=== PATIENT | female | born 1935 | race Caucasian/White ===

== ENCOUNTER 2016-10-30 12:01 | Emergency (ER) | payer OTHER ==
[~2016-10-30] VITALS: Ht 162.6 cm; Wt 50.2 kg
[~2016-10-30 12:01] MED LIST: ASPEC325 PO; CALC-20 PEG; CLC100X PO; INSDGI SC; LEVO75TA5 PO; MULT-506 PO; NRT/25 PO; PLV75 PO; POLY335019 PO
[2016-10-30 12:06] VITALS: TEMP 36.4; Ht 162.6 cm; Wt 50.2 kg
[2016-10-30] MEDS ORDERED: INSDGIPEN SC (12:17)
[2016-10-30] MEDS ORDERED: DOCU-94 PO (12:17)
[2016-10-30] MEDS ORDERED: CLOP1TAB5 PO (12:17)
[2016-10-30] MEDS ORDERED: ASPI325T45 PO (12:17)
--- NOTE | 2016-10-30 12:58 | EMERGENCY ROOM VISIT NOTE ---
History First contact with patient: 12:20 Chief Complaint: EYE PAIN Stated Complaint: EYE PAIN History of Present Illness The patient is a 81 year old female who presents to the Emergency Room with complaints of swelling and infection around the left eye. The patient states that she noticed an area of swelling to the left medial canthus. She saw her developer evangelist and was started on oral Zithromax. She states that she saw her family doctor today who referred her to the emergency department as the cyst is getting much larger. The patient states she has seen in the past. She rates her pain a 10/10. She has some decreased vision secondary to the amount of swelling. She denies any earache, sore throat, cough or fever. Review of Systems A 10 system review of systems was completed with positives and pertinent negatives listed in the HPI. Past Medical/Surgical History Medical Problems: (1) Eye problem (2) Hypertension Nos (3) Hypothyroidism (4) Neuropathy (5) Stroke (6) Type 2 diabetes mellitus Family History Cancer Diabetes mellitus Social History Smoking Status: Never Smoker Marital Status: Housing Status: lives with significant other Occupation Status: retired Current/Historical Medications Scheduled Amoxicillin & Pot Clavulanate (Augmentin 875-125 mg), 1 TAB PO BID Aspirin (Aspirin), 1 TAB PO DAILY Calcium Carbonate-Vitamin D (Calcium 600 + D), 1 TABLET PEG BID Ciprofloxacin Hcl (Ophth) (Ciloxan Oph), 2 DROP OP QID Clopidogrel Bisulfate (Plavix), 75 MG PO DAILY Docusate Sodium (Colace), 1 CAP PO BID Insulin Glargine (Lantus Solostar), 18 UNITS SC QAM Levothyroxine Sodium (Levothyroxine Sodium), 75 MCG PO DAILY Multivitamin (Multivitamin), 1 TABLET PO DAILY Nortriptyline Hcl (Pamelor), 25 MG PO HS Polyethylene Glycol 3350 (Miralax), 1 DOSE PO DAILY Physical Exam Vital Signs Date Time Temp Pulse Resp B/P (MAP) Pulse Ox O2 Delivery O2 Flow Rate FiO2 10/30/16 13:46 79 20 133/74 99 10/30/16 12:06 36.4 94 20 138/70 100 Room Air Right Eye Acuity: Patient unable to complete test due to not having her glasses Physical Exam VITALS: Vitals are noted on the nurse's note and reviewed by myself. Vital signs stable. GENERAL: This is a 81-year-old female, in no acute distress, nondiaphoretic, well-developed well-nourished. SKIN: There is no tenting of the skin. Capillary reflex less than 2 seconds. HEAD: Normocephalic atraumatic. EARS: External auditory canals clear, tympanic membranes pearly alfaro without erythema or effusion bilaterally. EYES: Pupils equal round and reactive to light and accommodation. Conjunctivae without injection, sclerae without icterus. Extraocular movements intact. There is a large fluctuant cyst to the left medial canthus that measures approximately 2 cm in diameter. There is some mild erythema that extends in the left periorbital area. There is no pain with extraocular eye movements. NOSE: Patent, turbinates without inflammation or discharge. No sinus tenderness. MOUTH: Mucous membranes moist. Tonsils are not enlarged. Pharynx without erythema or exudate. Uvula midline. Airway patent. Tongue does not deviate. NECK: Supple without nuchal rigidity. No lymphadenopathy. No thyromegaly. Cervical spine is nontender. No JVD. HEART: Regular rate and rhythm without murmurs gallops or rubs. LUNGS: Clear to auscultation bilaterally without wheezes, rales or rhonchi. MUSCULOSKELETAL: No muscle atrophy, erythema, or edema noted. Full range of motion in all extremities. No tenderness to palpation. Normal gait. Strength 5/5 throughout. NEURO: Patient was alert and oriented to person place and time. No focal neurological deficits. Medical Decision & Procedures Medications Administered Medications (Trade) Dose Ordered Sig/Rica Route Start Time Stop Time Status Last Admin Dose Admin Diphtheria/ Pertussis/Tetanus Vacc (Adacel Inj) 0.5 ml ONCE ONCE IM. 10/30/16 13:30 10/30/16 13:31 DC 10/30/16 13:40 0.5 ML Procedure Incision and drainage of infected cyst The area was cleaned with saline. I palpated to find the area of most fluctuance to perform the incision and drainage; however, with the pressure of the cyst spontaneously ruptured and began to drain a moderate amount of pus. A culture was obtained. The area was numbed with a very minimal amount of lidocaine, less than 0.5 mL. A large amount of purulent debris was expressed with pressure. The patient tolerated the procedure very well. She felt much better after the drainage. ED Course The patient was seen and examined. Previous visits were reviewed. The patient does not have a fever. She does not have any pain with extraocular eye movement. She appears to have an infected cyst to the medial canthus of the left eye. I discussed the case with Dr. Arenas who suggests draining the area, antibiotic eyedrops and oral antibiotic and follow-up in the office. The area was drained as above. The patient was given prescriptions for Ciloxan eyedrops to be used 4 times a day and Augmentin. She should contact ophthalmology tomorrow morning to schedule a follow-up appointment for further evaluation and management. She should return with any worsening symptoms. The patient was also seen and examined by who agrees with the assessment and treatment plan. Medical Decision The differential diagnosis includes cellulitis, preseptal cellulitis, abscess, cyst, hordeolum, chalazion, abscess, among others Medication Reconcilliation Current Medication List: was personally reviewed by me Blood Pressure Screening Patient's blood pressure: Elevated blood pressure Blood pressure disposition: Elevated BP felt to be situational Impression Primary Impression: Infected cyst of skin Departure Information Dispostion Home / Self-Care Condition GOOD Prescriptions Amoxicillin & Pot Clavulanate (Augmentin 875-125 mg) 1 Tab Tab 1 TAB PO BID for 7 Days, #14 TAB Prov: Carlotta Last PA-C 10/30/16 Ciprofloxacin Hcl (Ophth) (CILOXAN OPH) 0.3 % Chasidy 2 DROP OP QID for 5 Days, #1 BTL Prov: Carlotta Last PA-C 10/30/16 Referrals Sierra Richardson D.O. (PCP) Chirag Arenas M.D. Patient Instructions Drainage Abscess, My [facility] Additional Instructions Augmentin every 12 hours for 7 days Use the eyedrops every 6 hours for 5 days Contact ophthalmology first thing in the morning to schedule a follow-up appointment Return with any worsening symptoms
[2016-10-30] MEDS ORDERED: XYLOCAINE 1%/SOD BICARB 20 ML VIAL INFIL ONE (13:00)
[2016-10-30] MEDS ORDERED: CIPR0.3S OP (13:27)
[2016-10-30] MEDS ORDERED: AMOX875T PO (13:27)
[2016-10-30] MEDS ORDERED: DIPHTHERIA/TETANUS/PERTUSSIS 0.5 ML SYR/VIAL IM. ONE (13:30)
[2016-10-30 13:46] VITALS: BP 133/74; PULSE 79; O2SAT 99
--- NOTE | 2016-11-07 12:39 | Pharmacy Progress Note ---
ED Pharmacist Culture FollowUp Date of Service: Nov 07, 2016. Patient was sent home with a prescription for Augmentin, which should cover the Staph aureus (MSSA) growing from the patient's eye/abscess culture.
== END 2016-10-30 13:48 | disposition home or self-care (01) ==
LOC: C.EDB 12:03 → C.EDD 13:48
DX: L08.89 Other specified local infections of the skin and subcutaneous tissue (principal); I10 Essential (primary) hypertension; E03.9 Hypothyroidism, unspecified; E11.40 Type 2 diabetes mellitus with diabetic neuropathy, unspecified; Z86.73 Personal history of transient ischemic attack (TIA), and cerebral infarction without residual deficits; Z79.82 Long term (current) use of aspirin; Z79.4 Long term (current) use of insulin; Z83.3 Family history of diabetes mellitus; Z23 Encounter for immunization

== ENCOUNTER 2017-03-04 09:06 | Emergency (ER) | payer OTHER ==
[~2017-03-04] VITALS: Ht 162.6 cm; Wt 52.1 kg
[~2017-03-04 09:06] MED LIST changes: -ASPEC325 PO; +ASPI325T45 PO; -CLC100X PO; +CLOP1TAB5 PO; +DOCU-94 PO; -INSDGI SC; +INSDGIPEN SC; -PLV75 PO
[2017-03-04 09:08] VITALS: TEMP 36.6; Ht 162.6 cm; Wt 52.1 kg
[2017-03-04] MEDS ORDERED: ASPI81TA28 PO (09:25)
--- NOTE | 2017-03-04 09:46 | EMERGENCY ROOM VISIT NOTE ---
History Report prepared by Opal: Carlotta Mancia Under the Supervision of: Dr. Lester Mujica M.D. First contact with patient: 09:32 Chief Complaint: EYE ASSESSMENT Stated Complaint: SWOLLEN EYE History of Present Illness cPositive right eye blurry vision, right eye pain. She currently rates her discomfort as a 6/10 in severity. The patient states that this has happened in the past. Source of History: patient Onset: couple days ago Position: eye (left) Symptom Intensity: 6/10 Quality: other (swelling) Timing: other (persistent) Note: Associated symptoms: left eye blurred vision Review of Systems See HPI for pertinent positives and negatives. A total of ten systems were reviewed and were otherwise negative. Past Medical & Surgical Medical Problems: (1) Eye problem (2) Hypertension Nos (3) Hypothyroidism (4) Neuropathy (5) Stroke (6) Type 2 diabetes mellitus Family History Cancer Diabetes mellitus Social History Smoking Status: Never Smoker Smokeless Tobacco Use: No Alcohol Use: none Marital Status: Housing Status: lives with significant other Occupation Status: retired Current/Historical Medications Scheduled Aspirin (Aspirin Ec), 81 MG PO DAILY Calcium Carbonate-Vitamin D (Calcium 600 + D), 1 TABLET PEG BID Clindamycin Hcl (Cleocin), 450 MG PO TID Clopidogrel Bisulfate (Plavix), 75 MG PO DAILY Docusate Sodium (Colace), 1 CAP PO BID Insulin Glargine (Lantus Solostar), 4 UNITS SC QAM Levothyroxine Sodium (Levothyroxine Sodium), 75 MCG PO DAILY Multivitamin (Multivitamin), 1 TABLET PO DAILY Nortriptyline Hcl (Pamelor), 25 MG PO HS Polyethylene Glycol 3350 (Miralax), 1 DOSE PO DAILY Allergies Coded Allergies: Doxycycline (Verified Allergy, Severe, AIRWAY EDEMA, 03/04/17) Lisinopril (Unverified Allergy, Severe, ANGIOEDEMA, 03/04/17) Sertraline (Verified Allergy, Severe, THROAT SWELLING, 03/04/17) Prednisolone (Verified Allergy, Intermediate, BURNED EYES, 03/04/17) Atenolol (Unverified Adverse Reaction, Intermediate, SWELLING, 03/04/17) Codeine (Unverified Adverse Reaction, Intermediate, GI UPSET, 03/04/17) Ezetimibe (Unverified Adverse Reaction, Intermediate, SINUS PROBLEMS, ) Gemfibrozil (Unverified Adverse Reaction, Intermediate, MUSCLE ACHES, ) Glipizide (Verified Adverse Reaction, Intermediate, GI UPSET, 03/04/17) Oxycodone (Verified Adverse Reaction, Intermediate, VOMITING, 03/04/17) Pioglitazone (Unverified Adverse Reaction, Intermediate, SWELLING, ) Repaglinide (Unverified Adverse Reaction, Intermediate, NAUSEA, 03/04/17) Aminoglycosides (Unverified Adverse Reaction, Mild, UNKNOWN, 03/04/17) Bacitracin (Unverified Adverse Reaction, Mild, UNKNOWN, 03/04/17) Metformin (Unverified Adverse Reaction, Mild, UNKNOWN, 03/04/17) Neomycin (Unverified Adverse Reaction, Mild, UNKNOWN, 03/04/17) Polymyxin B (Unverified Adverse Reaction, Mild, UNKNOWN, 03/04/17) Simvastatin (Unverified Adverse Reaction, Mild, UNKNOWN, 03/04/17) Tetracycline (Unverified Adverse Reaction, Mild, UNKNOWN, 03/04/17) Physical Exam Vital Signs Date Time Temp Pulse Resp B/P (MAP) Pulse Ox O2 Delivery O2 Flow Rate FiO2 03/04/17 12:37 87 18 130/55 96 Room Air 03/04/17 11:10 94 18 119/63 96 Room Air 03/04/17 09:08 36.6 84 18 119/63 100 Room Air Right Eye Acuity: 20/70 Left Eye Acuity: 20/50 Physical Exam GENERAL: Awake, alert, well-appearing, NAD, patient appears stated age. HENT: Normocephalic, atraumatic. EYES: Eyes only: some preseptal swelling medial to the canthus and inferior to the eye. EOMI without pain, no proptosis, visual acuity intact, no visual field deficits, no APD NECK: Supple. No nuchal rigidity. FROM. RESPIRATORY: CTAB, no rhonchi, wheezing, crackles CARDIAC: RRR, no MRG ABDOMEN: Soft, NTND, BS+ MSK: No chest wall TTP, no LE edema NEURO: GCS 15, CN 2-12 intact, moves all 4s on command SKIN: No rash or jaundice noted. Medical Decision & Procedures Laboratory Results 03/04/17 11:00 Red Blood Count 4.34, Mean Corpuscular Volume 94.9, Mean Corpuscular Hemoglobin 31.3, Mean Corpuscular Hemoglobin Concent 33.0, Mean Platelet Volume 9.4, Neutrophils (%) (Auto) 81.5, Lymphocytes (%) (Auto) 9.3, Monocytes (%) (Auto) 8.2, Eosinophils (%) (Auto) 0.3, Basophils (%) (Auto) 0.4, Neutrophils # (Auto) 7.71, Lymphocytes # (Auto) 0.88, Monocytes # (Auto) 0.78, Eosinophils # (Auto) 0.03, Basophils # (Auto) 0.04 03/04/17 11:00 Test 03/04/17 11:00 White Blood Count 9.47 K/uL (4.8-10.8) Red Blood Count 4.34 M/uL (4.2-5.4) Hemoglobin 13.6 g/dL (12.0-16.0) Hematocrit 41.2 % (37-47) Mean Corpuscular Volume 94.9 fL (80-100) Mean Corpuscular Hemoglobin 31.3 pg (25-34) Mean Corpuscular Hemoglobin Concent 33.0 g/dl (32-36) Platelet Count 307 K/uL (130-400) Mean Platelet Volume 9.4 fL (7.4-10.4) Neutrophils (%) (Auto) 81.5 % Lymphocytes (%) (Auto) 9.3 % Monocytes (%) (Auto) 8.2 % Eosinophils (%) (Auto) 0.3 % Basophils (%) (Auto) 0.4 % Neutrophils # (Auto) 7.71 K/uL (1.4-6.5) Lymphocytes # (Auto) 0.88 K/uL (1.2-3.4) Monocytes # (Auto) 0.78 K/uL (0.11-0.59) Eosinophils # (Auto) 0.03 K/uL (0-0.5) Basophils # (Auto) 0.04 K/uL (0-0.2) RDW Standard Deviation 46.3 fL (36.4-46.3) RDW Coefficient of Variation 13.3 % (11.5-14.5) Immature Granulocyte % (Auto) 0.3 % Immature Granulocyte # (Auto) 0.03 K/uL (0.00-0.02) Anion Gap 5.0 mmol/L (3-11) Est Creatinine Clear Calc Drug Dose 51.3 ml/min Estimated GFR () 91.7 Estimated GFR (Non- 79.1 BUN/Creatinine Ratio 25.9 (10-20) Calcium Level 9.5 mg/dl (8.5-10.1) Medications Administered Medications (Trade) Dose Ordered Sig/Rica Route Start Time Stop Time Status Last Admin Dose Admin Clindamycin Phosphate 900 mg/ Dextrose 106 ml @ 100 mls/hr ONE ONCE IV 03/04/17 10:15 03/04/17 11:18 DC 03/04/17 10:57 100 MLS/HR ED Course 0937: The patient was evaluated in room A4B. A complete history and physical exam was performed. 1129: I reevaluated the patient and she is resting comfortably. I discussed the exam findings with her at this time. Ophthalmology is going to be consulted. 1210: I discussed the patients case with Dr. Hester, Ophthalmology. He agrees with the treatment plan. 1215: I updated the patient at this time and she is in agreement with the treatment plan. She is ready to go home. Medical Decision The patient is an 82 year old white female with a past medical history of diabetes who presents to the ED with a cc of persistent left eye swelling beginning a couple days ago. Triage Nursing notes reviewed. The patient's presentation and history were concerning for preseptal cellulitis , orbital cellulitis, dacryocystitis. Patient was seen and evaluated the bedside. Patient is a history of diabetes and states that she's had some worsening left eye swelling beginning a couple of days prior. Patient states her blood sugars morning 130s. Patient has complaints mild blurry vision but no deficits. Patient exam has no APD, no visual field deficits, EOM intact without pain. Patient does have some mild swelling the medial aspect of the left eye as well as preseptal. Patient did have a blood work that was completed and was given IV clindamycin. I did speak with the speed belt sander tender. Patient's white blood cell count was normal. I did discuss the case with food on-call speed belt sander tender who agreed with the current plan of care which was antibiotics in addition to warm compresses. The patient was told that if she had worsening swelling, purulent drainage, pain with extraocular movements she should return for further evaluation. Patient was amenable to the plan of care. Patient was deemed suitable for outpatient follow-up and treatment. Patient does have a outpatient appointment next Monday and was told she can present here sooner if she has more concerning symptoms. All questions were answered. Patient was given strict follow-up, discharge, and return precautions. All questions were answered. Patient was deemed suitable for outpatient follow-up at this time. Patient agreed with the plan of care and was safely discharged home. Medication Reconcilliation Current Medication List: was personally reviewed by me Blood Pressure Screening Patient's blood pressure: Normal blood pressure Blood pressure disposition: Did not require urgent referral Consults Time Called: 1135 Consulting Physician: Dr. Hester, Ophthalmology Returned Call: 1210 discussed the patients case with Dr. Hester, Ophthalmology. He agrees with the treatment plan. Impression Primary Impression: Dacrocystitis Scribe Attestation The scribe's documentation has been prepared under my direction and personally reviewed by me in its entirety. I confirm that the note above accurately reflects all work, treatment, procedures, and medical decision making performed by me. Departure Information Dispostion Home / Self-Care Prescriptions Clindamycin Hcl (CLEOCIN) 150 Mg Cap 450 MG PO TID for 7 Days, #63 CAP Prov: Lester Mujica M.D. 03/04/17 Referrals No Doctor, Assigned (PCP) Forms HOME CARE DOCUMENTATION FORM, IMPORTANT VISIT INFORMATION, WORK / SCHOOL INSTRUCTIONS Patient Instructions Cellulitis Dc, My [facility] Additional Instructions Please return to the emergency department if you have worsening or recurrent symptoms not amenable to at-home treatment. Please call for a follow-up appointment with her primary care physician. Please take your medications as prescribed. If you have other concerns and/or complaints please feel free to also call your primary care physician's office or return the ED for further evaluation, management, and treatment. You may take 200 mg Ibuprofen every 6 hours as needed for pain with food for no more than 2 consecutive days. You may take tylenol 650 mg every 6 hours as needed for pain. You may take motrin and tylenol separately or at the same time. Take your medications as prescribed. He may apply warm compresses to the area. Do not squeeze the area. If you have painful movements of the eye or are unable to move the eye please return to the emergency department for further evaluation. Please keep her follow-up appointment with the eye doctor this Monday. You have been examined and treated today on an emergency basis only. This is not a substitute for, or an effort to provide, complete comprehensive medical care. It is impossible to recognize and treat all injuries or illnesses in a single emergency department visit. It is therefore important that you follow up closely with [facility], your PCP, and/or your specialist(s). Call as soon as possible for an appointment. Thank you for your time and consideration. I look forward to speaking with you again soon. Please don't hesitate to call us if you have any questions. Problem Qualifiers Primary Impression: Dacrocystitis Laterality: left Qualified Codes: H04.302 - Unspecified dacryocystitis of left lacrimal passage
[2017-03-04] MEDS ORDERED: CLINDAMYCIN IV 900 MG in DEXTROSE 5% 100ML 100 ML IV ONE (10:15)
[2017-03-04 11:14] LABS: BASO % 0.4 %; BASO ABS # 0.04 K/uL (0-0.2); COMPLETE YES; EOS % 0.3 %; HEMATOCRIT 41.2 % (37-47); IG% 0.3 %; LYMPH % 9.3 %; LYMPH ABS # 0.88 K/uL (1.2-3.4); MEAN CELL VOLUME 94.9 fL (80-100); MEAN CORPUSCULAR HEMOGLOBIN 31.3 pg (25-34); MEAN PLATELET VOLUME 9.4 fL (7.4-10.4); MONO % 8.2 %; NEUT % 81.5 %; PLATELET COUNT 307 K/uL (130-400); RED BLOOD COUNT 4.34 M/uL (4.2-5.4); WHITE BLOOD COUNT 9.47 K/uL (4.8-10.8)
[2017-03-04 11:31] LABS: BUN/CREATININE RATIO 25.9 (10-20); CALCIUM 9.5 mg/dl (8.5-10.1); CREATININE 0.72 mg/dl (0.60-1.20); POTASSIUM 3.9 mmol/L (3.5-5.1)
[2017-03-04] MEDS ORDERED: CLIN150C PO (12:19)
[2017-03-04 12:37] VITALS: BP 130/55; PULSE 87; O2SAT 96
== END 2017-03-04 12:39 | disposition home or self-care (01) ==
LOC: C.EDB 09:08 → C.EDA 12:39
DX: H04.302 Unspecified dacryocystitis of left lacrimal passage (principal); I10 Essential (primary) hypertension; E03.9 Hypothyroidism, unspecified; E11.40 Type 2 diabetes mellitus with diabetic neuropathy, unspecified; Z86.73 Personal history of transient ischemic attack (TIA), and cerebral infarction without residual deficits; Z83.3 Family history of diabetes mellitus; Z79.82 Long term (current) use of aspirin; Z79.4 Long term (current) use of insulin

== ENCOUNTER 2017-06-25 19:47 | Inpatient (IN) | payer OTHER ==
[~2017-06-25] VITALS: Ht 162.6 cm; Wt 54.1 kg
[~2017-06-25 19:47] MED LIST changes: -ASPI325T45 PO; +ASPI81TA28 PO
[2017-06-25] MEDS ORDERED: LACTATED RINGER'S 1000ML 1,000 ML IV SCH (20:05)
[2017-06-25] MEDS ORDERED: ACETAMINOPHEN 500 MG TAB PO PRN (20:15)
[2017-06-25] MEDS ORDERED: HYDROmorphone INJ 0.5 MG/0.5 ML SYR IV PRN ×2 (20:15)
[2017-06-25 20:26] LABS: BASO % 0.3 %; BASO ABS # 0.03 K/uL (0-0.2); EOS % 0.1 %; EOS ABS # 0.01 K/uL (0-0.5); HEMATOCRIT 35.2 % (37-47); HEMOGLOBIN 11.6 g/dL (12.0-16.0); IG# 0.02 K/uL (0.00-0.02); LYMPH % 11.2 %; LYMPH ABS # 1.05 K/uL (1.2-3.4); MEAN CELL VOLUME 93.1 fL (80-100); MEAN CORPUSCULAR HEMOGLOBIN 30.7 pg (25-34); MONO % 6.5 %; MONO ABS # 0.61 K/uL (0.11-0.59); NEUT % 81.7 %; NEUT ABS # 7.64 K/uL (1.4-6.5); PLATELET COUNT 288 K/uL (130-400); RED CELL DISTRIBUTION WIDTH CV 14.1 % (11.5-14.5); RED CELL DISTRIBUTION WIDTH SD 47.9 fL (36.4-46.3); WHITE BLOOD COUNT 9.36 K/uL (4.8-10.8)
[2017-06-25 20:52] LABS: BLOOD UREA NITROGEN 38 mg/dl (7-18); CALCIUM 8.6 mg/dl (8.5-10.1); CARBON DIOXIDE 30 mmol/L (21-32); CREATININE 0.98 mg/dl (0.60-1.20); GLUCOSE 207 mg/dl (70-99); POTASSIUM 4.1 mmol/L (3.5-5.1); SODIUM 137 mmol/L (136-145)
[2017-06-25] MEDS ORDERED: OFLO0.3S OPL (21:13)
--- NOTE | 2017-06-25 21:16 | DIAGNOSTIC IMAGING REPORT ---
R FEMUR 2 VIEWS ROUTINE HISTORY: 82 years-old Female fall, deformity acute right hip pain status post fall COMPARISON: None available TECHNIQUE: 2 views of the right femur FINDINGS: Bones appear mildly demineralized which limits evaluation for acute nondisplaced fracture. Moderate degenerative changes of the femoral acetabular joint without acute fracture or dislocation identified. Degenerative changes are noted about the right knee. No large knee joint effusion identified. Peripheral vascular disease. IMPRESSION: 1. Osteopenia limits evaluation for acute nondisplaced fracture. No acute fracture or dislocation is identified. If of further clinical concern for possible hip fracture, dedicated right hip radiographs should be considered. 2. Moderate degenerative changes of the right hip. 3. Peripheral vascular disease. The above report was generated using voice recognition software. It may contain grammatical, syntax or spelling errors. Electronically signed by: Zay Ragland M.D. 06/25/2017 9:14 PM Dictated Date/Time: 06/25/2017 9:10 PM
--- NOTE | 2017-06-25 21:19 | DIAGNOSTIC IMAGING REPORT ---
CHEST ONE VIEW PORTABLE HISTORY: 82 years-old Female fall, hip fx acute chest trauma status post fall COMPARISON: None available TECHNIQUE: Portable AP view of the chest FINDINGS: Cardiac silhouette is mildly enlarged. Dense calcifications of the mitral annulus are noted in addition to atherosclerotic disease of the aorta. There is no pneumothorax, pleural effusion, focal airspace consolidation or overt pulmonary edema. The bones of the chest appear grossly intact and are demineralized. Degenerative changes are seen within the spine and shoulders. IMPRESSION: Mild cardiomegaly without acute process. The above report was generated using voice recognition software. It may contain grammatical, syntax or spelling errors. Electronically signed by: Zay Ragland M.D. 06/25/2017 9:17 PM Dictated Date/Time: 06/25/2017 9:13 PM
[2017-06-25] MEDS ORDERED: ONDANSETRON INJ 2 MG/ML 2 ML VIAL ONE (22:00)
--- NOTE | 2017-06-25 22:11 | DIAGNOSTIC IMAGING REPORT ---
R HIP-LOWER EXTREMITY WITHOUT HISTORY: 82 years-old Female fall, right sided injury, go lower on femur to area of bruising acute right leg pain and swelling status post fall COMPARISON: Right femur radiographs of same day TECHNIQUE: Multiple axial CT images of the right femur were obtained without IV contrast. Coronal and sagittal reformatted images were obtained from the axial data set and were submitted for review. A dose lowering technique was used consistent with the principals of ALARA. FINDINGS: The bones appear osteopenic. Sclerotic millimeter focus involving the medullary cavity of the proximal femoral diaphysis is noted suggesting benign etiology. Moderate joint space narrowing of the right femoral acetabular joint. Imaged right hemipelvis appears intact. The acetabulum and imaged right femur are also intact without acute fracture or dislocation. Mild marginal spurring about the greater trochanter. There is moderate volume of formed colonic stool within the imaged pelvis suggesting constipation. Acevedo catheter is noted within a partially collapsed urinary bladder lumen. Arcuate calcifications are seen surrounding the uterus. There is a large intramuscular hematoma involving the proximal and mid right thigh anteriorly centered within the distribution of the vastus intermedius and to a lesser extent within the vastus lateralis measuring approximately 5.4 x 7.7 x 20.0 cm in AP, transverse and craniocaudal dimensions. Mild associated subcutaneous edema is noted laterally. Calcifications are noted within the superficial femoral artery. IMPRESSION: 1. Osteopenic appearance of the bones without acute fracture or dislocation. 2. Large intramuscular hematoma of the anterior proximal and mid thigh is centered within the vastus intermedius measuring approximately 5.4 x 7.7 x 20.0 cm. 3. Moderate constipation. The above report was generated using voice recognition software. It may contain grammatical, syntax or spelling errors. Electronically signed by: Zay Ragland M.D. 06/25/2017 10:10 PM Dictated Date/Time: 06/25/2017 10:00 PM
[2017-06-25] MEDS ORDERED: METOCLOPRAMIDE HCL INJ 5 MG/ML 2 ML VIAL IV STA ×2 (22:22→22:55)
[2017-06-25] MEDS ORDERED: DiphenhydrAMINE HCL 50 MG/ML VIAL IV STA (22:55)
[2017-06-25] MEDS ORDERED: SODIUM CHLORIDE 0.9% 500ML 500 ML IV STA (22:55)
[2017-06-25 23:16] LABS: ALBUMIN 3.6 gm/dl (3.4-5.0); ALKALINE PHOSPHATASE 90 U/L (45-117); ALT/SGPT 28 U/L (12-78); AST/SGOT 22 U/L (15-37); TOTAL PROTEIN 6.9 gm/dl (6.4-8.2)
[2017-06-25] MEDS ORDERED: GLUCOSE 40% GEL 15 GM TUBE PO PRN (23:30)
[2017-06-25] MEDS ORDERED: GLUCAGON FOR INJ 1 MG VIAL SQ PRN (23:30)
[2017-06-25] MEDS ORDERED: TRAMADOL HCL 50 MG TAB PO PRN (23:30)
[2017-06-25] MEDS ORDERED: PROCHLORPERAZINE INJ 5 MG in SYRINGE 4 ML IV PRN (23:30)
[2017-06-25] MEDS ORDERED: MoRPHine SULFATE 2 MG/ML CARP IV PRN (23:30)
[2017-06-25] MEDS ORDERED: GLUCOSE 10 TABS/TUBE PO PRN (23:30)
[2017-06-25] MEDS ORDERED: SODIUM CHLORIDE 0.9% 1000ML 1,000 ML IV ONE (23:30)
[2017-06-25] MEDS ORDERED: ACETAMINOPHEN 325 MG TAB PO PRN (23:30)
[2017-06-25] MEDS ORDERED: DEXTROSE 50% 50 ML SYR IV PRN (23:30)
[2017-06-26] MEDS ORDERED: INSULIN ASPART 100 UNITS/ML 3 ML PEN SC ONE
[2017-06-26] MEDS ORDERED: NORTRIPTYLINE HCL 25 MG CAP PO ONE
--- NOTE | 2017-06-26 00:12 | EMERGENCY ROOM VISIT NOTE ---
History Report prepared by Opal: Deyvi Mcdonald Under the Supervision of: Dr. Mike Fisher M.D. First contact with patient: 19:56 Stated Complaint: FALL/ R FEMUR, DEFORMED History of Present Illness The patient is an 82 year old female who presents to the Emergency Room with complaints of constant right, upper leg pain beginning prior to arrival. The patient states she was outside walking with her son. She reports she was walking across the path to enter her house and she fell. The patient notes she fell on to her right leg. She was given 2 morphine and 4 Zofran by EMS in route. The patient states her pain is currently a 0/10, but movement increases her pain to a 10/10. She reports she has not been evaluated by an orthopedic before, she has not had any joints replaced, and she has not broken a bone. Pt denies hitting her head, LOC, headache, visual changes, neck pain, chest pain, breathing difficulties, nausea, vomiting, abdominal pain, back pain, numbness, weakness, open wounds, active bleeding, or other complaints. Source of History: patient Onset: prior to arrival Position: leg (right, upper) Symptom Intensity: 0/10 currently Timing: constant Modifying Factors (Worsening): movement (raises pain to a 10/10) Modifying Factors (Relieving): other (Zofran and Morphine) Review of Systems See HPI for pertinent positives and negatives. A total of ten systems were reviewed and were otherwise negative. Past Medical & Surgical Medical Problems: (1) Eye problem (2) Hematoma (3) Hypertension Nos (4) Hypothyroidism (5) Neuropathy (6) Stroke (7) Type 2 diabetes mellitus Family History Cancer Diabetes mellitus Social History Smoking Status: Never Smoker Alcohol Use: none Marital Status: Housing Status: lives with significant other Occupation Status: retired Current/Historical Medications Scheduled Aspirin (Aspirin Ec), 81 MG PO DAILY Calcium Carbonate-Vitamin D (Calcium 600 + D), 1 TABLET PEG BID Clopidogrel Bisulfate (Plavix), 75 MG PO DAILY Docusate Sodium (Colace), 1 CAP PO BID Insulin Glargine (Lantus Solostar), 4 UNITS SC QAM Levothyroxine Sodium (Levothyroxine Sodium), 75 MCG PO DAILY Multivitamin (Multivitamin), 1 TABLET PO DAILY Nortriptyline Hcl (Pamelor), 25 MG PO HS Ofloxacin (Oph) (Ocuflox Oph Soln), 1 DROPS OPL BID Polyethylene Glycol 3350 (Miralax), 1 DOSE PO DAILY Allergies Coded Allergies: Doxycycline (Verified Allergy, Severe, AIRWAY EDEMA, 06/25/17) Lisinopril (Verified Allergy, Severe, ANGIOEDEMA, 06/25/17) Sertraline (Verified Allergy, Severe, THROAT SWELLING, 06/25/17) Hydromorphone (Verified Allergy, Intermediate, Dizzy, diaphoretic, nausea , vomiting, 06/25/17) Prednisolone (Verified Allergy, Intermediate, BURNED EYES, 06/25/17) Simvastatin (Verified Adverse Reaction, Severe, MUSCLE ACHES, FATIGUE, ) Atenolol (Verified Adverse Reaction, Intermediate, SWELLING, 06/25/17) Codeine (Verified Adverse Reaction, Intermediate, GI UPSET, 06/25/17) Ezetimibe (Verified Adverse Reaction, Intermediate, SINUS PROBLEMS, ) Gemfibrozil (Verified Adverse Reaction, Intermediate, MUSCLE ACHES, ) Glipizide (Verified Adverse Reaction, Intermediate, GI UPSET, 06/25/17) Morphine and Related (Verified Adverse Reaction, Intermediate, GI SYMPTOMS , 06/25/17) Oxycodone (Verified Adverse Reaction, Intermediate, VOMITING, 06/25/17) Pioglitazone (Verified Adverse Reaction, Intermediate, SWELLING, 06/25/17) Repaglinide (Verified Adverse Reaction, Intermediate, NAUSEA, 06/25/17) Aminoglycosides (Verified Adverse Reaction, Mild, UNKNOWN, 06/25/17) Bacitracin (Verified Adverse Reaction, Mild, CONTACT DERMATITIS, 06/25/17) Metformin (Verified Adverse Reaction, Mild, UNKNOWN, 06/25/17) Neomycin (Verified Adverse Reaction, Mild, CONTACT DERMATITIS, 06/25/17) Polymyxin B (Verified Adverse Reaction, Mild, CONTACT DERMATITIS, 06/25/17) Tetracycline (Verified Adverse Reaction, Mild, UNKNOWN, 06/25/17) Physical Exam Vital Signs Date Time Temp Pulse Resp B/P (MAP) Pulse Ox O2 Delivery O2 Flow Rate FiO2 06/25/17 22:05 109 18 111/63 97 Room Air 06/25/17 21:02 108 17 136/105 98 Room Air 06/25/17 20:06 116 06/25/17 19:50 36.8 110 18 149/75 95 Room Air Physical Exam GENERAL: Awake, alert, uncomfortable appearing, no distress HEAD: Normocephalic, atraumatic. No meadows sign. No raccoon eyes. EYES: Normal conjunctiva. PERRL. EARS: External ears normal. Right TM normal. Left TM normal. NOSE: Atraumatic OROPHARYNX: Lips, tongue, and mucosa unremarkable. No erythema or exudate. NECK: No tracheal deviation or JVD. No posterior midline tenderness. No step offs noted. RESPIRATORY: CTA bilaterally. Breath sounds equal. No wheezes. No rhonchi. Normal respiratory effort. CARDIAC: Borderline tachycardic, but regular rate, normal rhythm. No murmurs. No rubs. ABDOMEN: Inspection reveals no abnormalities. Soft, non distended. No tenderness to palpation. No hernias. PELVIS: Stable to rock. SKIN: Normal. LYMPH: No adenopathy. MUSCULOSKELETAL: Ecchymosis and swelling to the upper lateral thigh with associated tenderness upon palpation. Otherwise normal. NEURO: GCS 15. Normal sensorium. No sensory or motor deficits noted. Medical Decision & Procedures ER Provider Diagnostic Interpretation: Radiology results as stated below per my review and radiologist interpretation: CHEST ONE VIEW PORTABLE HISTORY: 82 years-old Female fall, hip fx acute chest trauma status post fall COMPARISON: None available TECHNIQUE: Portable AP view of the chest FINDINGS: Cardiac silhouette is mildly enlarged. Dense calcifications of the mitral annulus are noted in addition to atherosclerotic disease of the aorta. There is no pneumothorax, pleural effusion, focal airspace consolidation or overt pulmonary edema. The bones of the chest appear grossly intact and are demineralized. Degenerative changes are seen within the spine and shoulders. IMPRESSION: Mild cardiomegaly without acute process. The above report was generated using voice recognition software. It may contain grammatical, syntax or spelling errors. Electronically signed by: Zay Ragland M.D. 06/25/2017 9:17 PM Dictated Date/Time: 06/25/2017 9:13 PM R FEMUR 2 VIEWS ROUTINE HISTORY: 82 years-old Female fall, deformity acute right hip pain status post fall COMPARISON: None available TECHNIQUE: 2 views of the right femur FINDINGS: Bones appear mildly demineralized which limits evaluation for acute nondisplaced fracture. Moderate degenerative changes of the femoral acetabular joint without acute fracture or dislocation identified. Degenerative changes are noted about the right knee. No large knee joint effusion identified. Peripheral vascular disease. IMPRESSION: 1. Osteopenia limits evaluation for acute nondisplaced fracture. No acute fracture or dislocation is identified. If of further clinical concern for possible hip fracture, dedicated right hip radiographs should be considered. 2. Moderate degenerative changes of the right hip. 3. Peripheral vascular disease. The above report was generated using voice recognition software. It may contain grammatical, syntax or spelling errors. Electronically signed by: Zay Ragland M.D. 06/25/2017 9:14 PM Dictated Date/Time: 06/25/2017 9:10 PM R HIP-LOWER EXTREMITY WITHOUT HISTORY: 82 years-old Female fall, right sided injury, go lower on femur to area of bruising acute right leg pain and swelling status post fall COMPARISON: Right femur radiographs of same day TECHNIQUE: Multiple axial CT images of the right femur were obtained without IV contrast. Coronal and sagittal reformatted images were obtained from the axial data set and were submitted for review. A dose lowering technique was used consistent with the principals of ANDRÉS. FINDINGS: The bones appear osteopenic. Sclerotic millimeter focus involving the medullary cavity of the proximal femoral diaphysis is noted suggesting benign etiology. Moderate joint space narrowing of the right femoral acetabular joint. Imaged right hemipelvis appears intact. The acetabulum and imaged right femur are also intact without acute fracture or dislocation. Mild marginal spurring about the greater trochanter. There is moderate volume of formed colonic stool within the imaged pelvis suggesting constipation. Acevedo catheter is noted within a partially collapsed urinary bladder lumen. Arcuate calcifications are seen surrounding the uterus. There is a large intramuscular hematoma involving the proximal and mid right thigh anteriorly centered within the distribution of the vastus intermedius and to a lesser extent within the vastus lateralis measuring approximately 5.4 x 7.7 x 20.0 cm in AP, transverse and craniocaudal dimensions. Mild associated subcutaneous edema is noted laterally. Calcifications are noted within the superficial femoral artery. IMPRESSION: 1. Osteopenic appearance of the bones without acute fracture or dislocation. 2. Large intramuscular hematoma of the anterior proximal and mid thigh is centered within the vastus intermedius measuring approximately 5.4 x 7.7 x 20.0 cm. 3. Moderate constipation. The above report was generated using voice recognition software. It may contain grammatical, syntax or spelling errors. Electronically signed by: Zay Ragland M.D. 06/25/2017 10:10 PM Dictated Date/Time: 06/25/2017 10:00 PM Laboratory Results 06/25/17 20:17 Red Blood Count 3.78, Mean Corpuscular Volume 93.1, Mean Corpuscular Hemoglobin 30.7, Mean Corpuscular Hemoglobin Concent 33.0, Mean Platelet Volume 9.0, Neutrophils (%) (Auto) 81.7, Lymphocytes (%) (Auto) 11.2, Monocytes (%) (Auto) 6.5, Eosinophils (%) (Auto) 0.1, Basophils (%) (Auto) 0.3, Neutrophils # (Auto) 7.64, Lymphocytes # (Auto) 1.05, Monocytes # (Auto) 0.61, Eosinophils # (Auto) 0.01, Basophils # (Auto) 0.03 06/25/17 20:17 Test 06/25/17 20:17 06/25/17 20:51 White Blood Count 9.36 K/uL (4.8-10.8) Red Blood Count 3.78 M/uL (4.2-5.4) Hemoglobin 11.6 g/dL (12.0-16.0) Hematocrit 35.2 % (37-47) Mean Corpuscular Volume 93.1 fL (80-100) Mean Corpuscular Hemoglobin 30.7 pg (25-34) Mean Corpuscular Hemoglobin Concent 33.0 g/dl (32-36) Platelet Count 288 K/uL (130-400) Mean Platelet Volume 9.0 fL (7.4-10.4) Neutrophils (%) (Auto) 81.7 % Lymphocytes (%) (Auto) 11.2 % Monocytes (%) (Auto) 6.5 % Eosinophils (%) (Auto) 0.1 % Basophils (%) (Auto) 0.3 % Neutrophils # (Auto) 7.64 K/uL (1.4-6.5) Lymphocytes # (Auto) 1.05 K/uL (1.2-3.4) Monocytes # (Auto) 0.61 K/uL (0.11-0.59) Eosinophils # (Auto) 0.01 K/uL (0-0.5) Basophils # (Auto) 0.03 K/uL (0-0.2) RDW Standard Deviation 47.9 fL (36.4-46.3) RDW Coefficient of Variation 14.1 % (11.5-14.5) Immature Granulocyte % (Auto) 0.2 % Immature Granulocyte # (Auto) 0.02 K/uL (0.00-0.02) Prothrombin Time 10.6 SECONDS (9.0-12.0) Prothromb Time International Ratio 1.0 (0.9-1.1) Activated Partial Thromboplast Time 22.0 SECONDS (21.0-31.0) Partial Thromboplastin Ratio 0.8 Anion Gap 5.0 mmol/L (3-11) Est Creatinine Clear Calc Drug Dose 39.6 ml/min Estimated GFR () 63.1 Estimated GFR (Non- 54.5 BUN/Creatinine Ratio 38.8 (10-20) Calcium Level 8.6 mg/dl (8.5-10.1) Total Bilirubin 0.2 mg/dl (0.2-1) Direct Bilirubin < 0.1 mg/dl (0-0.2) Aspartate Amino Transf (AST/SGOT) 22 U/L (15-37) Alanine Aminotransferase (ALT/SGPT) 28 U/L (12-78) Alkaline Phosphatase 90 U/L (45-117) Total Protein 6.9 gm/dl (6.4-8.2) Albumin 3.6 gm/dl (3.4-5.0) Urine Color YELLOW Urine Appearance CLEAR (CLEAR) Urine pH 6.5 (4.5-7.5) Urine Specific [place] 1.022 (1.000-1.030) Urine Protein NEG (NEG) Urine Glucose (UA) NEG (NEG) Urine Ketones TRACE (NEG) Urine Occult Blood NEG (NEG) Urine Nitrite NEG (NEG) Urine Bilirubin NEG (NEG) Urine Urobilinogen NEG (NEG) Urine Leukocyte Esterase NEG (NEG) Laboratory results reviewed by me Medications Administered Medications (Trade) Dose Ordered Sig/Rica Route Start Time Stop Time Status Last Admin Dose Admin Lactated Ringer's 1,000 ml @ 75 mls/hr [id number] IV 06/25/17 20:05 06/25/17 23:37 DC 06/25/17 21:01 75 MLS/HR Hydromorphone HCl (Dilaudid Inj) 0.5 mg Q20M PRN IV 06/25/17 20:15 06/25/17 23:37 DC 06/25/17 22:08 0.5 MG Ondansetron HCl (Zofran Inj) 4 mg STK-MED ONCE .ROUTE 06/25/17 22:00 06/25/17 22:01 DC 06/25/17 22:03 4 MG Metoclopramide HCl (Reglan Inj) 5 mg NOW STAT IV 06/25/17 22:22 06/25/17 22:23 DC 06/25/17 22:33 5 MG ED Course 2001: The patient was evaluated in room B09. A complete history and physical exam was performed. 2005: Ordered Lactated Ringer's 1000ml @ 75mls/hr IV 2015: Ordered Hydromorphone HCl 0.5mg IV, Acetaminophen 1000mg PO 2137: I reevaluated the patient. I informed her that all of her test results are back and a CT is needed. 2151: The patient has started vomiting. 0: Ordered Ondansetron HCl 4mg .ROUTE 2222: Ordered Metoclopramide HCl 5mg 2231: Upon reexamination, the patient was resting comfortably. I discussed the test results and treatment plan with her. The patient will be evaluated for further management. 2237: I discussed the patient's case with Dr. Snyder, [facility]. The patient will be evaluated for further management and care. 2340: Patient was reassessed. She is feeling better. Her nausea is now under control. Her heart rate is borderline elevated. No hypotension. Pain is under control at the moment. Medical Decision Prior records reviewed and summarized above. Triage Nursing notes reviewed and agree them. The patient's history was concerning for traumatic injury. Differential diagnosis: Etiologies such as fracture, dislocation, neurovascular compromise, compartment syndrome, soft tissue injury, as well as others were entertained. Physical examination: Consistent with an isolated leg injury. ER treatment provided: IV lock Zofran 4mg IV Acevedo catheter IV Dilaudid NPO Bedrest On reassessment the patient was nauseated. She was given additional Zofran. She was still nauseated and vomited. The patient was given 2 doses of IV Reglan and a small dose of IV Benadryl. IV normal saline 500 mL bolus On reassessment she was doing much better. Diagnostics interpreted by me: The labs revealed an unremarkable wBC, coags, and chemistry panel. The patient' s hemoglobin was slightly diminished from prior. This recent from last year was in the 13s, she is now down into the mid 11 range. Imaging studies: Xray and CT scan as above. The patient does not appear to be suffering from a fracture or dislocation. She has a large thigh hematoma. She is not on anticoagulation. She has severe pain with movement of the leg. Unfortunately Dilaudid did make her very nauseated. Further management in the hospital and monitoring of her H&H will be necessary. Consultation: A consultation was placed with internal medicine. The case was discussed and diagnostics were reviewed. The patient was evaluated in the ER for further treatment. The chart was completed utilizing [employer] voice recognition software. Grammatical errors, random word insertions, pronoun errors, and incomplete sentences are an occasional consequence of this system due to software limitations, ambient noise, and hardware issues. Any formal questions or concerns about the content, text, or information contained within the body of this dictation should be directly addressed to the physician for clarification. Medication Reconcilliation Current Medication List: was personally reviewed by me Blood Pressure Screening Patient's blood pressure: Normal blood pressure Blood pressure disposition: Did not require urgent referral Consults Time Called: 2235 [facility] Phys[facility] Returned Call: 2236 I discussed the patient's case with Sara Kendrick [facility]. The patient will be evaluated for further management and care. Impression Primary Impression: Hematoma of right thigh Additional Impressions: Fall Nausea & vomiting Scribe Attestation The scribe's documentation has been prepared under my direction and personally reviewed by me in its entirety. I confirm that the note above accurately reflects all work, treatment, procedures, and medical decision making performed by me. Departure Information Dispostion Being Evaluated By Hospitalist Referrals Sierra Richardson D.O. (PCP) Problem Qualifiers
[2017-06-26 00:25] LABS: HEMATOCRIT 32.8 % (37-47); HEMOGLOBIN 10.7 g/dL (12.0-16.0)
[2017-06-26 00:30] VITALS: BP 149/78; PULSE 108; TEMP 36.4; O2SAT 100; Ht 162.6 cm; Wt 54.1 kg
[2017-06-26] MEDS ORDERED: INSULIN GLARGINE SOLOSTAR 100 UNITS/ML 3 ML PEN SC ONE (02:15)
[2017-06-26] MEDS: LEVOTHYROXINE 75 MCG TAB PO SCH (05:57)
[2017-06-26 06:12] LABS: BASO % 0.2 %; BASO ABS # 0.02 K/uL (0-0.2); HEMOGLOBIN 10.4 g/dL (12.0-16.0); IG# 0.01 K/uL (0.00-0.02); LYMPH % 5.7 %; LYMPH ABS # 0.51 K/uL (1.2-3.4); MEAN CELL VOLUME 94.6 fL (80-100); MEAN CORPUSCULAR HEMOGLOBIN 29.8 pg (25-34); MEAN CORPUSCULAR HGB CONC 31.5 g/dl (32-36); MEAN PLATELET VOLUME 9.1 fL (7.4-10.4); MONO % 6.9 %; MONO ABS # 0.61 K/uL (0.11-0.59); NEUT % 87.1 %; NEUT ABS # 7.73 K/uL (1.4-6.5); PLATELET COUNT 273 K/uL (130-400); RED CELL DISTRIBUTION WIDTH CV 14.1 % (11.5-14.5); RED CELL DISTRIBUTION WIDTH SD 48.4 fL (36.4-46.3); WHITE BLOOD COUNT 8.88 K/uL (4.8-10.8)
[2017-06-26 06:30] LABS: CALCIUM 8.1 mg/dl (8.5-10.1); CREATININE 0.75 mg/dl (0.60-1.20); POTASSIUM 4.5 mmol/L (3.5-5.1)
[2017-06-26] MEDS: INSULIN ASPART 100 UNITS/ML 3 ML PEN SC SCH ×4 (06:30→20:56)
[2017-06-26 06:52] VITALS: BP 111/62; PULSE 100; TEMP 36.3; O2SAT 100
[2017-06-26 07:06] LABS: HEMOGLOBIN A1C 6.2 % (4.5-5.6)
--- NOTE | 2017-06-26 07:07 | HISTORY & PHYSICAL EXAMINATION ---
DATE OF ADMISSION: 06/25/2017 PRIMARY CARE PHYSICIAN: Dr. Richardson. CHIEF COMPLAINT: Fall. HISTORY OF PRESENT ILLNESS: Medical history significant for hypertension, hyperlipidemia, DM2 insulin requiring, history of CVA, skin cancer as per records. Recent confinement in June 2013 for CVA. Patient was walking with her son this afternoon when she slipped and fell, landed on the right hip. Excruciating pain on the right upper thigh, unable to walk, increased swelling noted. Patient brought to Emergency Room. No chest pain, no shortness of breath, no head trauma, no syncope. MEDICAL HISTORY: As above. SURGERIES: She has had cataract surgery. HOME MEDICATIONS: Include levothyroxine, multivitamins, Pamelor, Ocuflox, MiraLax, aspirin, calcium, Plavix, Colace, and Lantus. ALLERGIES: ALLERGIC TO BACITRACIN, CODEINE, DOXYCYCLINE, HYDROMORPHONE, NEOMYCIN, OXYCODONE, POLYMYXIN, POLYMYXIN, PREDNISOLONE, TETRACYCLINE, ATENOLOL, GEMFIBROZIL, GLIPIZIDE, LISINOPRIL, METFORMIN, SIMVASTATIN, SERTRALINE, REPAGLINIDE, PIOGLITAZONE, ACETAMIDE, AMINOGLYCOSIDES, MORPHINE. FAMILY HISTORY: Breast cancer and prostate cancer. PERSONAL AND SOCIAL HISTORY: Nonsmoker. No chronic intake of alcoholic beverages. REVIEW OF SYSTEMS: As per HPI, all 10 systems reviewed, all other ROS negative. PHYSICAL EXAMINATION: VITAL SIGNS: Blood pressure was noted to be 130/77, pulse rate 113, RR 24, sats 97 on room air. GENERAL: Noted to be slightly uncomfortable, no respiratory distress. SKIN: Pallor, warm. HEENT: Pale palpebral conjunctivae. No ptosis. Dry mucosa. NECK: Supple, nontender. CHEST: Decreased effort. No tenderness. HEART: Tachycardic. No murmur. ABDOMEN: Soft, nontender. EXTREMITIES: Tender swelling in the right thigh, no other gross deformities NEUROLOGIC: Coherent. No gross focality. Mild hearing impairment. LABORATORY STUDIES: Hemoglobin was noted to be 11.6, white blood cell count 9, platelets noted to be 288. Sodium noted to be 137, potassium 4.5, chloride 101, CO2 30, creatinine 0.98. Glucose was noted to be 207. Hemoglobin A1c in February [address] hip showed large intramuscular hematoma, anterior proximal mid thigh measuring 5.4 x7.7 x 20 cm. ASSESSMENT: 1. Traumatic hematoma, RLE possible hemodynamic instability with tachycardia and hemoglobin drop from baseline. 2. History of cerebrovascular accident as per records. 3. Diabetes type 2, insulin requiring, well controlled as of recent HgA1c. 4. Hypothyroidism, euthyroid as of today's TSH PLAN: GMF trend H&H, transfuse if hemoglobin less than 8. (hx CVA) appropriate to hold home Aspirin and Plavix for now until hemoglobin stable Orthopedics consult RE right thigh hematoma. Basal insulin, ISS BG goal 140-180. Patient due for hemoglobin A1c recheck. DVT prophylaxis, SCDs. Full code. MTDD
[2017-06-26] MEDS: DOCUSATE SODIUM 100 MG CAP PO SCH ×2 (09:00→19:25)
[2017-06-26] MEDS ORDERED: POLYETHYLENE (MIRALAX) 17 GM PACK PO SCH (09:00)
[2017-06-26] MEDS ORDERED: INSULIN GLARGINE SOLOSTAR 100 UNITS/ML 3 ML PEN SC SCH (09:00)
[2017-06-26] MEDS: MULTIVITAMIN TAB PO SCH (09:01)
[2017-06-26] MEDS ORDERED: NURSING VERBAL MED ORDER ONE (09:15)
[2017-06-26 12:25] LABS: HEMATOCRIT 29.7 % (37-47); HEMOGLOBIN 9.5 g/dL (12.0-16.0)
[2017-06-26 14:40] VITALS: BP 102/62; PULSE 95; TEMP 36.3; O2SAT 96
--- NOTE | 2017-06-26 16:19 | ORTHOPEDIC CONSULTATION REPORT ---
DATE OF CONSULTATION: 06/26/2017 REASON FOR CONSULTATION: Right thigh hematoma. HISTORY OF PRESENT ILLNESS: The patient is an 82-year-old white female who was admitted last night by medicine service after the patient had fallen. She states that she was walking back across the street to her home when she feels that she had either caught her toe or tripped on something and fell to the ground. She was able to get to her home and on to the sofa, but shortly thereafter, she began having moderate pain in the right thigh. She noticed it was swollen and she was having difficulty ambulating and the pain was pretty severe and she was brought to the Emergency Room. She was seen by the staff, x-rays were taken and it was found that she did not have any noted fractures, but on CT scan did note a hematoma in the right thigh that measured 5.4 x 7.7 x 20 cm in AP, transverse and craniocaudal dimensions. We have now been asked to see her for this hematoma. PAST MEDICAL HISTORY: Hypertension, hyperlipidemia; diabetes mellitus type 2, insulin requiring; history of CVA and history of skin carcinoma in the past. PAST SURGICAL HISTORY: Cataract surgery. FAMILY HISTORY: Noncontributory. SOCIAL HISTORY: The patient is nonsmoker who does not drink alcohol. MEDICATIONS: Aspirin 81 mg p.o. daily, calcium 600 plus D 1 tablet p.o. b.i.d., Plavix 75 mg p.o. b.i.d., Colace 1 cap p.o. b.i.d., Lantus insulin 40 units subQ q.a.m., levothyroxine 75 mcg p.o. daily, multivitamin 1 tab p.o. daily, Pamelor 25 mg p.o. at bedtime, Ocuflox ophthalmic solution 1 drop OPL b.i.d. as directed, and MiraLax 17 grams p.o. daily. ALLERGIES: DOXYCYCLINE, LISINOPRIL, SERTRALINE, HYDROMORPHONE, PREDNISOLONE, SIMVASTATIN, ATENOLOL, CODEINE, EZETIMIBE, GEMFIBROZIL, GLIPIZIDE, MORPHINE AND RELATED DUE TO GI SYMPTOMS, OXYCODONE, PIOGLITAZONE, AMINOGLYCOSIDES, BACITRACIN, METFORMIN, NEOMYCIN, POLYMYXIN B, TETRACYCLINE AND REPAGLINIDE. REVIEW OF SYSTEMS: As per admitting history and physical. PHYSICAL EXAMINATION: GENERAL: The patient is a well-developed, well-nourished white female who is alert and oriented x3 and is pleasant and cooperative. She appears to be in no acute distress. She is lying in bed and states that she has been feeling much better today. MUSCULOSKELETAL: She states that she ambulated down the hallway with PT and her pain is much less today, in the right lower extremity. On focusing on the right lower extremity, she has a moderate size hematoma that is mildly tense over the right lateral and anterior aspect of the thigh. It is mildly tender on palpation, but again she states that is feeling much better today. Internal and external rotation of the hip does not cause her any discomfort. She can actively flex the hip to approximately 85 degrees before she stops and says that this is where it begins to pull and feel tight. She has full extension of her hip at this time and she is bending the knee to approximately 95 degrees at this time as well. She has good range of motion of her right ankle and has good sensation and motor function of her toes. She denies any pain anywhere else in the upper extremities and the left lower extremity, after the fall. Range of motion of the upper extremities is within normal limits as is the left lower extremity. She has no gross motor or sensory loss seen at this time. ASSESSMENT: A 20 x 5 x 7 hematoma in the right thigh, noted on CT scan. PLAN: At this point in time, we will continue to hold the Plavix and begin increasing her activity tomorrow with ambulation. As long as she continues to feel better and the hematoma is not getting larger or worsening, we will plan for nonoperative treatment. At this time, she can try warm compresses to the thigh to help with discomfort. She can also continue the tramadol and Tylenol for pain control. She can follow up in the office, Dr. Molina as needed. Thank you for this consultation.
--- NOTE | 2017-06-26 17:29 | Progress Note ---
Medicine Progress Note Date & Time of Visit: Jun 26, 2017 at 10:04. Subjective Pt was seen and examined Sitting in chair with no distress with son present Pt said that she feels better She said that the right hip pain improves significantly Pt said that the bruises improves she said that she is moving the right LE with no discomfort Denies any chest pain, palpitation, dizziness and SOB Objective Last 8 Hrs Date Time Temp Pulse Resp B/P (MAP) Pulse Ox O2 Delivery O2 Flow Rate FiO2 06/26/17 14:40 36.3 95 18 102/62 (75) 96 Physical Exam: General- No acute distress Head- atraumatic Eyes- PERRL, EOMI ENT- oropharynx clear Neck- supple, no JVD Lungs- clear to auscultation Heart- +murmur, Regular Abdomen- normal bowel sounds, soft Extremities- no calf tenderness, bruises around right hip Neuro- alert, oriented, PERRL, EOMI Skin- warm & dry Laboratory Results: Last 24 Hours Test 06/25/17 20:17 06/25/17 20:51 06/26/17 00:08 06/26/17 00:10 White Blood Count 9.36 K/uL Red Blood Count 3.78 M/uL Hemoglobin 11.6 g/dL 10.7 g/dL Hematocrit 35.2 % 32.8 % Mean Corpuscular Volume 93.1 fL Mean Corpuscular Hemoglobin 30.7 pg Mean Corpuscular Hemoglobin Concent 33.0 g/dl Platelet Count 288 K/uL Mean Platelet Volume 9.0 fL Neutrophils (%) (Auto) 81.7 % Lymphocytes (%) (Auto) 11.2 % Monocytes (%) (Auto) 6.5 % Eosinophils (%) (Auto) 0.1 % Basophils (%) (Auto) 0.3 % Neutrophils # (Auto) 7.64 K/uL Lymphocytes # (Auto) 1.05 K/uL Monocytes # (Auto) 0.61 K/uL Eosinophils # (Auto) 0.01 K/uL Basophils # (Auto) 0.03 K/uL RDW Standard Deviation 47.9 fL RDW Coefficient of Variation 14.1 % Immature Granulocyte % (Auto) 0.2 % Immature Granulocyte # (Auto) 0.02 K/uL Prothrombin Time 10.6 SECONDS Prothromb Time International Ratio 1.0 Activated Partial Thromboplast Time 22.0 SECONDS Partial Thromboplastin Ratio 0.8 Sodium Level 137 mmol/L Potassium Level 4.1 mmol/L Chloride Level 102 mmol/L Carbon Dioxide Level 30 mmol/L Anion Gap 5.0 mmol/L Blood Urea Nitrogen 38 mg/dl Creatinine 0.98 mg/dl Est Creatinine Clear Calc Drug Dose 39.6 ml/min Estimated GFR () 63.1 Estimated GFR (Non- 54.5 BUN/Creatinine Ratio 38.8 Random Glucose 207 mg/dl Estimated Average Glucose 131 mg/dl Hemoglobin A1c 6.2 % Calcium Level 8.6 mg/dl Total Bilirubin 0.2 mg/dl Direct Bilirubin < 0.1 mg/dl Aspartate Amino Transf (AST/SGOT) 22 U/L Alanine Aminotransferase (ALT/SGPT) 28 U/L Alkaline Phosphatase 90 U/L Total Protein 6.9 gm/dl Albumin 3.6 gm/dl Urine Color YELLOW Urine Appearance CLEAR Urine pH 6.5 Urine Specific [place] 1.022 Urine Protein NEG Urine Glucose (UA) NEG Urine Ketones TRACE Urine Occult Blood NEG Urine Nitrite NEG Urine Bilirubin NEG Urine Urobilinogen NEG Urine Leukocyte Esterase NEG Bedside Glucose 226 mg/dl Test 06/26/17 05:47 06/26/17 07:38 06/26/17 11:34 06/26/17 11:50 White Blood Count 8.88 K/uL Red Blood Count 3.49 M/uL Hemoglobin 10.4 g/dL 9.5 g/dL Hematocrit 33.0 % 29.7 % Mean Corpuscular Volume 94.6 fL Mean Corpuscular Hemoglobin 29.8 pg Mean Corpuscular Hemoglobin Concent 31.5 g/dl Platelet Count 273 K/uL Mean Platelet Volume 9.1 fL Neutrophils (%) (Auto) 87.1 % Lymphocytes (%) (Auto) 5.7 % Monocytes (%) (Auto) 6.9 % Eosinophils (%) (Auto) 0.0 % Basophils (%) (Auto) 0.2 % Neutrophils # (Auto) 7.73 K/uL Lymphocytes # (Auto) 0.51 K/uL Monocytes # (Auto) 0.61 K/uL Eosinophils # (Auto) 0.00 K/uL Basophils # (Auto) 0.02 K/uL RDW Standard Deviation 48.4 fL RDW Coefficient of Variation 14.1 % Immature Granulocyte % (Auto) 0.1 % Immature Granulocyte # (Auto) 0.01 K/uL Sodium Level 139 mmol/L Potassium Level 4.5 mmol/L Chloride Level 104 mmol/L Carbon Dioxide Level 29 mmol/L Anion Gap 5.0 mmol/L Blood Urea Nitrogen 35 mg/dl Creatinine 0.75 mg/dl Est Creatinine Clear Calc Drug Dose 51.1 ml/min Estimated GFR () 87.3 Estimated GFR (Non- 75.3 BUN/Creatinine Ratio 47.3 Random Glucose 206 mg/dl Calcium Level 8.1 mg/dl Thyroid Stimulating Hormone (TSH) 2.090 uIu/ml Bedside Glucose 160 mg/dl 207 mg/dl Test 06/26/17 16:23 Bedside Glucose 150 mg/dl Assessment & Plan S/P Fall CT hip showed no acute fracture or dislocation. Large intramuscular hematoma of the anterior proximal and mid thigh Hgb on admission 11.6 Hgb today 9.5 Ortho on board and recommended conservative management since pt complaints of no pain Continue to hold plavix and aspirin due to hematoma She had therapy today and did good with PT Pain improves significantly Continue monitor h/h Hx CVA Aspirin and Plavix on hold Diabetes type 2 BS stable Hypothyroidism Continue Levothyroxine stable DVT px ON SCDs due to large hematoma CODE STATUS FULL CODE Consultants: Ortho Current Inpatient Medications: Current Inpatient Medications Medications (Trade) Dose Ordered Sig/Rica Route Start Time Stop Time Status Last Admin Dose Admin Acetaminophen (Tylenol Tab) 650 mg Q4H PRN PO 06/25/17 23:30 07/25/17 23:29 Insulin Aspart (novoLOG ASPART) SLIDING SCALE If C... ACHS SC 06/26/17 06:30 07/26/17 06:59 06/26/17 12:16 2 UNITS Glucose (Glucose 40% Gel) 15-30 GRAMS 15 GRAMS... UD PRN PO 06/25/17 23:30 07/25/17 23:29 Glucose (Glucose Chew Tab) 4-8 Tablets 4 Tabl... UD PRN PO 06/25/17 23:30 07/25/17 23:29 Dextrose (Dextrose 50% 50ML Syringe) 25-50ML OF 50% DW IV FOR... UD PRN IV 06/25/17 23:30 07/25/17 23:29 Glucagon (Glucagon Inj) 1 mg UD PRN SQ 06/25/17 23:30 07/25/17 23:29 Docusate Sodium (coLACE CAP) 100 mg BID PO 06/26/17 09:00 07/26/17 08:59 06/26/17 09:00 100 MG Levothyroxine Sodium (Synthroid Tab) 75 mcg DAILYBB PO 06/26/17 06:30 07/26/17 06:59 06/26/17 05:57 75 MCG Multivitamins (Multivitamin Tab) 1 tab DAILY PO 06/26/17 09:00 07/26/17 08:59 06/26/17 09:01 1 TAB Nortriptyline HCl (Pamelor Cap) 25 mg HS PO 06/26/17 21:00 07/26/17 20:59 Tramadol HCl (Ultram Tab) not relieved by tylenol @ Q6H PRN PO 06/25/17 23:30 07/25/17 23:29 Prochlorperazine Edisylate 5 mg/ Syringe 5 ml @ 5 mls/min Q6H PRN IV 06/25/17 23:30 07/25/17 23:29 Insulin Glargine (Lantus Solostar Pen) 5 units QAM SC 06/27/17 09:00 07/26/17 08:59 Polyethylene (Miralax Powder Packet) 17 gm DAILY PO 06/27/17 09:00 07/27/17 08:59
--- NOTE | 2017-06-26 18:03 | ORTHOPEDIC CONSULTATION ---
DATE OF CONSULTATION: 06/26/2017 HISTORY OF PRESENT ILLNESS: This is an 82-year-old female seen at the request of Dr. Uriel Allan and Dr. Sierra Richardson. The patient sustained a fall on to her right hip on 06/25/2017 while at home. She was walking back across the street when she feels that she tripped somehow and fell on to the ground. She was able to get up and get home to her house on to the sofa, however, noted to have moderate worsening pain in the right thigh. She does have swelling and difficulty ambulating then she was then transferred to the Emergency Department. She was seen and evaluated by the Emergency Department physician and then had further imaging including radiographs and CT scan which noted a large hematoma on the right proximal thigh measuring 7.7 x 5.4 x 20 cm. She was then admitted to the hospital with the medicine service due to severe ambulatory dysfunction and hematoma and orthopedic consultation was made at that time. PAST MEDICAL HISTORY: Hyperlipidemia, diabetes mellitus type 2, hypertension, history of stroke, and history of skin carcinoma. PAST SURGICAL HISTORY: Cataracts. ALLERGIES: LISINOPRIL, DOXYCYCLINE, SERTRALINE, HYDROMORPHONE, PREDNISOLONE, SIMVASTATIN, ATENOLOL, CODEINE, GEMFIBROZIL, EZETIMIBE, GLIPIZIDE, MORPHINE AND OTHER OPIOIDS WITH GI SYMPTOMS, no anaphylaxis; OXYCODONE, PIOGLITAZONE, AMINOGLYCOSIDES, BACITRACIN, METFORMIN, NEOMYCIN, POLYMYXIN B. TETRACYCLINE AND REPAGLINIDE. SOCIAL HISTORY: She is a nonsmoker, denies alcohol. Denies drug use. She lives at home. She is retired. MEDICATIONS: Aspirin 81 mg daily, calcium 600 b.i.d., Plavix 75 mg b.i.d., Colace one capsule b.i.d., Lantus insulin 40 units subQ q.a.m., levothyroxine 75 mcg p.o. daily, multivitamin 1 daily, Pamelor 25 mg at bedtime, Ocuflox ophthalmic 1 drop OPL b.i.d. and MiraLax 17 grams p.o. daily. PHYSICAL EXAMINATION: GENERAL: This is an 82-year-old female who is alert and oriented x3. Speech clear and fluent. Affect is appropriate. She is sitting supine in her hospital room bed and a bedside chair. EXTREMITIES: Examination of the right lower extremity demonstrates skin warm, dry and intact. Cap refill less than 2 seconds. Dorsalis pedis and posterior pulses are 2/4, bilateral lower extremities. She has obvious bruising around the right lateral hip beginning at the level of the greater trochanter extending distally. There is some hemosiderin staining and tenderness to palpation. She has tenderness at the greater trochanter extending distally over the iliotibial band. She has a well circumscribed hematoma of the right proximal lateral thigh, tender to palpation. She has active motion from approximately negative 5 degrees of extension, 85-90 degrees of flexion, 30 degrees of abduction and 10 degrees of adduction. External rotation to 30 degrees, internal rotation to 10 degrees with some discomfort on the terminal edges of motion. Sensation is intact, bilateral lower extremities. No complaints of pain in bilateral upper extremities. No discomfort at the left lower extremity. No focal or lateralizing neurologic symptoms. IMAGING DATA: Radiographs and CT scan reviewed, demonstrate no obvious fracture of the right femur or hip. A 5.4 cm x 7.7 cm x 20 cm hematoma, right proximal thigh. IMPRESSION: 1. Right lateral thigh hematoma. 2. Iliotibial band syndrome, traumatic. 3. Contusion, right lateral hip. 4. Ambulatory dysfunction secondary to above. RECOMMENDATIONS: Continue supportive care including ice to the affected site, use of a walker, use of an assist x1 and continued nonoperative management with observation. The patient should follow up in my clinic within the next 2 weeks for reassessment and monitoring with repeat hip radiographs of the right hip. Recommend home health nursing referral upon plans for discharge, according to the Department of Medicine. Pain medication as deemed necessary per the medical staff. Thank you for the opportunity to consult in care of this patient. CRISTINA
[2017-06-26 18:26] LABS: HEMATOCRIT 27.2 % (37-47); HEMOGLOBIN 8.7 g/dL (12.0-16.0)
[2017-06-26] MEDS ORDERED: NORTRIPTYLINE HCL 25 MG CAP PO SCH (21:00)
[2017-06-26 23:01] VITALS: BP 115/51; PULSE 98; TEMP 36.8; O2SAT 98
[2017-06-27] MEDS: LEVOTHYROXINE 75 MCG TAB PO SCH (06:04)
[2017-06-27] MEDS: INSULIN ASPART 100 UNITS/ML 3 ML PEN SC SCH ×2 (06:30→11:00)
[2017-06-27 07:23] VITALS: BP 123/70; PULSE 80; TEMP 36.7; O2SAT 97
[2017-06-27] MEDS: MULTIVITAMIN TAB PO SCH (07:53)
[2017-06-27] MEDS: DOCUSATE SODIUM 100 MG CAP PO SCH (07:53)
[2017-06-27 07:57] LABS: BASO ABS # 0.04 K/uL (0-0.2); EOS % 2.2 %; EOS ABS # 0.09 K/uL (0-0.5); HEMATOCRIT 26.5 % (37-47); HEMOGLOBIN 8.4 g/dL (12.0-16.0); IG# 0.01 K/uL (0.00-0.02); LYMPH % 29.5 %; LYMPH ABS # 1.23 K/uL (1.2-3.4); MEAN CELL VOLUME 94.3 fL (80-100); MEAN CORPUSCULAR HEMOGLOBIN 29.9 pg (25-34); MEAN CORPUSCULAR HGB CONC 31.7 g/dl (32-36); MEAN PLATELET VOLUME 9.1 fL (7.4-10.4); MONO % 11.8 %; MONO ABS # 0.49 K/uL (0.11-0.59); NEUT % 55.3 %; NEUT ABS # 2.31 K/uL (1.4-6.5); PLATELET COUNT 241 K/uL (130-400); RED CELL DISTRIBUTION WIDTH CV 14.3 % (11.5-14.5); RED CELL DISTRIBUTION WIDTH SD 49.1 fL (36.4-46.3); WHITE BLOOD COUNT 4.17 K/uL (4.8-10.8)
--- NOTE | 2017-06-27 08:26 | Progress Note ---
Medicine Progress Note Date & Time of Visit: Jun 27, 2017 at 08:21. Subjective Pt was seen and examined Sitting in bed with no distress Pt said that she does have some pain in her right thigh area Denies any chest pain, palpitation, dizziness and SOB Objective Last 8 Hrs Date Time Temp Pulse Resp B/P (MAP) Pulse Ox O2 Delivery O2 Flow Rate FiO2 06/27/17 07:23 36.7 80 20 123/70 (87) 97 Room Air Physical Exam: General- No acute distress Head- atraumatic Eyes- PERRL, EOMI ENT- oropharynx clear Neck- supple, no JVD Lungs- clear to auscultation Heart- +murmur, Regular Abdomen- normal bowel sounds, soft Extremities- no calf tenderness, bruises around right thigh area Neuro- alert, oriented, PERRL, EOMI Skin- warm & dry Laboratory Results: Last 24 Hours Test 06/26/17 11:34 06/26/17 11:50 06/26/17 16:23 06/26/17 18:07 Bedside Glucose 207 mg/dl 150 mg/dl Hemoglobin 9.5 g/dL 8.7 g/dL Hematocrit 29.7 % 27.2 % Test 06/26/17 20:02 06/27/17 07:18 06/27/17 07:24 Bedside Glucose 151 mg/dl 103 mg/dl White Blood Count 4.17 K/uL Red Blood Count 2.81 M/uL Hemoglobin 8.4 g/dL Hematocrit 26.5 % Mean Corpuscular Volume 94.3 fL Mean Corpuscular Hemoglobin 29.9 pg Mean Corpuscular Hemoglobin Concent 31.7 g/dl Platelet Count 241 K/uL Mean Platelet Volume 9.1 fL Neutrophils (%) (Auto) 55.3 % Lymphocytes (%) (Auto) 29.5 % Monocytes (%) (Auto) 11.8 % Eosinophils (%) (Auto) 2.2 % Basophils (%) (Auto) 1.0 % Neutrophils # (Auto) 2.31 K/uL Lymphocytes # (Auto) 1.23 K/uL Monocytes # (Auto) 0.49 K/uL Eosinophils # (Auto) 0.09 K/uL Basophils # (Auto) 0.04 K/uL RDW Standard Deviation 49.1 fL RDW Coefficient of Variation 14.3 % Immature Granulocyte % (Auto) 0.2 % Immature Granulocyte # (Auto) 0.01 K/uL Assessment & Plan S/P Fall Right lateral thigh hematoma. CT hip showed no acute fracture or dislocation. Large intramuscular hematoma of the anterior proximal and mid thigh Hgb on admission 11.6 Hgb today drop to 8.4 Ortho on board and recommended conservative management since pt complaints of no pain Continue to hold plavix and aspirin due to hematoma She had therapy today and did good with PT Pain improves significantly Check H/H at 2pm and if stable, can discharge today Follow up with ortho in 2 weeks for reassessment and monitoring with repeat hip radiographs of the right hip Hx CVA Continue holding Aspirin and Plavix Diabetes type 2 BS stable Hypothyroidism Continue Levothyroxine stable DVT px ON SCDs due to large hematoma CODE STATUS FULL CODE Disposition Will discharge home today if h/h at 2pm stable Consultants: Ortho Current Inpatient Medications: Current Inpatient Medications Medications (Trade) Dose Ordered Sig/Rica Route Start Time Stop Time Status Last Admin Dose Admin Acetaminophen (Tylenol Tab) 650 mg Q4H PRN PO 06/25/17 23:30 07/25/17 23:29 Insulin Aspart (novoLOG ASPART) SLIDING SCALE If C... ACHS SC 06/26/17 06:30 07/26/17 06:59 06/26/17 12:16 2 UNITS Glucose (Glucose 40% Gel) 15-30 GRAMS 15 GRAMS... UD PRN PO 06/25/17 23:30 07/25/17 23:29 Glucose (Glucose Chew Tab) 4-8 Tablets 4 Tabl... UD PRN PO 06/25/17 23:30 07/25/17 23:29 Dextrose (Dextrose 50% 50ML Syringe) 25-50ML OF 50% DW IV FOR... UD PRN IV 06/25/17 23:30 07/25/17 23:29 Glucagon (Glucagon Inj) 1 mg UD PRN SQ 06/25/17 23:30 07/25/17 23:29 Docusate Sodium (coLACE CAP) 100 mg BID PO 06/26/17 09:00 07/26/17 08:59 06/27/17 07:53 100 MG Levothyroxine Sodium (Synthroid Tab) 75 mcg DAILYBB PO 06/26/17 06:30 07/26/17 06:59 06/27/17 06:04 75 MCG Multivitamins (Multivitamin Tab) 1 tab DAILY PO 06/26/17 09:00 07/26/17 08:59 06/27/17 07:53 1 TAB Nortriptyline HCl (Pamelor Cap) 25 mg HS PO 06/26/17 21:00 07/26/17 20:59 06/26/17 19:26 25 MG Tramadol HCl (Ultram Tab) not relieved by tylenol @ Q6H PRN PO 06/25/17 23:30 07/25/17 23:29 Prochlorperazine Edisylate 5 mg/ Syringe 5 ml @ 5 mls/min Q6H PRN IV 06/25/17 23:30 07/25/17 23:29 Insulin Glargine (Lantus Solostar Pen) 5 units QAM SC 06/27/17 09:00 07/26/17 08:59 06/27/17 07:57 5 UNITS Polyethylene (Miralax Powder Packet) 17 gm DAILY PO 06/27/17 09:00 07/27/17 08:59 06/27/17 07:53 17 GM
--- NOTE | 2017-06-27 08:37 | Discharge Instructions ---
Discharge Instructions Date of Service Jun 27, 2017. Admission Reason for Admission: Hematoma Discharge Discharge Diagnosis / Problem: Right lateral thigh hematoma, S/P Fall Discharge Goals Goal(s): Decrease discomfort, Improve function, Improve disease control Activity Recommendations Activity Limitations: resume your previous activity (as tolerated) . Instructions / Follow-Up Instructions / Follow-Up Discharge home with home health services Follow up with your primary care provider Dr. Goldberg on 06/30 @ 11:15 AM Follow up with orthopedic Dr. Cox in 2 weeks (Please call to schedule for the appointment) Continue Physical therapy Fall precaution Use a walker to ambulate ( script given for rolling walker) Check CBC within 1 week Ok to use Tylenol for pain Please hold Aspirin and Plavix for now. Your physician will tell you when to restart Plavix and Aspirin. Current Hospital Diet Patient's current hospital diet: Diabetes Type 2 Diet, AHA Diet (Heart Healthy) Discharge Diet Recommended Diet: AHA Diet (Heart Healthy), Diabetes Type 2 Diet Pending Studies Studies pending at discharge: no Laboratory Results Hemoglobin A1c Test 06/25/17 20:17 Range/Units Estimated Average Glucose 131 mg/dl Hemoglobin A1c 6.2 H 4.5-5.6 % Medical Emergencies . Who to Call and When: Medical Emergencies: If at any time you feel your situation is an emergency, please call 911 immediately. . Non-Emergent Contact Non-Emergency issues call your: Primary Care Provider Call Non-Emergent contact if: your pain is worsening, you have any medication questions . . "Provider Documentation" section prepared by Uriel Allan. .
[2017-06-27] MEDS ORDERED: INSULIN GLARGINE SOLOSTAR 100 UNITS/ML 3 ML PEN SC SCH (09:00)
[2017-06-27] MEDS ORDERED: POLYETHYLENE (MIRALAX) 17 GM PACK PO SCH (09:00)
[2017-06-27 13:59] LABS: HEMOGLOBIN 8.7 g/dL (12.0-16.0)
[2017-06-27 15:22] VITALS: BP 118/65; PULSE 95; TEMP 36.7; O2SAT 99
[2017-06-27 16:16] VITALS: BP 118/65; PULSE 95; TEMP 36.7; O2SAT 99
--- NOTE | 2017-06-29 10:23 | Discharge Summary ---
Discharge Summary Date of Service Jun 29, 2017. Discharge Summary Admission Date: Jun 25, 2017 at 22:46 Discharge Date: Jun 27, 2017 Discharge Disposition: Home with services Principal Diagnosis: S/P Fall Right lateral thigh hematoma Secondary Diagnoses/Problems: Hypothyroidism DM type 2 Hx CVA Procedures: R HIP-LOWER EXTREMITY WITHOUT HISTORY: 82 years-old Female fall, right sided injury, go lower on femur to area of bruising acute right leg pain and swelling status post fall COMPARISON: Right femur radiographs of same day TECHNIQUE: Multiple axial CT images of the right femur were obtained without IV contrast. Coronal and sagittal reformatted images were obtained from the axial data set and were submitted for review. A dose lowering technique was used consistent with the principals of ANDRÉS. FINDINGS: The bones appear osteopenic. Sclerotic millimeter focus involving the medullary cavity of the proximal femoral diaphysis is noted suggesting benign etiology. Moderate joint space narrowing of the right femoral acetabular joint. Imaged right hemipelvis appears intact. The acetabulum and imaged right femur are also intact without acute fracture or dislocation. Mild marginal spurring about the greater trochanter. There is moderate volume of formed colonic stool within the imaged pelvis suggesting constipation. Acevedo catheter is noted within a partially collapsed urinary bladder lumen. Arcuate calcifications are seen surrounding the uterus. There is a large intramuscular hematoma involving the proximal and mid right thigh anteriorly centered within the distribution of the vastus intermedius and to a lesser extent within the vastus lateralis measuring approximately 5.4 x 7.7 x 20.0 cm in AP, transverse and craniocaudal dimensions. Mild associated subcutaneous edema is noted laterally. Calcifications are noted within the superficial femoral artery. IMPRESSION: 1. Osteopenic appearance of the bones without acute fracture or dislocation. 2. Large intramuscular hematoma of the anterior proximal and mid thigh is centered within the vastus intermedius measuring approximately 5.4 x 7.7 x 20.0 cm. 3. Moderate constipation. The above report was generated using voice recognition software. It may contain grammatical, syntax or spelling errors. Electronically signed by: Zay Ragland M.D. 06/25/2017 10:10 PM Dictated Date/Time: 06/25/2017 10:00 PM CHEST ONE VIEW PORTABLE HISTORY: 82 years-old Female fall, hip fx acute chest trauma status post fall COMPARISON: None available TECHNIQUE: Portable AP view of the chest FINDINGS: Cardiac silhouette is mildly enlarged. Dense calcifications of the mitral annulus are noted in addition to atherosclerotic disease of the aorta. There is no pneumothorax, pleural effusion, focal airspace consolidation or overt pulmonary edema. The bones of the chest appear grossly intact and are demineralized. Degenerative changes are seen within the spine and shoulders. IMPRESSION: Mild cardiomegaly without acute process. The above report was generated using voice recognition software. It may contain grammatical, syntax or spelling errors. Electronically signed by: Zay Ragland M.D. 06/25/2017 9:17 PM Dictated Date/Time: 06/25/2017 9:13 PM R FEMUR 2 VIEWS ROUTINE HISTORY: 82 years-old Female fall, deformity acute right hip pain status post fall COMPARISON: None available TECHNIQUE: 2 views of the right femur FINDINGS: Bones appear mildly demineralized which limits evaluation for acute nondisplaced fracture. Moderate degenerative changes of the femoral acetabular joint without acute fracture or dislocation identified. Degenerative changes are noted about the right knee. No large knee joint effusion identified. Peripheral vascular disease. IMPRESSION: 1. Osteopenia limits evaluation for acute nondisplaced fracture. No acute fracture or dislocation is identified. If of further clinical concern for possible hip fracture, dedicated right hip radiographs should be considered. 2. Moderate degenerative changes of the right hip. 3. Peripheral vascular disease. The above report was generated using voice recognition software. It may contain grammatical, syntax or spelling errors. Electronically signed by: Zay Ragland M.D. 06/25/2017 9:14 PM Dictated Date/Time: 06/25/2017 9:10 PM Consultations: Ortho Medication Reconciliation Continued Medications: Calcium Carbonate-Vitamin D (Calcium 600 + D) 1 Tab Tab 1 TABLET PEG BID Docusate Sodium (Colace) 100 Mg Cap 1 CAP PO BID, CAP Insulin Glargine (Lantus Solostar) 100 Unit/Ml Inj 4 UNITS SC QAM, PEN Levothyroxine Sodium (Levothyroxine Sodium) 75 Mcg Tab 75 MCG PO DAILY Multivitamin (Multivitamin) Tab 1 TABLET PO DAILY Nortriptyline Hcl (Pamelor) 25 Mg Cap 25 MG PO HS, CAP Ofloxacin (Oph) (Ocuflox Oph Soln) 0.3 % Christiano 1 DROPS OPL BID for 7 Days, #5 ML Polyethylene Glycol 3350 (Miralax) 1 Pow Pow 17 GM PO DAILY Discontinued Medications: Aspirin (Aspirin Ec) 81 Mg Tab 81 MG PO DAILY Clopidogrel Bisulfate (Plavix) 75 Mg Tab 75 MG PO DAILY, TAB Admission Information HPI (per Admitting provider): CHIEF COMPLAINT: Fall. HISTORY OF PRESENT ILLNESS: Medical history significant for hypertension, hyperlipidemia, DM2 insulin requiring, history of CVA, skin cancer as per records. Recent confinement in June 2013 for CVA. Patient was walking with her son this afternoon when she slipped and fell, landed on the right hip. Excruciating pain on the right upper thigh, unable to walk, increased swelling noted. Patient brought to Emergency Room. No chest pain, no shortness of breath, no head trauma, no syncope. Physical Exam (per Admitting): PHYSICAL EXAMINATION: VITAL SIGNS: Blood pressure was noted to be 130/77, pulse rate 113, RR 24, sats 97 on room air. GENERAL: Noted to be slightly uncomfortable, no respiratory distress. SKIN: Pallor, warm. HEENT: Pale palpebral conjunctivae. No ptosis. Dry mucosa. NECK: Supple, nontender. CHEST: Decreased effort. No tenderness. HEART: Tachycardic. No murmur. ABDOMEN: Soft, nontender. EXTREMITIES: Tender swelling in the right thigh, no other gross deformities NEUROLOGIC: Coherent. No gross focality. Mild hearing impairment. Hospital Course S/P Fall Right lateral thigh hematoma. CT hip showed no acute fracture or dislocation. Large intramuscular hematoma of the anterior proximal and mid thigh Hgb on admission 11.6 Hgb today drop to 8.4 Ortho on board and recommended conservative management since pt complaints of no pain Continue to hold plavix and aspirin due to hematoma She had therapy today and did good with PT Pain improves significantly Check H/H at 2pm and if stable, can discharge today Follow up with ortho in 2 weeks for reassessment and monitoring with repeat hip radiographs of the right hip Hx CVA Continue holding Aspirin and Plavix Diabetes type 2 BS stable Hypothyroidism Continue Levothyroxine stable DVT px ON SCDs due to large hematoma CODE STATUS FULL CODE Disposition Will discharge home today if h/h at 2pm stable Total time spent on discharge = 35 minutes This includes examination of the patient, discharge planning, medication reconciliation, and communication with other providers. Discharge Instructions Discharge Instructions Date of Service Jun 27, 2017. Admission Reason for Admission: Hematoma Discharge Discharge Diagnosis / Problem: Right lateral thigh hematoma, S/P Fall Discharge Goals Goal(s): Decrease discomfort, Improve function, Improve disease control Activity Recommendations Activity Limitations: resume your previous activity (as tolerated) . Instructions / Follow-Up Instructions / Follow-Up Discharge home with home health services Follow up with your primary care provider Dr. Goldberg on 06/30 @ 11:15 AM Follow up with orthopedic Dr. Cox in 2 weeks (Please call to schedule for the appointment) Continue Physical therapy Fall precaution Use a walker to ambulate ( script given for rolling walker) Check CBC within 1 week Ok to use Tylenol for pain Please hold Aspirin and Plavix for now. Your physician will tell you when to restart Plavix and Aspirin. Current Hospital Diet Patient's current hospital diet: Diabetes Type 2 Diet, AHA Diet (Heart Healthy) Discharge Diet Recommended Diet: AHA Diet (Heart Healthy), Diabetes Type 2 Diet Pending Studies Studies pending at discharge: no Laboratory Results Hemoglobin A1c Test 06/25/17 20:17 Range/Units Estimated Average Glucose 131 mg/dl Hemoglobin A1c 6.2 H 4.5-5.6 % Medical Emergencies . Who to Call and When: Medical Emergencies: If at any time you feel your situation is an emergency, please call 911 immediately. . Non-Emergent Contact Non-Emergency issues call your: Primary Care Provider Call Non-Emergent contact if: your pain is worsening, you have any medication questions . . "Provider Documentation" section prepared by Uriel Allan. . Additional Copies To Sierra Richardson D.O.
== END 2017-06-27 16:45 | disposition home or self-care (01) | DRG 605 ==
LOC: EDBD 19:47 → C.EDB 19:48 → C.MS2W 22:46 → ENRESERV 22:54
PROVIDERS: ADMIT Internal Medicine; ATTEND Internal Medicine
DX: S70.11XA Contusion of right thigh, initial encounter (principal); W01.0XXA Fall on same level from slipping, tripping and stumbling without subsequent striking against object, initial encounter; Y92.096 Garden or yard of other non-institutional residence as the place of occurrence of the external cause; M76.31 Iliotibial band syndrome, right leg; R00.0 Tachycardia, unspecified; R11.2 Nausea with vomiting, unspecified; T40.2X5A Adverse effect of other opioids, initial encounter; I10 Essential (primary) hypertension; E11.9 Type 2 diabetes mellitus without complications; E03.9 Hypothyroidism, unspecified; Z86.73 Personal history of transient ischemic attack (TIA), and cerebral infarction without residual deficits; Z79.02 Long term (current) use of antithrombotics/antiplatelets; Z79.4 Long term (current) use of insulin; Z79.82 Long term (current) use of aspirin; Z79.899 Other long term (current) drug therapy; Z88.1 Allergy status to other antibiotic agents; Z88.5 Allergy status to narcotic agent; Z88.8 Allergy status to other drugs, medicaments and biological substances

== ENCOUNTER 2022-06-02 19:13 | Inpatient (IN) ==
--- NOTE | 2022-06-02 20:18 | Emergency Department Note ---
Impression & Plan Acute UTI, Altered mental status, Ambulatory dysfunction ED Provider Note CHIEF COMPLAINT: Altered mental status/UTI HISTORY OF PRESENT ILLNESS: This 87-year-old female patient with history of UTI, diabetes, stroke, fall with head injury presents to the emergency department with complaints per son of increased confusion. The patient was evaluated here earlier today and diagnosed with UTI. She was placed on Keflex and urine cultures are pending. Patient's son states that she was unable to walk with her walker today and became confused. She lost control of her urine trying to get onto the toilet. He is frustrated that she did not stay in the hospital earlier. Patient is answering all questions appropriately at this time. She has no complaints and states the reason she is in the hospital today is because of her son. REVIEW OF SYSTEMS: A review of systems was performed with positives and pertinent negatives listed in the history of present illness. 10 systems were reviewed and are otherwise negative. ALLERGIES: see below MEDICATIONS: see below PMH: see below SOCIAL HISTORY: see below DDx: Infection, dehydration, metabolic abnormality, hypo/hyperglycemia, vinh ctrolyte disturbance, anemia, hypoxia, cardiac sources, intracerebral event, toxicologic, neurologic, as well as other pathologies. PHYSICAL EXAM: Vital signs reviewed. General: Elderly but generally well-appearing 87 yo female, in no significant distress. HEENT: No scleral icterus, PERRLA, neck supple. Atraumatic. MMM Cardiovascular: Irregular but rate controlled, no extra sounds. Pulmonary: Clear to auscultation bilaterally, normal work of breathing. Abdomen: Soft, nontender, nondistended, positive bowel sounds. Musculoskeletal: Atraumatic, no peripheral edema. Neurologic: Patient awake alert and oriented x 3, speech is clear. Equal strength in all 4 extremities. Skin: Warm, dry, no rash EMERGENCY DEPARTMENT COURSE/MDM: This pt was evaluated and appeared to be in no distress. IV access was obtained and lab work was drawn. External medical records were reviewed. Pt was placed on youth nutritional monitor and noted to be in a sinus rhythm with sinus arrhythmia. IV fluids were initiated. Chest x-ray was performed and reveals no evidence of focal lung consolidation or failure. Pat ient was medicated with IV ceftriaxone for UTI diagnosed earlier in the day. Patient's son did not feel that she was safe for discharge and she would require hospitalization. Laboratory work is fairly reassuring, COVID is negative. Patient's case was discussed with the hospitalist service to evaluate the patient for admission and further management. MONITORING: An order for cardiac monitoring was placed and the patient is noted to be in a sinus rhythm with sinus arrhythmia at 83 beats per minute. RADIOLOGY: Chest x-ray was performed and to my interpretation reveals no evidence of focal lung consolidation or failure. EKG: To my interpretation reveals a sinus rhythm at with premature sup raventricular complexes and PVCs at 87 bpm. Incomplete right bundle branch block. QTc is 423. 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 Beliefs That Will Affect Care: None marital status: / Current Living Situation: Family Current Living Situation Comment: lives with son Other Information That Helps Us Care for You: No Feels Safe at Home: Yes Safety Concerns: Feels Safe At This Time Assistive Devices: None Allergies Allergies Allergy/AdvReac Type Severity Reaction Status Date / Time doxycycline Allergy Severe AIRWAY Verified 06/02/22 14:27 EDEMA lisinopril Allergy Severe ANGIOEDEMA Verified 06/02/22 14:27 sertraline Allergy Severe THROAT Verified 06/02/22 14:27 SWELLING hydromorphone Allergy Intermediate Dizzy, Verified 06/02/22 14:27 diaphoretic, nausea, vomiting prednisolone Allergy Intermediate BURNED EYES Verified 06/02/22 14:27 simvastatin AdvReac Severe MUSCLE Verified 06/02/22 14:27 ACHES, FATIGUE atenolol AdvReac Intermediate SWELLING Verified 06/02/22 14:27 codeine AdvReac Intermediate GI UPSET Verified 06/02/22 14:27 ezetimibe AdvReac Intermediate SINUS Verified 06/02/22 14:27 PROBLEMS gemfibrozil AdvReac Intermediate MUSCLE Verified 06/02/22 14:27 ACHES glipizide AdvReac Intermediate GI UPSET Verified 06/02/22 14:27 morphine AdvReac Intermediate GI SYMPTOMS Verified 06/02/22 14:27 oxycodone AdvReac Intermediate VOMITING Verified 06/02/22 14:27 pioglitazone AdvReac Intermediate SWELLING Verified 06/02/22 14:27 repaglinide AdvReac Intermediate NAUSEA Verified 06/02/22 14:27 Aminoglycosides AdvReac Mild UNKNOWN Verified 06/02/22 14:27 bacitracin AdvReac Mild CONTACT Verified 06/02/22 14:27 DERMATITIS metformin AdvReac Mild UNKNOWN Verified 06/02/22 14:27 neomycin AdvReac Mild CONTACT Verified 06/02/22 14:27 DERMATITIS polymyxin B AdvReac Mild CONTACT Verified 06/02/22 14:27 DERMATITIS tetracycline AdvReac Mild UNKNOWN Verified 06/02/22 14:27 Home Meds Home Medications Medication Instructions Recorded Confirmed clopidogrel 75 mg tablet 75 mg PO DAILY 02/28/18 06/02/22 levothyroxine 75 mcg tablet 75 mcg PO DAILY 02/28/18 06/02/22 alendronate 70 mg tablet 70 mg PO WK 02/03/22 06/02/22 insulin glargine 100 unit/mL (3 4 unit subcut DAILY 06/02/22 06/02/22 mL) subcutaneous pen (Lantus Solostar U-100 Insulin) metformin 500 mg tablet,extended 1,000 mg PO QAM 06/02/22 06/02/22 release 24 hr Results & Data (ED) Vital Signs Vital Signs - 24 hr 06/02/22 19:25 06/02/22 22:28 Temperature 36.7 C Temperature Source Oral Pulse Rate 86 Pulse Rate [Right] 70 Respiratory Rate 16 16 Respiratory Effort / Characteristics Non-Labored Respiratory Depth Normal Normal Blood Pressure 156/75 H Blood Pressure [Right Arm] 133/70 Blood Pressure Mean 102 Blood Pressure Mean [Right Arm] 91 Pulse Oximetry 100 99 Oxygen Delivery Method Room Air Room Air Sepsis Recent Fever Within 48 Hours No Sepsis New/Unexplained Change in Mental Status No Sepsis Action Taken by Nursing No Action Required Home Medications Current Medication List: was personally reviewed by me Laboratory Data Attestation: I reviewed the patient's lab results. 06/02/22 21:09 06/02/22 21:09 Lab Results 06/02/22 06/02/22 06/02/22 Range/Units 21:09 21:09 21:09 WBC 6.93 (4.8-10.8) K/ul RBC 4.27 (4.20-5.40) M/uL Hgb 13.1 (12.0-16.0) g/dl Hct 38.5 (37.0-47.0) % MCV 90.2 (80.0-100.0) fL MCH 30.7 (25.0-34.0) pg MCHC 34.0 (32.0-36.0) g/dL RDW Std Deviation 45.3 (36.4-46.3) fL RDW Coeff of Kisha 13.6 (11.5-14.5) % Plt Count 290 (130-400) K/uL MPV 9.2 L (9.4-12.4) fL Immature Gran % (Auto) 0.3 % Neut % (Auto) 83.0 % Lymph % (Auto) 8.5 % [place] % (Auto) 7.5 % Eos % (Auto) 0.0 % Baso % (Auto) 0.7 % Neut # (Auto) 5.75 (1.40-6.50) K/uL Lymph # (Auto) 0.59 L (1.2-3.4) K/uL [place] # (Auto) 0.52 (0.11-0.59) K/uL Eos # (Auto) 0.00 (0-0.50) K/uL Baso # (Auto) 0.05 (0-0.2) K/uL Immature Gran # (Auto) 0.02 (0.01-0.20) K/uL Sodium 135 L (136-145) mmol/L Potassium 3.9 (3.5-5.1) mmol/L Chloride 100 (98-107) mmol/L Carbon Dioxide 28 (21-32) mmol/L Anion Gap 7 (3-11) BUN 21 (6-23) mg/dl Creatinine 0.62 (0.6-1.2) mg/dl Est Cr Clr Drug Dosing 50.4 ml/min Est GFR ( Amer) 95.3 ml/min Est GFR (Non-Af Amer) 82.2 ml/min BUN/Creatinine Ratio 33.9 H (10-20) Glucose 117 H (70-99(Fasting)) mg/dl Calcium 8.9 (8.5-10.1) mg/dl Magnesium 1.9 (1.7-2.4) mg/dl Total Bilirubin 0.5 (0.2-1.0) mg/dl AST 26 (13-39) U/L ALT 27 (7-52) U/L Alkaline Phosphatase 58 (34-104) U/L Troponin I High Sens 9.1 D (0-14) pg/ml Total Protein 6.6 (6.0-8.3) gm/dl Albumin 4.0 (3.4-5.0) gm/dl Globulin 2.6 (2.5-4.0) gm/dl Albumin/Globulin Ratio 1.5 (0.9-2) TSH 0.436 (0.300-4.500) uIu/ml Lyme Disease IgG Ab (Negative) Lyme Disease IgM Ab (Negative) SARS-CoV-2, RNA, NAAT (NEGATIVE) 06/02/22 06/02/22 Range/Units 21:09 21:17 WBC (4.8-10.8) K/ul RBC (4.20-5.40) M/uL Hgb (12.0-16.0) g/dl Hct (37.0-47.0) % MCV (80.0-100.0) fL MCH (25.0-34.0) pg MCHC (32.0-36.0) g/dL RDW Std Deviation (36.4-46.3) fL RDW Coeff of Kisha (11.5-14.5) % Plt Count (130-400) K/uL MPV (9.4-12.4) fL Immature Gran % (Auto) % Neut % (Auto) % Lymph % (Auto) % [place] % (Auto) % Eos % (Auto) % Baso % (Auto) % Neut # (Auto) (1.40-6.50) K/uL Lymph # (Auto) (1.2-3.4) K/uL [place] # (Auto) (0.11-0.59) K/uL Eos # (Auto) (0-0.50) K/uL Baso # (Auto) (0-0.2) K/uL Immature Gran # (Auto) (0.01-0.20) K/uL Sodium (136-145) mmol/L Potassium (3.5-5.1) mmol/L Chloride (98-107) mmol/L Carbon Dioxide (21-32) mmol/L Anion Gap (3-11) BUN (6-23) mg/dl Creatinine (0.6-1.2) mg/dl Est Cr Clr Drug Dosing ml/min Est GFR ( Amer) ml/min Est GFR (Non-Af Amer) ml/min BUN/Creatinine Ratio (10-20) Glucose (70-99(Fasting)) mg/dl Calcium (8.5-10.1) mg/dl Magnesium (1.7-2.4) mg/dl Total Bilirubin (0.2-1.0) mg/dl AST (13-39) U/L ALT (7-52) U/L Alkaline Phosphatase (34-104) U/L Troponin I High Sens (0-14) pg/ml Total Protein (6.0-8.3) gm/dl Albumin (3.4-5.0) gm/dl Globulin (2.5-4.0) gm/dl Albumin/Globulin Ratio (0.9-2) TSH (0.300-4.500) uIu/ml Lyme Disease IgG Ab Negative (Negative) Lyme Disease IgM Ab Negative (Negative) SARS-CoV-2, RNA, NAAT NEGATIVE (NEGATIVE) Administered Medications Discontinued Medications Clopidogrel Bisulfate (Clopidogrel Bisulfate 75 Mg Tab) 75 mg PO DAILY [facility] Stop: 07/03/22 08:59 Last Admin: 06/04/22 08:37 Dose: 75 mg Documented By: Admin: 06/03/22 08:17 Dose: 75 mg Documented By: OCTAVIO Heparin Sodium (Porcine) (Heparin Sod 5,000 Unit/0.5 Ml Vial) 5,000 units SQ Q8 NOLAN Stop: 07/03/22 05:59 Last Admin: 06/04/22 05:45 Dose: Not Given Documented By: Admin: 06/03/22 21:05 Dose: Not Given Documented By: Admin: 06/03/22 14:27 Dose: 5,000 units Documented By: Admin: 06/03/22 06:08 Dose: 5,000 units Documented By: ZEENAT Sodium Chloride (Nss 1000ml) 1,000 mls @ 100 mls/hr IV .Q10H NOLAN Stop: 06/03/22 06:29 Last Infusion: 06/03/22 06:12 Dose: 0 mls/hr Documented By: Admin: 06/02/22 21:37 Dose: 100 mls/hr Documented By: REGAN Ceftriaxone Sodium 1,000 mg/ (Dextrose) 50 mls @ 100 mls/hr IV NOW STA Stop: 06/02/22 22:18 Last Admin: 06/02/22 22:15 Dose: Not Given Documented By: REGAN Cefepime HCl (Maxipime) 2,000 mg in 20 mls @ 5 mls/min IV NOW STA; Protocol Stop: 06/02/22 22:13 Last Admin: 06/02/22 22:20 Dose: 5 mls/min Documented By: REGAN Sodium Chloride (Nss 1000ml) 1,000 mls @ 100 mls/hr IV .Q10H ONE Stop: 06/03/22 08:21 Last Infusion: 06/03/22 16:31 Dose: 0 mls/hr Documented By: Admin: 06/03/22 06:11 Dose: 100 mls/hr Documented By: ZEENAT Cefepime HCl 1,000 mg/ Syringe 10 mls @ 5 mls/min IV Q12H NOLAN; Protocol Stop: 06/13/22 09:59 Last Admin: 06/04/22 09:48 Dose: 5 mls/min Documented By: Admin: 06/03/22 21:05 Dose: 5 mls/min Documented By: Admin: 06/03/22 10:04 Dose: 5 mls/min Documented By: OCTAVIO Insulin Aspart (Insulin Aspart Per Unit) 0 units SC ACHS NOLAN Stop: 07/02/22 23:58 Last Admin: 06/04/22 13:18 Dose: 5 units Documented By: OCTAVIO Co-signed By: TAMRA Admin: 06/04/22 08:53 Dose: 2 units Documented By: OCTAVIO Co-signed By: TAMRA Admin: 06/03/22 21:05 Dose: Not Given Documented By: Admin: 06/03/22 17:35 Dose: 3 units Documented By: OCTAVIO Co-signed By: LITTLE Admin: 06/03/22 12:47 Dose: 5 units Documented By: OCTAVIO Co-signed By: JENN Admin: 06/03/22 09:06 Dose: 2 units Documented By: HIRAM Co-signed By: OCTAVIO Admin: 06/03/22 00:37 Dose: 3 units Documented By: ZEENAT Co-signed By: ESG Insulin Glargine (Lantus Per Unit Charge) 4 units SQ DAILY [facility] Stop: 07/03/22 08:59 Last Admin: 06/04/22 08:53 Dose: 4 units Documented By: OCTAVIO Co-signed By: TAMRA Admin: 06/03/22 09:19 Dose: 4 units Documented By: HIRAM Co-signed By: OCTAVIO Levothyroxine Sodium (Levothyroxine Sodium 75 Mcg Tablet) 75 mcg PO DAILYBB [facility] Stop: 07/03/22 06:29 Last Admin: 06/04/22 05:45 Dose: 75 mcg Documented By: Admin: 06/03/22 06:06 Dose: 75 mcg Documented By: ZEENAT Multivitamins/Minerals (Cerovite Adv Formula Tab) 1 tab PO QAM [facility] Stop: 07/04/22 08:59 Last Admin: 06/04/22 08:37 Dose: 1 tab Documented By: OCTAVIO Pneumococcal Polyvalent Vaccine (Pneumococcal Polysaccharide Vaccine 25mcg/0.5ml Vial/Syr) 25 mcg IM .ONCE ONE Stop: 06/03/22 01:16 Last Admin: 06/03/22 14:27 Dose: Not Given Documented By: OCTAVIO Imaging Data Radiologist's Impression: Chest X-Ray 06/02/22 20:20 XR chest 1V portable CLINICAL HISTORY: weakness COMPARISON STUDY: Chest radiograph June 02, 2022 at 12:22 PM. Chest radiograph 06/24/2020. FINDINGS: Lung volumes are normal. Lungs are clear. There is no pneumothorax or pleural effusion. Cardiac size is normal. Extensive mitral annular calcification is incidentally noted. Mediastinal contours are normal. There is no evidence for pulmonary edema. Nipple shadows project over the lower chest. IMPRESSION: No acute cardiopulmonary findings. ACT 112: Negative or not required by law. Electronically signed by: Sammy Florez M.D. 06/02/2022 8:55 PM Discharge Plan Visit Data Chief Complaint: Headache Stated Complaint: HEADACHE/WEAK ED Provider: oJssie Perez Discharge Problem: Acute UTI, Altered mental status, Ambulatory dysfunction Patient Disposition: Admitted As Inpatient Discharge Instructions Interventions: ED Discharge Assessment Last Done: 06/02/22 23:35
[2022-06-02] MEDS ORDERED: SODIUM CHLORIDE 0.9% 1000ML 1,000 ML IV SCH (20:30)
--- NOTE | 2022-06-02 20:56 | XRay Report ---
XR chest 1V portable CLINICAL HISTORY: weakness COMPARISON STUDY: Chest radiograph June 02, 2022 at 12:22 PM. Chest radiograph 06/24/2020. FINDINGS: Lung volumes are normal. Lungs are clear. There is no pneumothorax or pleural effusion. Car diac size is normal. Extensive mitral annular calcification is incidentally noted. Mediastinal contou rs are normal. There is no evidence for pulmonary edema. Nipple shadows project over the lower chest. IMPRESSION: No acute cardiopulmonary findings. ACT 112: Negative or not required by law. Electronically signed by: Sammy Florez M.D. 06/02/2022 8:55 PM
[2022-06-02 21:43] LABS: Albumin Globulin Ratio 1.5 (0.9-2); BUN Creatinine Ratio 33.9 (10-20); Bilirubin,Total 0.5 mg/dl (0.2-1.0); Calcium 8.9 mg/dl (8.5-10.1); Creatinine Clr Calc Pharmacy 50.4 ml/min; Est GFR (African American) 95.3 ml/min; Est GFR (Non-African American) 82.2 ml/min; Globulin 2.6 gm/dl (2.5-4.0); Potassium 3.9 mmol/L (3.5-5.1); Total Protein 6.6 gm/dl (6.0-8.3)
[2022-06-02 21:45] LABS: Basophils # (auto) 0.05 K/uL (0-0.2); Basophils % (auto) 0.7 %; Hematocrit (blood only) 38.5 % (37.0-47.0); Hemoglobin 13.1 g/dl (12.0-16.0); Immature Granulocytes # (auto) 0.02 K/uL (0.01-0.20); Immature Granulocytes % (auto) 0.3 %; Lymphocytes # (auto) 0.59 K/uL (1.2-3.4); Lymphocytes % (auto) 8.5 %; Mean Corpuscular Hemoglobin 30.7 pg (25.0-34.0); Mean Corpuscular Volume 90.2 fL (80.0-100.0); Mean Platelet Volume 9.2 fL (9.4-12.4); Monocytes # (auto) 0.52 K/uL (0.11-0.59); Monocytes % (auto) 7.5 %; Neutrophils # (auto) 5.75 K/uL (1.40-6.50); Platelet Count 290 K/uL (130-400); RDW Coefficient of Variation 13.6 % (11.5-14.5); RDW Standard Deviation 45.3 fL (36.4-46.3); Red Blood Count 4.27 M/uL (4.20-5.40); White Blood Count 6.93 K/ul (4.8-10.8)
[2022-06-02] MEDS ORDERED: cefTRIAXone SODIUM 1,000 MG in DEXTROSE 5% AD-VAN 50 ML IV STA (21:49)
[2022-06-02 22:00] LABS: Troponin I High Sensitivity 9.1 pg/ml (0-14)
--- NOTE | 2022-06-02 22:05 | History & Physical Report ---
Date of Service June 02, 2022 Assessment & Plan (1) Complicated UTI (urinary tract infection): Plan: No sepsis for now hx CVA hypertension, stable hyperlipidemia/statin intolerance DM2 insulin requiring, well-controlled as of outpatient hemoglobin A1c of 6.4 last month hypothyroidism, euthyroid as of today's' TSH Ambulatory dysfunction chronic cognitive impairment/possible beginning dementia GMF Urine CS, Cefepime Basal bolus insulin ISS BG goal 1 10-1 40, carb count coverage PT OT eval DVT prophylaxis. Heparin subcu DNR as per patient's prior wishes as per family. Patient son requesting updates providers. Mr. Portillo Elliott, contact #[phone]. Text document was generated using [employer] voice recognition software. It may contain grammatical or spelling errors. Kindly contact undersigned for clarification of any documentation item in question. History of Present Illness Chief Complaint: Weakness, balance issues as per son I cannot remember as per patient Primary Care Provider: Mike Goff MD History obtained from patient, family, and records. Patient is a fair historian. Medical history significant for CVA, hypertension, hyperlipidemia/statin intolerance, DM2 insulin requiring, hypothyroidism, skin cancer as per records. Last confinement January 2022 for complicated UTI. Patient noted to be more forgetful the last 6 months. 6 months of unused medications found in mom's closet. Patient forgetting to eat causing patient to lose significant weight. Normal MMSE at PCPs office 2 weeks ago. Neuropsych referral contemplated if with recurrence as per outpatient note. Last week, patient had a low impact fall while walking with son in the neighborhood. No syncope, no chest pain, no SOB. Patient a little more confused than usual. Patient's son worried about patient's balance. Transient headache symptoms today. No abdominal pain/flank pain/dysuria symptoms. Patient brought to ER for evaluation this morning. CT imaging of the head did not show acute intracranial process. Patient discharged home with Keflex prescription for UTI despite patient's son hesitation about patient going home. EMS called to patient's home today because of son concerns regarding patient balance/weakness. MEDICAL HISTORY: As above. SURGERIES: She has had cataract surgeries, DCR, Mohs surgery of the nose FAMILY HISTORY: Breast cancer and prostate cancer. PERSONAL AND SOCIAL HISTORY: Nonsmoker. No chronic intake of alcoholic beverages, lives with son Allergies Allergy/AdvReac Type Severity Reaction Status Date / Time doxycycline Allergy Severe AIRWAY Verified 06/02/22 14:27 EDEMA lisinopril Allergy Severe ANGIOEDEMA Verified 06/02/22 14:27 sertraline Allergy Severe THROAT Verified 06/02/22 14:27 SWELLING hydromorphone Allergy Intermediate Dizzy, Verified 06/02/22 14:27 diaphoretic, nausea, vomiting prednisolone Allergy Intermediate BURNED EYES Verified 06/02/22 14:27 simvastatin AdvReac Severe MUSCLE Verified 06/02/22 14:27 ACHES, FATIGUE atenolol AdvReac Intermediate SWELLING Verified 06/02/22 14:27 codeine AdvReac Intermediate GI UPSET Verified 06/02/22 14:27 ezetimibe AdvReac Intermediate SINUS Verified 06/02/22 14:27 PROBLEMS gemfibrozil AdvReac Intermediate MUSCLE Verified 06/02/22 14:27 ACHES glipizide AdvReac Intermediate GI UPSET Verified 06/02/22 14:27 morphine AdvReac Intermediate GI SYMPTOMS Verified 06/02/22 14:27 oxycodone AdvReac Intermediate VOMITING Verified 06/02/22 14:27 pioglitazone AdvReac Intermediate SWELLING Verified 06/02/22 14:27 repaglinide AdvReac Intermediate NAUSEA Verified 06/02/22 14:27 Aminoglycosides AdvReac Mild UNKNOWN Verified 06/02/22 14:27 bacitracin AdvReac Mild CONTACT Verified 06/02/22 14:27 DERMATITIS metformin AdvReac Mild UNKNOWN Verified 06/02/22 14:27 neomycin AdvReac Mild CONTACT Verified 06/02/22 14:27 DERMATITIS polymyxin B AdvReac Mild CONTACT Verified 06/02/22 14:27 DERMATITIS tetracycline AdvReac Mild UNKNOWN Verified 06/02/22 14:27 Home Medications Medication Instructions Recorded Confirmed Type clopidogrel 75 mg tablet 75 mg PO DAILY 02/28/18 06/02/22 History levothyroxine 75 mcg tablet 75 mcg PO DAILY 02/28/18 06/02/22 History alendronate 70 mg tablet 70 mg PO WK 02/03/22 06/02/22 History cephalexin 500 mg capsule 500 mg PO BID #10 caps 06/02/22 06/02/22 Rx insulin glargine 100 unit/mL (3 4 unit subcut DAILY 06/02/22 06/02/22 History mL) subcutaneous pen (Lantus Solostar U-100 Insulin) metformin 500 mg tablet,extended 1,000 mg PO QAM 06/02/22 06/02/22 History release 24 hr nortriptyline 25 mg capsule 25 mg PO UD 06/02/22 06/02/22 History Past Med/Surg History Medical History Hypothyroidism Neuropathy Type 2 diabetes mellitus Surgical History History of cataract surgery Family History Other Cancer Diabetes Social History Smoking Status: Never smoker Hx Alcohol Use: No Hx Substance Use: No Preferred Language: Khmer Communication Ability: Effective Meal Cooker Required: No Beliefs That Will Affect Care: None marital status: / Current Living Situation: Family Current Living Situation Comment: lives with son Feels Safe at Home: Yes Assistive Devices: None Review of Systems Review of Systems: As per HPI, all other systems reviewed and negative Physical Exam Physical Exam: GENERAL: Comfortable, oriented to month and year, no respiratory distress SKIN: Normal color, warm HEENT: [place] palpebral conjunctivae, no ptosis, dry buccal mucosa NECK : Supple, no tenderness CHEST : CTA, no tenderness HEART : RRR, no obvious murmurs ABDOMEN: Some distention, nontender EXTREMITIES : No LE swelling/tenderness, no other conspicuous deformities noted NEUROLOGIC : Coherent, oriented to month and year, no facial asymmetry, slightly hard of hearing, gait and stance not assessed Results & Data Results & Data ([facility]) Vital Signs (Past 12 Hours) Vital Signs Temp Pulse Resp BP Pulse Ox O2 Del Method 06/02/22 19:25 36.7 C 86 16 156/75 H 100 Room Air Laboratory Results Laboratory Results WBC 6.93 K/ul (4.8-10.8) 06/02/22 21:09 RBC 4.27 M/uL (4.20-5.40) 06/02/22 21:09 Hgb 13.1 g/dl (12.0-16.0) 06/02/22 21:09 Hct 38.5 % (37.0-47.0) 06/02/22 21: MCV 90.2 fL (80.0-100.0) 06/02/22 21: MCH 30.7 pg (25.0-34.0) 06/02/22 21: MCHC 34.0 g/dL (32.0-36.0) 06/02/22 21: RDW Std Deviation 45.3 fL (36.4-46.3) 06/02/22: RDW Coeff of Kisha 13.6 % (11.5-14.5) 06/02/22 21: Plt Count 290 K/uL (130-400) 06/02/22 21: MPV 9.2 fL (9.4-12.4) L 06/02/22: Immature Gran % (Auto) 0.3 % 06/02/22: Neut % (Auto) 83.0 % 06/02/22: Lymph % (Auto) 8.5 % 06/02/22: [place] % (Auto) 7.5 % 06/02/22 21: Eos % (Auto) 0.0 % 06/02/22 21: Baso % (Auto) 0.7 % 06/02/22: Neut # (Auto) 5.75 K/uL (1.40-6.50) 06/02/22 21: Lymph # (Auto) 0.59 K/uL (1.2-3.4) L 06/02/22: [place] # (Auto) 0.52 K/uL (0.11-0.59) 06/02/22 21: Eos # (Auto) 0.00 K/uL (0-0.50) 06/02/22 21: Baso # (Auto) 0.05 K/uL (0-0.2) 06/02/22: Immature Gran # (Auto) 0.02 K/uL (0.01-0.20) 06/02/22 21: Sodium 135 mmol/L (136-145) L 06/02/22 21: Potassium 3.9 mmol/L (3.5-5.1) 06/02/22: Chloride 100 mmol/L (98-107) 06/02/22 21:09 Carbon Dioxide 28 mmol/L (21-32) 06/02/22 21:09 Anion Gap 7 (3-11) 06/02/22 21:09 BUN 21 mg/dl (6-23) 06/02/22 21:09 Creatinine 0.62 mg/dl (0.6-1.2) 06/02/22 21:09 Est Cr Clr Drug Dosing 50.4 ml/min 06/02/22 21:09 Est GFR ( Amer) 95.3 ml/min 06/02/22 21:09 Est GFR (Non-Af Amer) 82.2 ml/min 06/02/22 21:09 BUN/Creatinine Ratio 33.9 (10-20) H 06/02/22 21:09 Glucose 117 mg/dl (70-99(Fasting)) H 06/02/22 21:09 Calcium 8.9 mg/dl (8.5-10.1) 06/02/22 21:09 Total Bilirubin 0.5 mg/dl (0.2-1.0) 06/02/22 21:09 AST 26 U/L (13-39) 06/02/22 21:09 ALT 27 U/L (7-52) 06/02/22 21:09 Alkaline Phosphatase 58 U/L (34-104) 06/02/22 21:09 Troponin I High Sens 9.1 pg/ml (0-14) D 06/02/22 21:09 Total Protein 6.6 gm/dl (6.0-8.3) 06/02/22 21:09 Albumin 4.0 gm/dl (3.4-5.0) 06/02/22 21:09 Globulin 2.6 gm/dl (2.5-4.0) 06/02/22 21:09 Albumin/Globulin Ratio 1.5 (0.9-2) 06/02/22 21:09 TSH 0.436 uIu/ml (0.300-4.500) 06/02/22 21:09 SARS-CoV-2, RNA, NAAT NEGATIVE (NEGATIVE) 06/02/22 21:17 Impressions Chest X-Ray 06/02/22 20:20 XR chest 1V portable CLINICAL HISTORY: weakness COMPARISON STUDY: Chest radiograph June 02, 2022 at 12:22 PM. Chest radiograph 06/24/2020. FINDINGS: Lung volumes are normal. Lungs are clear. There is no pneumothorax or pleural effusion. Cardiac size is normal. Extensive mitral annular calcification is incidentally noted. Mediastinal contours are normal. There is no evidence for pulmonary edema. Nipple shadows project over the lower chest. IMPRESSION: No acute cardiopulmonary findings. ACT 112: Negative or not required by law. Electronically signed by: Sammy Florez M.D. 06/02/2022 8:55 PM Diagnostic Findings EKG as per my interpretation : Rate 85, NSR, RAD, LPFB, incomplete RBBB, no ischemia
[2022-06-02] MEDS ORDERED: CEFEPIME 2,000 MG/20 ML VIAL IV STA (22:10)
[2022-06-02] MEDS ORDERED: SODIUM CHLORIDE 0.9% 1000ML 1,000 ML IV ONE (22:22)
[2022-06-02 22:29] LABS: Magnesium 1.9 mg/dl (1.7-2.4)
[2022-06-02] MEDS ORDERED: GLUCOSE 40% GEL 15 GM TUBE PO PRN (23:59)
[2022-06-02] MEDS ORDERED: NORTRIPTYLINE HCL 25 MG CAP PO SCH (23:59)
[2022-06-02] MEDS ORDERED: ACETAMINOPHEN 325 MG TAB PO PRN (23:59)
[2022-06-02] MEDS ORDERED: GLUCAGON FOR INJ 1 MG VIAL SQ PRN (23:59)
[2022-06-02] MEDS ORDERED: GLUCOSE 10 TAB/TUBE PO PRN (23:59)
[2022-06-02] MEDS ORDERED: DEXTROSE 50% 50 ML SYRINGE IV PRN (23:59)
[2022-06-02] MEDS ORDERED: CARBOHYDRATES FOR HYPOGLYCEMIA PO PRN (23:59)
[2022-06-03] LABS: Lyme Ab IgG w/WB Rflx Negative (Negative); Lyme Ab IgM w/WB Rflx Negative (Negative)
[2022-06-03] MEDS: INSULIN ASPART PER UNIT SC SCH ×5 (00:37→21:05)
[2022-06-03] MEDS ORDERED: PNEUMOCOCCAL Polysaccharide Vaccine 25mcg/0.5mL vial/Syr IM ONE (01:15)
[2022-06-03] MEDS: LEVOTHYROXINE SODIUM 75 MCG TABLET PO SCH (06:06)
[2022-06-03] MEDS: HEPARIN SOD 5,000 UNIT/0.5 ML VIAL SQ SCH ×3 (06:08→21:05)
[2022-06-03] MEDS ORDERED: CEFEPIME 2,000 MG in SYRINGE 0 ML IV SCH (08:00)
[2022-06-03] MEDS: CLOPIDOGREL BISULFATE 75 MG TAB PO SCH (08:17)
[2022-06-03] MEDS: LANTUS PER UNIT CHARGE SQ SCH (09:19)
[2022-06-03] MEDS: CEFEPIME 1,000 MG in SYRINGE 0 ML IV SCH ×2 (10:04→21:05)
--- NOTE | 2022-06-03 11:33 | Electrocardiogram Report ---
Test Reason : Blood Pressure : / mmHG Vent. Rate : 087 BPM Atrial Rate : 087 BPM P-R Int : 116 ms QRS Dur : 110 ms QT Int : 352 ms P-R-T Axes : 013 082 047 degrees QTc Int : 423 ms Poor data quality, interpretation may be adversely affected Sinus rhythm with Premature supraventricular complexes and with occasional Premature ventricular comp lexes Incomplete right bundle branch block Borderline ECG When compared with ECG of 02-JUN-2022 12:02, Premature ventricular complexes are now Present Premature supraventricular complexes are now Present Confirmed by Son Braga ([id number]) on 06/03/2022 11:32:46 AM Referred By: REFERRED SELF Confirmed By:Kelton Braga
--- NOTE | 2022-06-03 14:51 | Hospitalist Progress Note ---
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 H/O CVA Continue Plavix Not on statin due to intolerance Hypertension stable Monitor DM II Last HbA1C 6.4 No Tight glycemic control needed given advanced age Monitor blood glucose levels Continue insulin while in hospital Hypothyroidism Normal TSH Continue levothyroxine Abnormal EKG PACs,PVCs on EKG Asymptomatic Monitor Ambulatory dysfunction Fall precautions PT OT eval Chronic cognitive impairment Possible beginning dementia Oriented currently Will obtain B12 levels DVT Px: Heparin SQ Code Status DNR/DNI Disposition PT/OT prior to discharge Admission and Anticipated Discharge Date Admission Date: June 02, 2022 Subjective Patient is seen and examined at bedside States feeling well today Offers no complaints Oriented during my encounter Denies any chest pain, shortness of breath, dizziness, nausea, abdominal pain, dysuria, hematuria No other complaints Eager to get discharged Review of Systems Review of Systems: All systems reviewed & are unremarkable except as noted in Subjective Physical Exam Physical Exam: Physical Exam: Vitals signs as noted above General Appearance: Thin, frail, elderly, no apparent distress Head: normocephalic, Atraumatic Eyes: normal inspection, EOMI Neck: supple, Trachea midline Respiratory/Chest: Normal breath sounds, CTA, No accessory muscle use Cardiovascular: S1, S2, No murmur Abdomen/GI:Soft, Non tender, Bowel sounds present Extremities/Musculoskeletal:normal inspection, no edema Neurologic/Psych:AAOX3, grossly no focal neurological deficits Skin: normal color, warm Results & Data Results & Data ([facility]) Vital Signs (Past 12 Hours) Vital Signs Temp Pulse Resp BP Pulse Ox O2 Del Method 06/03/22 07:20 36.5 C 81 16 130/72 96 Room Air Laboratory Results Short CBC 06/02/22 Range/Units 21:09 WBC 6.93 (4.8-10.8) K/ul Hgb 13.1 (12.0-16.0) g/dl Hct 38.5 (37.0-47.0) % Plt Count 290 (130-400) K/uL BMP 06/02/22 21:09 Sodium 135 L Potassium 3.9 Chloride 100 Carbon Dioxide 28 BUN 21 Creatinine 0.62 Glucose 117 H Calcium 8.9 Liver Function 06/02/22 Range/Units 21:09 Total Bilirubin 0.5 (0.2-1.0) mg/dl AST 26 (13-39) U/L ALT 27 (7-52) U/L Alkaline Phosphatase 58 (34-104) U/L Albumin 4.0 (3.4-5.0) gm/dl
[2022-06-04] MEDS: HEPARIN SOD 5,000 UNIT/0.5 ML VIAL SQ SCH (05:45)
[2022-06-04] MEDS: LEVOTHYROXINE SODIUM 75 MCG TABLET PO SCH (05:45)
[2022-06-04 07:21] LABS: Base Excess VBG 5.1 mEq/L; HCO3 VBG 31 mmol/L; Oxygen Saturation VBG 66.7 %; PCO2 VBG 47 mmHg (38-50); PO2 VBG 40 mmHg; pH VBG 7.42 (7.36-7.41)
[2022-06-04 07:31] LABS: Hematocrit (blood only) 38.4 % (37.0-47.0); Hemoglobin 12.6 g/dl (12.0-16.0); Mean Corpuscular Hemoglobin 30.4 pg (25.0-34.0); Mean Corpuscular Hgb Conc 32.8 g/dL (32.0-36.0); Mean Corpuscular Volume 92.8 fL (80.0-100.0); Mean Platelet Volume 9.3 fL (9.4-12.4); Platelet Count 270 K/uL (130-400); RDW Coefficient of Variation 13.7 % (11.5-14.5); RDW Standard Deviation 46.4 fL (36.4-46.3); Red Blood Count 4.14 M/uL (4.20-5.40); White Blood Count 3.53 K/ul (4.8-10.8)
[2022-06-04 07:42] LABS: BUN Creatinine Ratio 28.8 (10-20); Calcium 8.7 mg/dl (8.5-10.1); Creatinine Clr Calc Pharmacy 45.7 ml/min; Est GFR (African American) 93.4 ml/min; Est GFR (Non-African American) 80.6 ml/min; Phosphorus 2.7 mg/dl (2.5-4.9); Potassium 3.7 mmol/L (3.5-5.1)
[2022-06-04] MEDS: CLOPIDOGREL BISULFATE 75 MG TAB PO SCH (08:37)
[2022-06-04] MEDS: LANTUS PER UNIT CHARGE SQ SCH (08:53)
[2022-06-04] MEDS: INSULIN ASPART PER UNIT SC SCH ×2 (08:53→13:18)
[2022-06-04] MEDS ORDERED: CEROVITE ADV FORMULA TAB PO SCH (09:00)
[2022-06-04] MEDS: CEFEPIME 1,000 MG in SYRINGE 0 ML IV SCH (09:48)
--- NOTE | 2022-06-04 12:57 | Hospitalist Progress Note ---
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 H/O CVA Continue Plavix Not on statin due to intolerance Hypertension stable Monitor DM II Last HbA1C 6.4 No Tight glycemic control needed given advanced age Monitor blood glucose levels Continue insulin while in hospital Hypothyroidism Normal TSH Continue levothyroxine Abnormal EKG PACs,PVCs on EKG Asymptomatic Monitor Advised to follow-up with cardiology as outpatient Ambulatory dysfunction Fall precautions PT OT eval: Return Home Chronic cognitive impairment Possible beginning dementia Oriented currently Will obtain B12 levels DVT Px: Heparin SQ Code Status DNR/DNI Disposition Home Admission and Anticipated Discharge Date Admission Date: June 02, 2022 Subjective Patient is seen and examined at bedside No new complaints Eager to get discharged Discussed with patient's son at bedside Denies any chest pain, shortness of breath, dizziness, nausea, abdominal pain, dysuria, hematuria Plan to discharge home today Review of Systems Review of Systems: All systems reviewed & are unremarkable except as noted in Subjective Physical Exam Physical Exam: Physical Exam: Vitals signs as noted above General Appearance: Thin, frail, elderly, no apparent distress Head: normocephalic, Atraumatic Eyes: normal inspection, EOMI Neck: supple, Trachea midline Respiratory/Chest: Normal breath sounds, CTA, No accessory muscle use Cardiovascular: S1, S2, No murmur Abdomen/GI:Soft, Non tender, Bowel sounds present Extremities/Musculoskeletal:normal inspection, no edema Neurologic/Psych:AAOX3, grossly no focal neurological deficits Skin: normal color, warm Results & Data Results & Data ([facility]) Vital Signs (Past 12 Hours) Vital Signs Temp Pulse Resp BP Pulse Ox O2 Del Method 06/04/22 07:30 36.3 C L 73 16 148/76 H 97 Room Air Laboratory Results Short CBC 06/04/22 Range/Units 06:59 WBC 3.53 L (4.8-10.8) K/ul Hgb 12.6 (12.0-16.0) g/dl Hct 38.4 (37.0-47.0) % Plt Count 270 (130-400) K/uL BMP 06/04/22 06:59 Sodium 139 Potassium 3.7 Chloride 104 Carbon Dioxide 30 BUN 19 Creatinine 0.66 Glucose 134 H Calcium 8.7
--- NOTE | 2022-06-04 13:05 | Discharge Summary ---
Date of Service June 04, 2022 Admission HPI Per Admitting Provider History obtained from patient, family, and records. Patient is a fair historian. Medical history significant for CVA, hypertension, hyperlipidemia/statin intolerance, DM2 insulin requiring, hypothyroidism, skin cancer as per records. Last confinement January 2022 for complicated UTI. Patient noted to be more forgetful the last 6 months. 6 months of unused medications found in mom's closet. Patient forgetting to eat causing patient to lose significant weight. Normal MMSE at PCPs office 2 weeks ago. Neuropsych referral contemplated if with recurrence as per outpatient note. Last week, patient had a low impact fall while walking with son in the neighborhood. No syncope, no chest pain, no SOB. Patient a little more confused than usual. Patient's son worried about patient's balance. Transient headache symptoms today. No abdominal pain/flank pain/dysuria symptoms. Patient brought to ER for evaluation this morning. CT imaging of the head did not show acute intracranial process. Patient discharged home with Keflex prescription for UTI despite patient's son hesitation about patient going home. EMS called to patient's home today because of son concerns regarding patient balance/weakness. MEDICAL HISTORY: As above. SURGERIES: She has had cataract surgeries, DCR, Mohs surgery of the nose FAMILY HISTORY: Breast cancer and prostate cancer. PERSONAL AND SOCIAL HISTORY: Nonsmoker. No chronic intake of alcoholic beverages, lives with son Admission Exam Per Admitting Provider Physical Exam Physical Exam: GENERAL: Comfortable, oriented to month and year, no respiratory distress SKIN: Normal color, warm HEENT: [place] palpebral conjunctivae, no ptosis, dry buccal mucosa NECK : Supple, no tenderness CHEST : CTA, no tenderness HEART : RRR, no obvious murmurs ABDOMEN: Some distention, nontender EXTREMITIES : No LE swelling/tenderness, no other conspicuous deformities noted NEUROLOGIC : Coherent, oriented to month and year, no facial asymmetry, slightly hard of hearing, gait and stance not assessed Principal Diagnosis Severe protein calorie malnutrition Abnormal EKG Mild cognitive impairment Discharge Data Allergies Allergy/AdvReac Type Severity Reaction Status Date / Time doxycycline Allergy Severe AIRWAY Verified 06/02/22 14:27 EDEMA lisinopril Allergy Severe ANGIOEDEMA Verified 06/02/22 14:27 sertraline Allergy Severe THROAT Verified 06/02/22 14:27 SWELLING hydromorphone Allergy Intermediate Dizzy, Verified 06/02/22 14:27 diaphoretic, nausea, vomiting prednisolone Allergy Intermediate BURNED EYES Verified 06/02/22 14:27 simvastatin AdvReac Severe MUSCLE Verified 06/02/22 14:27 ACHES, FATIGUE atenolol AdvReac Intermediate SWELLING Verified 06/02/22 14:27 codeine AdvReac Intermediate GI UPSET Verified 06/02/22 14:27 ezetimibe AdvReac Intermediate SINUS Verified 06/02/22 14:27 PROBLEMS gemfibrozil AdvReac Intermediate MUSCLE Verified 06/02/22 14:27 ACHES glipizide AdvReac Intermediate GI UPSET Verified 06/02/22 14:27 morphine AdvReac Intermediate GI SYMPTOMS Verified 06/02/22 14:27 oxycodone AdvReac Intermediate VOMITING Verified 06/02/22 14:27 pioglitazone AdvReac Intermediate SWELLING Verified 06/02/22 14:27 repaglinide AdvReac Intermediate NAUSEA Verified 06/02/22 14:27 Aminoglycosides AdvReac Mild UNKNOWN Verified 06/02/22 14:27 bacitracin AdvReac Mild CONTACT Verified 06/02/22 14:27 DERMATITIS metformin AdvReac Mild UNKNOWN Verified 06/02/22 14:27 neomycin AdvReac Mild CONTACT Verified 06/02/22 14:27 DERMATITIS polymyxin B AdvReac Mild CONTACT Verified 06/02/22 14:27 DERMATITIS tetracycline AdvReac Mild UNKNOWN Verified 06/02/22 14:27 Hospital Course (1) Complicated UTI (urinary tract infection): Suspected UTI--Ruled out Urine culture growing: Gamma strep not Enterococcus Denies any urinary symptoms Discontinue cefepime--received 3 doses Monitor Severe protein calorie malnutrition BMI 17 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 H/O CVA Continue Plavix Not on statin due to intolerance Hypertension stable Monitor DM II Last HbA1C 6.4 No Tight glycemic control needed given advanced age Monitor blood glucose levels Continue insulin while in hospital Hypothyroidism Normal TSH Continue levothyroxine Abnormal EKG PACs,PVCs on EKG Asymptomatic Monitor Advised to follow-up with cardiology as outpatient Ambulatory dysfunction Fall precautions PT OT eval: Return Home Chronic cognitive impairment Possible beginning dementia Oriented currently B12 levels, TSH normal DVT Px: Heparin SQ Code Status DNR/DNI Disposition Home Total Time Total Time Spent Total Time Spent (In Minutes): 56 minutes Discharge Plan Discharge Items Patient Disposition: Home - Self-Care Reason For Visit: COMP UTI Discharge Diagnosis: Severe protein calorie malnutrition Abnormal EKG Mild cognitive impairment Activity: Per Instructions section Exercise/Sports: Gradually increase as tolerated Non-emergency contact: Primary Care Provider and Family Preservation Officer Call non-emergency contact if: you have any medication questions, your symptoms worsen and your pain is concerning for you Follow-up/Referrals: Mike Goff MD [Primary Care Provider] - Diet: Carb Consistent or DM2 Addtl Attending Provider Instructions: Follow-up with your primary care physician Dr. 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 Seek immediate medical attention if your symptoms reoccur or worsen Please take all medications as instructed on discharge list below. Please call if you have any questions or problems. You can reach a [facility] hospitalist on duty at [facility] 24 hours a day by calling [phone] Pending Studies at Discharge: No Stand-Alone Forms: My [facility] Sensorist, Smoking Cessation Medications and DC Order Prescriptions: Continued clopidogrel 75 mg tablet 75 mg PO DAILY levothyroxine 75 mcg tablet 75 mcg PO DAILY alendronate 70 mg tablet 70 mg PO WK insulin glargine [Lantus Solostar U-100 Insulin] 100 unit/mL (3 mL) insulin pen 4 unit SUBCUT DAILY metformin 500 mg tablet extended release 24 hr 1,000 mg PO QAM Discontinued cephalexin 500 mg capsule 500 mg PO BID Qty: 10 0RF Discharge Orders: Discharge Order (Routine); Ordered 06/04/22 Ordered By: Bowen Minaya Admission Data Admit Date/Time: 06/02/22 22:58 Attending Provider: Bowen Minaya Admit Provider: Jason Snyder Primary Care Provider: Mike Goff
== END 2022-06-04 14:01 | disposition home or self-care (01) | DRG 641 ==
LOC: ED 19:13 → 3W 22:58

== ENCOUNTER 2022-10-23 09:02 | Inpatient (IN) ==
--- NOTE | 2022-10-23 09:38 | Emergency Department Note ---
History of Present Illness General Chief complaint: Altered Mental Status Stated complaint: ALTERED MENTAL STATUS "DOESN'T FEEL RIGHT" Time Seen by Provider: 10/23/22 09:15 Source: patient and family History of Present Illness Provider complaint: Altered mental status 87-year-old female presents emergency department stating "my mind is not right". She is here with her son. Son reports that she has been increasingly confused. He states is gone for some time. Son reports that he would like the patient checked for UTI and have her vitals checked. No chest pain difficulty breathing headache nausea vomiting diarrhea fever falls dysuria or hematuria. No suicidal or homicidal ideation. No feelings of depression or anxiety. Home Medications Medication Instructions Recorded Confirmed Type clopidogrel 75 mg tablet 75 mg PO DAILY 02/28/18 10/23/22 History levothyroxine 75 mcg tablet 75 mcg PO DAILY 02/28/18 10/23/22 History alendronate 70 mg tablet 70 mg PO WK 02/03/22 10/23/22 History insulin glargine 100 unit/mL (3 4 unit subcut DAILY 06/02/22 10/23/22 History mL) subcutaneous pen (Lantus Solostar U-100 Insulin) Allergies Allergy/AdvReac Type Severity Reaction Status Date / Time doxycycline Allergy Severe AIRWAY Verified 06/02/22 14:27 EDEMA lisinopril Allergy Severe ANGIOEDEMA Verified 06/02/22 14:27 sertraline Allergy Severe THROAT Verified 06/02/22 14:27 SWELLING hydromorphone Allergy Intermediate Dizzy, Verified 06/02/22 14:27 diaphoretic, nausea, vomiting prednisolone Allergy Intermediate BURNED EYES Verified 06/02/22 14:27 simvastatin AdvReac Severe MUSCLE Verified 06/02/22 14:27 ACHES, FATIGUE atenolol AdvReac Intermediate SWELLING Verified 06/02/22 14:27 codeine AdvReac Intermediate GI UPSET Verified 06/02/22 14:27 ezetimibe AdvReac Intermediate SINUS Verified 06/02/22 14:27 PROBLEMS gemfibrozil AdvReac Intermediate MUSCLE Verified 06/02/22 14:27 ACHES glipizide AdvReac Intermediate GI UPSET Verified 06/02/22 14:27 morphine AdvReac Intermediate GI SYMPTOMS Verified 06/02/22 14:27 oxycodone AdvReac Intermediate VOMITING Verified 06/02/22 14:27 pioglitazone AdvReac Intermediate SWELLING Verified 06/02/22 14:27 repaglinide AdvReac Intermediate NAUSEA Verified 06/02/22 14:27 Aminoglycosides AdvReac Mild UNKNOWN Verified 06/02/22 14:27 bacitracin AdvReac Mild CONTACT Verified 06/02/22 14:27 DERMATITIS metformin AdvReac Mild UNKNOWN Verified 06/02/22 14:27 neomycin AdvReac Mild CONTACT Verified 06/02/22 14:27 DERMATITIS polymyxin B AdvReac Mild CONTACT Verified 06/02/22 14:27 DERMATITIS tetracycline AdvReac Mild UNKNOWN Verified 06/02/22 14:27 Past Med/Surg History Medical History Hypothyroidism Memory loss Neuropathy Osteoporosis Type 2 diabetes mellitus Surgical History History of cataract surgery Family History Other Cancer Diabetes Social History Smoking Status: Never smoker Hx Alcohol Use: No Hx Substance Use: No Preferred Language: [place] Communication Ability: Effective Promotional Advertising Assistant Required: No Beliefs That Will Affect Care: None marital status: / Current Living Situation: Other Current Living Situation Comment: lives with adult son Portillo Other Information That Helps Us Care for You: No Feels Safe at Home: Yes Safety Concerns: Feels Safe At This Time Assistive Devices: Cane, Glasses and Walker Assistive Devices Comment: the devices are their if they need them Physical Exam Vital Signs Vital Signs - 24 hr 10/23/22 09:05 10/23/22 09:57 10/23/22 09:57 Temperature 36.2 C L Temperature Source Temporal Artery Scan Pulse Rate 84 Pulse Rate from SpO2 Sensor Respiratory Rate 20 Respiratory Effort / Characteristics Non-Labored Spontaneous Respiratory Depth Normal Blood Pressure 156/75 H Blood Pressure Mean 102 Pulse Oximetry 95 96 Oxygen Delivery Method Room Air Room Air Sepsis Recent Fever Within 48 Hours No Sepsis New/Unexplained Change in Mental Status N/A Sepsis Action Taken by Nursing No Action Required 10/23/22 10:08 10/23/22 09:41 10/23/22 09:41 Temperature Temperature Source Pulse Rate 72 82 Pulse Rate from SpO2 Sensor Respiratory Rate 15 Respiratory Effort / Characteristics Respiratory Depth Blood Pressure 164/70 H Blood Pressure Mean 101 Pulse Oximetry Oxygen Delivery Method Sepsis Recent Fever Within 48 Hours Sepsis New/Unexplained Change in Mental Status Sepsis Action Taken by Nursing 10/23/22 09:50 10/23/22 10:05 10/23/22 10:10 Temperature Temperature Source Pulse Rate 73 71 88 Pulse Rate from SpO2 Sensor 73 Respiratory Rate 24 22 16 Respiratory Effort / Characteristics Respiratory Depth Blood Pressure Blood Pressure Mean Pulse Oximetry 98 Oxygen Delivery Method Sepsis Recent Fever Within 48 Hours Sepsis New/Unexplained Change in Mental Status Sepsis Action Taken by Nursing 10/23/22 10:20 10/23/22 10:30 10/23/22 10:40 Temperature Temperature Source Pulse Rate 72 72 68 Pulse Rate from SpO2 Sensor Respiratory Rate 23 22 23 Respiratory Effort / Characteristics Respiratory Depth Blood Pressure Blood Pressure Mean Pulse Oximetry Oxygen Delivery Method Sepsis Recent Fever Within 48 Hours Sepsis New/Unexplained Change in Mental Status Sepsis Action Taken by Nursing 10/23/22 10:48 10/23/22 10:48 10/23/22 10:50 Temperature Temperature Source Pulse Rate 74 71 Pulse Rate from SpO2 Sensor 74 71 Respiratory Rate 15 14 Respiratory Effort / Characteristics Respiratory Depth Blood Pressure 149/123 H Blood Pressure Mean 131 Pulse Oximetry 96 96 Oxygen Delivery Method Sepsis Recent Fever Within 48 Hours Sepsis New/Unexplained Change in Mental Status Sepsis Action Taken by Nursing 10/23/22 11:00 10/23/22 11:01 10/23/22 11:01 Temperature Temperature Source Pulse Rate 72 72 Pulse Rate from SpO2 Sensor 73 75 Respiratory Rate 17 24 Respiratory Effort / Characteristics Respiratory Depth Blood Pressure 144/74 H Blood Pressure Mean 97 Pulse Oximetry 96 96 Oxygen Delivery Method Sepsis Recent Fever Within 48 Hours Sepsis New/Unexplained Change in Mental Status Sepsis Action Taken by Nursing 10/23/22 11:10 10/23/22 11:20 Temperature Temperature Source Pulse Rate 73 71 Pulse Rate from SpO2 Sensor 74 72 Respiratory Rate 24 23 Respiratory Effort / Characteristics Respiratory Depth Blood Pressure Blood Pressure Mean Pulse Oximetry 95 96 Oxygen Delivery Method Sepsis Recent Fever Within 48 Hours Sepsis New/Unexplained Change in Mental Status Sepsis Action Taken by Nursing Physical Exam GENERAL: She is oriented to person, place, and time. She appears well-developed and well-nourished. She does not appear distressed. HENT: Exam performed. -Head: Normocephalic and atraumatic. -Right Ear: External ear normal. No mastoid erythema -Left Ear: External ear normal. No mastoid erythema -Mouth/Throat: The oropharynx is clear and moist. No trismus in the jaw. No dental abscesses or uvula swelling. No oropharyngeal exudate or tonsillar abscesses. EYES: Conjunctivae and EOM are normal. Pupils are equal, round, and reactive to light. Right eye exhibits no discharge. Left eye exhibits no discharge. No scleral icterus. NECK: Normal range of motion. Neck supple. No JVD present. No tracheal deviation and normal range of motion present. CV: Normal rate, regular rhythm, normal heart sounds and intact distal pulses. There is no peripheral edema. Palpable radial pulses bue. PULM/CHEST: Effort normal and breath sounds normal. No respiratory distress. No stridor. She has no wheezes. She has no rales. ABD: The abdomen is soft. She has no distension. No mass is present. There is no tenderness. There is no rebound, no guarding, no Brannon's sign and no tenderness at McBurney's point. Rovsig negative MUSC/SKEL: Normal range of motion. There is no peripheral edema, tenderness or deformity. NEURO: She is alert and oriented to person, place, and time. She has normal strength. No cranial nerve deficit or sensory deficit. Coordination and gait normal. GCS eye subscore is 4. GCS verbal subscore is 5. GCS motor subscore is 6. Cerebellar tests wnl. SKIN: Skin is warm and dry. She is not diaphoretic. PSYCH: She has a normal mood and affect. Behavior is normal. Judgment and thought content normal. Course Course 914: The patient was evaluated in room A4. A complete history and physical exam was performed Administered Medications Sodium Chloride (Nss 1000ml) 1,000 mls @ 125 mls/hr IV .Q8H NOLAN Stop: 11/22/22 10:44 Last Admin: 10/23/22 14:24 Dose: 125 mls/hr Documented By: Infusion: 10/23/22 14:24 Dose: 125 mls/hr Documented By: Admin: 10/23/22 10:47 Dose: 125 mls/hr Documented By: ALEJANDRO Insulin Aspart (Insulin Aspart Per Unit Charge) 0 units SC ACHS NOLAN Stop: 11/22/22 13:19 Last Admin: 10/23/22 14:07 Dose: 5 units Documented By: TAMICA Co-signed By: PUMA Medical Decision Making Laboratory Data Attestation: I reviewed the patient's lab results. 10/23/22 09:41 10/23/22 09:41 Lab Results 10/23/22 10/23/22 10/23/22 Range/Units 09:39 09:40 09:41 WBC 4.93 (4.8-10.8) K/ul RBC 4.41 (4.20-5.40) M/uL Hgb 14.2 (12.0-16.0) g/dl Hct 41.7 (37.0-47.0) % MCV 94.6 (80.0-100.0) fL MCH 32.2 (25.0-34.0) pg MCHC 34.1 (32.0-36.0) g/dL RDW Std Deviation 44.4 (36.4-46.3) fL RDW Coeff of Kisha 12.7 (11.5-14.5) % Plt Count 308 (130-400) K/uL MPV 8.8 L (9.4-12.4) fL Immature Gran % (Auto) 0.2 % Neut % (Auto) 79.4 % Lymph % (Auto) 9.5 % Bond % (Auto) 9.1 % Eos % (Auto) 0.8 % Baso % (Auto) 1.0 % Neut # (Auto) 3.91 (1.40-6.50) K/uL Lymph # (Auto) 0.47 L (1.2-3.4) K/uL Bond # (Auto) 0.45 (0.11-0.59) K/uL Eos # (Auto) 0.04 (0-0.50) K/uL Baso # (Auto) 0.05 (0-0.2) K/uL Immature Gran # (Auto) 0.01 (0.01-0.20) K/uL PT (9.0-12.0) Seconds INR (0.9-1.1) APTT (21.0-31.0) Seconds PTT Ratio VBG pH (7.36-7.41) VBG pCO2 (38-50) mmHg VBG pO2 mmHg VBG HCO3 mmol/L VBG O2 Saturation % VBG Base Excess mEq/L Sodium (136-145) mmol/L Potassium (3.5-5.1) mmol/L Chloride (98-107) mmol/L Carbon Dioxide (21-32) mmol/L Anion Gap (3-11) BUN (6-23) mg/dl Creatinine (0.6-1.2) mg/dl Est Cr Clr Drug Dosing ml/min Est GFR ( Amer) ml/min Est GFR (Non-Af Amer) ml/min BUN/Creatinine Ratio (10-20) Glucose (70-99(Fasting)) mg/dl POC Glucose 264 H (70-99) mg/dl Calcium (8.6-10.3) mg/dl Total Bilirubin (0.2-1.0) mg/dl Direct Bilirubin (0-0.2) mg/dl AST (13-39) U/L ALT (7-52) U/L Alkaline Phosphatase (34-104) U/L Ammonia (18-72) umol/L Total Protein (6.0-8.3) gm/dl Albumin (3.4-5.0) gm/dl Lipase (11-82) U/L Salicylates (3.0-30) mg/dl Acetaminophen (10-30) ug/ml SARS-CoV-2, RNA, NAAT NEGATIVE (NEGATIVE) 10/23/22 10/23/22 10/23/22 Range/Units 09:41 09:41 09:41 WBC (4.8-10.8) K/ul RBC (4.20-5.40) M/uL Hgb (12.0-16.0) g/dl Hct (37.0-47.0) % MCV (80.0-100.0) fL MCH (25.0-34.0) pg MCHC (32.0-36.0) g/dL RDW Std Deviation (36.4-46.3) fL RDW Coeff of Kisha (11.5-14.5) % Plt Count (130-400) K/uL MPV (9.4-12.4) fL Immature Gran % (Auto) % Neut % (Auto) % Lymph % (Auto) % Bond % (Auto) % Eos % (Auto) % Baso % (Auto) % Neut # (Auto) (1.40-6.50) K/uL Lymph # (Auto) (1.2-3.4) K/uL Bond # (Auto) (0.11-0.59) K/uL Eos # (Auto) (0-0.50) K/uL Baso # (Auto) (0-0.2) K/uL Immature Gran # (Auto) (0.01-0.20) K/uL PT (9.0-12.0) Seconds INR (0.9-1.1) APTT (21.0-31.0) Seconds PTT Ratio VBG pH (7.36-7.41) VBG pCO2 (38-50) mmHg VBG pO2 mmHg VBG HCO3 mmol/L VBG O2 Saturation % VBG Base Excess mEq/L Sodium 128 L (136-145) mmol/L Potassium 4.4 (3.5-5.1) mmol/L Chloride 93 L (98-107) mmol/L Carbon Dioxide 28 (21-32) mmol/L Anion Gap 7 (3-11) BUN 20 (6-23) mg/dl Creatinine 0.64 (0.6-1.2) mg/dl Est Cr Clr Drug Dosing 52.1 ml/min Est GFR ( Amer) 94.3 ml/min Est GFR (Non-Af Amer) 81.4 ml/min BUN/Creatinine Ratio 31.3 H (10-20) Glucose 254 H (70-99(Fasting)) mg/dl POC Glucose (70-99) mg/dl Calcium 9.2 (8.6-10.3) mg/dl Total Bilirubin 0.5 (0.2-1.0) mg/dl Direct Bilirubin 0.1 (0-0.2) mg/dl AST 23 (13-39) U/L ALT 16 (7-52) U/L Alkaline Phosphatase 60 (34-104) U/L Ammonia 28.0 (18-72) umol/L Total Protein 7.5 (6.0-8.3) gm/dl Albumin 4.5 (3.4-5.0) gm/dl Lipase 27 (11-82) U/L Salicylates < 3.0 L (3.0-30) mg/dl Acetaminophen < 3 L (10-30) ug/ml SARS-CoV-2, RNA, NAAT (NEGATIVE) 10/23/22 10/23/22 Range/Units 09:41 09:41 WBC (4.8-10.8) K/ul RBC (4.20-5.40) M/uL Hgb (12.0-16.0) g/dl Hct (37.0-47.0) % MCV (80.0-100.0) fL MCH (25.0-34.0) pg MCHC (32.0-36.0) g/dL RDW Std Deviation (36.4-46.3) fL RDW Coeff of Kisha (11.5-14.5) % Plt Count (130-400) K/uL MPV (9.4-12.4) fL Immature Gran % (Auto) % Neut % (Auto) % Lymph % (Auto) % Bond % (Auto) % Eos % (Auto) % Baso % (Auto) % Neut # (Auto) (1.40-6.50) K/uL Lymph # (Auto) (1.2-3.4) K/uL Bond # (Auto) (0.11-0.59) K/uL Eos # (Auto) (0-0.50) K/uL Baso # (Auto) (0-0.2) K/uL Immature Gran # (Auto) (0.01-0.20) K/uL PT 10.6 (9.0-12.0) Seconds INR 1.0 (0.9-1.1) APTT 25.0 (21.0-31.0) Seconds PTT Ratio 0.9 VBG pH 7.38 (7.36-7.41) VBG pCO2 49 (38-50) mmHg VBG pO2 39 mmHg VBG HCO3 29 mmol/L VBG O2 Saturation 69.2 % VBG Base Excess 2.9 mEq/L Sodium (136-145) mmol/L Potassium (3.5-5.1) mmol/L Chloride (98-107) mmol/L Carbon Dioxide (21-32) mmol/L Anion Gap (3-11) BUN (6-23) mg/dl Creatinine (0.6-1.2) mg/dl Est Cr Clr Drug Dosing ml/min Est GFR ( Amer) ml/min Est GFR (Non-Af Amer) ml/min BUN/Creatinine Ratio (10-20) Glucose (70-99(Fasting)) mg/dl POC Glucose (70-99) mg/dl Calcium (8.6-10.3) mg/dl Total Bilirubin (0.2-1.0) mg/dl Direct Bilirubin (0-0.2) mg/dl AST (13-39) U/L ALT (7-52) U/L Alkaline Phosphatase (34-104) U/L Ammonia (18-72) umol/L Total Protein (6.0-8.3) gm/dl Albumin (3.4-5.0) gm/dl Lipase (11-82) U/L Salicylates (3.0-30) mg/dl Acetaminophen (10-30) ug/ml SARS-CoV-2, RNA, NAAT (NEGATIVE) Imaging Data Attestation: I personally reviewed and interpreted this imaging study as follows: My Impression: Chest x-ray negative. Airway clear. No pneumothorax. No consolidation. No cardiomegaly or cephalization.. No free air under the diaphragm. No fractures of the skeletal structures. Radiologist's Impression: Chest X-Ray 10/23/22 09:23 XR chest 1V portable CLINICAL HISTORY: ams TECHNIQUE: Single frontal radiograph of the chest was obtained. Comparison: Comparison is made to chest radiograph 06/02/2022 FINDINGS: No lines and tubes are seen. The cardiomediastinal silhouette is normal. The lungs are clear. No evidence of pleural effusion or pneumothorax. IMPRESSION: No acute chest disease. ACT 112: Negative or not required by law. Electronically signed by: Roddy Mercado M.D. 10/23/2022 10:[address] 10/23/22 09:23 CT head/brain wo con CLINICAL HISTORY: ams Technique: Contiguous axial CT images of the head were acquired from the base of the skull to the vertex without intravenous contrast administration. Images were viewed in brain, subdural and bone windows. Automated dose lowering techniques and/or adjustment according to patient size were utilized for this exam. Comparison: Comparison is made to CT head 06/02/2022 Findings: Areas of decreased attenuation are present in the periventricular and subcortical white matter bilaterally consistent with small vessel ischemic disease. Generalized cerebral atrophy with commensurate enlargement of the ventricles, sulci, and cisterns is also present. There is no acute intracranial hemorrhage or evidence of acute territorial infarction. No shift of the midline structures, mass effect, or extra-axial abnormalities are shown. Atherosclerotic calcifications are present in the intracranial segments of the internal carotid arteries. Imaged portions of the paranasal sinuses and mastoid air cells are clear. The orbits appear normal. There are no acute fractures of the calvaria or scalp swelling. Impression: No acute intracranial hemorrhage, no evidence of acute territorial infarction or other acute intracranial disease process. ACT 112: Negative or not required by law. Electronically signed by: Roddy Mercado M.D. 10/23/2022 10:06 AM ECG Data Attestation: I personally reviewed and interpreted this ECG as follows: Rate (beats per minute): 79 Rhythm: + normal sinus ECG Intervals/blocks: + Right Bundle branch block, + Normal QRS, + Normal DC and + Normal QT-c ECG ST segments: + Normal ST segments MDM Narrative Cardiac monitoring: An order was placed for continuous cardiac monitoring. The monitor shows a rate of 80 with sinus rhythm interpreted by me Vital signs stable. Labs within normal limits with exception of mild hyponatremia. No seizures. [facility] on IV [facility] & Plan Hyponatremia Discharge Plan Visit Data Chief Complaint: Altered Mental Status Stated Complaint: ALTERED MENTAL STATUS "DOESN'T FEEL RIGHT" ED Provider: Mateo Rees Discharge Problem: Hyponatremia Patient Disposition: Admitted As Inpatient Discharge Instructions Interventions: ED Discharge Assessment Last Done: 10/23/22 13:25
[2022-10-23 10:02] LABS: Base Excess VBG 2.9 mEq/L; HCO3 VBG 29 mmol/L; Oxygen Saturation VBG 69.2 %; PCO2 VBG 49 mmHg (38-50); PO2 VBG 39 mmHg; pH VBG 7.38 (7.36-7.41)
--- NOTE | 2022-10-23 10:03 | XRay Report ---
XR chest 1V portable CLINICAL HISTORY: ams TECHNIQUE: Single frontal radiograph of the chest was obtained. Comparison: Comparison is made to chest radiograph 06/02/2022 FINDINGS: No lines and tubes are seen. The cardiomediastinal silhouette is normal. The lungs are clear. No evid ence of pleural effusion or pneumothorax. IMPRESSION: No acute chest disease. ACT 112: Negative or not required by law. Electronically signed by: Roddy Mercado M.D. 10/23/2022 10:01 AM
[2022-10-23 10:06] LABS: Basophils # (auto) 0.05 K/uL (0-0.2); Eosinophils # (auto) 0.04 K/uL (0-0.50); Eosinophils % (auto) 0.8 %; Hematocrit (blood only) 41.7 % (37.0-47.0); Hemoglobin 14.2 g/dl (12.0-16.0); Immature Granulocytes # (auto) 0.01 K/uL (0.01-0.20); Immature Granulocytes % (auto) 0.2 %; Lymphocytes # (auto) 0.47 K/uL (1.2-3.4); Lymphocytes % (auto) 9.5 %; Mean Corpuscular Hemoglobin 32.2 pg (25.0-34.0); Mean Corpuscular Hgb Conc 34.1 g/dL (32.0-36.0); Mean Corpuscular Volume 94.6 fL (80.0-100.0); Mean Platelet Volume 8.8 fL (9.4-12.4); Monocytes # (auto) 0.45 K/uL (0.11-0.59); Monocytes % (auto) 9.1 %; Neutrophils # (auto) 3.91 K/uL (1.40-6.50); Neutrophils % (auto) 79.4 %; Platelet Count 308 K/uL (130-400); RDW Coefficient of Variation 12.7 % (11.5-14.5); RDW Standard Deviation 44.4 fL (36.4-46.3); Red Blood Count 4.41 M/uL (4.20-5.40); White Blood Count 4.93 K/ul (4.8-10.8)
--- NOTE | 2022-10-23 10:08 | CT Scan Report ---
CT head/brain wo con CLINICAL HISTORY: ams Technique: Contiguous axial CT images of the head were acquired from the base of the skull to the jonny frank without intravenous contrast administration. Images were viewed in brain, subdural and bone [facility]. Automated dose lowering techniques and/or adjustment according to patient size were utilized for this exam. Comparison: Comparison is made to CT head 06/02/2022 Findings: Areas of decreased attenuation are present in the periventricular and subcortical white matter bilate rally consistent with small vessel ischemic disease. Generalized cerebral atrophy with commensurate e nlargement of the ventricles, sulci, and cisterns is also present. There is no acute intracranial hem orrhage or evidence of acute territorial infarction. No shift of the midline structures, mass effect, or extra-axial abnormalities are shown. Atherosclerotic calcifications are present in the intracran ial segments of the internal carotid arteries. Imaged portions of the paranasal sinuses and mastoid air cells are clear. The orbits appear normal. There are no acute fractures of the calvaria or scalp swelling. Impression: No acute intracranial hemorrhage, no evidence of acute territorial infarction or other acute intracra nial disease process. ACT 112: Negative or not required by law. Electronically signed by: Roddy Mercado M.D. 10/23/2022 10:06 AM
[2022-10-23 10:21] LABS: Acetaminophen < 3 ug/ml (10-30); Salicylate < 3.0 mg/dl (3.0-30)
[2022-10-23 10:22] LABS: Albumin Level 4.5 gm/dl (3.4-5.0); BUN Creatinine Ratio 31.3 (10-20); Bilirubin Direct 0.1 mg/dl (0-0.2); Bilirubin,Total 0.5 mg/dl (0.2-1.0); Calcium 9.2 mg/dl (8.6-10.3); Creatinine Clr Calc Pharmacy 52.1 ml/min; Est GFR (African American) 94.3 ml/min; Est GFR (Non-African American) 81.4 ml/min; Potassium 4.4 mmol/L (3.5-5.1); Total Protein 7.5 gm/dl (6.0-8.3)
[2022-10-23 10:35] LABS: Partial Thromboplastin Ratio 0.9; Prothrombin Time 10.6 Seconds (9.0-12.0)
[2022-10-23] MEDS: SODIUM CHLORIDE 0.9% 1000ML 1,000 ML IV SCH ×3 (10:47→21:08)
--- NOTE | 2022-10-23 11:17 | History & Physical Report ---
Date of Service October 23, 2022 Assessment & Plan (1) Progressive dementia with uncertain etiology: Plan: Progressive issues with memory loss reported by patient and son at home. She has recently seen PCP last week and multiple possible reversible causes were excluded. Her son reports she is exhibiting paranoia and severe anxiety. SHe is accusing him of stealing from her. No combative behaviors noted. Appears consistent with progressed dementia and both patient and family are looking for increased support options. Favoring additional help in the home, however, also open to more [place] placement. Will obtain PT and OT evaluations and appreciate case management's assistance with options for additional help with external support resources. (2) Hypertension: Plan: chronic, stable. Cont home medications. (3) Osteoporosis: Plan: chronic, stable. On Fosamax, hold for now. (4) Type 2 diabetes mellitus: Plan: There has been a decline in A1C on outpatient record review. She has hyperglycemia today, also. Hold outpatient metformin for now and continue with basal/bolus insulin while she is in the hospital. (5) Hypothyroidism: Plan: Chronic, stable per recent outpatient TSH. Cont Synthroid per home regimen. DVT proph: heparin DNR as discused with her son by phone. Dispo- to floor and pending case management evaluation for options and family discussion. I spent a total of75 minutes coordinating, documenting, and providing care for this patient excluding time spent in the performance of separately billed services including speaking with her son by phone and reviewing outpatient records. Morenita Roca DO [facility]ist History of Present Illness Primary Care Provider: Mike Goff MD 87 yo F presents with anxiety from losing her memory. She is not confused and is clearly oriented. She has been able to accomplish her ADLs at home and has been taking her own medications up until this point. She lives with her son who I spoke with by phone. He is overwhelmed by the rapid increase in level of need over the past couple of weeks and is looking for some help. He states that aside from the memory loss, there has been confusion and paranoia present and severe anxiety which causes him concern. He reports she recently acucsed him of stealing money form her despite him showing her the check book proving that didn't happen. The patient is expressing anxious concern today that she can't remember more short term things. meterman memory appears intact. She is a poor historian. No combative behavior has been seen at home. Son is open to placement but feels her being at home is reasonable with some additional help. He has another brother who is local and a sister in [place]. Outpatient record review reveals that she just saw her PCP who checked A1C 7.7, up from 6.4 6 months ago. UA with no evidence of infection, normal B12, no evidence of proteinuria, ESR of 8 and TSH of 0.38 on Synthroid. He ordered an MRI and Neurology consult which have been scheduled. There do not appear to be any reversible causes of this memory loss, however, defer to neurology for more comprehensive assessment. Medications were confirmed using the outpatient chart as patient and son were not able to confirm. I did speak with son about the anxiety being a normal reaction to losing control and independence as well as a manifestation of fear. He appears overwhelmed but supportive. Allergies Allergy/AdvReac Type Severity Reaction Status Date / Time doxycycline Allergy Severe AIRWAY Verified 06/02/22 14:27 EDEMA lisinopril Allergy Severe ANGIOEDEMA Verified 06/02/22 14:27 sertraline Allergy Severe THROAT Verified 06/02/22 14:27 SWELLING hydromorphone Allergy Intermediate Dizzy, Verified 06/02/22 14:27 diaphoretic, nausea, vomiting prednisolone Allergy Intermediate BURNED EYES Verified 06/02/22 14:27 simvastatin AdvReac Severe MUSCLE Verified 06/02/22 14:27 ACHES, FATIGUE atenolol AdvReac Intermediate SWELLING Verified 06/02/22 14:27 codeine AdvReac Intermediate GI UPSET Verified 06/02/22 14:27 ezetimibe AdvReac Intermediate SINUS Verified 06/02/22 14:27 PROBLEMS gemfibrozil AdvReac Intermediate MUSCLE Verified 06/02/22 14:27 ACHES glipizide AdvReac Intermediate GI UPSET Verified 06/02/22 14:27 morphine AdvReac Intermediate GI SYMPTOMS Verified 06/02/22 14:27 oxycodone AdvReac Intermediate VOMITING Verified 06/02/22 14:27 pioglitazone AdvReac Intermediate SWELLING Verified 06/02/22 14:27 repaglinide AdvReac Intermediate NAUSEA Verified 06/02/22 14:27 Aminoglycosides AdvReac Mild UNKNOWN Verified 06/02/22 14:27 bacitracin AdvReac Mild CONTACT Verified 06/02/22 14:27 DERMATITIS metformin AdvReac Mild UNKNOWN Verified 06/02/22 14:27 neomycin AdvReac Mild CONTACT Verified 06/02/22 14:27 DERMATITIS polymyxin B AdvReac Mild CONTACT Verified 06/02/22 14:27 DERMATITIS tetracycline AdvReac Mild UNKNOWN Verified 06/02/22 14:27 Home Medications Medication Instructions Recorded Confirmed Type clopidogrel 75 mg tablet 75 mg PO DAILY 02/28/18 06/02/22 History levothyroxine 75 mcg tablet 75 mcg PO DAILY 02/28/18 06/02/22 History alendronate 70 mg tablet 70 mg PO WK 02/03/22 06/02/22 History insulin glargine 100 unit/mL (3 4 unit subcut DAILY 06/02/22 06/02/22 History mL) subcutaneous pen (Lantus Solostar U-100 Insulin) metformin 500 mg tablet,extended 1,000 mg PO QAM 06/02/22 06/02/22 History release 24 hr Past Med/Surg History Medical History Hypothyroidism Memory loss Neuropathy Osteoporosis Type 2 diabetes mellitus Surgical History History of cataract surgery Family History Other Cancer Diabetes Social History Smoking Status: Never smoker Hx Alcohol Use: No Hx Substance Use: No Preferred Language: Maltese Communication Ability: Effective Yard Manager Required: No Beliefs That Will Affect Care: None marital status: / Current Living Situation: Family Current Living Situation Comment: lives with son Feels Safe at Home: Yes Assistive Devices: None Physical Exam Physical Exam: CONSTITUTIONAL: Wthin, elderly, vitals as above, generally well-appearing, NAD EYES: normal conjunctivae, no scleral icterus ENT: external ear and nose normal, MMM NECK: trachea midline RESPIRATORY: clear to auscultation bilaterally, no crackles, rales or wheezes, normal respiratory effort CARDIOVASCULAR: regular rate and rhythm, S1 and 2 heard without murmurs, gallops or rubs, no JVD, no peripheral edema CHEST: inspection of chest was normal GASTROINTESTINAL: soft, nontender, ND, no guarding MUSCULOSKELETAL: strength 5/5 throughout, head is normocephalic and atraumatic SKIN: warm and dry NEUROLOGIC: CN 2-12 grossly intact, no sensory deficit, normal cognition, normal speech, no tremor PSYCHIATRIC: alert cooperative and oriented to person, place and time. Euthymic mood, makes good eye contact, language grossly intact, ,decline in recent memory, remote memory grossly intact. Results & Data Results & Data Vital Signs (Past 12 Hours) Vital Signs Temp Pulse Resp BP Pulse Ox O2 Del Method 10/23/22 10:08 72 10/23/22 09:57 96 10/23/22 09:57 Room Air 10/23/22 09:05 36.2 C L 84 20 156/75 H 95 Room Air Laboratory Results Short CBC 10/23/22 Range/Units 09:41 WBC 4.93 (4.8-10.8) K/ul Hgb 14.2 (12.0-16.0) g/dl Hct 41.7 (37.0-47.0) % Plt Count 308 (130-400) K/uL BMP 10/23/22 09:41 Sodium 128 L Potassium 4.4 Chloride 93 L Carbon Dioxide 28 BUN 20 Creatinine 0.64 Glucose 254 H Calcium 9.2 Liver Function 10/23/22 Range/Units 09:41 Total Bilirubin 0.5 (0.2-1.0) mg/dl Direct Bilirubin 0.1 (0-0.2) mg/dl AST 23 (13-39) U/L ALT 16 (7-52) U/L Alkaline Phosphatase 60 (34-104) U/L Albumin 4.5 (3.4-5.0) gm/dl Diagnostic Findings Chest X-Ray 10/23/22 09:23 XR chest 1V portable CLINICAL HISTORY: ams TECHNIQUE: Single frontal radiograph of the chest was obtained. Comparison: Comparison is made to chest radiograph 06/02/2022 FINDINGS: No lines and tubes are seen. The cardiomediastinal silhouette is normal. The lungs are clear. No evidence of pleural effusion or pneumothorax. IMPRESSION: No acute chest disease. ACT 112: Negative or not required by law. Electronically signed by: Roddy Mercado M.D. 10/23/2022 10:[address] 10/23/22 09:23 CT head/brain wo con CLINICAL HISTORY: ams Technique: Contiguous axial CT images of the head were acquired from the base of the skull to the vertex without intravenous contrast administration. Images were viewed in brain, subdural and bone windows. Automated dose lowering techniques and/or adjustment according to patient size were utilized for this exam. Comparison: Comparison is made to CT head 06/02/2022 Findings: Areas of decreased attenuation are present in the periventricular and subcortical white matter bilaterally consistent with small vessel ischemic disease. Generalized cerebral atrophy with commensurate enlargement of the ventricles, sulci, and cisterns is also present. There is no acute intracranial hemorrhage or evidence of acute territorial infarction. No shift of the midline structures, mass effect, or extra-axial abnormalities are shown. Atherosclerotic calcifications are present in the intracranial segments of the internal carotid arteries. Imaged portions of the paranasal sinuses and mastoid air cells are clear. The orbits appear normal. There are no acute fractures of the calvaria or scalp swelling. Impression: No acute intracranial hemorrhage, no evidence of acute territorial infarction or other acute intracranial disease process. ACT 112: Negative or not required by law. Electronically signed by: Roddy Mercado M.D. 10/23/2022 10:06 AM
--- NOTE | 2022-10-23 12:43 | Electrocardiogram Report ---
Test Reason : Blood Pressure : / mmHG Vent. Rate : 079 BPM Atrial Rate : 079 BPM P-R Int : 114 ms QRS Dur : 114 ms QT Int : 384 ms P-R-T Axes : 013 080 052 degrees QTc Int : 440 ms Normal sinus rhythm Incomplete right bundle branch block Borderline ECG When compared with ECG of 02-JUN-2022 19:19, Premature ventricular complexes are no longer Present Premature supraventricular complexes are no longer Present Confirmed by Chirag Shrestha ([id number]) on 10/23/2022 12:42:59 PM Referred By: Confirmed By:Chirag Shrestha
[2022-10-23] MEDS ORDERED: GLUCOSE 40% GEL 15 GM TUBE PO PRN (13:20)
[2022-10-23] MEDS ORDERED: GLUCOSE 10 TAB/TUBE PO PRN (13:20)
[2022-10-23] MEDS ORDERED: GLUCAGON FOR INJ 1 MG VIAL SQ PRN (13:20)
[2022-10-23] MEDS ORDERED: POLYETHYLENE (MIRALAX) 17 GM PACK PO PRN (13:20)
[2022-10-23] MEDS ORDERED: CARBOHYDRATES FOR HYPOGLYCEMIA PO PRN (13:20)
[2022-10-23] MEDS ORDERED: DEXTROSE 50% 50 ML SYRINGE IV PRN (13:20)
[2022-10-23] MEDS ORDERED: ACETAMINOPHEN 325 MG TAB PO PRN (13:20)
[2022-10-23] MEDS: INSULIN ASPART PER UNIT CHARGE SC SCH ×3 (14:07→21:02)
[2022-10-23 17:57] LABS: Appearance Urine Clear (Clear); Bilirubin Urine Negative (Negative); Blood Urine Negative (Negative); Color Urine Yellow; Glucose Urine UA Negative (Negative); Ketones Urine Negative (Negative); Leukocyte Esterase Urine Negative (Negative); Nitrite Urine Negative (Negative); Protein Urine Negative (Negative); Specific Gravity Urine 1.005 (1.000-1.030); Urobilinogen Urine Negative (Negative); pH Urine 7.5 (4.5-7.5)
[2022-10-23] MEDS: HEPARIN SOD 5,000 UNIT/0.5 ML VIAL SQ SCH (20:02)
[2022-10-23] MEDS: LANTUS PER UNIT CHARGE SQ SCH (21:02)
[2022-10-24] MEDS ORDERED: LEVOTHYROXINE SODIUM 75 MCG TABLET PO SCH (06:30)
[2022-10-24 06:54] LABS: Hematocrit (blood only) 40.6 % (37.0-47.0); Hemoglobin 13.7 g/dl (12.0-16.0); Mean Corpuscular Hemoglobin 31.6 pg (25.0-34.0); Mean Corpuscular Hgb Conc 33.7 g/dL (32.0-36.0); Mean Corpuscular Volume 93.8 fL (80.0-100.0); Mean Platelet Volume 8.7 fL (9.4-12.4); Platelet Count 294 K/uL (130-400); RDW Coefficient of Variation 12.8 % (11.5-14.5); RDW Standard Deviation 44.4 fL (36.4-46.3); Red Blood Count 4.33 M/uL (4.20-5.40); White Blood Count 3.42 K/ul (4.8-10.8)
[2022-10-24 07:13] LABS: BUN Creatinine Ratio 30.5 (10-20); Calcium 8.6 mg/dl (8.6-10.3); Creatinine Clr Calc Pharmacy 54.9 ml/min; Est GFR (African American) 96.9 ml/min; Est GFR (Non-African American) 83.6 ml/min; Phosphorus 2.6 mg/dl (2.5-4.9); Potassium 3.9 mmol/L (3.5-5.1)
[2022-10-24 08:22] LABS: Estimated Average Glucose 169 mg/dl; Hemoglobin A1C 7.5 % (4.5-5.6)
[2022-10-24] MEDS: HEPARIN SOD 5,000 UNIT/0.5 ML VIAL SQ SCH (08:31)
[2022-10-24] MEDS: INSULIN ASPART PER UNIT CHARGE SC SCH ×2 (08:35→13:23)
[2022-10-24] MEDS: LANTUS PER UNIT CHARGE SQ SCH (08:37)
[2022-10-24] MEDS ORDERED: CLOPIDOGREL BISULFATE 75 MG TAB PO SCH (09:00)
--- NOTE | 2022-10-24 12:56 | Hospitalist Progress Note ---
Date of Service October 24, 2022 Assessment & Plan (1) Progressive dementia with uncertain etiology: Plan: Progressive issues with memory loss reported by patient and son at home. She has recently seen PCP last week and multiple possible reversible causes were excluded. Her son reports she is exhibiting paranoia and severe anxiety. SHe is accusing him of stealing from her. No combative behaviors noted. Appears consistent with progressed dementia and both patient and family are looking for increased support options. Favoring additional help in the home, however, also open to more shelter placement. Will obtain PT and OT evaluations and appreciate case management's assistance with options for additional help with external support resources. (2) Hypertension: Plan: chronic, stable. Cont home medications. (3) Osteoporosis: Plan: chronic, stable. On Fosamax, hold for now. (4) Type 2 diabetes mellitus: Plan: There has been a decline in A1C on outpatient record review. She has hyperglycemia today, also. Hold outpatient metformin for now and continue with basal/bolus insulin while she is in the hospital. (5) Hypothyroidism: Plan: Chronic, stable per recent outpatient TSH. Cont Synthroid per home regimen. DVT proph: heparin DNR as discused with her son by phone. Dispo- to floor and pending case management evaluation for options and family discussion. I spent a total of75 minutes coordinating, documenting, and providing care for this patient excluding time spent in the performance of separately billed services including speaking with her son by phone and reviewing outpatient records. Morenita Roca DO [facility] Hospitalist Admission and Anticipated Discharge Date Admission Date: October 23, 2022 Physical Exam Physical Exam: CONSTITUTIONAL: Wthin, elderly, vitals as above, generally well-appearing, NAD EYES: normal conjunctivae, no scleral icterus ENT: external ear and nose normal, MMM NECK: trachea midline RESPIRATORY: clear to auscultation bilaterally, no crackles, rales or wheezes, normal respiratory effort CARDIOVASCULAR: regular rate and rhythm, S1 and 2 heard without murmurs, gallops or rubs, no JVD, no peripheral edema CHEST: inspection of chest was normal GASTROINTESTINAL: soft, nontender, ND, no guarding MUSCULOSKELETAL: strength 5/5 throughout, head is normocephalic and atraumatic SKIN: warm and dry NEUROLOGIC: CN 2-12 grossly intact, no sensory deficit, normal cognition, normal speech, no tremor PSYCHIATRIC: alert cooperative and oriented to person, place and time. Euthymic mood, makes good eye contact, language grossly intact, ,decline in re cent memory, remote memory grossly intact. Results & Data Results & Data Vital Signs (Past 12 Hours) Vital Signs Temp Pulse Resp BP Pulse Ox O2 Del Method 10/24/22 07:36 36.4 C L 71 16 137/73 97 Room Air Laboratory Results Short CBC 10/24/22 Range/Units 06:40 WBC 3.42 L (4.8-10.8) K/ul Hgb 13.7 (12.0-16.0) g/dl Hct 40.6 (37.0-47.0) % Plt Count 294 (130-400) K/uL BMP 10/24/22 06:40 Sodium 136 Potassium 3.9 Chloride 103 Carbon Dioxide 28 BUN 18 Creatinine 0.59 L Glucose 96 Calcium 8.6 Urine 10/23/22 Range/Units 16:00 Urine Color Yellow Urine Appearance Clear (Clear) Urine pH 7.5 (4.5-7.5) Ur Specific [place] 1.005 (1.000-1.030) Urine Protein Negative (Negative) Urine Glucose (UA) Negative (Negative) Medications Administered Current Inpatient Medications Acetaminophen (Acetaminophen 325 Mg Tab) 650 mg PO Q4H PRN PRN Reason: Pain or Fever Stop: 11/22/22 13:19 Clopidogrel Bisulfate (Clopidogrel Bisulfate 75 Mg Tab) 75 mg PO DAILY NOLAN Stop: 11/23/22 08:59 Last Admin: 10/24/22 08:30 Dose: 75 mg Dextrose (Dextrose 50% 50 Ml Syringe) 25 - 50 ml IV UD PRN; Protocol PRN Reason: Hypoglycemia Protocol Stop: 11/22/22 13:19 Glucagon (Glucagon For Inj 1 Mg Vial) 1 mg SQ UD PRN; Protocol PRN Reason: Hypoglycemia Protocol Stop: 11/22/22 13:19 Glucose (Glucose 10 Tab/Tube) 4 - 8 tab PO UD PRN; Protocol PRN Reason: Hypoglycemia Treatment Stop: 11/22/22 13:19 Glucose (Glucose 40% Gel 15 Gm Tube) 15 - 30 gm PO UD PRN; Protocol PRN Reason: Hypoglycemia Protocol Stop: 11/22/22 13:19 Heparin Sodium (Porcine) (Heparin Sod 5,000 Unit/0.5 Ml Vial) 5,000 units SQ Q12 NOLAN Stop: 11/22/22 20:59 Last Admin: 10/24/22 08:31 Dose: 5,000 units Insulin Aspart (Insulin Aspart Per Unit Charge) 0 units SC ACHS [facility] Stop: 11/22/22 13:19 Last Admin: 10/24/22 08:35 Dose: Not Given Insulin Glargine (Lantus Per Unit Charge) 10 units SQ BID [facility] Stop: 11/22/22 20:59 Last Admin: 10/24/22 08:37 Dose: 10 units Levothyroxine Sodium (Levothyroxine Sodium 75 Mcg Tablet) 75 mcg PO DAILYBB [facility] Stop: 11/23/22 06:29 Last Admin: 10/24/22 05:34 Dose: 75 mcg Miscellaneous (Carbohydrates For Hypoglycemia ) 15 - 30 gm PO UD PRN PRN Reason: Hypoglycemia Protocol Stop: 11/22/22 13:19 Polyethylene Glycol (Polyethylene (Miralax) 17 Gm Pack) 17 gm PO DAILY PRN PRN Reason: Constipation Stop: 11/22/22 13:19
--- NOTE | 2022-10-24 13:37 | Discharge Summary ---
Discharge Summary Date of Service October 24, 2022 Admission HPI Per Admitting Provider 87 yo F presents with anxiety from losing her memory. She is not confused and is clearly oriented. She has been able to accomplish her ADLs at home and has been taking her own medications up until this point. She lives with her son who I spoke with by phone. He is overwhelmed by the rapid increase in level of need over the past couple of weeks and is looking for some help. He states that aside from the memory loss, there has been confusion and paranoia present and severe anxiety which causes him concern. He reports she recently acucsed him of stealing money form her despite him showing her the check book proving that didn't happen. The patient is expressing anxious concern today that she can't remember more short term things. [facility]FP memory appears intact. She is a poor historian. No combative behavior has been seen at home. Son is open to placement but feels her being at home is reasonable with some additional help. He has another brother who is local and a sister in [place]. Outpatient record review reveals that she just saw her PCP who checked A1C 7.7, up from 6.4 6 months ago. UA with no evidence of infection, normal B12, no evidence of proteinuria, ESR of 8 and TSH of 0.38 on Synthroid. He ordered an MRI and Neurology consult which have been scheduled. There do not appear to be any reversible causes of this memory loss, however, defer to neurology for more comprehensive assessment. Medications were confirmed using the outpatient chart as patient and son were not able to confirm. I did speak with son about the anxiety being a normal reaction to losing control and independence as well as a manifestation of fear. He appears overwhelmed but supportive. Principal Dx & Hospital Course #1 = Principal Diagnosis (1) Progressive dementia with uncertain etiology: (2) Hypertension: (3) Osteoporosis: (4) Type 2 diabetes mellitus: (5) Hypothyroidism: Updated Medication List Medication Instructions Recorded Confirmed Type clopidogrel 75 mg tablet 75 mg PO DAILY 02/28/18 10/23/22 History levothyroxine 75 mcg tablet 75 mcg PO DAILY 02/28/18 10/23/22 History alendronate 70 mg tablet 70 mg PO WK 02/03/22 10/23/22 History insulin glargine 100 unit/mL (3 4 unit subcut DAILY 06/02/22 10/23/22 History mL) subcutaneous pen (Lantus Solostar U-100 Insulin) Hospital Stay Data Consultations 10/23/22 10:43 ED Decision to Admit Stat Diagnostic Imagining Performed 10/23/22 09:23 CT head/brain wo con Stat Pending Results Patient Have Any Pending Studies at Discharge: No Discharge Instructions Given to Patient (Per Discharging Provider) Please take all medications as instructed on discharge list below. Please continue the outpatient workup with Dr. Goff for your memory issues. For family, please consider driving restriction and 24hr supervision as a strong recommendation given ongoing memory issues. It was a pleasure taking care of you! Please call if you have any questions or problems. You can reach a [facility] hospitalist on duty at [facility] 24 hours a day by calling [phone]. Take care of yourself. Morenita Roca, [facility]ist
== END 2022-10-24 16:00 | disposition home or self-care (01) | DRG 884 ==
LOC: ED 09:02 → EDINP 11:22 → 3W 13:40

== ENCOUNTER 2023-03-07 11:10 | Inpatient (IN) ==
[2023-03-07] MEDS ORDERED: SODIUM CHLORIDE 0.9% 1,000 ML IV ONE (11:24)
--- NOTE | 2023-03-07 11:28 | Emergency Department Note ---
Impression & Plan Weakness, Hyperglycemia, Dementia ED Provider Note NAME: LULA BARRY AGE: 88 SEX: F : 1935 ARRIVES VIA: Ambulance INFORMANT: Patient ED PROVIDER(S): Oniel Parra DO CHIEF COMPLAINT: abdominal pain HPI: Patient is an 88-year-old female with a past medical history of diabetes, hypertension and dementia who presents to the ER dry heaving and loose stools. Loose stools have been present for over a year. She is fixated that her son is doing this to her. Patient denies any headache or change in vision. No chest pain or shortness of breath. No Nausea, vomiting, or diarrhea but she is actively intermittently dry heaving. Additional history was obtained by son who notes that he has spoken with his sister and they are trying to place her in [facility]. They are having difficulty managing her at home with he progressive dementia. He notes that nothing new/acutely has occurred other than she stated that she was not feeling well in her stomach. ADDITIONAL HISTORY OBTAINED: Per HPI Chronic Medical/Social Conditions Affecting Care: Per HPI PAST MEDICAL HISTORY:See Below PAST SURGICAL HISTORY:See Below FAMILY HISTORY:See Below SOCIAL HISTORY:See Below HOME MEDICATIONS:See Below ALLERGIES:See Below VITALS:See Below PHYSICAL EXAMINATION: GENERAL: Sitting up in bed, alert, chronically ill-appearing, dry heaving, EYE EXAM: normal conjunctiva. PERRL and EOM's grossly intact. OROPHARYNX: no exudate, no erythema, lips, buccal mucosa, and tongue normal and mucous membranes are moist NECK: supple, no nuchal rigidity, no adenopathy, non-tender LUNGS: Clear to auscultation. Normal chest wall mechanics HEART: no murmurs, S1 normal and S2 normal ABDOMEN: abdomen soft, non-tender, normo-active bowel sounds, no masses, no rebound or guarding. BACK: Back is symmetrical on inspection and there is no deformity, no midline tenderness, no CVA tenderness. SKIN: no rashes and no bruising UPPER EXTREMITIES: upper extremities are grossly normal. LOWER EXTREMITIES: No pitting edema. NEURO EXAM: Oriented to person, year and place, cranial nerves II-XII intact, normal speech, no weakness of arms, no weakness of legs. No drift. Finger to nose intact. Gross sensation intact. MEDICAL DECISION MAKING: Patient is an 88-year-old female who presents ER for the above-stated complaint. IV was established blood work is obtained. Labs show no significant leukocytosis or anemia. BMP with LFTs bilirubin and lipase was unremarkable. UA was clean. CTA of the head and abdomen pelvis showed no acute pathology. Discussed with the son who notes that he is having trouble taking care of her at home and they are trying to get her placed in [facility]/center care. Discussed with IR care managers as well as the hospitalist from [facility] for further evaluation management treatment. External Records Reviewed: Last admission in the summer to Dr. Shelby for change in mental status Consults/Care Managements Discussions: Per [facility] Triage Nursing notes reviewed. Limited review of prior medical records performed Vital Signs: reviewed and remarkable for no significant abnormalities Differential diagnosis: Infection, dehydration, metabolic abnormality, hypo/hyperglycemia, electrolyte disturbance, anemia, hypoxia, cardiac sources, intracerebral event, toxicologic, neurologic, as well as other pathologies. ER treatment provided: See below Diagnostics interpreted by me include EKG and cardiac monitoring as listed below: -Cardiac Monitoring: An order was placed for continuous cardiac monitoring. The monitor shows a rate of 80 with sinus rhythm. -ECG: none -Laboratory studies:Interpreted by me as stated above in MDM and shown below. Imaging studies: Xrays: As interpreted by me:none CTs show: CT of the head per my preliminary interpretation showed no obvious large bleed CT of the head and abdomen pelvis showed no acute pathology Procedures:none Critical Care: None Past Med/Surg History Medical History History of CVA (cerebrovascular accident) Unspecified dementia, moderate, without behavioral disturbance, psychotic disturbance, mood disturbance, and anxiety Hyponatremia Osteoporosis Neuropathy Hypothyroidism Type 2 diabetes mellitus Surgical History History of cataract surgery Family History Other Cancer Diabetes Social History Smoking Status: Never smoker Hx Alcohol Use: No Hx Substance Use: No Preferred Language: Montserratian Communication Ability: Effective Owner Operator Required: No Beliefs That Will Affect Care: None marital status: / Current Living Situation: Other Current Living Situation Comment: lives with adult son Portillo Feels Safe at Home: Yes Assistive Devices: None Allergies Allergies Allergy/AdvReac Type Severity Reaction Status Date / Time doxycycline Allergy Severe AIRWAY Verified 03/07/23 12:41 EDEMA lisinopril Allergy Severe ANGIOEDEMA Verified 03/07/23 12:41 sertraline Allergy Severe THROAT Verified 03/07/23 12:41 SWELLING hydromorphone Allergy Intermediate Dizzy, Verified 03/07/23 12:41 diaphoretic, nausea, vomiting prednisolone Allergy Intermediate BURNED EYES Verified 03/07/23 12:41 risedronate sodium Allergy Eyes red & Verified 03/07/23 12:43 [From Actonel] painful simvastatin AdvReac Severe MUSCLE Verified 03/07/23 12:41 ACHES, FATIGUE atenolol AdvReac Intermediate SWELLING Verified 03/07/23 12:41 codeine AdvReac Intermediate GI UPSET Verified 03/07/23 12:41 ezetimibe AdvReac Intermediate SINUS Verified 03/07/23 12:41 PROBLEMS gemfibrozil AdvReac Intermediate MUSCLE Verified 03/07/23 12:41 ACHES glipizide AdvReac Intermediate GI UPSET Verified 03/07/23 12:41 morphine AdvReac Intermediate GI SYMPTOMS Verified 03/07/23 12:41 oxycodone AdvReac Intermediate VOMITING Verified 03/07/23 12:41 pioglitazone AdvReac Intermediate SWELLING Verified 03/07/23 12:41 repaglinide AdvReac Intermediate NAUSEA Verified 03/07/23 12:41 Aminoglycosides AdvReac Mild UNKNOWN Verified 03/07/23 12:41 bacitracin AdvReac Mild CONTACT Verified 03/07/23 12:41 DERMATITIS metformin AdvReac Mild UNKNOWN Verified 03/07/23 12:41 neomycin AdvReac Mild CONTACT Verified 03/07/23 12:41 DERMATITIS polymyxin B AdvReac Mild CONTACT Verified 03/07/23 12:41 DERMATITIS tetracycline AdvReac Mild UNKNOWN Verified 03/07/23 12:41 Home Meds Home Medications Medication Instructions Recorded Confirmed clopidogrel 75 mg tablet 75 mg PO DAILY 02/28/18 03/07/23 levothyroxine 75 mcg tablet 75 mcg PO DAILY 02/28/18 03/07/23 alendronate 70 mg tablet 70 mg PO WK 02/03/22 03/07/23 insulin glargine 100 unit/mL (3 4 unit subcut DAILY 06/02/22 03/07/23 mL) subcutaneous pen (Lantus Solostar U-100 Insulin) buspirone 5 mg tablet 5 mg PO AMHS 03/07/23 03/07/23 calcium carbonate 600 mg-vitamin 1 cap PO BID 03/07/23 03/07/23 D3 5 mcg (200 unit) capsule (Calcium 600 + D(3)) ferrous gluconate 240 mg (27 mg 240 mg PO DAILY 03/07/23 03/07/23 iron) tablet magnesium oxide 500 mg tablet 500 mg PO DAILY 03/07/23 03/07/23 multivitamin 1 tab PO QAM 03/07/23 03/07/23 Results & Data (ED) Vital Signs Vital Signs - 24 hr 03/07/23 11:13 03/07/23 11:25 03/07/23 11:27 Temperature 36.6 C Temperature Source Oral Pulse Rate 79 84 Pulse Rate from SpO2 Sensor Respiratory Rate 24 Respiratory Effort / Characteristics Non-Labored Spontaneous Respiratory Depth Normal Respiratory Pattern Regular Blood Pressure 174/84 H Blood Pressure Mean 114 Pulse Oximetry 98 Oxygen Delivery Method Room Air Room Air Sepsis Recent Fever Within 48 Hours No Sepsis New/Unexplained Change in Mental Status No Sepsis Action Taken by Nursing No Action Required 03/07/23 12:00 03/07/23 12:30 03/07/23 12:30 Temperature Temperature Source Pulse Rate 74 82 Pulse Rate from SpO2 Sensor 75 84 Respiratory Rate 17 21 Respiratory Effort / Characteristics Respiratory Depth Respiratory Pattern Blood Pressure 151/68 H 154/83 H Blood Pressure Mean 109 110 Pulse Oximetry 95 98 Oxygen Delivery Method Room Air Sepsis Recent Fever Within 48 Hours Sepsis New/Unexplained Change in Mental Status Sepsis Action Taken by Nursing 03/07/23 13:00 03/07/23 13:00 03/07/23 13:30 Temperature Temperature Source Pulse Rate 82 82 Pulse Rate from SpO2 Sensor 82 81 Respiratory Rate 16 18 Respiratory Effort / Characteristics Respiratory Depth Respiratory Pattern Blood Pressure 154/79 H 155/73 H Blood Pressure Mean 96 100 Pulse Oximetry 97 95 Oxygen Delivery Method Room Air Sepsis Recent Fever Within 48 Hours Sepsis New/Unexplained Change in Mental Status Sepsis Action Taken by Nursing Laboratory Data 03/07/23 11:30 03/07/23 11:30 Lab Results 03/07/23 03/07/23 Range/Units 11:30 12:35 WBC 6.66 (4.8-10.8) K/ul RBC 4.56 (4.20-5.40) M/uL Hgb 14.3 (12.0-16.0) g/dl Hct 42.2 (37.0-47.0) % MCV 92.5 (80.0-100.0) fL MCH 31.4 (25.0-34.0) pg MCHC 33.9 (32.0-36.0) g/dL RDW Std Deviation 43.3 (36.4-46.3) fL RDW Coeff of Kisha 12.7 (11.5-14.5) % Plt Count 319 (130-400) K/uL MPV 8.9 L (9.4-12.4) fL Immature Gran % (Auto) 1.4 % Neut % (Auto) 71.9 % Lymph % (Auto) 16.4 % [place] % (Auto) 8.9 % Eos % (Auto) 0.3 % Baso % (Auto) 1.1 % Neut # (Auto) 4.80 (1.40-6.50) K/uL Lymph # (Auto) 1.09 L (1.20-3.40) K/uL [place] # (Auto) 0.59 (0.11-0.59) K/uL Eos # (Auto) 0.02 (0.00-0.50) K/uL Baso # (Auto) 0.07 (0.00-0.20) K/uL Immature Gran # (Auto) 0.09 (0.01-0.20) K/uL Sodium 135 L (136-145) mmol/L Potassium 3.7 (3.5-5.1) mmol/L Chloride 99 (98-107) mmol/L Carbon Dioxide 27 (21-32) mmol/L Anion Gap 9 (3-11) BUN 15 (6-23) mg/dl Creatinine 0.64 (0.6-1.2) mg/dl Est Cr Clr Drug Dosing 54.5 ml/min Est GFR ( Amer) 93.6 ml/min Est GFR (Non-Af Amer) 80.8 ml/min BUN/Creatinine Ratio 23.4 H (10-20) Glucose 197 H (70-99(Fasting)) mg/dl Calcium 9.6 (8.6-10.3) mg/dl Total Bilirubin 0.5 (0.2-1.0) mg/dl AST 21 (13-39) U/L ALT 13 (7-52) U/L Alkaline Phosphatase 59 (34-104) U/L Total Protein 7.4 (6.0-8.3) gm/dl Albumin 4.5 (3.4-5.0) gm/dl Globulin 2.9 (2.5-4.0) gm/dl Albumin/Globulin Ratio 1.6 (0.9-2) Lipase 19 (11-82) U/L Urine Color Yellow Urine Appearance Clear (Clear) Urine pH 7.0 (4.5-7.5) Ur Specific [place] 1.013 (1.000-1.030) Urine Protein Negative (Negative) Urine Glucose (UA) Negative (Negative) Urine Ketones Negative (Negative) Urine Blood Negative (Negative) Urine Nitrite Negative (Negative) Urine Bilirubin Negative (Negative) Urine Urobilinogen Negative (Negative) Ur Leukocyte Esterase Negative (Negative) Administered Medications Discontinued Medications Sodium Chloride (Nss) 1,000 mls @ 999 mls/hr IV .Q1H1M ONE Stop: 03/07/23 12:24 Last Infusion: 03/07/23 12:35 Dose: Infused Documented By: Admin: 03/07/23 11:34 Dose: 999 mls/hr Documented By: MIGDALIA Ioversol (Optiray 320 500ml) 90 ml IV ONCE ONE Stop: 03/07/23 12:48 Last Admin: 03/07/23 12:47 Dose: 90 ml Documented By: SCARLETT Ondansetron HCl (Ondansetron Inj 2 Mg/Ml 2 Ml Vial) 4 mg IV NOW STA Stop: 03/07/23 11:30 Last Admin: 03/07/23 11:34 Dose: 4 mg Documented By: MIGDALIA Imaging Data Radiologist's Impression: Abdomen/Pelvis CT 03/07/23 11:24 CT SCAN OF THE ABDOMEN AND PELVIS WITH IV CONTRAST CLINICAL HISTORY: Generalized abdominal pain. COMPARISON STUDY: Abdominal CT dated 02/12/2022. TECHNIQUE: Following the IV administration of 90 cc of Optiray 320, CT scan of the abdomen and pelvis is performed from the lung bases to the proximal femora. Images are reviewed in the axial, sagittal, and coronal planes. IV contrast was administered without complication. A dose lowering technique was utilized adhering to the principles of ALARA. CT DOSE: 1076.04 mGy.cm FINDINGS: Lung bases: The heart is top normal in size noting trace pericardial effusion. The coronary arteries and mitral annulus are densely calcified. The lung bases are clear noting bibasilar scarring/atelectasis. A fat-containing Bochdalek hernia is seen on the right. Liver: The contrast-enhanced liver is normal in size, contour, and attenuation. There is no intrahepatic biliary ductal dilatation. The hepatic veins and portal veins are patent. Gallbladder: Unremarkable. Spleen: Normal in size and attenuation. Pancreas: Unremarkable. Adrenal glands: Unremarkable. Kidneys: The contrast enhanced kidneys are normal in size and without hydronephrosis. The kidneys enhance symmetrically. Scattered subcentimeter cortical hypodensities likely represent cysts but are too small for definitive characterization. Abdominal vasculature: The abdominal aorta is normal in course and caliber noting moderate atherosclerotic calcification. Bowel: There is moderate colonic fecal retention. No bowel obstruction is seen. The appendix is not visualized. Peritoneum: There is no intraperitoneal free air or abdominal ascites. Lymphadenopathy: None. Pelvic viscera: The bladder is mildly distended but otherwise normal in appearance. The uterus is enlarged and heterogeneous, and is infiltrated by calcified fibroids. No adnexal lesion is seen. Skeletal structures: The skeletal structures are osteopenic. There are bilateral pars defects at L5 with grade 1 anterolisthesis L5-S1. Moderate to advanced lumbosacral spondylosis is observed. No lytic or blastic lesions are seen. There is a subacute/healing sacral fracture seen on axial image #241. There is a subacute appearing right lateral 10th rib fracture seen on image #124. IMPRESSION: 1. No acute infectious or inflammatory findings are identified in the abdomen or pelvis. 2. Moderate constipation. 3. There are subacute appearing fractures of the sacrum and the right 10th rib. Correlate clinically. 4. Fibroid uterus. 5. Additional findings as above. ACT 112: Negative or not required by law. Electronically signed by: Yfn Prescott M.D. 03/07/2023 1:[address] 03/07/23 11:24 CT OF THE HEAD WITHOUT CONTRAST CLINICAL HISTORY: Confusion. COMPARISON STUDY: MRI of the brain June 13, 2013. Head CT October 23, 2021. TECHNIQUE: Helical axial images of the head were obtained without IV contrast. Automated exposure control was utilized for the study. A dose lowering technique was utilized adhering to the principles of ALARA. FINDINGS: No acute intracranial hemorrhage, midline shift or mass effect is present. The ventricular system is stable. White matter hypodensities are unchanged and favor small vessel disease. The basal cisterns are patent. No extra-axial collections are present. There are no findings to suggest acute dural sinus thrombosis or acute territorial infarct. No significant calvarial abnormalities are present. Visualized portions of the sinuses and mastoid air cells are clear. IMPRESSION: No acute intracranial findings. No change in appearance of the brain. ACT 112: Negative or not required by law. Electronically signed by: Sammy Florez M.D. 03/07/2023 1:15 PM Discharge Plan Visit Data Chief Complaint: GI Assessment ED Provider: Oniel Parra Discharge Problem: Weakness, Hyperglycemia, Dementia Patient Disposition: Admitted As Inpatient Discharge Instructions Interventions: ED Discharge Assessment Last Done: 03/07/23 15:52 Discharge Problem: Dementia Qualifiers: Dementia type: unspecified type Dementia severity: unspecified severity D ementia behavioral or psychological symptom: unspecified whether behavioral, psychotic, or mood disturbance or anxiety Qualified Code(s): F03.90 - Unspecified dementia, unspecified severity, without behavioral disturbance, psychotic disturbance, mood disturbance, and anxiety
[2023-03-07] MEDS ORDERED: ONDANSETRON INJ 2 MG/ML 2 ML VIAL IV STA (11:29)
[2023-03-07 12:13] LABS: Basophils # (auto) 0.07 K/uL (0.00-0.20); Basophils % (auto) 1.1 %; Eosinophils # (auto) 0.02 K/uL (0.00-0.50); Eosinophils % (auto) 0.3 %; Hematocrit (blood only) 42.2 % (37.0-47.0); Hemoglobin 14.3 g/dl (12.0-16.0); Immature Granulocytes # (auto) 0.09 K/uL (0.01-0.20); Immature Granulocytes % (auto) 1.4 %; Lymphocytes # (auto) 1.09 K/uL (1.20-3.40); Lymphocytes % (auto) 16.4 %; Mean Corpuscular Hemoglobin 31.4 pg (25.0-34.0); Mean Corpuscular Hgb Conc 33.9 g/dL (32.0-36.0); Mean Corpuscular Volume 92.5 fL (80.0-100.0); Mean Platelet Volume 8.9 fL (9.4-12.4); Monocytes # (auto) 0.59 K/uL (0.11-0.59); Monocytes % (auto) 8.9 %; Neutrophils % (auto) 71.9 %; Platelet Count 319 K/uL (130-400); RDW Coefficient of Variation 12.7 % (11.5-14.5); RDW Standard Deviation 43.3 fL (36.4-46.3); Red Blood Count 4.56 M/uL (4.20-5.40); White Blood Count 6.66 K/ul (4.8-10.8)
[2023-03-07 12:28] LABS: Albumin Globulin Ratio 1.6 (0.9-2); Albumin Level 4.5 gm/dl (3.4-5.0); BUN Creatinine Ratio 23.4 (10-20); Bilirubin,Total 0.5 mg/dl (0.2-1.0); Calcium 9.6 mg/dl (8.6-10.3); Creatinine Clr Calc Pharmacy 54.5 ml/min; Est GFR (African American) 93.6 ml/min; Est GFR (Non-African American) 80.8 ml/min; Globulin 2.9 gm/dl (2.5-4.0); Potassium 3.7 mmol/L (3.5-5.1); Total Protein 7.4 gm/dl (6.0-8.3)
[2023-03-07] MEDS ORDERED: OPTIRAY 320 500ml IV ONE (12:47)
--- NOTE | 2023-03-07 13:17 | CT Scan Report ---
CT OF THE HEAD WITHOUT CONTRAST CLINICAL HISTORY: Confusion. COMPARISON STUDY: MRI of the brain June 13, 2013. Head CT October 23, 2021. TECHNIQUE: Helical axial images of the head were obtained without IV contrast. Automated exposure con trol was utilized for the study. A dose lowering technique was utilized adhering to the principles o f ALARA. FINDINGS: No acute intracranial hemorrhage, midline shift or mass effect is present. The ventricular system is stable. White matter hypodensities are unchanged and favor small vessel disease. The basal cisterns are patent. No extra-axial collections are present. There are no findings to suggest acute d ural sinus thrombosis or acute territorial infarct. No significant calvarial abnormalities are presen t. Visualized portions of the sinuses and mastoid air cells are clear. IMPRESSION: No acute intracranial findings. No change in appearance of the brain. ACT 112: Negative or not required by law. Electronically signed by: Sammy Florez M.D. 03/07/2023 1:15 PM
--- NOTE | 2023-03-07 13:23 | CT Scan Report ---
CT SCAN OF THE ABDOMEN AND PELVIS WITH IV CONTRAST CLINICAL HISTORY: Generalized abdominal pain. COMPARISON STUDY: Abdominal CT dated 02/12/2022. TECHNIQUE: Following the IV administration of 90 cc of Optiray 320, CT scan of the abdomen and pelvi s is performed from the lung bases to the proximal femora. Images are reviewed in the axial, sagittal , and coronal planes. IV contrast was administered without complication. A dose lowering technique wa s utilized adhering to the principles of ALARA. CT DOSE: 1076.04 mGy.cm FINDINGS: Lung bases: The heart is top normal in size noting trace pericardial effusion. The coronary arteries and mitral annulus are densely calcified. The lung bases are clear noting bibasilar scarring/atelecta sis. A fat-containing Bochdalek hernia is seen on the right. Liver: The contrast-enhanced liver is normal in size, contour, and attenuation. There is no intrahepa tic biliary ductal dilatation. The hepatic veins and portal veins are patent. Gallbladder: Unremarkable. Spleen: Normal in size and attenuation. Pancreas: Unremarkable. Adrenal glands: Unremarkable. Kidneys: The contrast enhanced kidneys are normal in size and without hydronephrosis. The kidneys enh ance symmetrically. Scattered subcentimeter cortical hypodensities likely represent cysts but are too small for definitive characterization. Abdominal vasculature: The abdominal aorta is normal in course and caliber noting moderate atheroscle rotic calcification. Bowel: There is moderate colonic fecal retention. No bowel obstruction is seen. The appendix is not visualized. Peritoneum: There is no intraperitoneal free air or abdominal ascites. Lymphadenopathy: None. Pelvic viscera: The bladder is mildly distended but otherwise normal in appearance. The uterus is enl arged and heterogeneous, and is infiltrated by calcified fibroids. No adnexal lesion is seen. Skeletal structures: The skeletal structures are osteopenic. There are bilateral pars defects at L5 w ith grade 1 anterolisthesis L5-S1. Moderate to advanced lumbosacral spondylosis is observed. No lytic or blastic lesions are seen. There is a subacute/healing sacral fracture seen on axial image #241. T here is a subacute appearing right lateral 10th rib fracture seen on image #124. IMPRESSION: 1. No acute infectious or inflammatory findings are identified in the abdomen or pelvis. 2. Moderate constipation. 3. There are subacute appearing fractures of the sacrum and the right 10th rib. Correlate clinically. 4. Fibroid uterus. 5. Additional findings as above. ACT 112: Negative or not required by law. Electronically signed by: Yfn Prescott M.D. 03/07/2023 1:20 PM
[2023-03-07 13:31] LABS: Appearance Urine Clear (Clear); Bilirubin Urine Negative (Negative); Blood Urine Negative (Negative); Color Urine Yellow; Glucose Urine UA Negative (Negative); Ketones Urine Negative (Negative); Leukocyte Esterase Urine Negative (Negative); Nitrite Urine Negative (Negative); Protein Urine Negative (Negative); Specific Gravity Urine 1.013 (1.000-1.030); Urobilinogen Urine Negative (Negative)
--- NOTE | 2023-03-07 14:11 | History & Physical Report ---
Date of Service March 07, 2023 Assessment & Plan (1) Nausea vomiting and diarrhea: Plan: This is an 88-year-old female with PMH of type 2 diabetes, acquired hypothyroidism, hypertension, unspecified dementia, history of CVA, statin intolerance and other medical problems listed below who was brought in by her son due to nausea/vomiting and need for placement. Patient alone at bedside, denies any current N/V although dry heaving on arrival to ED, no diarrhea since arrival CT abd/pelvis without acute infectious or inflammatory findings are identified in the abdomen or pelvis. Moderate constipation. There are subacute appearing fractures of the sacrum and the right 10th rib. Correlate clinically. C diff and stool cultures added Clear liquid diet, advance as patient tolerates Bowel regimen (2) Unspecified dementia, moderate, without behavioral disturbance, psychotic disturbance, mood disturbance, and anxiety: Plan: CT head with No acute intracranial findings. No change in appearance of the brain Patient A&Ox3 on admission, poor insight Continue buspirone Unable to reach son, Mike, for further information at this time (3) Type 2 diabetes mellitus: Plan: A1c 7.7 in October 2022 Hold home agents SSI while in-patient [facility] AC HS (4) Hypothyroidism: Plan: Chronic, stable. Continue levothyroxine (5) Hypertension: Plan: BP mildly elevated at 153/72. Not on any antihypertensives at this time. Multiple allergies listed. Continue to monitor (6) History of CVA (cerebrovascular accident): Plan: H/o ischemic VBA thalamic stroke in 2013 DVT Ppx: SQ heparin Q12 Code status: DNR/DNI PCP: [facility] Dispo: Admitted to med/surg, will need placement Patient seen in collaboration with Dr. Calderon. Please see addendum. Patient states she had a fight with son Portillo (listed as primary contact) and prefers that we contact her son, Mike. Home # [phone] (unable to reach, will try again). Does not know cell or work #. History of Present Illness Chief Complaint: Nausea, vomiting, diarrhea Primary Care Provider: Mike Goff MD This is an 88-year-old female with PMH of type 2 diabetes, acquired hypothyroidism, hypertension, unspecified dementia, history of CVA, statin intolerance and other medical problems listed below who was brought in by her son due to nausea/vomiting and need for placement. Patient states reason she is here is "my bowels are moving right". Per ED sign out, patient was actively dry heaving when she first presented here. Patient states her son wants her to be moved to a facility. Strong preference for us to only speak with her son Mike as she is having conflict with other son at the moment. Does not know Mike's cell phone or work phone and he is not present at bedside. States she ambulates i ndependently and is currently comfortable, without issue. Denies any fever, chills, lightheadedness, headache, chest pain, shortness of breath, dysuria or diarrhea. No nausea, vomiting or abdominal pain at this time. Unsure of her home medications and does not think she took them prior to arrival. Allergies Allergy/AdvReac Type Severity Reaction Status Date / Time doxycycline Allergy Severe AIRWAY Verified 03/07/23 12:41 EDEMA lisinopril Allergy Severe ANGIOEDEMA Verified 03/07/23 12:41 sertraline Allergy Severe THROAT Verified 03/07/23 12:41 SWELLING hydromorphone Allergy Intermediate Dizzy, Verified 03/07/23 12:41 diaphoretic, nausea, vomiting prednisolone Allergy Intermediate BURNED EYES Verified 03/07/23 12:41 risedronate sodium Allergy Eyes red & Verified 03/07/23 12:43 [From Actonel] painful simvastatin AdvReac Severe MUSCLE Verified 03/07/23 12:41 ACHES, FATIGUE atenolol AdvReac Intermediate SWELLING Verified 03/07/23 12:41 codeine AdvReac Intermediate GI UPSET Verified 03/07/23 12:41 ezetimibe AdvReac Intermediate SINUS Verified 03/07/23 12:41 PROBLEMS gemfibrozil AdvReac Intermediate MUSCLE Verified 03/07/23 12:41 ACHES glipizide AdvReac Intermediate GI UPSET Verified 03/07/23 12:41 morphine AdvReac Intermediate GI SYMPTOMS Verified 03/07/23 12:41 oxycodone AdvReac Intermediate VOMITING Verified 03/07/23 12:41 pioglitazone AdvReac Intermediate SWELLING Verified 03/07/23 12:41 repaglinide AdvReac Intermediate NAUSEA Verified 03/07/23 12:41 Aminoglycosides AdvReac Mild UNKNOWN Verified 03/07/23 12:41 bacitracin AdvReac Mild CONTACT Verified 03/07/23 12:41 DERMATITIS metformin AdvReac Mild UNKNOWN Verified 03/07/23 12:41 neomycin AdvReac Mild CONTACT Verified 03/07/23 12:41 DERMATITIS polymyxin B AdvReac Mild CONTACT Verified 03/07/23 12:41 DERMATITIS tetracycline AdvReac Mild UNKNOWN Verified 03/07/23 12:41 Home Medications Medication Instructions Recorded Confirmed Type clopidogrel 75 mg tablet 75 mg PO DAILY 02/28/18 03/07/23 History levothyroxine 75 mcg tablet 75 mcg PO DAILY 02/28/18 03/07/23 History alendronate 70 mg tablet 70 mg PO WK 02/03/22 03/07/23 History insulin glargine 100 unit/mL (3 4 unit subcut DAILY 06/02/22 03/07/23 History mL) subcutaneous pen (Lantus Solostar U-100 Insulin) buspirone 5 mg tablet 5 mg PO AMHS 03/07/23 03/07/23 History calcium carbonate 600 mg-vitamin 1 cap PO BID 03/07/23 03/07/23 History D3 5 mcg (200 unit) capsule (Calcium 600 + D(3)) ferrous gluconate 240 mg (27 mg 240 mg PO DAILY 03/07/23 03/07/23 History iron) tablet magnesium oxide 500 mg tablet 500 mg PO DAILY 03/07/23 03/07/23 History multivitamin 1 tab PO QAM 03/07/23 03/07/23 History Past Med/Surg History Medical History History of CVA (cerebrovascular accident) Unspecified dementia, moderate, without behavioral disturbance, psychotic disturbance, mood disturbance, and anxiety Hyponatremia Osteoporosis Neuropathy Hypothyroidism Type 2 diabetes mellitus Surgical History History of cataract surgery Family History Other Cancer Diabetes Social History Smoking Status: Never smoker Hx Alcohol Use: No Hx Substance Use: No Preferred Language: Mongolian Communication Ability: Effective Financial Operations Analyst Required: No Beliefs That Will Affect Care: None marital status: / Current Living Situation: Family Current Living Situation Comment: lives with some Portillo Other Information That Helps Us Care for You: No Feels Safe at Home: Hesitant to Answer Safety Concerns: Afraid for Self Assistive Devices: Glasses Review of Systems Review of Systems: At least ten systems reviewed and negative except as noted in the HPI. Physical Exam Physical Exam: General Appearance: WD/WN, vitals as above, NAD, sitting up in bed, conversing easily, poor insight Head: normocephalic, atraumatic Eyes: normal inspection, PERRL, conjunctivae normal, anicteric sclerae ENT: external ear and nose normal, oropharynx normal Neck: normal visual inspection, trachea midline, no thyromegaly Respiratory: normal respiratory effort, lungs clear to auscultation, no wheeze, rales, rhonchi. No accessory muscle use Cardiovascular: regular rate, rhythm, no murmur, normal peripheral pulses, no BLE edema. Vessels: no JVD Chest: normal inspection of chest Abdomen/GI: normal bowel sounds, soft, nontender, no hepatosplenomegaly Extremities/Musculoskeletal: no cyanosis or clubbing, extremities motor strength 5/5 Neurologic: PERRL, EOMI, accommodation nl, no face palsy, no dysarthria, CN's II-XI intact bilaterally and moves all extremities Psychiatric: A+Ox3, intermittent agitation Skin: no rashes, normal color, warm/dry Results & Data Results & Data Vital Signs (Past 12 Hours) Vital Signs Temp Pulse Resp BP Pulse Ox O2 Del Method 03/07/23 13:30 82 18 155/73 H 95 Room Air 03/07/23 13:00 154/79 H 03/07/23 13:00 82 16 97 03/07/23 12:30 82 21 98 03/07/23 12:30 154/83 H 03/07/23 12:00 74 17 151/68 H 95 Room Air 03/07/23 11:27 36.6 C 84 24 174/84 H 98 Room Air 03/07/23 11:25 79 03/07/23 11:13 Room Air Laboratory Results Short CBC 03/07/23 Range/Units 11:30 WBC 6.66 (4.8-10.8) K/ul Hgb 14.3 (12.0-16.0) g/dl Hct 42.2 (37.0-47.0) % Plt Count 319 (130-400) K/uL BMP 03/07/23 11:30 Sodium 135 L Potassium 3.7 Chloride 99 Carbon Dioxide 27 BUN 15 Creatinine 0.64 Glucose 197 H Calcium 9.6 Liver Function 03/07/23 Range/Units 11:30 Total Bilirubin 0.5 (0.2-1.0) mg/dl AST 21 (13-39) U/L ALT 13 (7-52) U/L Alkaline Phosphatase 59 (34-104) U/L Albumin 4.5 (3.4-5.0) gm/dl Urine 03/07/23 Range/Units 12:35 Urine Color Yellow Urine Appearance Clear (Clear) Urine pH 7.0 (4.5-7.5) Ur Specific [place] 1.013 (1.000-1.030) Urine Protein Negative (Negative) Urine Glucose (UA) Negative (Negative) Diagnostic Findings Abdomen/Pelvis CT 03/07/23 11:24 CT SCAN OF THE ABDOMEN AND PELVIS WITH IV CONTRAST CLINICAL HISTORY: Generalized abdominal pain. COMPARISON STUDY: Abdominal CT dated 02/12/2022. TECHNIQUE: Following the IV administration of 90 cc of Optiray 320, CT scan of the abdomen and pelvis is performed from the lung bases to the proximal femora. Images are reviewed in the axial, sagittal, and coronal planes. IV contrast was administered without complication. A dose lowering technique was utilized adhering to the principles of ALARA. CT DOSE: 1076.04 mGy.cm FINDINGS: Lung bases: The heart is top normal in size noting trace pericardial effusion. The coronary arteries and mitral annulus are densely calcified. The lung bases are clear noting bibasilar scarring/atelectasis. A fat-containing Bochdalek hernia is seen on the right. Liver: The contrast-enhanced liver is normal in size, contour, and attenuation. There is no intrahepatic biliary ductal dilatation. The hepatic veins and portal veins are patent. Gallbladder: Unremarkable. Spleen: Normal in size and attenuation. Pancreas: Unremarkable. Adrenal glands: Unremarkable. Kidneys: The contrast enhanced kidneys are normal in size and without hydronephrosis. The kidneys enhance symmetrically. Scattered subcentimeter cortical hypodensities likely represent cysts but are too small for definitive characterization. Abdominal vasculature: The abdominal aorta is normal in course and caliber noting moderate atherosclerotic calcification. Bowel: There is moderate colonic fecal retention. No bowel obstruction is seen. The appendix is not visualized. Peritoneum: There is no intraperitoneal free air or abdominal ascites. Lymphadenopathy: None. Pelvic viscera: The bladder is mildly distended but otherwise normal in appearance. The uterus is enlarged and heterogeneous, and is infiltrated by calcified fibroids. No adnexal lesion is seen. Skeletal structures: The skeletal structures are osteopenic. There are bilateral pars defects at L5 with grade 1 anterolisthesis L5-S1. Moderate to advanced lumbosacral spondylosis is observed. No lytic or blastic lesions are seen. There is a subacute/healing sacral fracture seen on axial image #241. There is a castano bacute appearing right lateral 10th rib fracture seen on image #124. IMPRESSION: 1. No acute infectious or inflammatory findings are identified in the abdomen or pelvis. 2. Moderate constipation. 3. There are subacute appearing fractures of the sacrum and the right 10th rib. Correlate clinically. 4. Fibroid uterus. 5. Additional findings as above. ACT 112: Negative or not required by law. Electronically signed by: Yfn Prescott M.D. 03/07/2023 1:[address] 03/07/23 11:24 CT OF THE HEAD WITHOUT CONTRAST CLINICAL HISTORY: Confusion. COMPARISON STUDY: MRI of the brain June 13, 2013. Head CT October 23, 2021. TECHNIQUE: Helical axial images of the head were obtained without IV contrast. Automated exposure control was utilized for the study. A dose lowering technique was utilized adhering to the principles of ALARA. FINDINGS: No acute intracranial hemorrhage, midline shift or mass effect is present. The ventricular system is stable. White matter hypodensities are unchanged and favor small vessel disease. The basal cisterns are patent. No extra-axial collections are present. There are no findings to suggest acute dural sinus thrombosis or acute territorial infarct. No significant calvarial abnormalities are present. Visualized portions of the sinuses and mastoid air cells are clear. IMPRESSION: No acute intracranial findings. No change in appearance of the brain. ACT 112: Negative or not required by law. Electronically signed by: Sammy Florez M.D. 03/07/2023 1:15 PM Supervising Physician Co-Signing Physician Notes Pt seen and examined by myself, Roxanne Calderon MD on the day of service. Care was coordinated with Holly Tineo PA-C. 88yoF admitted with concern for weakness. Noted healed/subacute rib and sacral fractures on imaging. However pt has been giving multiple reports of why she is being evaluated. pt stated to this provider that she did not know why she was here, however was AAOx3. Cognition intact. States that she is feeling great. However reportedly had voiced concerns to previous providers that she was concerned that her son had something to do with her symptoms. PT/OT for possible placement. Otherwise as above.
[2023-03-07] MEDS ORDERED: POLYETHYLENE (MIRALAX) 17 GM PACK PO PRN (15:52)
[2023-03-07] MEDS ORDERED: ONDANSETRON INJ 2 MG/ML 2 ML VIAL IV PRN (15:52)
[2023-03-07] MEDS ORDERED: ACETAMINOPHEN 325 MG TAB PO PRN (15:52)
[2023-03-07] MEDS ORDERED: CARBOHYDRATES FOR HYPOGLYCEMIA PO PRN (16:56)
[2023-03-07] MEDS ORDERED: GLUCOSE 10 TAB/TUBE PO PRN (16:56)
[2023-03-07] MEDS ORDERED: GLUCAGON FOR INJ 1 MG VIAL SQ PRN (16:56)
[2023-03-07] MEDS ORDERED: DEXTROSE 50% 50 ML SYRINGE IV PRN (16:56)
[2023-03-07] MEDS ORDERED: GLUCOSE 40% GEL 15 GM TUBE PO PRN (16:56)
--- OUTSIDE RECORDS SUMMARY | 2023-03-07 17:10 | External Medical Summary | Summary of Care ---
Author Name Unknown Organization [facility] Address [address] [place] [address] Phone [phone] Care Team Providers Care Vice President Of Product Marketing Name Role Phone Shell LESLIE MD, Mike Acosta Primary Care Provider [phone] Reason for Visit * Reason Onset Date Comments Advice 03/06/2023 Encounter Details Date Type Department Care Team (Late st Contact Info) Description 03/06/[address] [facility] [address] [place] [address] Mike Goff III, MD 200 [place] [address] Advice Allergies Active Allergy Reactions Criticality Noted Date Comments Actonel With Calcium Conjunctivitis Low 06/30/2010 Eyes become reddened and painful Pioglitazone Hydrochloride Unknown 02/04/2010 Atenolol 10/25/2006 swelling Doxycycline Hyclate Edema airway High 03/19/2008 Gemfibrozil 10/21/2004 muscle aches Glipizide High 03/17/2009 GI upset Lisinopril 07/03/2000 angioedema Morphine And Related 05/30/1999 GI UPSET Percocet 12/30/2003 vomiting Percodan 05/30/1999 GI UPSET Repaglinide 11/24/2006 Nausea Prednisolone Acetate 07/25/2011 Severely burned eyes per patient Sertraline High 09/11/2012 Throat swelled Simvastatin 06/20/2001 muscle aches, fatigue (Zocor) Neomycin-Bacitracin Zn-Polymyx Other (Please comment) 12/26/2006 Contact dermatitis Ezetimibe Unknown 02/04/2010 Sinus problems documented as of this encounter (statuses as of 03/06/2023) Medications Medication Sig Dispensed Refills Start Date End Date Status CALCIUM 600-200 MG-UNIT PO TABS 1 TABLET DAILY twice a day 30 Tab 0 09/26/2012 Active MIRALAX PO POWDIndications:Cons tipation Dissolve one heaping tablespoon in 8 ounces of water or juice - one dose per day as needed for severe constipation 1 Bottle 2 08/06/2013 Active Additional Information Patient not taking.Reported on 12/29/2022 Blood Glucose Monitoring Suppl ([employer] ULTRA MINI) w/Device KIT Use as directed to check blood sugar levels once daily; dx code: E11.9 1 Kit 0 08/10/2018 Active [facility] Iron 240 (27 Fe) MG Oral Tablet (Ferrous Gluconate)Indication s:Acute post-hemorrhagic anemia TAKE 1 TABLET BY MOUTH EVERY DAY 100 Tab 3 09/21/2020 Active Magnesium 500 MG Oral Tablet Take by mouth 1 Tablet in the morning. 90 Tablet 3 07/27/2021 Active Multi-Vitamin Oral Tablet Take 2 tablets by mouth every morning 90 Tablet 3 07/27/2021 Active UltiCare Mini Pen [place] 31G X 6 MM (Insulin Pen Needle)Indications:T ype 2 diabetes mellitus with hemoglobin A1c goal of 7.0%-8.0% (HCC) USE DIRECTED ONCE DAILY 100 Each 3 02/11/2022 Active TouchotelTouch UltraSoft LancetsIndications:T ype 2 diabetes mellitus with hemoglobin A1c goal of less than 7.0% (HCC) USE ONCE PER DAY DIRECTED 100 Each 4 02/11/2022 Active TouchotelTouch Ultra In Vitro Strip (Glucose Blood) TESTS 4 TIMES A DAY. E11.9 400 Strip 3 03/14/2022 Active Clopidogrel Bisulfate 75 MG Oral Tablet (pLAVix) TAKE ONE TABLET BY MOUTH EVERY DAY IN THE MORNING 90 Tablet 3 07/29/2022 4 Active Lantus SoloStar 100 UNIT/ML Subcutaneous Solution Pen-injectorIndicati ons:Type 2 diabetes mellitus with hemoglobin A1c goal of less than 8.0% (HCC) INJECT 4 UNITS UNDER THE SKIN ONCE DAILY 15 mL 1 10/18/2022 4 Active Levothyroxine Sodium 75 MCG Oral Tablet (Levoxyl)Indications :Acquired hypothyroidism TAKE 1 TABLET BY MOUTH DAILY AT LEAST 30 MINUTES PRIOR TO FIRST MEAL OF THE DAY OR OTHER MEDICATIONS 100 Tablet 3 11/03/2022 Active busPIRone HCl 5 MG Oral Tablet (Buspar) Take 1 Tablet by mouth in the morning and 1 Tablet before bedtime. 180 Tablet 3 12/14/2022 Active Alendronate Sodium 70 MG Oral Tablet (Fosamax) TAKE 1 TABLET BY MOUTH ONCE A WEEK WITH 8 OZ OF WATER BEFORE FIRST MEAL, REMAIN UPRIGHT FOR 30 MIN 12 Tablet 3 01/23/2023 Active documented as of this encounter (statuses as of 03/06/2023) Active Problems Problem Noted Date Diagnosed Date Unspecified dementia, unspec ified severity, without behavioral disturbance, psychotic disturbance, mood disturbance, and anxiety 11/24/2022 Type 2 diabetes mellitus wit h diabetic peripheral angiopathy without gangrene, with long-term current use of insulin 04/20/2022 Malnutrition 12/02/2021 correction (current) use of insulin 03/22/2018 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 03/22/2018 History of CVA (cerebrovascular accident) 2017 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 associated with type 2 diabetes mellitus 10/16/2017 History of nonmelanoma skin cancer 10/27/2016 Overview: BCC left lower eyelid 10/23 BCC right lower eyelid BCC left cheek BCC left nose Acquired hypothyroidism 12/17/2015 Essential hypertension with goal blood pressure less than 140/90 12/17/2015 Type 2 diabetes mellitus wit h hemoglobin A1c goal of less than 8.0% 12/27/2013 Overview: ICD-10 update of inactive term Statin intolerance 08/06/2013 CAMILLE inhibitor intolerance 08/06/2013 ADVANCE DIRECTIVE INFORMATION 09/28/2004 Overview: No, Advance Directive brochure offered , patient declined. Osteoporosis documented as of this encounter (statuses as of 03/06/2023) Resolved Problems Problem Noted Date Diagnosed Date Resolved Date Acute conjunctivitis of left eye 06/04/2019 06/04/2019 Type 2 diabetes mellitus wit h diabetic peripheral angiopathy without gangrene 03/22/2018 0 07/20/2022 Overview: Duplicate diagnosis on problem list Allergic rhinitis 02/01/2015 06/20/2018 Cerebral infarction 12/27/2013 02/14/20 17 Overview: ICD-10 update of inactive term HTN, goal below 140/90 08/06/201312/16 Acute ischemic VBA thalamic stroke 08/06/2013 02/13/2017 Acute arterial ischemic stro ke, vertebrobasilar, thalamic 07/03/2013 07/03/2013 HTN, goal below 140/80 11/28/201108/06 Overview: Per HTN Protocol #27. Follow-up examination, follo wing other surgery 02/15/2010 08/06/2013 Type 2 diabetes mellitus wit h hemoglobin A1c goal of 7.0%-8.0% 10/19/2009 12/27/2013 Overview: ICD-10 update of inactive term Dyslipidemia, goal LDL below 100 03/26/2009 10/16/2017 Overview: Per Lipid Taxonomy. HTN, GOAL BELOW 130/80 03/03/200911/30 Overview: Modified per HTN protocol #16. Type 2 diabetes mellitus wit h hemoglobin A1c goal of less than 7.0% 02/05/2009 10/19/2009 Overview: Per Diabetes Taxonomy. ICD-10 update of inactive term DM TYPE 2 CAUSING EYE DZ 02/05/200912/2017 Overview: Per Diabetes Taxonomy. Other disorders of conjunctiva(372.89) 06/27/2008 12/19/2017 Scarring of conjunctiva 11/24/200609/2016 Keratoconjunctivitis sicca, non-Sjogren's 10/16/2006 06/20/2018 Senile nuclear cataract 10/16/200607/10 HYPOTHYROIDISM NOS 10/25/2004 6 HX-SKIN MALIGNANCY NEC 09/12/200108/06 Encounter for long-term (cur rent) use of medications 08/31/2000 02/01/2015 Overview: ICD-10 update of inactive term Other allergic rhinitis 08/28/200001/09 Overview: ICD-10 update of inactive term Other seborrheic keratosis 08/08/2000 0 08/06/2013 Type 2 diabetes mellitus wit h hemoglobin A1c goal of less than 7.0% 02/05/2009 Overview: Per Diabetes Taxonomy. ICD-10 update of inactive term DIAB OPHTHAL MANIF ADULT Overview: Per Diabetes Taxonomy. HYPERLIPIDEMIA NEC-NOS 03/26 Overview: Per Lipid Taxonomy. HYPERTENSION NOS 03/03/2009 Overview: Modified per HTN protocol #16. Malignant neoplasm of skin 0 10/27/2016 Overview: ICD-10 update of inactive term Uterine leiomyoma 08/06/2013 documented as of this encounter (statuses as of 03/06/2023) Immunizations Name Administration Dates Next Due COVID-19 mRNA, LNP-s, No Pre serve, 2-Dose Series ([employer]) 03/29/2021,07/09/2020,06/18/2020 COVID-19, LNP-s, No Preserve , Júnior-sucrose, Ages 12+ (Pfizer) 09/28/2021 Pneumococcal Conjugate Vacc, 13 Valent (Prevnar) 06/20/2018 Pneumococcal Polysaccharide PPV23 (Pneumovax) 12/13/2005,12/14/1999 SEASONAL INFLUENZA, PF, 6 M & Above, IM , (FLULAVAL or FLUZONE) 01/09/2020,12/27/2018,03/22/2018 Seasonal Influenza, Quadriva lent Hd (Fluzone Hd) 02/11/2022 TD - Tetanus/Diptheria (ADULT) 09/26/1999 TDAP (age 10 and older)(Boostrix) 10/11/2018,,03/14/2014 documented as of this encounter Social History Tobacco Use Types Packs/Day Years Used Date Smoking Tobacco: Never Smokeless Tobacco: Never Alcohol Use Standard Drinks/Week Comments No 0 (1 standard drink = 0.6 oz pur e alcohol) PHQ-2 Answer Date Recorded PHQ Adult Total Score 3 11/24/2022 Sex and Gender Information Value Date Recorded Sex Assigned at Not on file Gender Identity Not on file Sexual Orientation Not on file Job Start Date Occupation Industry Not on file Not on file Not on file documented as of this encounter Miscellaneous Notes * Telephone Encounter - Yoana Burns, GARAGE HAND - 03/06/2023 12:47 PM EST Patients daughter Mary states that patient is not doing well Patient is canceling appts and not taking some of her meds She is having paranoia episodes, having anger She states that she needs help They are going to try to get her into a home She states that patient really needs to be seen She would like to have patient get something to calm her down, she worries about everything all thetime Patient calls the [employer] all the time to see how much money she has, blames her one son for taking money but they are taking care of her money for her and have shown her the bank statements but she will just repeat the same behavior the next day (Daughter states that they have POA over her finances and everything else) Patient has packed her bag and told them that she called a taxi to take her to a hotel but the taxinever came She states that her brother can't handle patient anymore and try to look for a home to get her intoin addition Scheduled patient tomorrow with Varghese Awan Daughter Mary is in [place] and she would like for Varghese Awan to call her prior to her appt if possible to go over what is happening @ [phone] Patients son will be bringing her to her appt, she would like for him to attend appt with pt as well because pt does not recall her appts afterwards She has 2 brothers She would like to talk to Auto Radio Mechanic, Iliana Sheridan not available today She would like for her to call her back to discuss any help that they can provide or any recommendations I offered that she could try to call the area [facility] to see how they could help and she was already planning to call them today * Telephone Encounter - Reji Diane OSA - 03/06/2023 12:41 PM EST Pt's daughter called to speak with nurse sent Pt to nurse line documented in this encounter Plan of Treatment Upcoming Encounters Date Type Department Care Team (Late st Contact Info) Description 03/07/2023 2:20 PM EST [facility] [place] [address] Leonarda Awan PA-C 200 [facility] [place] [address] 07/03/2023 9:00 AM EDT Office Visit Urology, [facility] [address] [place] [address] Josh Gonsales MD 27 [facility] [place] [address] 07/19/2023 5:00 PM EDT Office Visit [facility] [address] [place] [address] Mike Goff III, MD 200 [facility] [place] [address] 09/15/2023 10:00 AM EDT Office Visit Neu[facility] [address] [facility] [place] [address] Seng Camarillo, DO [address] [place] [address] Health Maintenance Due Date Last Done Comments Zoster Vaccines (1 of 2) 1987 Hepatitis B (1 of 3 - Risk 3-dose series) 1997 Diabetic Foot Exam 05/20/2021 05/20/2020, 0 09/21/2018, 12/19/2017, Additional history exists Diabetic Eye Exam 09/10/2022 09/10/2021, , 02/26/2018, Additional history exists COVID-19 Vaccine ( season) 2022 09/28/2021, 03/29/2021, 07/09/2020, Additional history exists Influenza Vaccine (FLU shot) (#1) 2022 02/11/2022, 01/09/2020, 12/27/2018, Additional history exists DXA Scan 02/09/2023 02/09/2022, 09/09, 01/03/2012, Additional history exists HbA1c 04/23/2023 10/21/2022, 04/0 09/2022, 04/20/2022, Additional history exists Albumin/Creatinine Ratio 10/22/2023 023, 03/09/2022, 03/02/2021, Additional history exists TSH 10/22/2023 10/21/2022, 04/10, 09/08/2021, Additional history exists Depression Screening 11/25/2023 11/24/2022 DTaP,Tdap,and Td Vaccines (4 - Td or Tdap) 10/11/2028 10/11/2018, 10/30/2016, 03/14/2014, Additional history exists Pneumococcal Vaccine: 65+ Years Completed 06/20/2018, 12/13/2005, 12/14/1999 VITAMIN D LEVEL ONCE IN A LIFETIME-USE SMARTSET# [id number] Completed 10/31/2018, 12/26/2013, 11/09/2010 GARDASIL-HPV IMMUNIZATION SERIES Aged Out No longer eligible based on patient's age to complete this topic MENINGOCOCCAL (MENACTRA/MENVEO) Aged Out No longer eligible based on patient's age to complete this topic documented as of this encounter Medical Devices Implanted Type Area Ceramic Worker Device Identifier Shelf Expiration Date Model / Serial / Lot Lens 22.0 Sn60wf - [id number] Implanted:Qty: 1 on 07/19/2011 at [facility] Left: Eye [employer] 01/08/2016 SN60WF.220 / [id number] / Lens 20.0 Sn60wf - [id number] Implanted:Qty: 1 on 10/18/2011 at [facility] Right: Eye [employer] 05/10/2016 SN60WF.200 / [id number] / documented as of this encounter Care Teams Vice President Of Product Marketing Relationship Specialty Start Date End Date Mike Goff III, MD [address] [facility] [place] [address] PCP - General Family Medicine 12/19/17 documented as of this encounter
--- OUTSIDE RECORDS SUMMARY | 2023-03-07 17:10 | External Medical Summary | Summary of Care ---
Author Name Unknown Organization [facility] Address [address] [place] [address] Phone [phone] Care Team Providers Care Wind Turbine Controls Engineer Name Role Phone Shell LESLIE MD, Mike Acosta Primary Care Provider [phone] Reason for Visit * Reason Onset Date Comments Advice 03/06/2023 Encounter Details Date Type Department Care Team (Late st Contact Info) Description 03/06/2023 Telephone Family Practice [facility] 200 [facility] [place] [address] Mike Goff III, MD 200 [place] [address] Advice Allergies Active Allergy Reactions Criticality Noted [...] taking.Reported on 12/29/2022 Blood Glucose Monitoring Suppl ([employer] ULTRA MINI) w/Device KIT Use as directed [...] Tablet 3 07/27/2021 Active UltiCare Mini Pen [place] 31G X 6 MM (Insulin Pen Needle)Indications:T ype 2 diabetes mellitus with hemoglobin A1c goal of 7.0%-8.0% (HCC) USE DIRECTED ONCE DAILY 100 Each 3 02/11/2022 Active Magma GlobalTouch UltraSoft LancetsIndications:T ype 2 diabetes mellitus with hemoglobin A1c goal of less than 7.0% (HCC) USE ONCE PER DAY DIRECTED 100 Each 4 02/11/2022 Active Magma GlobalTouch Ultra In Vitro Strip (Glucose Blood) TESTS [...] current use of insulin 04/20/2022 Malnutrition 12/02/2021 [facility] (current) use of insulin 03/22/2018 Type 2 [...] mRNA, LNP-s, No Pre serve, 2-Dose Series ([employer]) 03/29/2021,07/09/2020,06/18/2020 COVID-19, LNP-s, No Preserve , Júnior-sucrose, Ages 12+ (Pfizer) 09/28/2021 Pneumococcal Conjugate Vacc, 13 Valent (Prevnar) 06/20/2018 Pneumococcal Polysaccharide PPV23 (Pneumovax) 12/13/2005 SEASONAL INFLUENZA, PF, 6 M & Above, IM , (FLULAVAL or FLUZONE) 01/09/2020,12/27/2018,03/22/2018 Seasonal Influenza, Quadriva lent Hd (Fluzone Hd) 02/11/2022 TDAP (age 10 and older)(Boostrix) 10/11/2018,,03/14/2014 documented [...] encounter Miscellaneous Notes * Telephone Encounter - Reji Diane OSA - 03/06/2023 12:41 PM EST Pt's daughter called to speak with nurse sent Pt to nurse line documented in this encounter Plan of Treatment Upcoming Encounters Date Type Department Care Team (Late st Contact Info) Description 03/07/2023 2:20 PM EST Office Visit [facility] [address] [place] [address] Leonarda Awan PA-C [address] [place] [address] 07/03/2023 9:00 AM EDT Office Visit Urology, [facility] [address] [place] [address] Josh Gonsales MD [address] [address] 07/19/2023 5:00 PM EDT Office Visit [facility] [address] [place] [address] Mike Goff III, MD [address] [facility] [place] [address] 09/15/2023 10:00 AM EDT Office Visit [facility] [address] [place] [address] Seng Camarillo, DO [address] [place] [address] Health Maintenance Due Date Last Done Comments [...] D LEVEL ONCE IN A LIFETIME-USE SMARTSET# [id number] Completed 10/31/2018, 12/26/2013, 11/09/2010 GARDASIL-HPV IMMUNIZATION SERIES Aged Out No longer eligible based on patient's age to complete this topic MENINGOCOCCAL (MENACTRA/MENVEO) Aged Out No longer eligible based on patient's age to complete this topic documented as of this encounter Medical Devices Implanted Type Area Tamale Machine Feeder Device Identifier Shelf Expiration Date Model / Serial / Lot Lens 22.0 Sn60wf - [id number] Implanted:Qty: 1 on 07/19/2011 at [facility] Left: Eye [employer] 01/08/2016 SN60WF.220 / [id number] / Lens 20.0 Sn60wf - [id number] Implanted:Qty: 1 on 10/18/2011 at [facility] Right: Eye [employer] 05/10/2016 SN60WF.200 / [id number] / documented as of this encounter Care Teams Wind Turbine Controls Engineer Relationship Specialty Start Date End Date Mike Goff III, MD [address] [place] [address] PCP - General Family Medicine 12/19/17 documented as of this encounter
--- OUTSIDE RECORDS SUMMARY | 2023-03-07 17:10 | External Medical Summary | Summary of Care ---
Author Name Unknown Organization [facility] Address [address] [place] [address] Phone [phone] Care Team Providers Care Heavy Mobile Equipment Repairer Name Role Phone Shell LESLIE MD, Mike Acosta Primary Care Provider [phone] Reason for Visit * Reason Onset Date Comments Advice 03/06/2023 Encounter Details Date Type Department Care Team (Late st Contact Info) Description 03/06/[address] [facility] 200 [place] [address] Mike Goff III, MD 200 [place] [address] Advice Allergies Active Allergy Reactions Criticality Noted [...] taking.Reported on 12/29/2022 Blood Glucose Monitoring Suppl ([employer] ULTRA MINI) w/Device KIT Use as directed [...] Tablet 3 07/27/2021 Active UltiCare Mini Pen [place] 31G X 6 MM (Insulin Pen Needle)Indications:T ype 2 diabetes mellitus with hemoglobin A1c goal of 7.0%-8.0% (HCC) USE DIRECTED ONCE DAILY 100 Each 3 02/11/2022 Active UserMojoTouch UltraSoft LancetsIndications:T ype 2 diabetes mellitus with hemoglobin A1c goal of less than 7.0% (HCC) USE ONCE PER DAY DIRECTED 100 Each 4 02/11/2022 Active UserMojoTouch Ultra In Vitro Strip (Glucose Blood) TESTS [...] current use of insulin 04/20/2022 Malnutrition 12/02/2021 [facility] (current) use of insulin 03/22/2018 Type 2 [...] mRNA, LNP-s, No Pre serve, 2-Dose Series ([employer]) 03/29/2021,07/09/2020,06/18/2020 COVID-19, LNP-s, No Preserve , Júnior-sucrose, [...] Notes * Telephone Encounter - Yoana Burns, DRAFTING TEACHER - 03/06/2023 12:47 PM EST Patients daughter [...] about everything all thetime Patient calls the [facility] all the time to see how much [...] with Varghese Awan Daughter Mary is in [place] and she would like for Varghese Awan to call her prior to her appt if possible to go over what is happening @ [phone] Patients son will be bringing her to her appt, she would like for him to attend appt with pt as well because pt does not recall her appts afterwards She has 2 brothers She would like to talk to Raise Drill Operator, Iliana Sheridan not available today She would [...] Description 03/07/2023 2:20 PM EST Office Visit [facility] [place] [address] Leonarda Awan PA-C [address] [facility] [place] [address] 07/03/2023 9:00 AM EDT Office Visit Urology, [facility] [place] [address] Josh Gonsales MD 27 [facility] [place] [address] 07/19/2023 5:00 PM EDT Office Visit [facility] [address] [place] [address] Mike Goff III, MD [address] [facility] [place] [address] 09/15/2023 10:00 AM EDT Office Visit Neu[facility] [address] [facility] [place] [address] Seng Camarillo, DO [address] [place] [address] Health Maintenance Due Date Last Done Comments [...] D LEVEL ONCE IN A LIFETIME-USE SMARTSET# [id number] Completed 10/31/2018, 12/26/2013, 11/09/2010 GARDASIL-HPV IMMUNIZATION SERIES Aged Out No longer eligible based on patient's age to complete this topic MENINGOCOCCAL (MENACTRA/MENVEO) Aged Out No longer eligible based on patient's age to complete this topic documented as of this encounter Medical Devices Implanted Type Area Hvac Mechanic Device Identifier Shelf Expiration Date Model / Serial / Lot Lens 22.0 Sn60wf - [id number] Implanted:Qty: 1 on 07/19/2011 at [facility] Left: Eye [employer] 01/08/2016 SN60WF.220 / [id number] / Lens 20.0 Sn60wf - [id number] Implanted:Qty: 1 on 10/18/2011 at [facility] Right: Eye [employer] 05/10/2016 SN60WF.200 / [id number] / documented as of this encounter Care Teams Heavy Mobile Equipment Repairer Relationship Specialty Start Date End Date Mike Goff III, MD 200 [place] [address] PCP - General Family Medicine 12/19/17 documented as of this encounter
--- OUTSIDE RECORDS SUMMARY | 2023-03-07 17:11 | External Medical Summary | Summary of Care ---
Author Name Unknown Organization [facility] Address [address] [place] [address] Phone [phone] Care Team Providers Care Diesel Locomotive Firer/Fireman Name Role Phone Shell LESLIE MD, Sherrie Acosta Primary Care Provider [phone] Reason for Visit * Reason Comments eRx-Medication Refill Encounter Details Date Type Department Care Team Description 01/22/2023 Refill Family Practice [facility] [address] [place] [address] Sherrie Richmond III, MD [address] [place] [address] Allergies Active Allergy Reactions Severity Noted Date Comments Actonel With Calcium Conjunctivitis [...] as of this encounter (statuses as of 01/23/2023) Medications Medication Sig Dispensed Refills Start Date End Date Status CALCIUM 600-200 MG-UNIT PO TABS 1 TABLET DAILY twice a day 30 Tab 0 3 Active MIRALAX PO POWDIndications:Co nstipation Dissolve one heaping tablespoon in 8 ounces of water or juice - one dose per day as needed for severe constipation 1 Bottle 2 4 Active Additional Information Patient not taking.Reported on 12/29/2022 Blood Glucose Monitoring Suppl ([employer] ULTRA MINI) w/Device KIT Use as directed to check blood sugar levels once daily; dx code: E11.9 1 Kit 0 9 Active [facility] Iron 240 (27 Fe) MG Oral Tablet (Ferrous Gluconate)Indicati ons:Acute post-hemorrhagic anemia TAKE 1 TABLET BY MOUTH EVERY DAY 100 Tab 3 1 Active Magnesium 500 MG Oral Tablet Take by mouth 1 Tablet in the morning. 90 Tablet 3 2 Active Multi-Vitamin Oral Tablet Take 2 tablets by mouth every morning 90 Tablet 3 2 Active UltiCare Mini Pen Mathews 31G X 6 MM (Insulin Pen Needle)Indications :Type 2 diabetes mellitus with hemoglobin A1c goal of 7.0%-8.0% (HCC) USE DIRECTED ONCE DAILY 100 Each 3 2 Active Goodmail Systemsuch UltraSoft LancetsIndications :Type 2 diabetes mellitus with hemoglobin A1c goal of less than 7.0% (HCC) USE ONCE PER DAY DIRECTED 100 Each 4 2 Active TribeHR Ultra In Vitro Strip (Glucose Blood) TESTS 4 TIMES A DAY. E11.9 400 Strip 3 2 Active Clopidogrel Bisulfate 75 MG Oral Tablet (pLAVix) TAKE ONE TABLET BY MOUTH EVERY DAY IN THE MORNING 90 Tablet 3 3 07/29/19 24 Active Lantus SoloStar 100 UNIT/ML Subcutaneous Solution Pen-injectorIndica tions:Type 2 diabetes mellitus with hemoglobin A1c goal of less than 8.0% (HCC) INJECT 4 UNITS UNDER THE SKIN ONCE DAILY 15 mL 1 3 10/18/19 24 Active Levothyroxine Sodium 75 MCG Oral Tablet (Levoxyl)Indicatio ns:Acquired hypothyroidism TAKE 1 TABLET BY MOUTH DAILY AT LEAST 30 MINUTES PRIOR TO FIRST MEAL OF THE DAY OR OTHER MEDICATIONS 100 Tablet 3 3 Active busPIRone HCl 5 MG Oral Tablet (Buspar) Take 1 Tablet by mouth in the morning and 1 Tablet before bedtime. 180 Tablet 3 3 Active Alendronate Sodium 70 MG Oral Tablet (Fosamax) TAKE 1 TABLET BY MOUTH ONCE A WEEK WITH 8 OZ OF WATER BEFORE FIRST MEAL, REMAIN UPRIGHT FOR 30 MIN 12 Tablet 3 3 Active Alendronate Sodium 70 MG Oral Tablet (Fosamax) TAKE 1 TABLET BY MOUTH ONCE A WEEK WITH 8OZ OF WATER BEFORE 1ST MEAL, REMAIN UPRIGHT FOR 30 MINUTES 12 Tablet 3 2 01/24/20 23 Discontinued documented as of this encounter (statuses as of 01/23/2023) Active Problems Problem Noted Date Unspecified dementia, unspec ified severity, without behavioral disturbance, psychotic disturbance, mood disturbance, and anxiety 11/24/2022 Type 2 diabetes mellitus wit h diabetic peripheral angiopathy without gangrene, with long-term current use of insulin 04/20/2022 Malnutrition 12/02/2021 custodial (current) use of insulin 03/22 Type 2 diabetes mellitus with diabetic p olyneuropathy 03/22/2018 History of CVA (cerebrovascular accident ) 03/22/2018 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 Osteoporosis documented as of this encounter (statuses as of 01/23/2023) Resolved Problems Problem Noted Date Resolved Date Acute conjunctivitis of left eye 06/04/2019 06/04/2019 Type 2 diabetes mellitus wit h diabetic peripheral angiopathy without gangrene 03/22/2018 07/20/2022 Overview: Duplicate diagnosis on problem list Allergic rhinitis 02/01/2015 06/20/2018 Cerebral infarction 12/27/2013 02/13/2017 Overview: ICD-10 update of inactive term HTN, goal below 140/90 08/06/2013 6 Acute ischemic VBA thalamic stroke 08/06/2013 02/13/2017 Acute arterial ischemic stroke, vertebrobasilar, thalamic 07/03/2013 07/03/2013 HTN, goal below 140/80 11/28/2011 4 Overview: Per HTN Protocol #27. Follow-up examination, following other surgery 1 04/17/2009 08/06/2013 Type 2 diabetes mellitus wit h hemoglobin A1c goal of 7.0%-8.0% 10/19/2009 12/27/2013 Overview: ICD-10 update of inactive term Dyslipidemia, goal LDL below 100 03/26/2009 10/16/2017 Overview: Per Lipid Taxonomy. HTN, GOAL BELOW 130/80 03/03/2009 2 Overview: Modified per HTN protocol #16. Type 2 diabetes mellitus wit h hemoglobin A1c goal of less than 7.0% 02/05/2009 10/19/2009 Overview: Per Diabetes Taxonomy. ICD-10 update of inactive term DM TYPE 2 CAUSING EYE DZ 02/05/2009 018 Overview: Per Diabetes Taxonomy. Other disorders of conjunctiva(372.89) 9 12/19/2017 Scarring of conjunctiva 11/24/2006 02/14/20 17 Keratoconjunctivitis sicca, non-Sjogren's 200606/20/2018 Senile nuclear cataract 10/16/2006 08/07/19 14 HYPOTHYROIDISM NOS 10/25/2004 12/17/2015 HX-SKIN MALIGNANCY NEC 09/12/2001 4 Encounter for long-term (current) use of medicat ions 08/31/2000 02/01/2015 Overview: ICD-10 update of inactive term Other allergic rhinitis 08/28/2000 02/02/20 15 Overview: ICD-10 update of inactive term Other seborrheic keratosis 08/08/200008/06 Type 2 diabetes mellitus wit h hemoglobin A1c goal of less than 7.0% 02/05/2009 Overview: Per Diabetes Taxonomy. ICD-10 update of inactive term DIAB OPHTHAL MANIF ADULT 009 Overview: Per Diabetes Taxonomy. HYPERLIPIDEMIA NEC-NOS 03/26/ 9 Overview: Per Lipid Taxonomy. HYPERTENSION NOS 03/03/2009 Overview: Modified per HTN protocol #16. Malignant neoplasm of skin 10/27 Overview: ICD-10 update of inactive term Uterine leiomyoma 08/06/2013 documented as of this encounter (statuses as of 01/23/2023) Immunizations Name Administration Dates Next Due COVID-19 mRNA, LNP-s, No Pre serve, 2-Dose Series (Nandi [employer]) 03/29/2021,07/09/2020,06/18/2020 COVID-19, LNP-s, No Preserve , Júnior-sucrose, Ages 12+ (Nandi Proteins) 09/28/2021 Pneumococcal Conjugate Vacc, 13 Valent (Prevnar) [...] drink = 0.6 oz pur e alcohol) Sex Assigned at Date Recorded Not on file Job Start Date Occupation Industry Not on file Not on file Not on file documented as of this encounter Miscellaneous Notes * Telephone Encounter - Sherrie Richmond III, MD - 01/23/2023 1:22 PM EDTSigned Prescriptions: Disp Refills Alendronate Sodium 70 MG Oral Tablet (Fosa*12 Tab*3 Sig: TAKE 1 TABLET BY MOUTH ONCE A WEEK WITH 8 OZ OF WATER BEFORE FIRST MEAL, REMAIN UPRIGHT FOR 30 MINAuthorizing Provider: SHERRIE RICHMOND III * Telephone Encounter - Shai Armenta [facility] - 01/23/2023 11:27 AM EDTPending Prescriptions: Disp Refills Alendronate Sodium 70 MG Oral Tablet [Phar*12 Tab*3 Sig: TAKE 1 TABLET BY MOUTH ONCE A WEEK WITH 8 OZ OF WATER BEFORE FIRST MEAL, REMAIN UPRIGHT FOR 30 MIN * Telephone Encounter - Shai Armenta [facility] - 01/23/2023 11:24 AM EDT Unable to authorize medication refills for pended medication(s) at this time. Part of the protocol criteria used for refill authorization was not satisfied. Patient needs updated BMP per refill protocol. Please approve if appropriate. Thanks, Zay Armenta, PharmD Clinical Pharmacist [facility] ([facility]) (Formerly Telepharmacy) [phone] 01/23/2023 11:26 AM documented in this encounter Plan of Treatment Upcoming Encounters Date Type Specialty Care Team Description 02/14/2023 Office Visit Family Medicine Shell III, Sherrie Acosta MD [address] [place] [address] 07/04/2023 Office Visit Urology Josh Gonsales MD [address] [facility] [address] [place] [address] 09/15/2023 Office Visit Neurology Seng Camarillo, DO [address] [place] [address] Health Maintenance Due Date Last Done Comments Zoster Vaccines (1 of 2) 1987 Diabetic Foot Exam 05/20/2021 05/20/2020, 0 09/21/2018, 12/19/2017, Additional history exists DIABETES-EYE EXAM 09/10/2022 09/10/2021, , 02/26/2018, Additional history exists COVID-19 Vaccine (2022- season) 2022 09/28/2021, 03/29/2021, 07/09/2020, Additional history [...] D LEVEL ONCE IN A LIFETIME-USE SMARTSET# 84019 Completed 10/31/2018, 12/26/2013, 11/09/2010 GARDASIL-HPV IMMUNIZATION SERIES Aged Out No longer eligible based on patient's age to complete this topic Hepatitis B Aged Out No longer eligi ble based on patient's age to complete this topic MENINGOCOCCAL (MENACTRA/MENVEO) Aged Out No longer eligible based on patient's age to complete this topic documented as of this encounter Medical Devices Implanted Type Area Road Builder Device Identifier Shelf Expiration Date Model / Serial / Lot Lens 22.0 Sn60wf - [id number] Implanted:Qty: 1 on 07/19/2011 at OR [facility] Left: Eye [employer] 01/08/2016 SN60WF.220 / [id number] / Lens 20.0 Sn60wf - [id number] Implanted:Qty: 1 on 10/18/2011 at OR [facility] Right: Eye [employer] 05/10/2016 SN60WF.200 / [id number] / documented as of this encounter Care Teams Diesel Locomotive Firer/Fireman Relationship Specialty Start Date End Date Sherrie Richmond III, MD [address] [facility] [place] [address] PCP - General Family Medicine 12/19/17 documented as of this encounter
--- OUTSIDE RECORDS SUMMARY | 2023-03-07 17:11 | External Medical Summary | Summary of Care ---
Author Name Unknown Organization [facility] Address [address] [place] [address] Phone [phone] Care Team Providers Care Regional Sales Trainer Name Role Phone Shell LESLIE MD, Mike Acosta Primary Care Provider [phone] Encounter Details Date Type Department Care Team Description 12/30/2022 Automotive Refinisher Ancillary 1st Floor, [place] [place], [place] [id number] Iliana Sheridan LPN [address] [place] [address] Medical home patient encounter* Allergies Active Allergy Reactions Severity Noted Date [...] as of this encounter (statuses as of 12/30/2022) Medications Medication Sig Dispensed Refills Start Date [...] taking.Reported on 12/29/2022 Blood Glucose Monitoring Suppl (Valneva ULTRA MINI) w/Device KIT Use as directed [...] every morning 90 Tablet 3 07/27/2021 Active Alendronate Sodium 70 MG Oral Tablet (Fosamax) TAKE 1 TABLET BY MOUTH ONCE A WEEK WITH 8OZ OF WATER BEFORE 1ST MEAL, REMAIN UPRIGHT FOR 30 MINUTES 12 Tablet 3 01/27/2022 Active UltiCare Mini Pen [place] 31G X 6 MM (Insulin Pen Needle)Indications:T ype 2 diabetes mellitus with hemoglobin A1c goal of 7.0%-8.0% (HCC) USE DIRECTED ONCE DAILY 100 Each 3 02/11/2022 Active InfobionicsTouch UltraSoft LancetsIndications:T ype 2 diabetes mellitus with hemoglobin A1c goal of less than 7.0% (HCC) USE ONCE PER DAY DIRECTED 100 Each 4 02/11/2022 Active InfobionicsTouch Ultra In Vitro Strip (Glucose Blood) TESTS 4 TIMES A DAY. E11.9 400 Strip 3 03/14/2022 Active Clopidogrel Bisulfate 75 MG Oral Tablet (pLAVix) TAKE ONE TABLET BY MOUTH EVERY DAY IN THE MORNING 90 Tablet 3 07/29/2022 4 Active Lantus SoloStar 100 UNIT/ML Subcutaneous Solution Pen-injectorIndicati ons:Type 2 diabetes mellitus with hemoglobin A1c goal of less than 8.0% ([facility]) INJECT 4 UNITS UNDER THE SKIN ONCE [...] before bedtime. 180 Tablet 3 12/14/2022 Active documented as of this encounter (statuses as of 12/30/2022) Active Problems Problem Noted Date Unspecified dementia, unspec ified severity, without behavioral disturbance, psychotic disturbance, mood disturbance, and anxiety 11/24/2022 Type 2 diabetes mellitus wit h diabetic peripheral angiopathy without gangrene, with long-term current use of insulin 04/20/2022 Malnutrition 12/02/2021 intermediate accountant (current) use of insulin 03/22 Type 2 [...] as of this encounter (statuses as of 12/30/2022) Resolved Problems Problem Noted Date Resolved Date [...] 009 Overview: Per Diabetes Taxonomy. HYPERLIPIDEMIA NEC-NOS 9 Overview: Per Lipid Taxonomy. HYPERTENSION NOS 03/03/2009 Overview: Modified per HTN protocol #16. Malignant neoplasm of skin 10/27 Overview: ICD-10 update of inactive term Uterine leiomyoma 08/06/2013 documented as of this encounter (statuses as of 12/30/2022) Immunizations Name Administration Dates Next Due COVID-19 mRNA, LNP-s, No Pre serve, 2-Dose Series (Motility Count) 03/29/2021,07/09/2020,06/18/2020 COVID-19, LNP-s, No Preserve , Júnior-sucrose, Ages 12+ (Pfizer) 09/28/2021 Pneumococcal Conjugate Vacc, 13 Valent (Prevnar) 06/20/2018 Pneumococcal Polysaccharide PPV23 (Pneumovax) 12/13/2005 Seasonal Influenza, PF, 6 mo ns & Above, IM , (Flulaval) 01/09/2020,12/27/2018,03/22/2018 Seasonal Influenza, Quadriva lent Hd (Fluzone [...] on file documented as of this encounter Progress Notes * Iliana Sheridan LPN - 12/30/2022 12:06 PM EDT SITUATION: Tier 2 follow up for case management BACKGROUND: [facility] 10/23-10/24 - AMS [facility] ED 11/20 - back pain ASSESSMENT: Spoke to patient in follow up She is overall doing well Saw provider yesterday for visit to address her chronic back pain Was instructed to take Tylenol 500 mg BID. Pt states that this medication regimen is effective and her back feels good No falls noted. Does not require assistive devices Walking 1 mile per day outside on walking path Denies chest pain, dyspnea or TAN Denies lower leg edema or pain Appetite very good. No N/V Denies bowel concerns, no blood noted in stool Denies any urinary tract infection symptoms Afebrile Next PCP visit planned for 02/14/23 RECOMMENDATION: Update from patient Stable with no new concerns today She will continue Tylenol regimen for her back pain Discussed safety with walking outdoors. Keep f/u appt with PCP in approx 6 weeks. Iliana Sheridan LPN [address] [place] [address] documented in this encounter Plan of Treatment Upcoming Encounters Date Type Specialty Care Team Description 02/14/2023 Office Visit Family Medicine ShellMike lancaster III, MD [address] [facility] [place] [address] 07/04/2023 Office Visit Urology Josh Gonsales MD [address] [facility] [address] [place] [address] 09/15/2023 Office Visit Neurology Seng Camarillo, DO [address] [place] [address] Health Maintenance Due Date Last Done Comments Zoster Vaccines (1 of 2) 1987 Diabetic Foot Exam 05/20/2021 05/20/2020, 0 09/21/2018, 12/19/2017, Additional history exists COVID-19 Vaccine (5 - Pfizer series) 11/23/2021 09/28/2021, 03/29/2021, 07/09/2020, Additional history exists DIABETES-EYE EXAM 09/10/2022 09/10/2021, , 02/26/2018, Additional history exists Influenza Vaccine (FLU shot) [...] D LEVEL ONCE IN A LIFETIME-USE SMARTSET# 61013 Completed 10/31/2018, 12/26/2013, 11/09/2010 GARDASIL-HPV IMMUNIZATION SERIES Aged Out No longer eligible based on patient's age to complete this topic Hepatitis B Aged Out No longer eligi ble based on patient's age to complete this topic MENINGOCOCCAL (MENACTRA/MENVEO) Aged Out No longer eligible based on patient's age to complete this topic documented as of this encounter Medical Devices Implanted Type Area Business Quality Assurance Analyst Device Identifier Shelf Expiration Date Model / Serial / Lot Lens 22.0 Sn60wf - [id number] Implanted:Qty: 1 on 07/19/2011 at OR [facility] Left: Eye [employer] 01/08/2016 SN60WF.220 / [id number] / Lens 20.0 Sn60wf - [id number] Implanted:Qty: 1 on 10/18/2011 at OR [facility] Right: Eye [employer] 05/10/2016 SN60WF.200 / [id number] / documented as of this encounter Visit Diagnoses Diagnosis Medical home patient encounter- Primary Other specified examination documented in this encounter Care Teams Regional Sales Trainer Relationship Specialty Start Date End Date Mike Goff III, MD [address] [place] [address], [place] [address] PCP - General Family Medicine 12/19/17 documented as of this encounter
--- OUTSIDE RECORDS SUMMARY | 2023-03-07 17:11 | External Medical Summary | Summary of Care ---
Author Name Unknown Organization [facility] Address [address] [place] [address] Phone [phone] Care Team Providers Care Visualizer Name Role Phone Shell LESLIE MD, Mike Acosta Primary Care Provider [phone] Reason for Referral * Evaluate & Treat - Unlimited Visits (Within 30 days (routine)) - Authorized Specialty Diagnoses / Procedures Referred By Madyson preston Referred To Contact Neurology Diagnoses Unspecified dementia, unspecified severity, without behavioral disturbance, psychotic disturbance, mood disturbance, and anxiety (HCC) Mike Goff III, MD [address] [place] [address] Referral ID Status Reason Start Date Expiration Date Visits Requested Visits Authorized [id number] Authorized Specialty Services Required 11/28/2022 999 999 Question Answer Referral Priority Within 30 days (routine) CAD NEUROLOGY REFERRAL QUESTIONS Memory/Cognition Reason for Visit * Reason Onset Date Comments Advice 11/25/2022 Encounter Details Date Type Department Care Team Description 11/25/2022 Telephone Family Practice State Martha Lindsay [address] [place] [address] Mike Goff III, MD [address] [place] [address] Advice Allergies Active Allergy Reactions Severity Noted Date [...] as of this encounter (statuses as of 2023) Medications Medication Sig Dispensed Refills Start Date End Date Status CALCIUM 600-200 MG-UNIT PO TABS 1 TABLET DAILY twice a day 30 Tab 0 09/26/2012 Active MIRALAX PO POWDIndications:Con stipation Dissolve one heaping tablespoon in 8 ounces of water or juice - one dose per day as needed for severe constipation 1 Bottle 2 08/06/2013 Active Additional Information Patient not taking.Reported on 12/29/2022 Blood Glucose Monitoring Suppl (Mill33 ULTRA MINI) w/Device KIT Use as directed to check blood sugar levels once daily; dx code: E11.9 1 Kit 0 08/10/2018 Active [facility] Iron 240 (27 Fe) MG Oral Tablet (Ferrous Gluconate)Indicatio ns:Acute post-hemorrhagic anemia TAKE 1 TABLET BY MOUTH [...] Tablet 3 01/27/2022 Active UltiCare Mini Pen [place] 31G X 6 MM (Insulin Pen Needle)Indications: Type 2 diabetes mellitus with hemoglobin A1c goal of 7.0%-8.0% ([facility]) USE DIRECTED ONCE DAILY 100 Each 3 02/11/2022 Active OneTouch UltraSoft LancetsIndications: Type 2 diabetes mellitus with hemoglobin A1c goal of less than 7.0% ([facility]) USE ONCE PER DAY DIRECTED 100 Each 4 02/11/2022 Active OneTouch Ultra In Vitro Strip (Glucose Blood) TESTS 4 TIMES A DAY. E11.9 400 Strip 3 03/14/2022 Active Clopidogrel Bisulfate 75 MG Oral Tablet (pLAVix) TAKE ONE TABLET BY MOUTH EVERY DAY IN THE MORNING 90 Tablet 3 07/29/2022 07/29/19 24 Active Lantus SoloStar 100 UNIT/ML Subcutaneous Solution Pen-injectorIndicat ions:Type 2 diabetes mellitus with hemoglobin A1c goal of less than 8.0% ([facility]) INJECT 4 UNITS UNDER THE SKIN ONCE DAILY 15 mL 1 10/18/2022 10/18/19 24 Active Levothyroxine Sodium 75 MCG Oral Tablet (Levoxyl)Indication s:Acquired hypothyroidism TAKE 1 TABLET BY MOUTH DAILY AT LEAST 30 MINUTES PRIOR TO FIRST MEAL OF THE DAY OR OTHER MEDICATIONS 100 Tablet 3 11/03/2022 Active busPIRone HCl 5 MG Oral Tablet (Buspar) Take 1 Tablet by mouth in the morning and 1 Tablet before bedtime. 20 Tablet 0 10/28/2022 12/01/19 23 Discontinu ed(Medicat ion List Clean Up) busPIRone HCl 5 MG Oral Tablet (Buspar) Take 1 Tablet by mouth in the morning and 1 Tablet before bedtime. 60 Tablet 3 11/07/2022 12/15/19 23 Discontinu ed(Refill) Donepezil HCl 5 MG Oral Tablet (Aricept) Take 1 Tablet by mouth daily with breakfast for 28 days. 28 Tablet 0 11/21/2022 11/26/19 23 Discontinu ed(Patient preference /discontin uation) Donepezil HCl 10 MG Oral Tablet (Aricept) Take 1 Tablet by mouth daily with breakfast. Start this dose after finishing 5 mg tablets. 90 Tablet 3 11/21/2022 11/26/19 23 Discontinu ed(Patient preference /discontin uation) documented as of this encounter (statuses as of 2023) Active Problems Problem Noted Date Unspecified dementia, unspec ified severity, without behavioral disturbance, psychotic disturbance, mood disturbance, and anxiety 11/24/2022 Type 2 diabetes mellitus wit h diabetic peripheral angiopathy without gangrene, with long-term current use of insulin 04/20/2022 Malnutrition 12/02/2021 terminal carman (current) use of insulin 03/22 Type 2 [...] as of this encounter (statuses as of 2023) Resolved Problems Problem Noted Date Resolved Date [...] as of this encounter (statuses as of 2023) Immunizations Name Administration Dates Next Due COVID-19 mRNA, LNP-s, No Pre serve, 2-Dose Series (Iagnosis) 03/29/2021,07/09/2020,06/18/2020 COVID-19, LNP-s, No Preserve , Júnior-sucrose, [...] encounter Miscellaneous Notes * Telephone Encounter - Iliana Allison - 2023 10:33 AM EDT From November 2022 Portillo, pt son, stopped by to speak with Dr Goff or nurse. Portillo has concerns about Dementia regarding his mom and medication she is taking Please call Portillo at [phone] today or tomorrow to discuss and advise * Telephone Encounter - AHSAN Joe - 12/01/2022 9:19 AM EDT Pt is scheduled * Telephone Encounter - AHSAN Joe - 11/29/2022 10:01 AM EDT My g sent 11/29 * Telephone Encounter - Iliana Cruz LPN - 11/28/2022 6:03 PM EDT Provider to address: referral Reason for Call: Advice Contact: Telephone Call Contact Type: Referral(s) Placed Outcome: Called & spoke with patient. She is agreeable to being seen with Neurology. Referral placed. Please assist with scheduling office visit. Total Time including non face to face (minutes): 10 * Telephone Encounter - Shivani Hinojosa PA-C - 11/28/2022 2:21 PM EDT Due to all her sensitivities to medications she may be better suited to see Neurology about the next trial of medication. * Telephone Encounter - Blanca Germain, MED ASSIST - 11/25/2022 2:14 PM EDT Provider to address: Donepezil made her "deathly sick" Reason for Call: Advice Contact: Telephone Call Contact Type: Assessment Outcome: Called and spoke with Rachael. She states that she took her Donepezil 5mg this morning with breakfast and it made her sick for a good 4 or 5 hours. She experienced extreme nausea. So much sothat she "thought she was dying" and she'll "never take those pills again" She denies dizziness, throat swelling, shortness of breath, chest pain, blurred vision, fever or diarrhea. Please advise if there is something else she can take. Total Time including non face to face (minutes): 10 * Telephone Encounter - Carmina Stearns CMA - 11/25/2022 8:07 AM EDT Son is requesting call back to go over mothers medications, he believes new rx given is upsetting her stomach. Please call to help documented in this encounter Plan of Treatment Upcoming Encounters Date Type Specialty Care Team Description 02/14/2023 Office Visit Family Medicine ShellMike lancaster III, MD [address] [place] [address] 07/04/2023 Office Visit Urology Josh Gonsales MD [address] [id number] 09/15/2023 Office Visit Neurology Seng Camarillo, DO [address] [place] [address] Scheduled Referrals Name Type Priority Associated Diagnoses Orde r Schedule NEUROLOGY REFERRAL OP Referral Within 30 days (routine) Unspecified dementia, unspecified severity, without behavioral disturbance, psychotic disturbance, mood disturbance, and anxiety (HCC) Ordered: 11/28/2022 Health Maintenance Due Date Last Done Comments [...] D LEVEL ONCE IN A LIFETIME-USE SMARTSET# [id number] Completed 10/31/2018, 12/26/2013, 11/09/2010 GARDASIL-HPV IMMUNIZATION SERIES Aged Out No longer eligible based on patient's age to complete this topic Hepatitis B Aged Out No longer eligi ble based on patient's age to complete this topic MENINGOCOCCAL (MENACTRA/MENVEO) Aged Out No longer eligible based on patient's age to complete this topic documented as of this encounter Medical Devices Implanted Type Area Changeover Operator Device Identifier Shelf Expiration Date Model / Serial / Lot Lens 22.0 Sn60wf - [id number] Implanted:Qty: 1 on 07/19/2011 at [facility] Left: Eye [employer] 01/08/2016 SN60WF.220 / [id number] / Lens 20.0 Sn60wf - [id number] Implanted:Qty: 1 on 10/18/2011 at [facility] Right: Eye [employer] 05/10/2016 SN60WF.200 / [id number] / documented as of this encounter Visit Diagnoses Diagnosis Unspecified dementia, unspecified severity, without behavioral disturbance, psychotic disturbance, mood disturbance, and anxiety (HCC)- Primary documented in this encounter Care Teams Visualizer Relationship Specialty Start Date End Date Mike Goff III, MD [address] [place] [id number] PCP - General Family Medicine 12/19/17 documented as of this encounter
--- OUTSIDE RECORDS SUMMARY | 2023-03-07 17:11 | External Medical Summary | Summary of Care ---
Author Name Unknown Organization [facility] Address [address] [place] [address] Phone [phone] Care Team Providers Care Aluminum Pool Installer Name Role Phone Shell LESLIE MD, Mike Acosta Primary Care Provider [phone] Reason for Visit * Reason Onset Date Comments case management 12/15/2022 Encounter Details Date Type Department Care Team Description 12/15/2022 Track Layer Head Telephone General Internal Medicine [facility] [address] [place] [address] Gabriella Sanders, RN [address] [place] [address] case management Allergies Active Allergy Reactions Severity Noted Date [...] as of this encounter (statuses as of 12/15/2022) Medications Medication Sig Dispensed Refills Start Date End Date Status CALCIUM 600-200 MG-UNIT PO TABS 1 TABLET DAILY twice a day 30 Tab 0 09/26/2012 Active MIRALAX PO POWDIndications:Cons tipation Dissolve one heaping tablespoon in 8 ounces of water or juice - one dose per day as needed for severe constipation 1 Bottle 2 08/06/2013 Active Blood Glucose Monitoring Suppl ([employer] ULTRA MINI) w/Device KIT Use as directed [...] Tablet 3 01/27/2022 Active UltiCare Mini Pen [place] 31G X 6 MM (Insulin Pen Needle)Indications:T ype 2 diabetes mellitus with hemoglobin A1c goal of 7.0%-8.0% (HCC) USE DIRECTED ONCE DAILY 100 Each 3 02/11/2022 Active Manthan SystemsTouch UltraSoft LancetsIndications:T ype 2 diabetes mellitus with hemoglobin A1c goal of less than 7.0% (HCC) USE ONCE PER DAY DIRECTED 100 Each 4 02/11/2022 Active [employer]inator Technologiesuch Ultra In Vitro Strip (Glucose Blood) TESTS 4 TIMES A DAY. E11.9 400 Strip 3 03/14/2022 Active Clopidogrel Bisulfate 75 MG Oral Tablet (pLAVix) TAKE ONE TABLET BY MOUTH EVERY DAY IN THE MORNING 90 Tablet 3 07/29/2022 4 Active Lantus SoloStar 100 UNIT/ML Subcutaneous Solution Pen-injectorIndicati ons:Type 2 diabetes mellitus with hemoglobin A1c goal of less than 8.0% ([facility]) INJECT 4 UNITS UNDER THE SKIN ONCE [...] as of this encounter (statuses as of 12/15/2022) Active Problems Problem Noted Date Unspecified dementia, unspec ified severity, without behavioral disturbance, psychotic disturbance, mood disturbance, and anxiety 11/24/2022 Type 2 diabetes mellitus wit h diabetic peripheral angiopathy without gangrene, with long-term current use of insulin 04/20/2022 Malnutrition 12/02/2021 intermodal customer service (current) use of insulin 03/22 Type 2 [...] as of this encounter (statuses as of 12/15/2022) Resolved Problems Problem Noted Date Resolved Date [...] as of this encounter (statuses as of 12/15/2022) Immunizations Name Administration Dates Next Due COVID-19 mRNA, LNP-s, No Pre serve, 2-Dose Series ([employer]) 03/29/2021,07/09/2020,06/18/2020 COVID-19, LNP-s, No Preserve , Júnior-sucrose, [...] encounter Miscellaneous Notes * Telephone Encounter - Gabriella Sanders RN - 12/15/2022 10:47 AM EDT SITUATION: CCM Tier 2 f/u BACKGROUND: [facility] 10/23-10/24 - AMS [facility] ED 11/20 - back pain ASSESSMENT: Spoke with patient-seems more paranoid today-accusing son of "having things he shouldn't have". States that she just had an argument with him and he left. She states she has a safe and all of her things are missing and she is not sure where they went. She denies feeling unsafe in her home at this time. She denies any issues with back pain, urinary symptoms, chest pain, shortness of breath, headaches, n/v/d/c. Reports she is taking her medications as prescribed. Appetite is normal and no issues with sleep. RECOMMENDATION: Advised to notify her other children if she feels unsafe at any time. Advised to notify PCP of any change in medical symptoms. Will plan to follow up again within one week. Gabriella Sanders RN General Internal Medicine Malena Joy [address] [facility] [id number] documented in this encounter Plan of Treatment Upcoming Encounters Date Type Specialty Care Team Description 02/14/2023 Office Visit Family Medicine Mike Goff III, MD 200 [facility] [place] [id number] 07/04/2023 Office Visit Urology Josh Gonsales MD 27 [facility] [address] [address] 09/15/2023 Office Visit [facility] [address] Health Maintenance Due Date Last Done [...] 10/21/2022, 04/10, 09/08/2021, Additional history exists Depression Screening, Annual for Pts 12 and Over 11/25/2023 11/24/2022 DTaP,Tdap,and Td Vaccines (4 - Td or Tdap) 10/11/2028 10/11/2018, 10/30/2016, 03/14/2014, Additional history exists Pneumococcal Vaccine: 65+ Years Completed 06/20/2018, 12/13/2005, 12/14/1999 VITAMIN D LEVEL ONCE IN A LIFETIME-USE SMARTSET# [id number] Completed 10/31/2018, 12/26/2013, 11/09/2010 GARDASIL-HPV IMMUNIZATION SERIES Aged Out No longer eligible based on patient's age to complete this topic Hepatitis B Aged Out No longer eligi ble based on patient's age to complete this topic MENINGOCOCCAL (MENACTRA/MENVEO) Aged Out No longer eligible based on patient's age to complete this topic documented as of this encounter Medical Devices Implanted Type Area Mat Inspector Device Identifier Shelf Expiration Date Model / Serial / Lot Lens 22.0 Sn60w - [id number] Implanted:Qty: 1 on 07/19/2011 at [facility] Left: Eye [employer] 01/08/2016 SN60WF.220 / [id number] / Lens 20.0 Sn60wf - [id number] Implanted:Qty: 1 on 10/18/2011 at [facility] Right: Eye [employer] 05/10/2016 SN60WF.200 / [id number] / documented as of this encounter Visit Diagnoses Diagnosis Medical home patient encounter- Primary Other specified examination documented in this encounter Care Teams Aluminum Pool Installer Relationship Specialty Start Date End Date Mike Goff III, MD [address] [place] [address] PCP - General Family Medicine 12/19/17 documented as of this encounter
--- OUTSIDE RECORDS SUMMARY | 2023-03-07 17:11 | External Medical Summary | Summary of Care ---
Author Name Unknown Organization [facility] Address [address] [place] [address] Phone [phone] Care Team Providers Care Nursing Home Administrator Name Role Phone Shell LESLIE MD, Mike Acosta Primary Care Provider [phone] Reason for Visit * Reason Comments Back Pain Intermittent back pa in ongoing for years. Encounter Details Date Type Department Care Team Description 12/29/2022 Office Visit General Internal Medicine [facility] [address] [place] [address] Vidal Perkins PA-C [address] [place] [address] Chronic midline low back pain without sciatica*; Acquired hypothyroidism Allergies Active Allergy Reactions Severity Noted Date [...] as of this encounter (statuses as of 12/29/2022) Medications Medication Sig Dispensed Refills Start Date [...] taking.Reported on 12/29/2022 Blood Glucose Monitoring Suppl (TargetingMantra ULTRA MINI) w/Device KIT Use as directed [...] Tablet 3 01/27/2022 Active UltiCare Mini Pen Stephen 31G X 6 MM (Insulin Pen Needle)Indications:T ype 2 diabetes mellitus with hemoglobin A1c goal of 7.0%-8.0% (HCC) USE DIRECTED ONCE DAILY 100 Each 3 02/11/2022 Active Arbor PhotonicsTouch UltraSoft LancetsIndications:T ype 2 diabetes mellitus with hemoglobin A1c goal of less than 7.0% (HCC) USE ONCE PER DAY DIRECTED 100 Each 4 02/11/2022 Active Arbor PhotonicsTouch Ultra In Vitro Strip (Glucose Blood) TESTS [...] as of this encounter (statuses as of 12/29/2022) Active Problems Problem Noted Date Unspecified dementia, unspec ified severity, without behavioral disturbance, psychotic disturbance, mood disturbance, and anxiety 11/24/2022 Type 2 diabetes mellitus wit h diabetic peripheral angiopathy without gangrene, with long-term current use of insulin 04/20/2022 Malnutrition 12/02/2021 correction (current) use of insulin 03/22 Type 2 [...] as of this encounter (statuses as of 12/29/2022) Resolved Problems Problem Noted Date Resolved Date [...] as of this encounter (statuses as of 12/29/2022) Immunizations Name Administration Dates Next Due COVID-19 mRNA, LNP-s, No Pre serve, 2-Dose Series ([employer]) 03/29/2021,07/09/2020,06/18/2020 COVID-19, LNP-s, No Preserve , Júnior-sucrose, [...] Date Smoking Tobacco: Never Smokeless Tobacco: Never Tobacco Cessation:Counseling Given: Not Answered Alcohol Use Standard Drinks/Week Comments No 0 (1 standard drink = 0.6 oz pur e alcohol) Sex Assigned at Date Recorded Not on file Job Start Date Occupation Industry Not on file Not on file Not on file documented as of this encounter Last Filed Vital Signs Vital Sign Reading Time Taken Comments Blood Pressure 124/62 12/29/2022 10:31 AM EDT Pulse 59 12/29/2022 10:31 AM EDT Temperature 36.2 C (97.2 F) 12/29/2022 10:31 AM E DT Respiratory Rate - - Oxygen Saturation 98% 12/29/2022 10:31 AM EDT Inhaled Oxygen Concentration - - Weight 50 kg (110 lb 3.2 oz) 12/29/2022 10:31 AM EDT Height 161.8 cm (5' 3.7") 12/29/2022 10:31 AM ED T Body Mass Index 19.09 12/29/2022 10:31 AM EDT documented in this encounter Progress Notes * Vidal Perkins PA-C - 12/29/2022 10:30 AM EDT Subjective: Rachael Wallis is a 87 year old female. Chief Complaint Patient presents with Back Pain Intermittent back pain ongoing for years. HPI: 87 y/o female with osteoporosis, Dm II, hypothyroidism, dementia seen today to discuss chronicback pain that seems to be low to thoracic in nature almost on daily bases if she does too much. Noradiation down legs, bowel or bladder dysfunction, saddle anesthesia. Tylenol prn does help. Also concerns about taking Levothyroxine medication. 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 associated with type 2diabetes mellitus (HCC) E11.3292 correction (current) use of insulin ([facility]) Z79.4 Type 2 diabetes mellitus with diabetic polyneuropathy ([facility]) E11.42 History of CVA (cerebrovascular accident) Z86.73 Malnutrition ([facility]) E46 Type 2 diabetes mellitus with diabetic peripheral angiopathy without gangrene, with long-term current use of insulin ([facility]) E11.51, Z79.4 Unspecified dementia, unspecified severity, without behavioral disturbance, psychotic disturbance, mood disturbance, and anxiety ([facility]) F03.90 Current Outpatient Medications Medication Sig Dispense Refill CALCIUM 600-200 MG-UNIT PO TABS 1 TABLET DAILY twice a day 30 Tab 0 Blood Glucose Monitoring Suppl (TargetingMantra ULTRA MINI) w/Device KIT Use as directed to check blood sugar levels once daily; dx code: E11.9 1 Kit 0 [facility] Iron 240 (27 Fe) MG Oral Tablet (Ferrous Gluconate) TAKE 1 TABLET BY MOUTH EVERY DAY 100 Tab 3 Magnesium 500 MG Oral Tablet Take by mouth 1 Tablet in the morning. 90 Tablet 3 Multi-Vitamin Oral Tablet Take 2 tablets by mouth every morning 90 Tablet 3 Alendronate Sodium 70 MG Oral Tablet (Fosamax) TAKE 1 TABLET BY MOUTH ONCE A WEEK WITH 8OZ OF WATERBEFORE 1ST MEAL, REMAIN UPRIGHT FOR 30 MINUTES 12 Tablet 3 UltiCare Mini Pen Stephen 31G X 6 MM (Insulin Pen Needle) USE DIRECTED ONCE DAILY 100 Each 3 OneTouch UltraSoft Lancets USE ONCE PER DAY DIRECTED 100 Each 4 OneTouch Ultra In Vitro Strip (Glucose Blood) TESTS 4 TIMES A DAY. E11.9 400 Strip 3 Clopidogrel Bisulfate 75 MG Oral Tablet (pLAVix) TAKE ONE TABLET BY MOUTH EVERY DAY IN THE MORNING 90 Tablet 3 Lantus SoloStar 100 UNIT/ML Subcutaneous Solution Pen-injector INJECT 4 UNITS UNDER THE SKIN ONCE DAILY 15 mL 1 Levothyroxine Sodium 75 MCG Oral Tablet (Levoxyl) TAKE 1 TABLET BY MOUTH DAILY AT LEAST 30 MINUTES PRIOR TO FIRST MEAL OF THE DAY OR OTHER MEDICATIONS 100 Tablet 3 busPIRone HCl 5 MG Oral Tablet (Buspar) Take 1 Tablet by mouth in the morning and 1 Tablet before bedtime. 180 Tablet 3 MIRALAX PO POWD Dissolve one heaping tablespoon in 8 ounces of water or juice - one dose per day asneeded for severe constipation (Patient not taking: Reported on 12/29/2022) 1 Bottle 2 No current facility-administered medications for this visit. Review of patient's allergies indicates: Allergen Reactions Doxycycline Hyclate Edema airway Glipizide GI upset Sertraline Throat swelled Actos [Pioglitazone Hydrochloride] Unknown Atenolol swelling Gemfibrozil muscle aches Lisinopril angioedema Morphine And Related GI UPSET Percocet vomiting Percodan GI UPSET Prandin [Repaglinide] Nausea Pred Forte [Prednisolone Acetate] Severely burned eyes per patient Simvastatin muscle aches, fatigue (Zocor) Triple Antibiotic [Neomycin-Bacitracin Zn-Polymyx] Other (Please comment) Contact dermatitis Zetia [Ezetimibe] Unknown Sinus problems Actonel With Calcium [Actonel With Calcium] Conjunctivitis Eyes become reddened and painful No other ROS reviewed other than mentioned in HPI. Objective: BP 124/62 | Pulse 59 | Temp 36.2 C (97.2 F) | Ht 1.618 m (5' 3.7") | Wt 50 kg (110 lb 3.2 oz) |SpO2 98% | BMI 19.09 kg/m | BSA 1.5 m Results for orders placed or performed in visit on 10/21/22 ERYTHROCYTE SEDIMENTATION RATE (ESR) Result Value Ref Range ESR 8 <30 mm/hour TSH WITH FREE T4 IF INDICATED Result Value Ref Range TSH 0.38 0.27 - 4.20 uIU/mL VITAMIN B12 Result Value Ref Range Vitamin B12 1,394 (H) 232 - 1,245 pg/mL HEMOGLOBIN A1C Result Value Ref Range Hemoglobin A1C 7.7 (H) 4.0 - 5.6 % Estimated Average Glucose 174 (H) <126 mg/dL CBC Result Value Ref Range WBC 4.86 4.00 - 10.80 K/uL RBC 4.34 3.85 - 5.15 M/uL HGB 14.1 12.0 - 15.3 g/dL HCT 41.3 36.0 - 45.2 % MCV 95.2 81.5 - 97.5 fL MCH 32.5 27.0 - 34.0 pg MCHC 34.1 32.0 - 36.0 g/dL RDW 12.9 11.5 - 15.5 % PLT 305 140 - 400 K/uL MPV 8.7 6.6 - 11.1 fL DIFFERENTIAL, AUTOMATED Result Value Ref Range WBC 4.86 4.00 - 10.80 K/uL Neutrophils % 74.5 40.0 - 75.0 % Lymphocytes % 14.0 (L) 18.0 - 42.0 % Monocytes % 10.1 1.0 - 11.0 % Eosinophils % 0.8 0.0 - 6.0 % Basophils % 0.6 0.0 - 2.0 % Absolute Neutrophils 3.62 1.80 - 7.70 K/uL Absolute Lymphocytes 0.68 (L) 1.00 - 4.80 K/ul Absolute Monocytes 0.49 0.00 - 1.10 K/uL Absolute Eosinophils 0.04 0.00 - 0.70 K/uL Absolute Basophils 0.03 0.00 - 0.20 K/uL URINALYSIS WITH MICROSCOPIC EXAM Result Value Ref Range Color, Urine Yellow Colorless, Light Yellow, Yellow, Dark Yellow Clarity, Urine Cloudy (A) Clear Glucose, Urine Negative Negative mg/dL Bilirubin, Urine Negative Negative Ketone, Urine Negative Negative mg/dL Specific [place], Urine 1.015 1.003 - 1.030 Blood, Urine Negative Negative pH, Urine 8.0 (H) 5.0 - 7.5 Units Protein, Urine Negative Negative mg/dL Urobilinogen, Urine Normal Normal mg/dL Nitrite, Urine Negative Negative Esterase, Urine Negative Negative RBC, Urine 6-9 (A) 0 - 2 /HPF WBC, Urine 0-2 0 - 2 /HPF Bacteria, Urine 0-25 0 - 25 /HPF Amorphous Crystals, Urine Many (A) None /HPF Renal Epithelial Cells, Urine 1-4 (A) None /HPF ALBUMIN / CREATININE RATIO, URINE Result Value Ref Range Albumin, Random Urine <1.20 mg/dL Creatinine, Random Urine 54 mg/dL Albumin / Creatinine Ratio, Urine <22 <30 mg/g Creat *Note: Due to a large number of results and/or encounters for the requested time period, some results have not been displayed. A complete set of results can be found in Results Review. Physical Exam Constitutional: General: She is not in acute distress. Appearance: Normal appearance. She is normal weight. She is not ill-appearing or toxic-appearing. HENT: Head: Normocephalic and atraumatic. Eyes: Extraocular Movements: Extraocular movements intact. Conjunctiva/sclera: Conjunctivae normal. Pupils: Pupils are equal, round, and reactive to light. Cardiovascular: Rate and Rhythm: Normal rate and regular rhythm. Heart sounds: Normal heart sounds. No murmur heard. No friction rub. No gallop. Pulmonary: Effort: Pulmonary effort is normal. Breath sounds: Normal breath sounds. No wheezing, rhonchi or rales. Abdominal: General: Bowel sounds are normal. There is no distension. Palpations: Abdomen is soft. There is no mass. Tenderness: There is no abdominal tenderness. There is no guarding or rebound. Musculoskeletal: General: No tenderness. Normal range of motion. Comments: kyphotic posture Neurological: General: No focal deficit present. Mental Status: She is alert. Motor: No weakness. Gait: Gait normal. ASSESSMENT: Chronic midline low back pain without sciatica (Primary) - XR L SPINE AP AND LATERAL Probable DDD. Imaging ordered for baseline. Tylenol is beneficial. Recommend taking 500 mg BID and see if controls pain. Acquired hypothyroidism Recommend continuing levoxyl as looks to the on therapeutic dose based on last labs. Discussed possible complications of discontinuing. Follow Up: Return if symptoms worsen or fail to improve. Vidal Perkins PA-C documented in this encounter Nursing Notes * Juanita Hollingsworth LPN - 12/29/2022 10:31 AM EDT Chief Complaint Patient presents with Back Pain Intermittent back pain ongoing for years. documented in this encounter Plan of Treatment Upcoming Encounters Date Type Specialty Care Team Description 02/14/2023 Office Visit Family Medicine Shell IIIMike MD [address] [place] [address] 07/04/2023 Office Visit Urology Josh Gonsales MD [address] [place] [address] 09/15/2023 Office Visit Neurology Seng Camarillo, [address] [place] [address] [phone] (work) Scheduled Orders Name Type Priority Associated Diagnoses Orde r Schedule XR L SPINE AP AND LATERAL Medical Imaging Routine Chronic midline low back pain without sciatica Ordered: 12/29/2022 Health Maintenance Due Date Last Done Comments [...] D LEVEL ONCE IN A LIFETIME-USE SMARTSET# 18220 Completed 10/31/2018, 12/26/2013, 11/09/2010 GARDASIL-HPV IMMUNIZATION SERIES Aged Out No longer eligible based on patient's age to complete this topic Hepatitis B Aged Out No longer eligi ble based on patient's age to complete this topic MENINGOCOCCAL (MENACTRA/MENVEO) Aged Out No longer eligible based on patient's age to complete this topic documented as of this encounter Medical Devices Implanted Type Area Php Developer Device Identifier Shelf Expiration Date Model / Serial / Lot Lens 22.0 Sn60wf - [id number] Implanted:Qty: 1 on 07/19/2011 at [facility] Left: Eye [employer] 01/08/2016 SN60WF.220 / [id number] / Lens 20.0 Sn60wf - [id number] Implanted:Qty: 1 on 10/18/2011 at [facility] Right: Eye [employer] 05/10/2016 SN60WF.200 / [id number] / documented as of this encounter Visit Diagnoses Diagnosis Chronic midline low back pain without sciatica- Primary Acquired hypothyroidism Unspecified hypothyroidism documented in this encounter Care Teams Nursing Home Administrator Relationship Specialty Start Date End Date Mike Goff III, MD [address] [place] [address] PCP - General Family Medicine 12/19/17 documented as of this encounter
--- OUTSIDE RECORDS SUMMARY | 2023-03-07 17:11 | External Medical Summary | Summary of Care ---
Author Name Unknown Organization [facility] Address [address] [place] [address] Phone [phone] Care Team Providers Care Snow Removal Supervisor Name Role Phone Shell LESLIE MD, Mike Acosta Primary Care Provider [phone] Reason for Visit * Reason Onset Date Comments case management 12/27/2022 Follow Up 12/27/2022 Encounter Details Date Type Department Care Team Description 12/27/2022 Fiber Optic Assembler Telephone Ancillary 1st Floor, [place] [address] [facility] [place] [id number] Iliana Sheridan LPN [address] [facility] [place] [phone] case management; Follow Up Allergies Active Allergy Reactions Severity Noted Date [...] as of this encounter (statuses as of 12/27/2022) Medications Medication Sig Dispensed Refills Start Date End Date Status CALCIUM 600-200 MG-UNIT PO TABS 1 TABLET DAILY twice a day 30 Tab 0 09/26/2012 Active MIRALAX PO POWDIndications:Cons tipation Dissolve one heaping tablespoon in 8 ounces of water or juice - one dose per day as needed for severe constipation 1 Bottle 2 08/06/2013 Active Blood Glucose Monitoring Suppl ([employer] ULTRA MINI) w/Device KIT Use as directed [...] Tablet 3 01/27/2022 Active UltiCare Mini Pen [place] 31G X 6 MM (Insulin Pen Needle)Indications:T ype 2 diabetes mellitus with hemoglobin A1c goal of 7.0%-8.0% (HCC) USE DIRECTED ONCE DAILY 100 Each 3 02/11/2022 Active MultiZona.comTouch UltraSoft LancetsIndications:T ype 2 diabetes mellitus with hemoglobin A1c goal of less than 7.0% (HCC) USE ONCE PER DAY DIRECTED 100 Each 4 02/11/2022 Active MultiZona.comTouch Ultra In Vitro Strip (Glucose Blood) TESTS [...] as of this encounter (statuses as of 12/27/2022) Active Problems Problem Noted Date Unspecified dementia, [...] as of this encounter (statuses as of 12/27/2022) Resolved Problems Problem Noted Date Resolved Date [...] as of this encounter (statuses as of 12/27/2022) Immunizations Name Administration Dates Next Due COVID-19 mRNA, LNP-s, No Pre serve, 2-Dose Series ([employer]) 03/29/2021,07/09/2020,06/18/2020 COVID-19, LNP-s, No Preserve , Júnior-sucrose, [...] Miscellaneous Notes * Telephone Encounter - Iliana Sheridan LPN - 12/27/2022 10:37 AM EDT Follow-up Routine Attempted Phone Call First Attempt Call Outcome Left Voicemail/Message Plan To attempt another outreach documented in this encounter Plan of Treatment Upcoming Encounters Date Type Specialty Care Team Description 02/14/2023 Office Visit Family Medicine [place] III, MD [address] [place] [address] 07/04/2023 Office Visit Urology Josh Gonsales MD [address] [facility] [address] [place] [address] 09/15/2023 Office Visit Neurology Seng Camar[place], DO [address] [place] [address] Health Maintenance Due Date Last [...] D LEVEL ONCE IN A LIFETIME-USE SMARTSET# [id number] Completed 10/31/2018, 12/26/2013, 11/09/2010 GARDASIL-HPV IMMUNIZATION SERIES Aged Out No longer eligible based on patient's age to complete this topic Hepatitis B Aged Out No longer eligi ble based on patient's age to complete this topic MENINGOCOCCAL (MENACTRA/MENVEO) Aged Out No longer eligible based on patient's age to complete this topic documented as of this encounter Medical Devices Implanted Type Area Incising Machine Operator Device Identifier Shelf Expiration Date Model / Serial / Lot Lens 22.0 Sn60wf - [id number] Implanted:Qty: 1 on 07/19/2011 at [facility] Left: Eye [employer] 01/08/2016 SN60WF.220 / [id number] / Lens 20.0 Sn60wf - [id number] Implanted:Qty: 1 on 10/18/2011 at [facility] Right: Eye [employer] 05/10/2016 SN60WF.200 / [id number] / documented as of this encounter Care Teams Snow Removal Supervisor Relationship Specialty Start Date End Date Mike Goff III, MD [address] [place], [place] [address] PCP - General Family Medicine 12/19/17 documented as of this encounter
--- OUTSIDE RECORDS SUMMARY | 2023-03-07 17:12 | External Medical Summary | Summary of Care ---
Author Name Unknown Organization [facility] Address [address] [place] [address] Phone [phone] Care Team Providers Care Engineering Test Mechanic Name Role Phone Shell LESLIE MD, Mike Acosta Primary Care Provider [phone] Reason for Visit * Reason Comments case management Encounter Details Date Type Department Care Team Description 11/30/2022 Salesperson Terrazzo TilesFire Lieutenant Internal Medicine [facility] [address] [facility] [place] [address] Gabriella Sanders, RN [address] [place] [address] Medical home patient encounter* Allergies Active Allergy [...] as of this encounter (statuses as of 11/30/2022) Medications Medication Sig Dispensed Refills Start Date End Date Status CALCIUM 600-200 MG-UNIT PO TABS 1 TABLET DAILY twice a day 30 Tab 0 09/26/2012 Active MIRALAX PO POWDIndications:Con stipation Dissolve one heaping tablespoon in 8 ounces of water or juice - one dose per day as needed for severe constipation 1 Bottle 2 08/06/2013 Active Blood Glucose Monitoring Suppl (Abbey[employer] ULTRA MINI) w/Device KIT Use as directed [...] Tablet 3 01/27/2022 Active UltiCare Mini Pen [place] 31G X 6 MM (Insulin Pen Needle)Indications: Type 2 diabetes mellitus with hemoglobin A1c goal of 7.0%-8.0% (HCC) USE DIRECTED ONCE DAILY 100 Each 3 02/11/2022 Active [employer] UltraSoft LancetsIndications: Type 2 diabetes mellitus with hemoglobin A1c goal of less than 7.0% (HCC) USE ONCE PER DAY DIRECTED 100 Each 4 02/11/2022 Active [employer] Ultra In Vitro Strip (Glucose Blood) TESTS [...] Tablet before bedtime. 60 Tablet 3 11/07/2022 Active busPIRone HCl 5 MG Oral Tablet (Buspar) Take 1 Tablet by mouth in the morning and 1 Tablet before bedtime. 20 Tablet 0 10/28/2022 12/01/19 23 Discontinu ed(Medicat ion List Clean Up) documented as of this encounter (statuses as of 11/30/2022) Active Problems Problem Noted Date Unspecified dementia, unspec ified severity, without behavioral disturbance, psychotic disturbance, mood disturbance, and anxiety 11/24/2022 Type 2 diabetes mellitus wit h diabetic peripheral angiopathy without gangrene, with long-term current use of insulin 04/20/2022 Malnutrition 12/02/2021 penitentiary (current) use of insulin 03/22 Type 2 [...] as of this encounter (statuses as of 11/30/2022) Resolved Problems Problem Noted Date Resolved Date [...] as of this encounter (statuses as of 11/30/2022) Immunizations Name Administration Dates Next Due COVID-19 mRNA, LNP-s, No Pre serve, 2-Dose Series ([employer]) 03/29/2021,07/09/2020,06/18/2020 COVID-19, LNP-s, No Preserve , Júnior-sucrose, [...] as of this encounter Progress Notes * Gabriella Sanders RN - 11/30/2022 2:48 PM EDT Salesperson Terrazzo Tiles Progress Note: Date: 11/30/22 Assigned Patient Tier: 2 Connected with patient via telephone. Verified patient name/. Advised patient that call is beingrecorded for quality and training purposes. Assessment: Pt. noted the following: Spoke with patient's son/caregiver, Portillo in follow up. Reports that the patient is doing well today. Back pain has resolved and no recurring urinary symptoms reported. Patient stopped using Aricept due to causing stomach upset-symptoms have resolved. Has been taking the Buspar as directed and son has noted an improvement in anxiety and paranoia. Appetite is good. No sleep issues noted. No worsening confusion per son. Discussed medications and son reports no other changes since patient was seen on 11/24 by PCP. Son did have concerns regarding the number of times the patient was supposed to check her blood sugars and how many testing supplies she was using to do so-states that the patient is paying out of pocket for testing strips. CM contacted the pharmacy and they report that the patient currently is required to pay 107$ for rx due to either not meeting her copay yet or she is in the donut hole. Advised son of this as well. CM will sent message to PCP to discuss decreasing number of times patient is required to check her blood sugars daily. Reviewed red flags. Advised to notify PCP of any changes in condition. Will plan to follow up within one week. Did you receive an alert for an annual wellness visit? No Is this call for a hospital, mcfp or rehab facility discharge to home? No Medication Reconciliation: Medication Reconciliation completed: Son reports that she is taking her medications as prescribed and there are no changes since updated at the doctor's office on 11/24/22.. Review of Current goals: Discussed the following patient-centered CM goals with the patient during this discussion: -Cognitive Impairment: Achieve successful management of cognitive impairment -Status: On Track Taking Buspar without issues-son reports improvement with symptoms. Saw Neurologyon 11/21. -Diabetes: Patient will successfully manage their diabetes -Status: At Risk Recent issues with insulin use. Last HgA1C was increased. -Prevention: Prevent admission/readmission -Status: At Risk Recent issues with insulin use. Recent ED visit for back pain. Attending appointments as scheduled. COPD Patient: No CHF Patient: NO CM Plan: Reviewed 3 Red Flags with patient. Advised to call CM with any of the following: Red Flag 1: urinary symptoms, Red Flag 2: increased pain, or Red Flag 3: worsening confusion and Salesperson Terrazzo Tiles will follow-up with pharmacy regarding questions about diabetic supply coverage. Remote Patient Monitoring: At this time, RPM not offered/considered for patient due to N/A. Plan for Future Contacts: Plan to follow up within 1 week to check progress on the following goals/needs as above. Planned contacts from the following parties will occur this week: N/A as additional contacts per workflow. Advancement/Closure Plan: Keep patient at current Tier with reassessment per workflow. Patient provided CM contact information and encouraged to call with any changes in condition. SNP Member? No PCP Notified of enrollment in CM/HM program: Yes Is Provider in agreement with POC? Yes Gabriella Sanders RN Outpatient Case Management documented in this encounter Plan of Treatment Upcoming Encounters Date Type Specialty Care Team Description 02/14/2023 Office Visit Family Medicine Shell Mike LESLIE MD [address] [place] [address] 07/04/2023 Office Visit Urology Josh Gonsales MD [address] [place] [address] Health Maintenance Due Date Last Done Comments Zoster Vaccines (1 of 2) 1987 DIABETES-FOOT EXAM 05/20/2021 05/20/2020, 0 09/21/2018, 12/19/2017, Additional history [...] D LEVEL ONCE IN A LIFETIME-USE SMARTSET# 96380 Completed 10/31/2018, 12/26/2013, 11/09/2010 GARDASIL-HPV IMMUNIZATION SERIES Aged Out No longer eligible based on patient's age to complete this topic Hepatitis B Aged Out No longer eligi ble based on patient's age to complete this topic MENINGOCOCCAL (MENACTRA/MENVEO) Aged Out No longer eligible based on patient's age to complete this topic documented as of this encounter Medical Devices Implanted Type Area Executive Chairman Of The Board Device Identifier Shelf Expiration Date Model / Serial / Lot Lens 22.0 Sn60wf - [id number] Implanted:Qty: 1 on 07/19/2011 at [place] [facility] Left: Eye [employer] 01/08/2016 SN60WF.220 / [id number] / Lens 20.0 Sn60wf - [id number] Implanted:Qty: 1 on 10/18/2011 at [facility] Right: Eye [employer] 05/10/2016 SN60WF.200 / [id number] / documented as of this encounter Visit Diagnoses Diagnosis Medical home patient encounter- Primary Other specified examination documented in this encounter Care Teams Engineering Test Mechanic Relationship Specialty Start Date End Date Mike Goff III, MD [address] [place] [address] PCP - General Family Medicine 12/19/17 documented as of this encounter
--- OUTSIDE RECORDS SUMMARY | 2023-03-07 17:12 | External Medical Summary | Summary of Care ---
Author Name Unknown Organization [facility] Address [address] [place] [address] Phone [phone] Care Team Providers Care Buggy Man Name Role Phone Shell LESLIE MD, Mike Acosta Primary Care Provider [phone] Reason for Visit * Reason Onset Date Comments case management 11/30/2022 Encounter Details Date Type Department Care Team Description 11/30/2022 Cnc Programmer Telephone General Internal Medicine [facility] [address] [place] [address] Gabriella Sanders, RN [address] [place] [address] case management Allergies Active Allergy [...] as of this encounter (statuses as of 12/01/2022) Medications Medication Sig Dispensed Refills Start Date End Date Status CALCIUM 600-200 MG-UNIT PO TABS 1 TABLET DAILY twice a day 30 Tab 0 09/26/2012 Active MIRALAX PO POWDIndications:Cons tipation Dissolve one heaping tablespoon in 8 ounces of water or juice - one dose per day as needed for severe constipation 1 Bottle 2 08/06/2013 Active Blood Glucose Monitoring Suppl ([employer] ULTRA MINI) w/Device KIT Use as directed [...] Tablet 3 01/27/2022 Active UltiCare Mini Pen [place] 31G X 6 MM (Insulin Pen Needle)Indications:T ype 2 diabetes mellitus with hemoglobin A1c goal of 7.0%-8.0% (HCC) USE DIRECTED ONCE DAILY 100 Each 3 02/11/2022 Active Petra SystemsTouch UltraSoft LancetsIndications:T ype 2 diabetes mellitus with hemoglobin A1c goal of less than 7.0% (HCC) USE ONCE PER DAY DIRECTED 100 Each 4 02/11/2022 Active [employer] Ultra In Vitro Strip (Glucose Blood) TESTS 4 TIMES A DAY. E11.9 400 Strip 3 03/14/2022 Active Clopidogrel Bisulfate 75 MG Oral Tablet (pLAVix) TAKE ONE TABLET BY MOUTH EVERY DAY IN THE MORNING 90 Tablet 3 07/29/2022 4 Active Lantus SoloStar 100 UNIT/ML Subcutaneous Solution Pen-injectorIndicati ons:Type 2 diabetes mellitus with hemoglobin A1c goal of less than 8.0% ([facility]) INJECT 4 UNITS UNDER THE SKIN ONCE [...] before bedtime. 60 Tablet 3 11/07/2022 Active documented as of this encounter (statuses as of 12/01/2022) Active Problems Problem Noted Date Unspecified dementia, unspec ified severity, without behavioral disturbance, psychotic disturbance, mood disturbance, and anxiety 11/24/2022 Type 2 diabetes mellitus wit h diabetic peripheral angiopathy without gangrene, with long-term current use of insulin 04/20/2022 Malnutrition 12/02/2021 residential (current) use of insulin 03/22 Type 2 [...] as of this encounter (statuses as of 12/01/2022) Resolved Problems Problem Noted Date Resolved Date [...] as of this encounter (statuses as of 12/01/2022) Immunizations Name Administration Dates Next Due COVID-19 mRNA, LNP-s, No Pre serve, 2-Dose Series ([employer]) 03/29/2021,07/09/2020,06/18/2020 COVID-19, LNP-s, No Preserve , Júnior-sucrose, [...] Telephone Encounter - Gabriella Sanders RN - 12/01/2022 9:51 AM EDT Spoke with patient's son, Portillo and advised of below. Will call with any further questions/concerns. * Telephone Encounter - Daniel Cisse DO - 11/30/2022 4:48 PM EDT Please have her cut back to twice daily - before breakfast and before bed. Can check just PRN otherwise if feeling poor * Telephone Encounter - Gabriella Sanders RN - 11/30/2022 4:14 PM EDT SITUATION: Blood sugar testing strips BACKGROUND: Type 2 DM-last HgA1C increased to 7.7 ASSESSMENT: Son Portillo asking how many times a day patient is required to test blood sugars. States that the patient is paying out of pocket for supplies and is testing four times a day currently per rx on testingstrips. CM contacted the pharmacy to see why insurance is not covering and they report that the patients copay is $107.00 due to either not meeting her deductible or she is in the donut hole. Did advise son of this as well. RECOMMENDATION: Advised CM will discuss with PCP and notify of recommendations. Dr. Goff - Please confirm number of times per day patient should be testing. Thank you! Gabriella Sanders RN General Internal Medicine Angely Hamilton [address] [facility] [address] documented in this encounter Plan of Treatment Upcoming Encounters Date Type Specialty Care Team Description 02/14/2023 Office Visit Family Medicine Shell IIIMike MD [address] [place] [address] 07/04/2023 Office Visit Urology Josh Gonsales MD [address] [place] [address] [facility] [place] [address] 09/15/2023 Office Visit Neurology Seng Camarillo, DO [address] [place] [address] Health Maintenance Due Date Last [...] D LEVEL ONCE IN A LIFETIME-USE SMARTSET# [id number] Completed 10/31/2018, 12/26/2013, 11/09/2010 GARDASIL-HPV IMMUNIZATION SERIES Aged Out No longer eligible based on patient's age to complete this topic Hepatitis B Aged Out No longer eligi ble based on patient's age to complete this topic MENINGOCOCCAL (MENACTRA/MENVEO) Aged Out No longer eligible based on patient's age to complete this topic documented as of this encounter Medical Devices Implanted Type Area Safety Deposit Supervisor Device Identifier Shelf Expiration Date Model / Serial / Lot Lens 22.0 Sn60wf - [id number] Implanted:Qty: 1 on 07/19/2011 at [facility] Left: Eye [employer] 01/08/2016 SN60WF.220 / [id number] / Lens 20.0 Sn60wf - [id number] Implanted:Qty: 1 on 10/18/2011 at [facility] Right: Eye [employer] 05/10/2016 SN60WF.200 / [id number] / documented as of this encounter Care Teams Buggy Man Relationship Specialty Start Date End Date Mike Goff III, MD [address] [place] [address] PCP - General Family Medicine 12/19/17 documented as of this encounter
--- OUTSIDE RECORDS SUMMARY | 2023-03-07 17:12 | External Medical Summary | Summary of Care ---
Author Name Unknown Organization [facility] Address [address] [place] [address] Phone [phone] Care Team Providers Care Access Representative Name Role Phone Shell LESLIE MD, Sherrie Acosta Primary Care Provider [phone] Reason for Visit * Reason Onset Date Comments Medication Refill 12/14/2022 Encounter Details Date Type Department Care Team Description 12/14/2022 Refill Family Practice [facility] [address] [facility] [place] [address] Sherrie Richmond III, MD [address] [place] [address] Allergies Active Allergy Reactions Severity Noted Date [...] as of this encounter (statuses as of 12/14/2022) Medications Medication Sig Dispensed Refills Start Date End Date Status CALCIUM 600-200 MG-UNIT PO TABS 1 TABLET DAILY twice a day 30 Tab 0 09/26/2012 Active MIRALAX PO POWDIndications:Con stipation Dissolve one heaping tablespoon in 8 ounces of water or juice - one dose per day as needed for severe constipation 1 Bottle 2 08/06/2013 Active Blood Glucose Monitoring Suppl (TapMyBack ULTRA MINI) w/Device KIT Use as directed [...] Tablet 3 01/27/2022 Active UltiCare Mini Pen [place] 31G X 6 MM (Insulin Pen Needle)Indications: Type 2 diabetes mellitus with hemoglobin A1c goal of 7.0%-8.0% (HCC) USE DIRECTED ONCE DAILY 100 Each 3 02/11/2022 Active [employer] UltraSoft LancetsIndications: Type 2 diabetes mellitus with hemoglobin A1c goal of less than 7.0% (HCC) USE ONCE PER DAY DIRECTED 100 Each 4 02/11/2022 Active Cryptopayuch Ultra In Vitro Strip (Glucose Blood) TESTS [...] before bedtime. 180 Tablet 3 12/14/2022 Active busPIRone HCl 5 MG Oral Tablet (Buspar) Take 1 Tablet by mouth in the morning and 1 Tablet before bedtime. 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 03/22 Type 2 [...] as of this encounter (statuses as of 12/14/2022) Resolved Problems Problem Noted Date Resolved Date [...] as of this encounter (statuses as of 12/14/2022) Immunizations Name Administration Dates Next Due COVID-19 mRNA, LNP-s, No Pre serve, 2-Dose Series ([employer]) 03/29/2021,07/09/2020,06/18/2020 COVID-19, LNP-s, No Preserve , Júnior-sucrose, [...] Encounter - Sherrie Richmond III, MD - 12/14/2022 4:57 PM EDTSigned Prescriptions: Disp Refills busPIRone HCl 5 MG Oral Tablet (Buspar) 180 Ta*3 Sig: Take 1 Tablet by mouth in the morning and 1 Tablet before bedtime.Authorizing Provider: SHERRIE RICHMOND III----- * Telephone Encounter - DICKSON Khan - 12/14/2022 2:53 PM EDTPending Prescriptions: Disp Refills busPIRone HCl 5 MG Oral Tablet (Buspar) 180 Ta*3 Sig: Take 1 Tablet by mouth in the morning and 1 Tablet before bedtime. * Telephone Encounter - DICKSON Khan - 12/14/2022 2:53 PM EDT 90 day supply Did you pend patient's preferred pharmacy and medication before forwarding?yes Pharmacy: [id number] Pending Prescriptions: Disp Refills busPIRone HCl 5 MG Oral Tablet (Buspar) 180 Ta*3 Sig: Take 1 Tablet by mouth in the morning and 1 Tablet before bedtime. Last Visit: 11/24/2022 (in office), Visit date not found (telemedicine) Next Visit: 02/14/2023 If no future appointments scheduled, and last appointment is greater than a year ago, please schedule patient for a follow-up appointment Last date the medication was ordered: 11/07/2022 Urine Drug Screen:No results found. However, due to the size of the patient record, not all encounters were searched. Please check Results Review for a complete set of results. Patient Phone Numbers Labs: Lab Results Component Value Date/Time CREAT 0.6 12/03/2021 12:03 PM CREAT 0.7 06/04/2019 12:18 PM POTASSIUM 4.6 12/03/2021 12:03 PM POTASSIUM 4.8 06/04/2019 12:18 PM TSH 0.38 10/21/2022 01:19 PM TSH 3.20 06/04/2019 12:18 PM LDLCALC 152 (H) 02/18/2020 09:26 AM LDLCALC 194. (HH) 03/06/1996 09:45 AM LDLDIRECT NOT APPLICABLE 02/18/2020 09:26 AM LDLDIRECT 145 (H) 10/31/2018 04:12 PM ALT 9 (L) 12/03/2021 12:03 PM ALT 22 02/16/2017 12:08 PM HGBA1C 7.7 (H) 10/21/2022 01:19 PM HGBA1C 6.6 (H) 02/18/2020 09:26 AM HGBA1C 7.0 (H) 06/06/1996 10:26 AM * Telephone Encounter - AHSAN Bhatia - 12/14/2022 11:50 AM EDT Did you pend patient's preferred pharmacy and medication before forwarding?yes Pharmacy: [id number] [facility] 90 day request Pending Prescriptions: Disp Refills busPIRone HCl 5 MG Oral Tablet (Buspar) 60 Tab*3 Sig: Take 1 Tablet by mouth in the morning and 1 Tablet before bedtime. Last Visit: 11/24/2022 (in office), Visit date not found (telemedicine) Next Visit: 02/14/2023 If no future appointments scheduled, and last appointment is greater than a year ago, please schedule patient for a follow-up appointment Last date the medication was ordered: 11.07.22 . Is this request for a controlled substance?No Urine Drug Screen:No results found. However, due to the size of the patient record, not all encounters were searched. Please check Results Review for a complete set of results. Patient Phone Numbers Labs: Lab Results Component Value Date/Time CREAT 0.6 12/03/2021 12:03 PM CREAT 0.7 06/04/2019 12:18 PM POTASSIUM 4.6 12/03/2021 12:03 PM POTASSIUM 4.8 06/04/2019 12:18 PM TSH 0.38 10/21/2022 01:19 PM TSH 3.20 06/04/2019 12:18 PM LDLCALC 152 (H) 02/18/2020 09:26 AM LDLCALC 194. (HH) 03/06/1996 09:45 AM LDLDIRECT NOT APPLICABLE 02/18/2020 09:26 AM LDLDIRECT 145 (H) 10/31/2018 04:12 PM ALT 9 (L) 12/03/2021 12:03 PM ALT 22 02/16/2017 12:08 PM HGBA1C 7.7 (H) 10/21/2022 01:19 PM HGBA1C 6.6 (H) 02/18/2020 09:26 AM HGBA1C 7.0 (H) 06/06/1996 10:26 AM documented in this encounter Plan of Treatment Upcoming Encounters Date Type Specialty Care Team Description 02/14/2023 Office Visit Family Medicine Sherrie Richmond III, MD [address] [place] [address] 07/04/2023 Office Visit Urology Josh Gonsales MD [address] [place] [address] [place] [address] 09/15/2023 Office Visit Neurology Seng Camarillo, DO [address] [facility] [place] [address] Health Maintenance Due Date Last Done [...] 01/03/2012, Additional history exists HbA1c 04/23/2023 10/21/2022, 04/09/2022, 04/20/2022, Additional history exists Albumin/Creatinine Ratio 10/22/2023 023, 03/09/2022, 03/02/2021, Additional history exists TSH 10/22/2023 10/21/2022, 04/10, 09/08/2021, Additional history exists Depression Screening, Annual for Pts 12 and Over 11/25/2023 11/24/2022 DTaP,Tdap,and Td Vaccines (4 - Td or Tdap) 10/11/2028 10/11/2018, 10/30/2016, 03/14/2014, Additional history exists Pneumococcal Vaccine: 65+ Years Completed 06/20/2018, 12/13/2005, 12/14/1999 VITAMIN D LEVEL ONCE IN A LIFETIME-USE SMARTSET# [id number] Completed 10/31/2018, 12/26/2013, 11/09/2010 GARDASIL-HPV IMMUNIZATION SERIES Aged Out No longer eligible based on patient's age to complete this topic Hepatitis B Aged Out No longer eligi ble based on patient's age to complete this topic MENINGOCOCCAL (MENACTRA/MENVEO) Aged Out No longer eligible based on patient's age to complete this topic documented as of this encounter Medical Devices Implanted Type Area Forensic Toxicologist Device Identifier Shelf Expiration Date Model / Serial / Lot Lens 22.0 Sn60wf - [id number] Implanted:Qty: 1 on 07/19/2011 at [facility] Left: Eye [employer] 01/08/2016 SN60WF.220 / [id number] / Lens 20.0 Sn60wf - [id number] Implanted:Qty: 1 on 10/18/2011 at [facility] Right: Eye [employer] 05/10/2016 SN60WF.200 / [id number] / documented as of this encounter Care Teams Access Representative Relationship Specialty Start Date End Date Shell LESLIE, Sherrie Acosta MD [address] [facility] [place] [address] PCP - General Family Medicine 12/19/17 documented as of this encounter
--- OUTSIDE RECORDS SUMMARY | 2023-03-07 17:12 | External Medical Summary | Summary of Care ---
Author Name Unknown Organization [facility] Address [address] [place] [address] Phone [phone] Care Team Providers Care E Commerce Merchandising Coordinator Name Role Phone Shell LESLIE MD, Mike Acosta Primary Care Provider [phone] Reason for Referral * Evaluate & Treat - Unlimited Visits (Within 30 days (routine)) - Authorized Specialty Diagnoses / Procedures Referred By Madyson preston Referred To Contact Neurology Diagnoses Unspecified dementia, unspecified severity, without behavioral disturbance, psychotic disturbance, mood disturbance, and anxiety (HCC) Mike Goff III, MD [address] [place] [address] Referral ID Status Reason Start Date Expiration Date Visits Requested Visits Authorized [id number] Authorized Specialty Services Required 11/28/[phone] Question Answer Referral Priority Within 30 days (routine) CAD NEUROLOGY REFERRAL QUESTIONS Memory/Cognition Reason for Visit * Reason Onset Date Comments Advice 11/25/2022 Encounter Details Date Type Department Care Team Description 11/25/2022 Telephone Family Practice [facility] Martha Lindsay [address] [place] [address] Mike Goff III, MD [address] [place] [address] Advice Allergies Active Allergy Reactions Severity Noted [...] 2 08/06/2013 Active Blood Glucose Monitoring Suppl ([place] [employer] ULTRA MINI) w/Device KIT Use as directed [...] Tablet 3 01/27/2022 Active UltiCare Mini Pen [place] 31G X 6 MM (Insulin Pen Needle)Indications: Type 2 diabetes mellitus with hemoglobin A1c goal of 7.0%-8.0% (FORMERLY [facility]) USE DIRECTED ONCE DAILY 100 Each 3 02/11/2022 Active OneTouch UltraSoft LancetsIndications: Type 2 diabetes mellitus with hemoglobin A1c goal of less than 7.0% ([facility]) USE ONCE PER DAY DIRECTED 100 Each [...] hemoglobin A1c goal of less than 8.0% ([facility]ER[facility]) INJECT 4 UNITS UNDER THE SKIN ONCE [...] 23 Discontinu ed(Medicat ion List Clean Up) Donepezil HCl 5 MG Oral Tablet (Aricept) [...] current use of insulin 04/20/2022 Malnutrition 12/02/2021 [facility] (current) use of insulin 03/22 Type 2 [...] 009 Overview: Per Diabetes Taxonomy. HYPERLIPIDEMIA NEC-NOS 12/17/200 9 Overview: Per Lipid Taxonomy. HYPERTENSION NOS 03/03/2009 Overview: Modified per HTN protocol #16. Malignant neoplasm of skin 10/27 Overview: ICD-10 update of inactive term Uterine leiomyoma 08/06/2013 documented as of this encounter (statuses as of 12/01/2022) Immunizations Name Administration Dates Next Due COVID-19 mRNA, LNP-s, No Pre serve, 2-Dose Series (Pfizer) 03/29/2021,07/09/2020,06/18/2020 COVID-19, LNP-s, No Preserve , Júnior-sucrose, Ages 12+ (Pfizer) 09/28/2021 Pneumococcal Conjugate Vacc, 13 Valent (Prevnar) 06/20/2018 Pneumococcal Polysaccharide PPV23 (Pneumovax) 12/13/2005,12/14/1999 Seasonal Influenza, PF, 6 mo ns & [...] encounter Miscellaneous Notes * Telephone Encounter - AHSAN Joe - [...] trial of medication. * Telephone Encounter - DICKSON Merida - 11/25/2022 2:14 PM EDT Provider to [...] 02/14/2023 Office Visit Family Medicine Shell III, Mike Acosta MD [address] [place] [address] 07/04/2023 Office Visit Urology Josh Gonsales MD [address] [place] [address] 09/15/2023 Office Visit Neurology Seng Camarillo, [address] [place] [address] Scheduled Referrals Name Type Priority [...] D LEVEL ONCE IN A LIFETIME-USE SMARTSET# [id number] Completed 10/31/2018, 12/26/2013, 11/09/2010 GARDASIL-HPV IMMUNIZATION SERIES Aged Out No longer eligible based on patient's age to complete this topic Hepatitis B Aged Out No longer eligi ble based on patient's age to complete this topic MENINGOCOCCAL (MENACTRA/MENVEO) Aged Out No longer eligible based on patient's age to complete this topic documented as of this encounter Medical Devices Implanted Type Area Medical Sonographer Device Identifier Shelf Expiration Date Model / Serial / Lot Lens 22.0 Sn60wf - [id number] Implanted:Qty: 1 on 07/19/2011 at [facility] Left: Eye [employer] 01/08/2016 SN60WF.220 / [id number] / Lens 20.0 Sn60wf - [id number] Implanted:Qty: 1 on 10/18/2011 at [facility] Right: Eye [employer] 05/10/2016 SN60WF.200 / [id number] / documented as of this encounter Visit Diagnoses Diagnosis Unspecified dementia, unspecified severity, without behavioral disturbance, psychotic disturbance, mood disturbance, and anxiety (HCC)- Primary documented in this encounter Care Teams E Commerce Merchandising Coordinator Relationship Specialty Start Date End Date Mike Goff III, MD [address] [place] [address], [place] [address] PCP - General Family Medicine 12/19/17 documented as of this encounter
--- OUTSIDE RECORDS SUMMARY | 2023-03-07 17:12 | External Medical Summary | Summary of Care ---
Author Name Unknown Organization [facility] Address [address] [place] [address] Phone [phone] Care Team Providers Care Retail Loss Prevention Officer Name Role Phone Shell LESLIE MD, Mike Acosta Primary Care Provider [phone] Reason for Visit * Reason Onset Date Comments case management 12/07/2022 Encounter Details Date Type Department Care Team Description 12/07/2022 Financial Sales Consultant Telephone General Internal Medicine [facility] [address] [place] [address] Gabriella Sanders, RN [address] [place] [address] case management Allergies Active Allergy [...] as of this encounter (statuses as of 12/07/2022) Medications Medication Sig Dispensed Refills Start Date End Date Status CALCIUM 600-200 MG-UNIT PO TABS 1 TABLET DAILY twice a day 30 Tab 0 09/26/2012 Active MIRALAX PO POWDIndications:Cons tipation Dissolve one heaping tablespoon in 8 ounces of water or juice - one dose per day as needed for severe constipation 1 Bottle 2 08/06/2013 Active Blood Glucose Monitoring Suppl (Figgu ULTRA MINI) w/Device KIT Use as directed [...] Tablet 3 01/27/2022 Active UltiCare Mini Pen [place] 31G X 6 MM (Insulin Pen Needle)Indications:T ype 2 diabetes mellitus with hemoglobin A1c goal of 7.0%-8.0% (HCC) USE DIRECTED ONCE DAILY 100 Each 3 02/11/2022 Active SqwiggleTouch UltraSoft LancetsIndications:T ype 2 diabetes mellitus with hemoglobin A1c goal of less than 7.0% (HCC) USE ONCE PER DAY DIRECTED 100 Each 4 02/11/2022 Active Oja.lauch Ultra In Vitro Strip (Glucose Blood) TESTS [...] as of this encounter (statuses as of 12/07/2022) Active Problems Problem Noted Date Unspecified dementia, unspec ified severity, without behavioral disturbance, psychotic disturbance, mood disturbance, and anxiety 11/24/2022 Type 2 diabetes mellitus wit h diabetic peripheral angiopathy without gangrene, with long-term current use of insulin 04/20/2022 Malnutrition 12/02/2021 long-term (current) use of insulin 03/22 Type 2 [...] as of this encounter (statuses as of 12/07/2022) Resolved Problems Problem Noted Date Resolved Date [...] as of this encounter (statuses as of 12/07/2022) Immunizations Name Administration Dates Next Due COVID-19 mRNA, LNP-s, No Pre serve, 2-Dose Series ([employer]) 03/29/2021,07/09/2020,06/18/2020 COVID-19, LNP-s, No Preserve , Júnior-sucrose, [...] Telephone Encounter - Gabriella Sanders RN - 12/07/2022 9:16 AM EDT Follow-up Routine Attempted Phone Call First Attempt Call Outcome Left Voicemail/Message Plan To attempt another outreach documented in this encounter Plan of Treatment Upcoming Encounters Date Type Specialty Care Team Description 02/14/2023 Office Visit Family Medicine ShellMike lancaster III, MD [address] [place] [address] 07/04/2023 Office Visit Urology Josh Gonsales MD 27 [facility] [address] [place], [place] [id number] 09/15/2023 Office Visit Neurology Seng Camarillo, DO [address] [place] [address] Health Maintenance Due Date Last [...] D LEVEL ONCE IN A LIFETIME-USE SMARTSET# [id number] Completed 10/31/2018, 12/26/2013, 11/09/2010 GARDASIL-HPV IMMUNIZATION SERIES Aged Out No longer eligible based on patient's age to complete this topic Hepatitis B Aged Out No longer eligi ble based on patient's age to complete this topic MENINGOCOCCAL (MENACTRA/MENVEO) Aged Out No longer eligible based on patient's age to complete this topic documented as of this encounter Medical Devices Implanted Type Area Tie Mill Operator Device Identifier Shelf Expiration Date Model / Serial / Lot Lens 22.0 Sn60wf - [id number] Implanted:Qty: 1 on 07/19/2011 at [facility] Left: Eye [employer] 01/08/2016 SN60WF.220 / [id number] / Lens 20.0 Sn60wf - [id number] Implanted:Qty: 1 on 10/18/2011 at [facility] Right: Eye [employer] 05/10/2016 SN60WF.200 / [id number] / documented as of this encounter Visit Diagnoses Diagnosis Medical home patient encounter- Primary Other specified examination documented in this encounter Care Teams Retail Loss Prevention Officer Relationship Specialty Start Date End Date Mike Goff III, MD [address] [place] [address] PCP - General Family Medicine 12/19/17 documented as of this encounter
--- OUTSIDE RECORDS SUMMARY | 2023-03-07 17:12 | External Medical Summary | Summary of Care ---
Author Name Unknown Organization [facility] Address [address] [place] [address] Phone [phone] Care Team Providers Care Orthotic Fitter Name Role Phone Shell LESLIE MD, Mike Acosta Primary Care Provider [phone] Reason for Visit * Reason Comments NEW PATIENT * Evaluate & Treat - Unlimited Visits (Within 10 days (routine)) - Authorized Specialty Diagnoses / Procedures Referred By Madyson preston Referred To Contact Neurology Diagnoses Memory difficulties Mike Goff III, MD [address] [facility] [place] [address] Referral ID Status Reason Start Date Expiration Date Visits Requested Visits Authorized [id number] Authorized Specialty Services Required 10/21/2022 999 999 Encounter Details Date Type Department Care Team Description 11/21/2022 Office Visit [facility] [address] [place] [address] Seng Camarillo [address] [place] [address] Mixed Alzheimer's and vascular dementia (HCC)*; Memory loss; Hyperlipidemia, unspecified hyperlipidemia type Allergies Active Allergy Reactions Severity Noted Date [...] as of this encounter (statuses as of 12/02/2022) Medications Medication Sig Dispensed Refills Start Date End Date Status CALCIUM 600-200 MG-UNIT PO TABS 1 TABLET DAILY twice a day 30 Tab 0 09/26/2012 Active MIRALAX PO POWDIndications:Con stipation Dissolve one heaping tablespoon in 8 ounces of water or juice - one dose per day as needed for severe constipation 1 Bottle 2 08/06/2013 Active Blood Glucose Monitoring Suppl (uiu ULTRA MINI) w/Device KIT Use as directed [...] Tablet 3 01/27/2022 Active UltiCare Mini Pen [place] 31G X 6 MM (Insulin Pen Needle)Indications: Type 2 diabetes mellitus with hemoglobin A1c goal of 7.0%-8.0% ([facility]) USE DIRECTED ONCE DAILY 100 Each 3 02/11/2022 Active AdvanovaTouch UltraSoft LancetsIndications: Type 2 diabetes mellitus with hemoglobin A1c goal of less than 7.0% ([facility]) USE ONCE PER DAY DIRECTED [...] hemoglobin A1c goal of less than 8.0% ([facility]) INJECT 4 UNITS UNDER THE [...] as of this encounter (statuses as of 12/02/2022) Active Problems Problem Noted Date Unspecified dementia, unspec ified severity, without behavioral disturbance, psychotic disturbance, mood disturbance, and anxiety 11/24/2022 Type 2 diabetes mellitus wit h diabetic peripheral angiopathy without gangrene, with long-term current use of insulin 04/20/2022 Malnutrition 12/02/2021 termite technician (current) use of insulin 03/22 Type 2 [...] as of this encounter (statuses as of 12/02/2022) Resolved Problems Problem Noted Date Resolved Date [...] as of this encounter (statuses as of 12/02/2022) Immunizations Name Administration Dates Next Due COVID-19 [...] Sign Reading Time Taken Comments Blood Pressure 138/64 11/21/2022 12:46 PM EDT Pulse 82 11/21/2022 12:46 PM EDT Temperature 36.8 C (98.2 F) 11/21/2022 1 2:46 PM EDT Respiratory Rate - - Oxygen Saturation 99% 11/21/2022 12: 46 PM EDT Inhaled Oxygen Concentration - - Weight 49.4 kg (108 lb 14.4 oz) 023 12:46 PM EDT Height 161.9 cm (5' 3.74") 11/21/2022 1 2:46 PM EDT Body Mass Index 18.85 11/21/2022 12:46 PM EDT documented in this encounter Patient Instructions * Patient Instructions* Seng Camarillo, DO - 11/21/2022 2:14 PM EDT Images from the original note were not included. You have mixed dementia due to Alzheimer's and vascular causes. Keep working on decreasing your blood sugar level. The A1c number should be under 7.0, yours last month was 7.7. When able, get you blood work done while fasting. I am starting you on a medication for your memory: Start taking donepezil by increasing the dose as follows: 5 mg daily with breakfast for 28 days, then 10 mg daily with breakfast thereafter Donepezil (Aricept) is an acetylcholinesterase inhibitor, which is a class of drug used to treat Alzheimers disease and some other memory problems. They decrease the breakdown of the neurotransmitter acetylcholine, which is a chemical in the brain that is important for memory. This class of drugalso can help other areas of thinking and behavior. The effects of this class of drug are small. InAlzheimers disease, for example, patients often are stabilized in their memory, thinking, and/orbehavior for 6 months to a year, and then continue to decline. Even in decline, groups on the drug do better than those on placebo (sugar pill). The most common side effects of these drugs are: Gastrointestinal ones such as nausea, diarrhea, and rarely vomiting. One way to avoid these side effects of these medications is to take them at night before bed. Another way to avoid them is to takethem on a full stomach after a good, hearty meal. Another common side effect is vivid dreaming, sometimes sleep disruption. The best way to avoid this side effect is to take the medication earlier in the day, after a big breakfast or a big lunch. This class of medication can also cause decreased heart rate; which is called bradycardia. This class of drug must be used with caution in patients with a history of bleeding ulcer, as thesedrugs can exacerbate them. Other side effects are uncommon but possible, and the package insert that comes with this medication has more information regarding these. If you think the medication may be causing a side effect, reduce the amount to the last dose you were on without the side effect. If that doesn't work, then stop the medication. If the problem persists after stopping the medication then it wasn't likely due to the medication and you need to call your primary care provider for evaluation of that problem. What do I do if I miss a dose? Skip the missed dose and go back to your normal time. Do not take 2 doses at the same time or extra doses. Information on brain health and aging One thing that consistently declines with age is processing speed. The best ways to improve performance are to give yourself adequate time when pursuing cognitive tasks, work with no distractions, and avoid multitasking. Multitasking is in fact rapidly alternating between two activities, not doing two activities simultaneously. While in the past you may have been able to switch rapidly enough to maintain both activities, this can now be a problem for performance. With regards to cognitive exercise, the closer you can get to the real world activity that you wishto improve the more likely it is to carry over into real life. For example, if you want to improve remembering the names of people you meet, play a game with faces on cards that you have to match to names. In addition, theoretically learning a completely new domain of knowledge will stimulate the brain, for example, learning a new language. The online cognitive exercise program with the most evidence based medicine for actually helping reduce risk of cognitive decline is called BrainGliaCure, which is a pay service. Others programs may be helpful as well. Physical exercise is one of the most important things you can do for your brain health and general health. Do at least 30 minutes every day of moderate intensity cardiovascular exercise (where it is just a little hard to talk during the exercise). Diet: Both the Mediterranean diet and the MIND-DASH diet are recommended for brain and heart health. I. The Mediterranean diet is rich in fish, olive oil, grains, and less fat and red meat has been shown to improve brain and heart health. You can visit their website, https://oldBankerBay Technologiespt.org/, for free recipes! II. The MIND-DASH diet is a modified version of the Mediterranean diet, has also been shown to reduce the risk of dementia. GOOD: Green leafy vegetables (like spinach and salad greens): At least six servings a week Other vegetables: At least one a day Nuts: Five servings a week Berries: Two or more servings a week Beans: At least three servings a week Whole grains: Three or more servings a day Fish: Once a week Poultry (like chicken or turkey): Two times a week [place] oil: Use it as your main cooking oil. Wine: One glass a day AVOID: Red meat: Less than four servings a week Butter and margarine: Less than a tablespoon daily Cheese: Less than one serving a week Pastries and sweets: Less than five servings a week Fried or fast food: Less than one serving a week Alcohol consumption: Alcohol interferes with brain function, not just during drinking or hours after drinking, but termite technician it causes negative changes on the brain, such as thinking and memory problems, mood and behavior changes. In addition, it causes imbalance, increases the risk of injury and falls, risk of stroke,heart disease, liver disease, cancer, to name a few. Heavy alcohol use is defined as: For men: drinking > 4 drinks on any day, or >14 drinks per week For women: drinking > 3 drinks on any day, or > 7 drinks per week One standard drink contains 15 grams of pure alcohol. One standard drink is defined as: (https://www.cdc.gov/alcohol/fact-sheets/moderate-drinking.htm). ABV: alcohol by volume. For more information on alcohol consumption and its health effects, visit the National [place] onAlcohol Abuse and Alcoholism (NIAAA) website at: https://www.niaaa.nih.gov/ruhwsdys-uvfkwbc-iystpy Talk to your doctor if you are concerned about your drinking and would like help. You can also visit the NIAAA Alcohol Treatment Navigator website at: https://alcoholtreatment.niaaa.nih.gov/ Coffee consumption: In general, 2-3 cups of coffee may be beneficial for brain health. Refrain from 6 cups or more per day. Staying socially active and engaged also stimulates the brain and decreases the risk of dementia. documented in this encounter Progress Notes * Seng Camarillo DO - 11/21/2022 2:22 PM EDT Attending attestation: 87-year-old right-handed female with 12 years of education presenting for 1-2 year duration of insidious onset, gradually progressive short-term memory loss. Her son lives with her. Patienthas partial insight into the extent of of cognitive impairment. IADLs are impaired with driving, she no longer drives her her doctor's recommendation. Son manages finances and cooking because she defers to him. She organizes her own pillbox. She has some delusion, accusing some instilling her money. No paranoia or hallucination. Medical history significant for stroke with residual imbalance. No significant changes in her mood, sleep, appetite. Lap is significant for A1c of 7.7 from last month. Levy was impaired, weaknesses include executive, visuospatial, calculation, working memory, letter fluency and delayed recall with no benefit from cuing. Overall impression is mild dementia, likely mixed etiology due to Alzheimer's disease and vascular causes, supported by memory profile on testing, hippocampi atrophy and moderate degree of chronic small vessel disease on brain MRI, which I personally reviewed. Labs showed normal CBC, B12 and TSH. RECOMMENDATIONS: 1. Start donepezil, explained the benefit and medication of the medication. 2. Educated on better control of her diabetes. 3. Provided lifestyle modification handout including diet, exercise, social engagement. 4. Check additional labs: LFT, BMP, lipids (fasting). RTC in 6 months in [place] I attest that I have reviewed the student note and that the components of the history, the physicalexam, and the assessment and plan documented were performed in my presence with the student where Iverified the documentation and performed (or re-performed) the exam and medical decision making. Seng Camarillo DO Cognitive and Behavioral Neurology [facility] 11/21/2022 2:23 PM documented in this encounter Plan of Treatment Upcoming Encounters Date Type Specialty Care Team Description 02/14/2023 Office Visit Family Medicine Shell III, Mike Acosta MD [address] [facility] [place] [address] 07/04/2023 Office Visit Urology Josh Gonsales MD [address] [facility] [address] [place] [address] 09/15/2023 Office Visit Neurology Seng Camarillo DO [address] [place] [address] Scheduled Orders Name Type Priority Associated Diagnoses Orde r Schedule COMPREHENSIVE METABOLIC PANEL Lab Routine Memory loss Expected: 11/21/2022, Expires: 11/22/2023 LIPID PANEL WITHOUT DIRECT LDL Lab Routine Hyperlipidemia, unspecified hyperlipidemia type Expected: 11/21/2022, Expires: 11/22/2023 HEPATIC FUNCTION PANEL Lab Routine Memory loss Ordered: 11/21/2022 Health Maintenance Due Date Last Done Comments [...] D LEVEL ONCE IN A LIFETIME-USE SMARTSET# [id number] Completed 10/31/2018, 12/26/2013, 11/09/2010 GARDASIL-HPV IMMUNIZATION SERIES Aged Out No longer eligible based on patient's age to complete this topic Hepatitis B Aged Out No longer eligi ble based on patient's age to complete this topic MENINGOCOCCAL (MENACTRA/MENVEO) Aged Out No longer eligible based on patient's age to complete this topic documented as of this encounter Medical Devices Implanted Type Area Sign Manufacturer Device Identifier Shelf Expiration Date Model / Serial / Lot Lens 22.0 Sn60wf - [id number] Implanted:Qty: 1 on 07/19/2011 at [facility] Left: Eye [employer] 01/08/2016 SN60WF.220 / [id number] / Lens 20.0 Sn60wf - [id number] Implanted:Qty: 1 on 10/18/2011 at [facility] Right: Eye [employer] 05/10/2016 SN60WF.200 / [id number] / documented as of this encounter Visit Diagnoses Diagnosis Mixed Alzheimer's and vascular dementia (HCC)- Primary Alzheimer's disease Memory loss Hyperlipidemia, unspecified hyperlipidemia type documented in this encounter Care Teams Orthotic Fitter Relationship Specialty Start Date End Date Mike Goff III, MD [address] [place] [address], [place] [address] PCP - General Family Medicine 12/19/17 documented as of this encounter
--- OUTSIDE RECORDS SUMMARY | 2023-03-07 17:12 | External Medical Summary | Summary of Care ---
Author Name Unknown Organization [facility] Address [address] [place] [address] Phone [phone] Care Team Providers Care Quill Cleaning Machine Operator Name Role Phone Shell LESLIE MD, Mike Acosta Primary Care Provider [phone] Reason for Visit * Reason Onset Date Comments case management 12/09/2022 Encounter Details Date Type Department Care Team Description 12/09/2022 Gis Programmer Telephone General Internal Medicine [facility] [address] [place] [address] Gabriella Sanders, RN [address] [place] [address] case management Allergies Active Allergy [...] as of this encounter (statuses as of 12/09/2022) Medications Medication Sig Dispensed Refills Start Date End Date Status CALCIUM 600-200 MG-UNIT PO TABS 1 TABLET DAILY twice a day 30 Tab 0 09/26/2012 Active MIRALAX PO POWDIndications:Cons tipation Dissolve one heaping tablespoon in 8 ounces of water or juice - one dose per day as needed for severe constipation 1 Bottle 2 08/06/2013 Active Blood Glucose Monitoring Suppl ([employer] ULTRA MINI) w/Device KIT Use as directed [...] Tablet 3 01/27/2022 Active UltiCare Mini Pen [place] 31G X 6 MM (Insulin Pen Needle)Indications:T ype 2 diabetes mellitus with hemoglobin A1c goal of 7.0%-8.0% (HCC) USE DIRECTED ONCE DAILY 100 Each 3 02/11/2022 Active VendorShopTouch UltraSoft LancetsIndications:T ype 2 diabetes mellitus with hemoglobin A1c goal of less than 7.0% (HCC) USE ONCE PER DAY DIRECTED 100 Each 4 02/11/2022 Active OpenLabeluch Ultra In Vitro Strip (Glucose Blood) TESTS 4 TIMES A DAY. E11.9 400 Strip 3 03/14/2022 Active Clopidogrel Bisulfate 75 MG Oral Tablet (pLAVix) TAKE ONE TABLET BY MOUTH EVERY DAY IN THE MORNING 90 Tablet 3 07/29/2022 4 Active Lantus SoloStar 100 UNIT/ML Subcutaneous Solution Pen-injectorIndicati ons:Type 2 diabetes mellitus with hemoglobin A1c goal of less than 8.0% ([facility]) INJECT 4 UNITS UNDER THE [...] as of this encounter (statuses as of 12/09/2022) Active Problems Problem Noted Date Unspecified dementia, unspec ified severity, without behavioral disturbance, psychotic disturbance, mood disturbance, and anxiety 11/24/2022 Type 2 diabetes mellitus wit h diabetic peripheral angiopathy without gangrene, with long-term current use of insulin 04/20/2022 Malnutrition 12/02/2021 watermelon inspector (current) use of insulin 03/22 Type 2 [...] as of this encounter (statuses as of 12/09/2022) Resolved Problems Problem Noted Date Resolved Date [...] as of this encounter (statuses as of 12/09/2022) Immunizations Name Administration Dates Next Due COVID-19 mRNA, LNP-s, No Pre serve, 2-Dose Series ([employer]) 03/29/2021,07/09/2020,06/18/2020 COVID-19, LNP-s, No Preserve , Júnior-sucrose, [...] Telephone Encounter - Gabriella Sanders RN - 12/09/2022 11:25 AM EDT SITUATION: CCM Tier 2 f/u BACKGROUND: [facility] 10/23-10/24 - AMS [facility] ED 11/20 - back pain ASSESSMENT: Spoke with patient. Doing well this week. No issues with n/v/d/c, no urinary symptoms, no pain, no shortness of breath, no headaches or chest pain. Appetite has been good and she is sleeping well. FBS today was 116. Reports she is taking all medications as prescribed. Denies any further issues or concerns. RECOMMENDATION: Will plan to follow up within one week. Gabriella Sanders RN General Internal Medicine [address] [address] documented in this encounter Plan of Treatment Upcoming Encounters Date Type Specialty Care Team Description 02/14/2023 Office Visit Family Medicine [facility], [facility] [address] [facility] [address] 07/04/2023 Office Visit Urology Josh Gonsales MD [address] [address] [place] [address] 09/15/2023 Office Visit Neu[facility] Seng Camarillo, DO [address] [facility] [address] Health Maintenance Due Date Last [...] D LEVEL ONCE IN A LIFETIME-USE SMARTSET# [id number] Completed 10/31/2018, 12/26/2013, 11/09/2010 GARDASIL-HPV IMMUNIZATION SERIES Aged Out No longer eligible based on patient's age to complete this topic Hepatitis B Aged Out No longer eligi ble based on patient's age to complete this topic MENINGOCOCCAL (MENACTRA/MENVEO) Aged Out No longer eligible based on patient's age to complete this topic documented as of this encounter Medical Devices Implanted Type Area Fitting Room Associate Device Identifier Shelf Expiration Date Model / Serial / Lot Lens 22.0 Sn60wf - [id number] Implanted:Qty: 1 on 07/19/2011 at [facility] Left: Eye [employer] 01/08/2016 SN60WF.220 / [id number] / Lens 20.0 Sn60wf - [id number] Implanted:Qty: 1 on 10/18/2011 at [facility] Right: Eye [employer] 05/10/2016 SN60WF.200 / [id number] / documented as of this encounter Visit Diagnoses Diagnosis Medical home patient encounter- Primary Other specified examination documented in this encounter Care Teams Quill Cleaning Machine Operator Relationship Specialty Start Date End Date Mike Goff III, MD [address] [place] [address] PCP - General Family Medicine 12/19/17 documented as of this encounter
--- OUTSIDE RECORDS SUMMARY | 2023-03-07 17:13 | External Medical Summary | Summary of Care ---
Author Name Unknown Organization [facility] Address [address] [place] [address] Phone [phone] Care Team Providers Care Game Designer Name Role Phone Shell LESLIE MD, Mike Acosta Primary Care Provider [phone] Reason for Visit * Reason Onset Date Comments Appointment 10/27/2022 Encounter Details Date Type Department Care Team Description 10/27/2022 Telephone Neurology [facility] [address] [place], [place] [id number] Services, Scheduling [address] [place] [address] Appointment Allergies Active Allergy Reactions Severity Noted Date [...] as of this encounter (statuses as of 11/15/2022) Medications Medication Sig Dispensed Refills Start Date End Date Status CALCIUM 600-200 MG-UNIT PO TABS 1 TABLET DAILY twice a day 30 Tab 0 09/26/2012 Active MIRALAX PO POWDIndications:Con stipation Dissolve one heaping tablespoon in 8 ounces of water or juice - one dose per day as needed for severe constipation 1 Bottle 2 08/06/2013 Active Blood Glucose Monitoring Suppl (Fiddler's Brewing CompanyTOUCH ULTRA MINI) w/Device KIT Use as directed [...] Tablet 3 01/27/2022 Active UltiCare Mini Pen [place] 31G X 6 MM (Insulin Pen Needle)Indications: Type 2 diabetes mellitus with hemoglobin A1c goal of 7.0%-8.0% (HCC) USE DIRECTED ONCE DAILY 100 Each 3 02/11/2022 Active Greenhouse SoftwareTouch UltraSoft LancetsIndications: Type 2 diabetes mellitus with hemoglobin A1c goal of less than 7.0% (HCC) USE ONCE PER DAY DIRECTED 100 Each 4 02/11/2022 Active Greenhouse SoftwareTouch Ultra In Vitro Strip (Glucose Blood) TESTS [...] MEAL OF THE DAY OR OTHER MEDICATIONS 90 Tablet 3 12/20/2021 3 Discontinu ed(Refill) documented as of this encounter (statuses as of 11/15/2022) Active Problems Problem Noted Date Type 2 diabetes mellitus wit h diabetic [...] as of this encounter (statuses as of 11/15/2022) Resolved Problems Problem Noted Date Resolved Date [...] as of this encounter (statuses as of 11/15/2022) Immunizations Name Administration Dates Next Due COVID-19 mRNA, LNP-s, No Pre serve, 2-Dose Series (Pfizer) 03/29/2021,07/09/2020,06/18/2020 COVID-19, LNP-s, No Preserve , Júnior-sucrose, Ages 12+ (Pfizer) 09/28/2021 Pneumococcal Conjugate Vacc, 13 Valent (Prevnar) 06/20/2018 Pneumococcal Polysaccharide PPV23 (Pneumovax) 12/13/2005,12/14/1999 Seasonal Influenza, Quadriva lent Hd (Fluzone Hd) 02/11/2022 Seasonal Influenza, Quadriva lent, No Preserve, 6 Mons & Above, IM 01/09/2020,12/27/2018,03/22/2018 TD - Tetanus/Diptheria (ADULT) 09/26/1999 TDAP (age [...] Miscellaneous Notes * Telephone Encounter - AHSAN Richardson 11/15/2022 1:44 PM EDT Spoke to daughter and confirmed appt * Telephone Encounter - Maria Fernanda Olivia, AHSAN - 11/15/2022 1:25 PM EDT Please call pt daughter regarding appt below she just wants to confirm appt on 11/21 mary [phone] * Telephone Encounter - Juanita Deng, AHSAN - 10/31/2022 10:32 AM EDT Spoke to daughter and she's aware of appt 11-21 at 1 pm * Telephone Encounter - AHSAN Richardson - 10/28/2022 10:28 AM EDT I am not sure what happened but I cannot do anything about that. Dr Camarillo any suggestions on getting pt in sooner? * Telephone Encounter - Neda Mc, AHSAN - 10/27/2022 2:03 PM EDT Pt's daughter, Mary, is upset rece'd message that a sooner appt could be possible and call. She couldn't get it and it was gone within minutes she states. Pt has an appt in 11/2023 w/ Dr. Camarillo and is on a wl as well. Plz call daughter in no in chart wants to speak with someone about it. documented in this encounter Plan of Treatment Upcoming Encounters Date Type Specialty Care Team Description 11/21/2022 Office Visit Neurology SunSeng Jolly, DO [address] [place] [facility] [place] [address] 12/26/2022 Office Visit Urology Gautam Mendez MD [address] [place] [address] 02/14/2023 Office Visit Family Medicine Shell III, Mike Acosta MD [address] [place] [address] 12/01/2023 Office Visit Neurology Seng Camarillo DO [address] [place], [place] [id number] Health Maintenance Due Date Last Done Comments Zoster Vaccines (1 of 2) 1987 Depression Screening, Annual for Pts 12 and Over 04/04/2020 04/04/2019 DIABETES-FOOT EXAM 05/20/2021 05/20/2020, 0 09/21/2018, 12/19/2017, [...] 10/22/2023 10/21/2022, 04/10, 09/08/2021, Additional history exists DTaP,Tdap,and Td Vaccines (4 - Td or Tdap) 10/11/2028 10/11/2018, 10/30/2016, 03/14/2014, Additional history exists Pneumococcal Vaccine: 65+ Years Completed 06/20/2018, 12/13/2005, 12/14/1999 VITAMIN D LEVEL ONCE IN A LIFETIME-USE SMARTSET# [id number] Completed 10/31/2018, 12/26/2013, 11/09/2010 GARDASIL-HPV IMMUNIZATION SERIES Aged Out No longer eligible based on patient's age to complete this topic Hepatitis B Aged Out No longer eligi ble based on patient's age to complete this topic MENINGOCOCCAL (MENACTRA/MENVEO) Aged Out No longer eligible based on patient's age to complete this topic documented as of this encounter Medical Devices Implanted Type Area Milieu Counselor Device Identifier Shelf Expiration Date Model / Serial / Lot Lens 22.0 Sn60wf - [id number] Implanted:Qty: 1 on 07/19/2011 at [facility] Left: Eye [employer] 01/08/2016 SN60WF.220 / [id number] / Lens 20.0 Sn60wf - [id number] Implanted:Qty: 1 on 10/18/2011 at [facility] Right: Eye [employer] 05/10/2016 SN60WF.200 / [id number] / documented as of this encounter Care Teams Game Designer Relationship Specialty Start Date End Date Mike Goff III, MD [address] [facility] [place] [address] PCP - General Family Medicine 12/19/17 documented as of this encounter
--- OUTSIDE RECORDS SUMMARY | 2023-03-07 17:13 | External Medical Summary | Summary of Care ---
Author Name Unknown Organization [facility] Address [address] [place] [address] Phone [phone] Care Team Providers Care Lasting Room Machine Operator Name Role Phone Shell LESLIE MD, Mike Acosta Primary Care Provider [phone] Reason for Visit * Reason Comments case management Encounter Details Date Type Department Care Team Description 11/23/2022 Respiratory Support TechnicianInspector Wire Rope Internal Medicine [facility] [address] [facility] [place] [address] Gabriella Sanders, RN [address] [place] [address] Medical home patient encounter* Allergies [...] as of this encounter (statuses as of 11/23/2022) Medications Medication Sig Dispensed Refills Start Date End Date Status CALCIUM 600-200 MG-UNIT PO TABS 1 TABLET DAILY twice a day 30 Tab 0 09/26/2012 Active MIRALAX PO POWDIndications:Cons tipation Dissolve one heaping tablespoon in 8 ounces of water or juice - one dose per day as needed for severe constipation 1 Bottle 2 08/06/2013 Active Blood Glucose Monitoring Suppl ([employer] ULTRA MINI) w/Device KIT Use as directed [...] Tablet 3 01/27/2022 Active UltiCare Mini Pen [place] 31G X 6 MM (Insulin Pen Needle)Indications:T ype 2 diabetes mellitus with hemoglobin A1c goal of 7.0%-8.0% (HCC) USE DIRECTED ONCE DAILY 100 Each 3 02/11/2022 Active SOLEM ElectroniqueTouch UltraSoft LancetsIndications:T ype 2 diabetes mellitus with hemoglobin A1c goal of less than 7.0% (HCC) USE ONCE PER DAY DIRECTED 100 Each 4 02/11/2022 Active Qikwell Technologiesuch Ultra In Vitro Strip (Glucose Blood) [...] DAILY 15 mL 1 10/18/2022 4 Active busPIRone HCl 5 MG Oral Tablet (Buspar) Take 1 Tablet by mouth in the morning and 1 Tablet before bedtime. 20 Tablet 0 10/28/2022 Active Levothyroxine Sodium 75 MCG Oral Tablet (Levoxyl)Indications :Acquired hypothyroidism TAKE 1 TABLET BY MOUTH DAILY AT LEAST 30 MINUTES PRIOR TO FIRST MEAL OF THE DAY OR OTHER MEDICATIONS 100 Tablet 3 11/03/2022 Active busPIRone HCl 5 MG Oral Tablet (Buspar) Take 1 Tablet by mouth in the morning and 1 Tablet before bedtime. 60 Tablet 3 11/07/2022 Active Donepezil HCl 5 MG Oral Tablet (Aricept) Take 1 Tablet by mouth daily with breakfast for 28 days. 28 Tablet 0 11/21/2022 3 Active Donepezil HCl 10 MG Oral Tablet (Aricept) Take 1 Tablet by mouth daily with breakfast. Start this dose after finishing 5 mg tablets. 90 Tablet 3 11/21/2022 Active documented as of this encounter (statuses as of 11/23/2022) Active Problems Problem Noted Date Type 2 diabetes mellitus wit h diabetic peripheral angiopathy without gangrene, with long-term current use of insulin 04/20/2022 Malnutrition 12/02/2021 terminal operator (current) use of insulin 03/22 Type 2 [...] as of this encounter (statuses as of 11/23/2022) Resolved Problems Problem Noted Date Resolved Date [...] as of this encounter (statuses as of 11/23/2022) Immunizations Name Administration Dates Next Due COVID-19 mRNA, LNP-s, No Pre serve, 2-Dose Series ([employer]) 03/29/2021,07/09/2020,06/18/2020 COVID-19, LNP-s, No Preserve , Júnior-sucrose, Ages 12+ (Pfizer) 09/28/2021 Pneumococcal Conjugate Vacc, 13 Valent (Prevnar) 06/20/2018 Pneumococcal Polysaccharide PPV23 (Pneumovax) 12/13/2005 Seasonal Influenza, Quadriva lent Hd (Fluzone Hd) 02/11/2022 Seasonal Influenza, Quadriva lent, No Preserve, 6 Mons & Above, IM 01/09/2020,12/27/2018,03/22/2018 TDAP (age 10 and older)(Boostrix) 10/11/2018,,03/14/2014 documented [...] Progress Notes * Gabriella Sanders RN - 11/23/2022 1:13 PM EDT SITUATION: [facility] Tier 2 f/u GURVINDER BACKGROUND: [facility] 10/23-10/24 - AMS [facility] ED 11/20 - back pain ASSESSMENT: Spoke with patient today and she reports that she is "doing much better" and states "so far so good". Was seen 3 days ago at [facility] ED for back pain-diagnosed musculoskeletal and advised to use Tylenoland follow up with PCP-scheduled for appointment tomorrow. Recent visit with Neurology on 11/21 - denies any issues with new medication donepezil. No further needs at this time. RECOMMENDATION: Will plan to follow up within one week. Gabriella Sanders RN General Internal Medicine [facility] [place] [address] [facility] [place] [address] documented in this encounter Plan of Treatment Upcoming Encounters Date Type Specialty Care Team Description 11/24/2022 Office Visit Family Medicine Shivani Hinojosa PA-C [address] [facility] [place] [address] 12/26/2022 Office Visit Urology Gautam Mendez MD [address] [place] [address] 02/14/2023 Office Visit Family Medicine Mike Goff III, MD [address] [place] [place] [address], [place] [address] Health Maintenance Due Date Last Done Comments [...] D LEVEL ONCE IN A LIFETIME-USE SMARTSET# [id number] Completed 10/31/2018, 12/26/2013, 11/09/2010 GARDASIL-HPV IMMUNIZATION SERIES Aged Out No longer eligible based on patient's age to complete this topic Hepatitis B Aged Out No longer eligi ble based on patient's age to complete this topic MENINGOCOCCAL (MENACTRA/MENVEO) Aged Out No longer eligible based on patient's age to complete this topic documented as of this encounter Medical Devices Implanted Type Area Methods Analyst Data Processing Device Identifier Shelf Expiration Date Model / Serial / Lot Lens 22.0 Sn60wf - [id number] Implanted:Qty: 1 on 07/19/2011 at [facility] Left: Eye [employer] 01/08/2016 SN60WF.220 / [id number] / Lens 20.0 Sn60wf - [id number] Implanted:Qty: 1 on 10/18/2011 at [facility] Right: Eye [employer] 05/10/2016 SN60WF.200 / [id number] / documented as of this encounter Visit Diagnoses Diagnosis Medical home patient encounter- Primary Other specified examination documented in this encounter Care Teams Lasting Room Machine Operator Relationship Specialty Start Date End Date Mike Goff III, MD [address] [place] [address] PCP - General Family Medicine 12/19/17 documented as of this encounter
--- OUTSIDE RECORDS SUMMARY | 2023-03-07 17:13 | External Medical Summary | Summary of Care ---
Author Name Unknown Organization [facility] Address [address] [place] [address] Phone [phone] Care Team Providers Care Shaper And Presser Name Role Phone Shell LESLIE MD, Mike Acosta Primary Care Provider [phone] Reason for Visit * Reason Onset Date Comments Test Results 11/22/2022 Encounter Details Date Type Department Care Team Description 11/22/2022 Telephone Family Practice [facility] [address] [place] [address] Mike Goff III, MD 200 [place] [address] Test Results Allergies Active Allergy Reactions Severity Noted Date [...] as of this encounter (statuses as of 11/22/2022) Medications Medication Sig Dispensed Refills Start Date End Date Status CALCIUM 600-200 MG-UNIT PO TABS 1 TABLET DAILY twice a day 30 Tab 0 09/26/2012 Active MIRALAX PO POWDIndications:Cons tipation Dissolve one heaping tablespoon in 8 ounces of water or juice - one dose per day as needed for severe constipation 1 Bottle 2 08/06/2013 Active Blood Glucose Monitoring Suppl ([employer] ULTRA MINI) w/Device KIT Use as directed [...] Tablet 3 01/27/2022 Active UltiCare Mini Pen [place] 31G X 6 MM (Insulin Pen Needle)Indications:T ype 2 diabetes mellitus with hemoglobin A1c goal of 7.0%-8.0% (HCC) USE DIRECTED ONCE DAILY 100 Each 3 02/11/2022 Active BizBragTouch UltraSoft LancetsIndications:T ype 2 diabetes mellitus with hemoglobin A1c goal of less than 7.0% (HCC) USE ONCE PER DAY DIRECTED 100 Each 4 02/11/2022 Active Application Securityuch Ultra In Vitro Strip (Glucose Blood) TESTS [...] as of this encounter (statuses as of 11/22/2022) Active Problems Problem Noted Date Type 2 diabetes mellitus wit h diabetic peripheral angiopathy without gangrene, with long-term current use of insulin 04/20/2022 Malnutrition 12/02/2021 ad terminal makeup operator (current) use of insulin 03/22 Type [...] as of this encounter (statuses as of 11/22/2022) Resolved Problems Problem Noted Date Resolved Date [...] as of this encounter (statuses as of 11/22/2022) Immunizations Name Administration Dates Next Due COVID-19 mRNA, LNP-s, No Pre serve, 2-Dose Series ([employer]) 03/29/2021,07/09/2020,06/18/2020 COVID-19, LNP-s, No Preserve , Júnior-sucrose, [...] encounter Miscellaneous Notes * Telephone Encounter - Bridget Sotomayor RN - 11/22/2022 2:57 PM EDT Report mailed. * Telephone Encounter - Bridget Sotomayor RN - 11/22/2022 2:56 PM EDT ----- Message from Mike Goff III, MD sent at 11/08/2022 1:32 PM EDT ----- Attempted to call son unable to leave message voicemail box not set up send report please documented in this encounter Plan of Treatment Upcoming Encounters Date Type Specialty Care Team Description 11/24/2022 Office Visit Family Medicine Shivani Hinojosa PA-C [address] [place] [address] 12/26/2022 Office Visit Urology Gautam Mendez MD [address] [place], [place] [id number] 02/14/2023 Office Visit Family Medicine Mike Goff III, MD [address] [place] [address] Health Maintenance Due Date Last Done Comments [...] D LEVEL ONCE IN A LIFETIME-USE SMARTSET# [id number] Completed 10/31/2018, 12/26/2013, 11/09/2010 GARDASIL-HPV IMMUNIZATION SERIES Aged Out No longer eligible based on patient's age to complete this topic Hepatitis B Aged Out No longer eligi ble based on patient's age to complete this topic MENINGOCOCCAL (MENACTRA/MENVEO) Aged Out No longer eligible based on patient's age to complete this topic documented as of this encounter Medical Devices Implanted Type Area Tool Chaser Device Identifier Shelf Expiration Date Model / Serial / Lot Lens 22.0 Sn60wf - [id number] Implanted:Qty: 1 on 07/19/2011 at [facility] Left: Eye [employer] 01/08/2016 SN60WF.220 / [id number] / Lens 20.0 Sn60wf - [id number] Implanted:Qty: 1 on 10/18/2011 at [facility] Right: Eye [employer] 05/10/2016 SN60WF.200 / [id number] / documented as of this encounter Care Teams Shaper And Presser Relationship Specialty Start Date End Date Mike Goff III, MD [address] [place] [address], [place] [address] PCP - General Family Medicine 12/19/17 documented as of this encounter
--- OUTSIDE RECORDS SUMMARY | 2023-03-07 17:13 | External Medical Summary | Summary of Care ---
Author Name Unknown Organization [facility] Address [address] [place] [address] Phone [phone] Care Team Providers Care Pharmacist Manager Name Role Phone Shell LESLIE MD, Mike Acosta Primary Care Provider [phone] Reason for Visit * Reason Comments NEW PATIENT * Evaluate & Treat - Unlimited Visits (Within 10 days (routine)) - Authorized Specialty Diagnoses / Procedures Referred By Madyson preston Referred To Contact Neurology Diagnoses Memory difficulties Mike Goff III, MD [address] [facility] [place] [address] Referral ID Status Reason Start Date Expiration Date Visits Requested Visits Authorized [id number] Authorized Specialty Services Required 10/21/2022 999 [id number] Encounter Details Date Type Department Care Team Description 11/21/2022 Office Visit [facility] [address] [place] [address] Seng Camarillo [address] [place] [address] Mixed Alzheimer's and vascular dementia [...] as of this encounter (statuses as of 11/27/2022) Medications Medication Sig Dispensed Refills Start Date End Date Status CALCIUM 600-200 MG-UNIT PO TABS 1 TABLET DAILY twice a day 30 Tab 0 09/26/2012 Active MIRALAX PO POWDIndications:Con stipation Dissolve one heaping tablespoon in 8 ounces of water or juice - one dose per day as needed for severe constipation 1 Bottle 2 08/06/2013 Active Blood Glucose Monitoring Suppl (Flashtalking ULTRA MINI) w/Device KIT Use as directed [...] Tablet 3 01/27/2022 Active UltiCare Mini Pen [place] 31G X 6 MM (Insulin Pen Needle)Indications: Type 2 diabetes mellitus with hemoglobin A1c goal of 7.0%-8.0% ([facility]) USE DIRECTED ONCE DAILY 100 Each 3 02/11/2022 Active JenaValve TechnologyTouch UltraSoft LancetsIndications: Type 2 diabetes mellitus with hemoglobin A1c goal of less than 7.0% ([facility]) USE ONCE PER DAY [...] hemoglobin A1c goal of less than 8.0% ([facility]) INJECT 4 UNITS UNDER THE SKIN ONCE DAILY 15 mL 1 10/18/2022 10/18/19 24 Active busPIRone HCl 5 MG Oral Tablet [...] as of this encounter (statuses as of 11/27/2022) Active Problems Problem Noted Date Unspecified dementia, unspec ified severity, without behavioral disturbance, psychotic disturbance, mood disturbance, and anxiety 11/24/2022 Type 2 diabetes mellitus wit h diabetic peripheral angiopathy without gangrene, with long-term current use of insulin 04/20/2022 Malnutrition 12/02/2021 skilled nursing (current) use of insulin 03/22 Type 2 [...] as of this encounter (statuses as of 11/27/2022) Resolved Problems Problem Noted Date Resolved Date [...] as of this encounter (statuses as of 11/27/2022) Immunizations Name Administration Dates Next Due COVID-19 [...] encounter Patient Instructions * Patient Instructions* Seng Camarillo DO - 11/21/2022 2:14 PM EDT Images [...] reduce risk of cognitive decline is called [employer], which is a pay service. Others programs [...] heart health. You can visit their website, [email or web address]/, for free recipes! II. The MIND-DASH diet [...] chicken or turkey): Two times a week [place] oil: Use it as your main cooking [...] during drinking or hours after drinking, but terminal manager it causes negative changes on the brain, [...] and its health effects, visit the National [place] onAlcohol Abuse and Alcoholism (NIAAA) website at: https://www.niaaa.nih.gov/uxfyguhz-jygqfqx-mdupvr Talk to your doctor if you are [...] for A1c of 7.7 from last month. [place] was impaired, weaknesses include executive, visuospatial, calculation, [...] lipids (fasting). RTC in 6 months in [place] I attest that I have reviewed the student note and that the components of the history, the physicalexam, and the assessment and plan documented were performed in my presence with the student where Iverified the documentation and performed (or re-performed) the exam and medical decision making. Seng Camarillo DO Cognitive and Behavioral Neurology [facility] 11/21/2022 2:23 PM documented in this encounter Plan of Treatment Upcoming Encounters Date Type Specialty Care Team Description 02/14/2023 Office Visit Family Medicine Shell Mike LESLIE MD 200 [facility] [place], [place] [address] 07/04/2023 Office Visit Urology Josh Gonsales MD [address] [place] [address] Scheduled Orders Name Type Priority Associated Diagnoses [...] D LEVEL ONCE IN A LIFETIME-USE SMARTSET# [id number] Completed 10/31/2018, 12/26/2013, 11/09/2010 GARDASIL-HPV IMMUNIZATION SERIES Aged Out No longer eligible based on patient's age to complete this topic Hepatitis B Aged Out No longer eligi ble based on patient's age to complete this topic MENINGOCOCCAL (MENACTRA/MENVEO) Aged Out No longer eligible based on patient's age to complete this topic documented as of this encounter Medical Devices Implanted Type Area Promotional Advertising Assistant Device Identifier Shelf Expiration Date Model / Serial / Lot Lens 22.0 Sn60wf - [id number] Implanted:Qty: 1 on 07/19/2011 at [place] [facility] Left: Eye [employer] 01/08/2016 SN60WF.220 / [id number] / Lens 20.0 Sn60wf - [id number] Implanted:Qty: 1 on 10/18/2011 at [facility] Right: Eye [employer] 05/10/2016 SN60WF.200 / [id number] / documented as of this encounter Visit Diagnoses Diagnosis 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
--- OUTSIDE RECORDS SUMMARY | 2023-03-07 17:13 | External Medical Summary | Summary of Care ---
Author Name Unknown Organization [facility] Address [address] [place] [address] Phone [phone] Care Team Providers Care Credit Coordinator Name Role Phone Shell LESLIE MD, Mike Acosta Primary Care Provider [phone] Reason for Visit * Reason Comments Emergency Department Follow-Up Left lowe r back pain Encounter Details Date Type Department Care Team Description 11/24/2022 Office [address] [facility] [address] [facility] [place] [address] Shivani Hinojosa PA-C 200 [place] [address] Acute low back pain without sciatica, unspecified back pain laterality*; Type 2 diabetes mellitus with hemoglobin A1c goal of less than 8.0% ([facility]); Acquired hypothyroidism Allergies Active Allergy Reactions Severity [...] as of this encounter (statuses as of 11/24/2022) Medications Medication Sig Dispensed Refills Start Date End Date Status CALCIUM 600-200 MG-UNIT PO TABS 1 TABLET DAILY twice a day 30 Tab 0 09/26/2012 Active MIRALAX PO POWDIndications:Cons tipation Dissolve one heaping tablespoon in 8 ounces of water or juice - one dose per day as needed for severe constipation 1 Bottle 2 08/06/2013 Active Blood Glucose Monitoring Suppl (The 5th BaseTOUCH ULTRA MINI) w/Device KIT Use as directed [...] Tablet 3 01/27/2022 Active UltiCare Mini Pen [place] 31G X 6 MM (Insulin Pen Needle)Indications:T ype 2 diabetes mellitus with hemoglobin A1c goal of 7.0%-8.0% (HCC) USE DIRECTED ONCE DAILY 100 Each 3 02/11/2022 Active Careport HealthTouch UltraSoft LancetsIndications:T ype 2 diabetes mellitus with hemoglobin A1c goal of less than 7.0% (HCC) USE ONCE PER DAY DIRECTED 100 Each 4 02/11/2022 Active Careport HealthTouch Ultra In Vitro Strip (Glucose Blood) TESTS 4 TIMES A DAY. E11.9 400 Strip 3 03/14/2022 Active Clopidogrel Bisulfate 75 MG Oral Tablet (pLAVix) TAKE ONE TABLET BY MOUTH EVERY DAY IN THE MORNING 90 Tablet 3 07/29/2022 4 Active Lantus SoloStar 100 UNIT/ML Subcutaneous Solution Pen-injectorIndicati ons:Type 2 diabetes mellitus with hemoglobin A1c goal of less than 8.0% ([facility]) INJECT 4 UNITS UNDER THE SKIN [...] as of this encounter (statuses as of 11/24/2022) Active Problems Problem Noted Date Unspecified dementia, [...] as of this encounter (statuses as of 11/24/2022) Resolved Problems Problem Noted Date Resolved Date [...] as of this encounter (statuses as of 11/24/2022) Immunizations Name Administration Dates Next Due COVID-19 mRNA, LNP-s, No Pre serve, 2-Dose Series (Mult[employer] Media) 03/29/2021,07/09/2020,06/18/2020 COVID-19, LNP-s, No Preserve , Júnior-sucrose, [...] Sign Reading Time Taken Comments Blood Pressure 128/60 11/24/2022 5:38 PM EDT Pulse 99 11/24/2022 5:38 PM EDT Temperature 37.1 C (98.8 F) 11/24/2022 5:38 PM ED T Respiratory Rate 16 11/24/2022 5:38 PM EDT Oxygen Saturation 98% 11/24/2022 5:38 PM EDT Inhaled Oxygen Concentration - - Weight 48.5 kg (107 lb) 11/24/2022 5:38 PM EDT Height 161.8 cm (5' 3.7") 11/24/2022 5:38 PM EDT Body Mass Index 18.54 11/24/2022 5:38 PM EDT documented in this encounter Progress Notes * Shivani Hinojosa PA-C - 11/24/2022 6:05 PM EDT Images from the original note were not included. History of Present Illness Rachael Wallis is a 87 year old female that presents for Emergency Department Follow-Up (Left lower back pain) Patient is a 87 year old female who presents for a follow up on an ER visit on 11/20/22. Was seen for low back pain. Dong much better. Denies paresthesias or problems with bowel or bladder. Appetite good Sleep good Urination/ bowel movements good Physical Exam Vitals: 11/24/22 1738 Temp: 37.1 C (98.8 F) Pulse: 99 Resp: 16 SpO2: 98% BP: 128/60 BMI: 18.54 BP Readings from Last 3 Encounters: 11/24/22 128/60 11/21/22 138/64 10/28/22 124/72 Wt Readings from Last 3 Encounters: 11/24/22 48.5 kg (107 lb) 11/21/22 49.4 kg (108 lb 14.4 oz) 10/28/22 50.6 kg (111 lb 9.6 oz) General: alert, healthy, no distress, well nourished, well developed, comfortable, and cooperative Head: Normocephalic, No masses, lesions, tenderness or abnormalities Eye Exam: PERRLA, extraocular movements intact, conjunctiva are pink and non- injected, sclera clear Neck: supple, no adenopathy, no bruits, thyroid normal size, non-tender, without nodularity Heart: regular rate & rhythm, no murmur, and no gallops Lungs: chest symmetric with normal AP diameter, no chest deformities noted, normal respiratory rateand rhythm, no chest wall tenderness, diaphragmatic excursion normal, lungs clear to auscultation Back: back symmetric, no curvature, no costovertebral angle tenderness, range of motion is normal, no skin lesions, erythema or scars, no tenderness to percussion or palpation Extremities: less than 2 second capillary refill, no joint deformities, effusion, or inflammation, no edema, no skin discoloration, no clubbing, no cyanosis I have reviewed the following results: None Assessment and Plan Acute low back pain without sciatica, unspecified back pain laterality (Primary) Type 2 diabetes mellitus with hemoglobin A1c goal of less than 8.0% (HCC) Acquired hypothyroidism Check-out note: Please change urology to [place] Continue current medications Wrap-Up Check-out note: Please change urology to [place] Time: I spent a total of 30-39 minutes (exact time 35 mins) on the date of service in preparation, delivery, and documentation of the care provided to Rachael Wallis excluding any time spent in the performance of separately billed services. documented in this encounter Nursing Notes * DICKSON Merida - 11/24/2022 5:38 PM EDT Emergency Department Follow Up: When was patient seen: 11/20/22 Which ED: [facility] What were they seen for: left lower lumbar back pain What testing did they have done: lab work and xray What did ED think was wrong (dx): unspecified pain without evidence of fracture Any new medications prescribed: none How is patient feeling today: her back isn't hurting today but probably will be tomorrow. Patient concerns today: what to do about her pain. documented in this encounter Plan of Treatment Upcoming Encounters Date Type Specialty Care Team Description 02/14/2023 Office Visit Family Medicine Mike Goff III, MD 200 [place] [address] 07/04/2023 Office Visit Urology Josh Gonsales MD 27 [facility] [address] [facility] [place] [address] Health Maintenance Due Date Last Done Comments Zoster Vaccines (1 of 2) 1987 DIABETES-FOOT EXAM 05/20/2021 05/20/2020, 0 09/21/2018, 12/19/2017, Additional history exists COVID-19 Vaccine (5 - Pfizer series) 11/23/2021 09/28/2021, 03/29/2021, 07/09/2020, Additional history exists DIABETES-EYE EXAM 09/10/2022 09/10/2021, , 02/26/2018, Additional history exists Influenza Vaccine (FLU shot) (#1) 2022 02/11/2022, 01/09/2020, 12/27/2018, Additional history exists DXA Scan 02/09/2023 02/09/2022, 06/2 07/2018, 01/03/2012, Additional history exists HbA1c 04/23/2023 10/21/2022, [...] D LEVEL ONCE IN A LIFETIME-USE SMARTSET# 80194 Completed 10/31/2018, 12/26/2013, 11/09/2010 GARDASIL-HPV IMMUNIZATION SERIES Aged Out No longer eligible based on patient's age to complete this topic Hepatitis B Aged Out No longer eligi ble based on patient's age to complete this topic MENINGOCOCCAL (MENACTRA/MENVEO) Aged Out No longer eligible based on patient's age to complete this topic documented as of this encounter Medical Devices Implanted Type Area Ticketing Agent Device Identifier Shelf Expiration Date Model / Serial / Lot Lens 22.0 Sn60wf - [id number] Implanted:Qty: 1 on 07/19/2011 at [facility] Left: Eye [employer] 01/08/2016 SN60WF.220 / [id number] / Lens 20.0 Sn60wf - [id number] Implanted:Qty: 1 on 10/18/2011 at [facility] Right: Eye [employer] 05/10/2016 SN60WF.200 / [id number] / documented as of this encounter Visit Diagnoses Diagnosis Acute low back pain without sciatica, unspecified back pain laterality- Primary Type 2 diabetes mellitus with hemoglobin A1c goal of less than 8.0% (HCC) Acquired hypothyroidism Unspecified hypothyroidism documented in this encounter Care Teams Credit Coordinator Relationship Specialty Start Date End Date Mike Goff III, MD 200 [place] [address] PCP - General Family Medicine 12/19/17 documented as of this encounter
--- OUTSIDE RECORDS SUMMARY | 2023-03-07 17:13 | External Medical Summary | Summary of Care ---
Author Name Unknown Organization [facility] Address [address] [place] [address] Phone [phone] Care Team Providers Care Rn New Grad Name Role Phone Shell LESLIE MD, Mike Acosta Primary Care Provider [phone] Reason for Visit * Reason Onset Date Comments Advice 11/22/2022 Encounter Details Date Type Department Care Team Description 11/22/2022 Telephone Family [facility] 200 [place] [address] Mike Goff III, MD 200 [place] [address] Advice Allergies Active Allergy Reactions Severity Noted [...] 2 08/06/2013 Active Blood Glucose Monitoring Suppl (Unbooked Ltd ULTRA MINI) w/Device KIT Use as directed [...] Tablet 3 01/27/2022 Active UltiCare Mini Pen [place] 31G X 6 MM (Insulin Pen Needle)Indications:T ype 2 diabetes mellitus with hemoglobin A1c goal of 7.0%-8.0% (HCC) USE DIRECTED ONCE DAILY 100 Each 3 02/11/2022 Active CANWE STUDIOSTouch UltraSoft LancetsIndications:T ype 2 diabetes mellitus with hemoglobin A1c goal of less than 7.0% (HCC) USE ONCE PER DAY DIRECTED 100 Each 4 02/11/2022 Active Long Tailuch Ultra In Vitro Strip (Glucose Blood) TESTS [...] current use of insulin 04/20/2022 Malnutrition 12/02/2021 shelter (current) use of insulin 03/22 Type 2 [...] mRNA, LNP-s, No Pre serve, 2-Dose Series ([employer]) 03/29/2021,07/09/2020,06/18/2020 COVID-19, LNP-s, No Preserve , [...] encounter Miscellaneous Notes * Telephone Encounter - Shivani Hinojosa PA-C - 11/23/2022 6:46 PM EDT noted * Telephone Encounter - Bridget Sotomayor RN - 11/23/2022 2:19 PM EDT Provider to address: [facility] Reason for Call: Advice Contact: Telephone Call Contact Type: Medication Outcome: pt was in [facility] and was prescribed donazapril which she says makes her urinate more frequently. She does say she drinks water through out the day. She will discuss with Shivani tomorrow. Son will bring her tomorrow. Also wants to discuss upcoming urology appt in [facility]. Total Time including non face to face (minutes): 20 * Telephone Encounter - Lelo Evangelista LPN - 11/22/2022 4:59 PM EDT Images from the original note were not included. (This message was pulled from this patient's duplicate chart) documented in this encounter Plan of Treatment Upcoming Encounters Date Type Specialty Care Team Description 11/24/2022 Office Visit Family Medicine Shivani Hinojosa PA-C 200 [place] [address] 12/26/2022 Office Visit Urology Gautam Mendez MD [address] [place] [address] 02/14/2023 Office Visit Family Medicine ShellMike lancaster III, MD [address] [place] [address] Health Maintenance Due Date Last Done Comments [...] D LEVEL ONCE IN A LIFETIME-USE SMARTSET# [id number] Completed 10/31/2018, 12/26/2013, 11/09/2010 GARDASIL-HPV IMMUNIZATION SERIES Aged Out No longer eligible based on patient's age to complete this topic Hepatitis B Aged Out No longer eligi ble based on patient's age to complete this topic MENINGOCOCCAL (MENACTRA/MENVEO) Aged Out No longer eligible based on patient's age to complete this topic documented as of this encounter Medical Devices Implanted Type Area Skid Strapper Device Identifier Shelf Expiration Date Model / Serial / Lot Lens 22.0 Sn60wf - [id number] Implanted:Qty: 1 on 07/19/2011 at [facility] Left: Eye [employer] 01/08/2016 SN60WF.220 / [id number] / Lens 20.0 Sn60wf - [id number] Implanted:Qty: 1 on 10/18/2011 at [facility] Right: Eye [employer] 05/10/2016 SN60WF.200 / [id number] / documented as of this encounter Care Teams Rn New Grad Relationship Specialty Start Date End Date Mike Goff III, MD [address] [place] [address] PCP - General Family Medicine 12/19/17 documented as of this encounter
--- OUTSIDE RECORDS SUMMARY | 2023-03-07 17:13 | External Medical Summary | Summary of Care ---
Author Name Unknown Organization [facility] Address [address] [place] [address] Phone [phone] Care Team Providers Care Multicultural Manager Name Role Phone Shell LESLIE MD, Mike Acosta Primary Care Provider [phone] Reason for Visit * Reason Onset Date Comments Advice 11/03/2022 Encounter Details Date Type Department Care Team Description 11/03/2022 Telephone General Internal Medicine [facility] [address] [place] [address] Mike Goff III, MD [address] [place] [address] Advice Allergies Active Allergy Reactions Severity Noted [...] as of this encounter (statuses as of 11/04/2022) Medications Medication Sig Dispensed Refills Start Date End Date Status CALCIUM 600-200 MG-UNIT PO TABS 1 TABLET DAILY twice a day 30 Tab 0 09/26/2012 Active MIRALAX PO POWDIndications:Cons tipation Dissolve one heaping tablespoon in 8 ounces of water or juice - one dose per day as needed for severe constipation 1 Bottle 2 08/06/2013 Active Blood Glucose Monitoring Suppl ([employer]r ULTRA MINI) w/Device KIT Use as directed [...] Tablet 3 01/27/2022 Active UltiCare Mini Pen [place] 31G X 6 MM (Insulin Pen Needle)Indications:T ype 2 diabetes mellitus with hemoglobin A1c goal of 7.0%-8.0% (HCC) USE DIRECTED ONCE DAILY 100 Each 3 02/11/2022 Active Cherry Blossom BakeryTouch UltraSoft LancetsIndications:T ype 2 diabetes mellitus with hemoglobin A1c goal of less than 7.0% (HCC) USE ONCE PER DAY DIRECTED 100 Each 4 02/11/2022 Active BioMimetic Therapeuticsuch Ultra In Vitro Strip (Glucose Blood) TESTS [...] 1 Tablet before bedtime. 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 States that Rachael would not come to office, She states that she didn't have a doctors appointment, and she does not remember our interaction from yesterday afternoon. Provided a print out of Message from Dr. Goff regarding the insulin increase as a visual aid for Rachael. MRI of brain scheduled for tomorrow, Portillo concerned that she will refuse. Encouraged Portillo to make an appointment with his PCP to discuss his anxiety regarding his Mom's current situation. Also informed Portillo I would Pend a refill of buspar to Dr. Goff. * Telephone Encounter - Lizbet Verma RN - 11/03/2022 4:16 PM EDT Called to front end specialist to assist Rahcael and her son Portillo with questions regarding new insulin orders. New order was for 5 units of lantus insulin daily up from previously ordered 4. Patient understood this to mean injecting 4 units 5 times a day. Patient alert, confused when asked questions and unsure of how many injections she had given herself today. Instructed Rachael and Portillo what proper order was. Rachael was unable to explain to me how she administers her insulin. Portillo also brought her glucometer in for instructions, however machine was not working. Instructed Portillo to bring Rachael back in the morning with all her insulin and testing supplies and we would go over them together. Also discussed what hypoglycemia looks like; sweating, shaking, increased confusion. Told Portillo to ensure that Rachael ate a good dinner and had a high carb snack before bed; cookies, pretzels, fruit. documented in this encounter Plan of Treatment Upcoming Encounters Date Type Specialty Care Team Description 11/05/2022 Imaging Radiology 02/14/2023 Office Visit Family Medicine [place] III, Mike Acosta MD [address] [place] [address] 12/01/2023 Office Visit Neurology Seng Camarillo, DO [address] [place] [address] Health Maintenance Due Date Last Done Comments [...] D LEVEL ONCE IN A LIFETIME-USE SMARTSET# [id number] Completed 10/31/2018, 12/26/2013, 11/09/2010 GARDASIL-HPV IMMUNIZATION SERIES Aged Out No longer eligible based on patient's age to complete this topic Hepatitis B Aged Out No longer eligi ble based on patient's age to complete this topic MENINGOCOCCAL (MENACTRA/MENVEO) Aged Out No longer eligible based on patient's age to complete this topic documented as of this encounter Medical Devices Implanted Type Area Welding Operator Device Identifier Shelf Expiration Date Model / Serial / Lot Lens 22.0 Sn60wf - [id number] Implanted:Qty: 1 on 07/19/2011 at [facility] Left: Eye [employer] 01/08/2016 SN60WF.220 / [id number] / Lens 20.0 Sn60wf - [id number] Implanted:Qty: 1 on 10/18/2011 at [facility] Right: Eye [employer] 05/10/2016 SN60WF.200 / [id number] / documented as of this encounter Care Teams Multicultural Manager Relationship Specialty Start Date End Date Mike Goff III, MD [address] [place] [address] PCP - General Family Medicine 12/19/17 documented as of this encounter
--- OUTSIDE RECORDS SUMMARY | 2023-03-07 17:13 | External Medical Summary | Summary of Care ---
Author Name Unknown Organization [facility] Address [address] [place] [address] Phone [phone] Care Team Providers Care Head End Desizing Machine Operator Name Role Phone Shell LESLIE MD, Mike Acosta Primary Care Provider [phone] Reason for Visit * Reason Onset Date Comments Test Results 11/11/2022 Encounter Details Date Type Department Care Team Description 11/11/2022 Telephone Family Practice [facility] [address] [place] [address] Mike Goff III, MD [address] [place] [address] Test Results Allergies Active Allergy Reactions Severity [...] as of this encounter (statuses as of 11/11/2022) Medications Medication Sig Dispensed Refills Start Date End Date Status CALCIUM 600-200 MG-UNIT PO TABS 1 TABLET DAILY twice a day 30 Tab 0 09/26/2012 Active MIRALAX PO POWDIndications:Cons tipation Dissolve one heaping tablespoon in 8 ounces of water or juice - one dose per day as needed for severe constipation 1 Bottle 2 08/06/2013 Active Blood Glucose Monitoring Suppl ([employer]ee[employer]in ULTRA MINI) w/Device KIT Use as directed [...] Tablet 3 01/27/2022 Active UltiCare Mini Pen [place] 31G X 6 MM (Insulin Pen Needle)Indications:T ype 2 diabetes mellitus with hemoglobin A1c goal of 7.0%-8.0% (HCC) USE DIRECTED ONCE DAILY 100 Each 3 02/11/2022 Active StepcaseTouch UltraSoft LancetsIndications:T ype 2 diabetes mellitus with hemoglobin A1c goal of less than 7.0% (HCC) USE ONCE PER DAY DIRECTED 100 Each 4 02/11/2022 Active TyraTechuch Ultra In Vitro Strip (Glucose Blood) TESTS [...] as of this encounter (statuses as of 11/11/2022) Active Problems Problem Noted Date Type 2 diabetes mellitus wit h diabetic peripheral angiopathy without gangrene, with long-term current use of insulin 04/20/2022 Malnutrition 12/02/2021 FDC (current) use of insulin 03/22 Type 2 [...] as of this encounter (statuses as of 11/11/2022) Resolved Problems Problem Noted Date Resolved Date [...] as of this encounter (statuses as of 11/11/2022) Immunizations Name Administration Dates Next Due COVID-19 mRNA, LNP-s, No Pre serve, 2-Dose Series ([employer]) 03/29/2021,07/09/2020,06/18/2020 COVID-19, LNP-s, No Preserve , Júnior-sucrose, [...] encounter Miscellaneous Notes * Telephone Encounter - Maria Fernanda Garduno LPN - 11/11/2022 1:28 PM EDT Provider to address: Mike Goff III, MD Reason for Call: Test Results Contact: Telephone Call Contact Type: Information Outcome: Patient is aware and verbalizes understanding. Total Time including non face to face (minutes): 5 * Telephone Encounter - AHSAN Arora - 11/11/2022 1:25 PM EDT Reason for patient's call: Pt is calling in regards to speaking to a nurse about her mri results. Caller was transferred to Maria Fernanda at the nurse line. documented in this encounter Plan of Treatment Upcoming Encounters Date Type Specialty Care Team Description 12/26/2022 Office Visit Urology Gautam Mendez MD [address] [place] [address] 02/14/2023 Office Visit Family Medicine Mike Goff III, MD [address] [place] [address] 12/01/2023 Office Visit Neurology Seng Camarillo DO [address] [place] [address] Health Maintenance Due Date Last [...] D LEVEL ONCE IN A LIFETIME-USE SMARTSET# [id number] Completed 10/31/2018, 12/26/2013, 11/09/2010 GARDASIL-HPV IMMUNIZATION SERIES Aged Out No longer eligible based on patient's age to complete this topic Hepatitis B Aged Out No longer eligi ble based on patient's age to complete this topic MENINGOCOCCAL (MENACTRA/MENVEO) Aged Out No longer eligible based on patient's age to complete this topic documented as of this encounter Medical Devices Implanted Type Area Pediatric Oncologist Device Identifier Shelf Expiration Date Model / Serial / Lot Lens 22.0 Sn60wf - [id number] Implanted:Qty: 1 on 07/19/2011 at [facility] Left: Eye [employer] 01/08/2016 SN60WF.220 / [id number] / Lens 20.0 Sn60wf - [id number] Implanted:Qty: 1 on 10/18/2011 at [facility] Right: Eye [employer] 05/10/2016 SN60WF.200 / [id number] / documented as of this encounter Care Teams Head End Desizing Machine Operator Relationship Specialty Start Date End Date Mike Goff III, MD [address] [place] [address] PCP - General Family Medicine 12/19/17 documented as of this encounter
--- OUTSIDE RECORDS SUMMARY | 2023-03-07 17:13 | External Medical Summary | Summary of Care ---
Author Name Unknown Organization [facility] Address [address] [place] [address] Phone [phone] Care Team Providers Care Record Producer Name Role Phone Shell LESLIE MD, Mike Acosta Primary Care Provider [phone] Reason for Visit * Reason Onset Date Comments Appointment 10/27/2022 Encounter Details Date Type Department Care Team Description 10/27/2022 Telephone Neurology [facility] [address] [place], [place] [id number] Services, Scheduling [address] [place] [address] Appointment Allergies Active Allergy Reactions Severity Noted [...] 2 08/06/2013 Active Blood Glucose Monitoring Suppl (MADSTOUCH ULTRA MINI) w/Device KIT Use as directed [...] Tablet 3 01/27/2022 Active UltiCare Mini Pen [place] 31G X 6 MM (Insulin Pen Needle)Indications: Type 2 diabetes mellitus with hemoglobin A1c goal of 7.0%-8.0% (HCC) USE DIRECTED ONCE DAILY 100 Each 3 02/11/2022 Active Rogers Geotechnical ServicesTouch UltraSoft LancetsIndications: Type 2 diabetes mellitus with hemoglobin A1c goal of less than 7.0% (HCC) USE ONCE PER DAY DIRECTED 100 Each 4 02/11/2022 Active Rogers Geotechnical ServicesTouch Ultra In Vitro Strip (Glucose Blood) TESTS [...] Notes * Telephone Encounter - Maria Fernanda Olivia, AHSAN - 11/15/2022 1:25 PM EDT Please call pt daughter regarding appt below she just wants to confirm appt on 11/21 mary [phone] * Telephone Encounter - Juanita Deng, AHSAN - 10/31/2022 10:32 AM EDT Spoke to daughter and she's aware of appt 11-21 at 1 pm * Telephone Encounter - Juanita Deng, AHSAN - 10/28/2022 10:28 AM EDT I am [...] Visit Urology Gautam Mendez MD [address] [facility] [place] [address] 02/14/2023 Office Visit Family Medicine Shell III, Mike Acosta MD [address] [place] [address] 12/01/2023 Office Visit Neurology Rabia, Seng Azevedo, DO [address] [facility] [place] [address] Health Maintenance Due Date Last Done Comments [...] D LEVEL ONCE IN A LIFETIME-USE SMARTSET# [id number] Completed 10/31/2018, 12/26/2013, 11/09/2010 GARDASIL-HPV IMMUNIZATION SERIES Aged Out No longer eligible based on patient's age to complete this topic Hepatitis B Aged Out No longer eligi ble based on patient's age to complete this topic MENINGOCOCCAL (MENACTRA/MENVEO) Aged Out No longer eligible based on patient's age to complete this topic documented as of this encounter Medical Devices Implanted Type Area Tours Hostess Device Identifier Shelf Expiration Date Model / Serial / Lot Lens 22.0 Sn60w - [id number] Implanted:Qty: 1 on 07/19/2011 at [facility] Left: Eye [employer] 01/08/2016 SN60WF.220 / [id number] / Lens 20.0 Sn60w - [id number] Implanted:Qty: 1 on 10/18/2011 at [facility] Right: Eye [employer] 05/10/2016 SN60WF.200 / [id number] / documented as of this encounter Care Teams Record Producer Relationship Specialty Start Date End Date Mike Goff III, MD [address] [place] [address] PCP - General Family Medicine 12/19/17 documented as of this encounter
--- OUTSIDE RECORDS SUMMARY | 2023-03-07 17:13 | External Medical Summary | Summary of Care ---
Author Name Unknown Organization [facility] Address [address] [place] [address] Phone [phone] Care Team Providers Care Mud Jack Nozzle Worker Name Role Phone Shell LESLIE MD, Mike Acosta Primary Care Provider [phone] Reason for Visit * Reason Onset Date Comments Order Request 11/07/2022 Encounter Details Date Type Department Care Team Description 11/07/2022 Loading Manager Telephone Family Practice [facility] [address] [place] [address] Olamide Gomes, JAZZY Order Request Allergies Active Allergy Reactions Severity Noted Date [...] as of this encounter (statuses as of 11/09/2022) Medications Medication Sig Dispensed Refills Start Date End Date Status CALCIUM 600-200 MG-UNIT PO TABS 1 TABLET DAILY twice a day 30 Tab 0 09/26/2012 Active MIRALAX PO POWDIndications:Con stipation Dissolve one heaping tablespoon in 8 ounces of water or juice - one dose per day as needed for severe constipation 1 Bottle 2 08/06/2013 Active Blood Glucose Monitoring Suppl (Rewind MeTOUCH ULTRA MINI) w/Device KIT Use as directed [...] Tablet 3 01/27/2022 Active UltiCare Mini Pen [place] 31G X 6 MM (Insulin Pen Needle)Indications: Type 2 diabetes mellitus with hemoglobin A1c goal of 7.0%-8.0% (HCC) USE DIRECTED ONCE DAILY 100 Each 3 02/11/2022 Active ScreenmailerTouch UltraSoft LancetsIndications: Type 2 diabetes mellitus with hemoglobin A1c goal of less than 7.0% (HCC) USE ONCE PER DAY DIRECTED 100 Each 4 02/11/2022 Active ScreenmailerTouch Ultra In Vitro Strip (Glucose Blood) TESTS [...] Tablet before bedtime. 20 Tablet 0 11/04/2022 11/08/19 23 Discontinu ed(Refill) documented as of this encounter (statuses as of 11/09/2022) Active Problems Problem Noted Date Type 2 diabetes mellitus wit h diabetic peripheral angiopathy without gangrene, with long-term current use of insulin 04/20/2022 Malnutrition 12/02/2021 print producer (current) use of insulin 03/22 Type 2 [...] as of this encounter (statuses as of 11/09/2022) Resolved Problems Problem Noted Date Resolved Date [...] as of this encounter (statuses as of 11/09/2022) Immunizations Name Administration Dates Next Due COVID-19 mRNA, LNP-s, No Pre serve, 2-Dose Series ([employer]view) 03/29/2021,07/09/2020,06/18/2020 COVID-19, LNP-s, No Preserve , Júnior-sucrose, [...] encounter Miscellaneous Notes * Telephone Encounter - Olamide Gomes RN - 11/07/2022 9:01 AM EDT SITUATION: CM placed call for GURVINDER follow up BACKGROUND: Pt admitted for changes in mental status/worsening dementia. ASSESSMENT: CM spoke with pt's son. Son reports that pt is doing "okay." He thinks that the buspar that Dr. Gfof started pt on is helping and would like to know if this can be reordered. Portillo statesthat his brothers have been helping some. Pt remains paranoid, but this has been better this past week. RECOMMENDATION: Please reorder Buspar if you are in agreement. Can we order a full month at this time? Thank you, Olamide Gomes RN Family Practice [address] [address] documented in this encounter Plan of Treatment Upcoming Encounters Date Type Specialty Care Team Description 12/26/2022 Office Visit Urology Gautam Mendez MD [address] [place] [address] 02/14/2023 Office Visit Family Medicine Mike Goff III, MD [address] [facility] [address] 12/01/2023 Office Visit Neurology Seng Camarillo DO [address] [place], [place] [phone] Health Maintenance Due Date Last Done Comments [...] D LEVEL ONCE IN A LIFETIME-USE SMARTSET# [id number] Completed 10/31/2018, 12/26/2013, 11/09/2010 GARDASIL-HPV IMMUNIZATION SERIES Aged Out No longer eligible based on patient's age to complete this topic Hepatitis B Aged Out No longer eligi ble based on patient's age to complete this topic MENINGOCOCCAL (MENACTRA/MENVEO) Aged Out No longer eligible based on patient's age to complete this topic documented as of this encounter Medical Devices Implanted Type Area Manager Nc Device Identifier Shelf Expiration Date Model / Serial / Lot Lens 22.0 Sn60wf - [id number] Implanted:Qty: 1 on 07/19/2011 at [facility] Left: Eye [employer] 01/08/2016 SN60WF.220 / [id number] / Lens 20.0 Sn60wf - [id number] Implanted:Qty: 1 on 10/18/2011 at [facility] Right: Eye [employer] 05/10/2016 SN60WF.200 / [id number] / documented as of this encounter Visit Diagnoses Diagnosis Medical home patient encounter- Primary Other specified examination documented in this encounter Care Teams Mud Jack Nozzle Worker Relationship Specialty Start Date End Date Mike Goff III, MD [address] [place] [address], [place] [address] PCP - General Family Medicine 12/19/17 documented as of this encounter
--- OUTSIDE RECORDS SUMMARY | 2023-03-07 17:13 | External Medical Summary | Summary of Care ---
Author Name Unknown Organization [facility] Address [address] [place] [address] Phone [phone] Care Team Providers Care Delinquent Account Clerk Name Role Phone Shell LESLIE MD, Mike Acosta Primary Care Provider [phone] Reason for Referral * Evaluate & Treat - Unlimited Visits (Within 30 days (routine)) - Authorized Specialty Diagnoses / Procedures Referred By Madyson preston Referred To Contact Neurology Diagnoses Unspecified dementia, unspecified severity, without behavioral disturbance, psychotic disturbance, mood disturbance, and anxiety (HCC) Mike Goff III, MD [address] [place] [address] Referral ID Status Reason Start Date Expiration Date Visits Requested Visits Authorized [id number] Authorized Specialty Services Required 11/28/2022 999 999 Question Answer Referral Priority Within 30 days (routine) CAD NEUROLOGY REFERRAL QUESTIONS Memory/Cognition Reason for Visit * Reason Onset Date Comments Advice 11/25/2022 Encounter Details Date Type Department Care Team Description 11/25/2022 Telephone Family Practice [facility] [address] [place] [address] Mike Goff III, MD [address] [place] [address] Advice Allergies Active Allergy Reactions Severity Noted [...] as of this encounter (statuses as of 11/29/2022) Medications Medication Sig Dispensed Refills Start Date End Date Status CALCIUM 600-200 MG-UNIT PO TABS 1 TABLET DAILY twice a day 30 Tab 0 09/26/2012 Active MIRALAX PO POWDIndications:Con stipation Dissolve one heaping tablespoon in 8 ounces of water or juice - one dose per day as needed for severe constipation 1 Bottle 2 08/06/2013 Active Blood Glucose Monitoring Suppl ([employer] ULTRA MINI) w/Device KIT Use as directed [...] Tablet 3 01/27/2022 Active UltiCare Mini Pen [place] 31G X 6 MM (Insulin Pen Needle)Indications: Type 2 diabetes mellitus with hemoglobin A1c goal of 7.0%-8.0% ([facility]) USE DIRECTED ONCE DAILY 100 Each 3 02/11/2022 Active OneTouch UltraSoft LancetsIndications: Type 2 diabetes mellitus with hemoglobin A1c goal of less than 7.0% ([facility]) USE ONCE PER DAY DIRECTED 100 Each [...] A1c goal of less than 8.0% ([facility]) INJECT 4 UNITS UNDER THE SKIN ONCE [...] as of this encounter (statuses as of 11/29/2022) Active Problems Problem Noted Date Unspecified dementia, unspec ified severity, without behavioral disturbance, psychotic disturbance, mood disturbance, and anxiety 11/24/2022 Type 2 diabetes mellitus wit h diabetic peripheral angiopathy without gangrene, with long-term current use of insulin 04/20/2022 Malnutrition 12/02/2021 head rose grower (current) use of 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 * Telephone Encounter - Blanca Germain MED ASSIST - 11/25/2022 2:14 PM EDT Provider to address: Donepezil made her "deathly sick" Reason for Call: Advice Contact: Telephone Call Contact Type: Assessment Outcome: Called and spoke with [place]. She states that she took her Donepezil [...] Team Description 02/14/2023 Office Visit Family Medicine [place] III, Mike Acosta MD [address] [facility] [address] 07/04/2023 Office Visit Urology Josh Gonsales MD [address] [place] [address] [place] [address] Scheduled Referrals Name Type Priority Associated Diagnoses [...] D LEVEL ONCE IN A LIFETIME-USE SMARTSET# [id number] Completed 10/31/2018, 12/26/2013, 11/09/2010 GARDASIL-HPV IMMUNIZATION SERIES Aged Out No longer eligible based on patient's age to complete this topic Hepatitis B Aged Out No longer eligi ble based on patient's age to complete this topic MENINGOCOCCAL (MENACTRA/MENVEO) Aged Out No longer eligible based on patient's age to complete this topic documented as of this encounter Medical Devices Implanted Type Area Flight Operations Coordinator Device Identifier Shelf Expiration Date Model / Serial / Lot Lens 22.0 Sn60wf - [id number] Implanted:Qty: 1 on 07/19/2011 at [facility] Left: Eye [employer] 01/08/2016 SN60WF.220 / [id number] / Lens 20.0 Sn60wf - [id number] Implanted:Qty: 1 on 10/18/2011 at [facility] Right: Eye [employer] 05/10/2016 SN60WF.200 / [id number] / documented as of this encounter Visit Diagnoses Diagnosis Unspecified dementia, unspecified severity, without behavioral disturbance, psychotic disturbance, mood disturbance, and anxiety (HCC)- Primary documented in this encounter Care Teams Delinquent Account Clerk Relationship Specialty Start Date End Date Mike Goff III, MD 200 [place] [address] PCP - General Family Medicine 12/19/17 documented as of this encounter
--- OUTSIDE RECORDS SUMMARY | 2023-03-07 17:14 | External Medical Summary | Summary of Care ---
Author Name Unknown Organization [facility] Address [address] [place] [address] Phone [phone] Care Team Providers Care Leather Cutter Name Role Phone Shell LELSIE MD, Mike Acosta Primary Care Provider [phone] Reason for Visit * Reason Onset Date Comments Appointment 10/27/2022 Encounter Details Date Type Department Care Team Description 10/27/2022 Telephone Neurology [facility] [address] [place], [place] [address] Services, Scheduling [address] [place] [address] Appointment Allergies Active Allergy Reactions Severity Noted [...] as of this encounter (statuses as of 10/31/2022) Medications Medication Sig Dispensed Refills Start Date End Date Status CALCIUM 600-200 MG-UNIT PO TABS 1 TABLET DAILY twice a day 30 Tab 0 09/26/2012 Active MIRALAX PO POWDIndications:Cons tipation Dissolve one heaping tablespoon in 8 ounces of water or juice - one dose per day as needed for severe constipation 1 Bottle 2 08/06/2013 Active Blood Glucose Monitoring Suppl ([employer] Beer CaféTOUCH ULTRA MINI) w/Device KIT Use as directed [...] Tablet 3 01/27/2022 Active UltiCare Mini Pen [place] 31G X 6 MM (Insulin Pen Needle)Indications:T ype 2 diabetes mellitus with hemoglobin A1c goal of 7.0%-8.0% (HCC) USE DIRECTED ONCE DAILY 100 Each 3 02/11/2022 Active Surfbreak RentalsTouch UltraSoft LancetsIndications:T ype 2 diabetes mellitus with hemoglobin A1c goal of less than 7.0% (HCC) USE ONCE PER DAY DIRECTED 100 Each 4 02/11/2022 Active Surfbreak RentalsTouch Ultra In Vitro Strip (Glucose Blood) TESTS 4 TIMES A DAY. E11.9 400 Strip 3 03/14/2022 Active Clopidogrel Bisulfate 75 MG Oral Tablet (pLAVix) TAKE ONE TABLET BY MOUTH EVERY DAY IN THE MORNING 90 Tablet 3 07/29/2022 4 Active Levothyroxine Sodium 75 MCG Oral Tablet (Levoxyl)Indications :Acquired hypothyroidism TAKE 1 TABLET BY MOUTH DAILY AT LEAST 30 MINUTES PRIOR TO FIRST MEAL OF THE DAY OR OTHER MEDICATIONS 90 Tablet 3 12/20/2021 3 Active Lantus SoloStar 100 UNIT/ML Subcutaneous Solution Pen-injectorIndicati ons:Type 2 diabetes mellitus with hemoglobin A1c goal of less than 8.0% (HCC) INJECT 4 UNITS UNDER THE SKIN ONCE DAILY 15 mL 1 10/18/2022 4 Active documented as of this encounter (statuses as of 10/31/2022) Active Problems Problem Noted Date Type 2 diabetes mellitus wit h diabetic peripheral angiopathy without gangrene, with long-term current use of insulin 04/20/2022 Malnutrition 12/02/2021 detention (current) use of insulin 03/22 Type 2 [...] as of this encounter (statuses as of 10/31/2022) Resolved Problems Problem Noted Date Resolved Date [...] as of this encounter (statuses as of 10/31/2022) Immunizations Name Administration Dates Next Due COVID-19 [...] Notes * Telephone Encounter - AHSAN Richardson - 10/28/2022 10:28 AM EDT I am not sure what happened but I cannot do anything about that. Dr Camarillo any suggestions on getting pt in sooner? * Telephone Encounter - AHSAN Castaneda - 10/27/2022 2:03 PM EDT Pt's daughter, [...] Imaging Radiology 02/14/2023 Office Visit Family Medicine [place] III, Mike Acosta MD 200 [facility] [place] [address] 12/01/2023 Office Visit Neurology Seng Camarillo, DO [address] [place] [address] Health Maintenance Due Date Last Done Comments [...] D LEVEL ONCE IN A LIFETIME-USE SMARTSET# [id number] Completed 10/31/2018, 12/26/2013, 11/09/2010 GARDASIL-HPV IMMUNIZATION SERIES Aged Out No longer eligible based on patient's age to complete this topic Hepatitis B Aged Out No longer eligi ble based on patient's age to complete this topic MENINGOCOCCAL (MENACTRA/MENVEO) Aged Out No longer eligible based on patient's age to complete this topic documented as of this encounter Medical Devices Implanted Type Area Ehs Engineer Device Identifier Shelf Expiration Date Model / Serial / Lot Lens 22.0 Sn60wf - [id number] Implanted:Qty: 1 on 07/19/2011 at [facility] Left: Eye [employer] 01/08/2016 SN60WF.220 / [id number] / Lens 20.0 Sn60wf - [id number] Implanted:Qty: 1 on 10/18/2011 at [facility] Right: Eye [employer] 05/10/2016 SN60WF.200 / [id number] / documented as of this encounter Care Teams Leather Cutter Relationship Specialty Start Date End Date Mike Goff III, MD [address] [place] [address] PCP - General Family Medicine 12/19/17 documented as of this encounter
--- OUTSIDE RECORDS SUMMARY | 2023-03-07 17:14 | External Medical Summary | Summary of Care ---
Author Name Unknown Organization [facility] Address [address] [place] [address] Phone [phone] Care Team Providers Care Laboratory Courier Name Role Phone Shell LESLIE MD, Mike Acosta Primary Care Provider [phone] Reason for Referral * Evaluate & Treat - Unlimited Visits (Within 3 days (urgent)) - Authorized Specialty Diagnoses / Procedures Referred By Madyson preston Referred To Contact Manager Apple Diagnoses Confusion Mike Goff III, MD [address] [place] [address] [place] [address] Referral ID Status Reason Start Date Expiration Date Visits Requested Visits Authorized [id number] Authorized Specialty Services Required 10/26/2022 1 1 Question Answer Referral Priority Within 3 days (urgent) Program Type Case Management Complex Case Management [facility] Device(s) Requested Other (See Comment) - post d/c IVR weekly x 4 Alarm Settings Standard per protocol Comments Post-Discharge Start date: 10/28/22 How many weeks: 4 If want time other than 9am, note time here: Reason for Visit * Reason Comments case management Encounter Details Date Type Department Care Team Description 10/26/2022 Manager AppleEntertainment & Media Correspondent Internal Medicine Angely [place] [address] [facility] [place] [address] Gabriella Sanders, RN [address] [place] [address] Medical home patient encounter*; Confusion Allergies Active Allergy Reactions Severity Noted Date [...] as of this encounter (statuses as of 10/26/2022) Medications Medication Sig Dispensed Refills Start Date End Date Status CALCIUM 600-200 MG-UNIT PO TABS 1 TABLET DAILY twice a day 30 Tab 0 09/26/2012 Active MIRALAX PO POWDIndications:Cons tipation Dissolve one heaping tablespoon in 8 ounces of water or juice - one dose per day as needed for severe constipation 1 Bottle 2 08/06/2013 Active Blood Glucose Monitoring Suppl (Intellicheck Mobilisa MINI) w/Device KIT Use as directed to [...] Tablet 3 01/27/2022 Active UltiCare Mini Pen [place] 31G X 6 MM (Insulin Pen Needle)Indications:T ype 2 diabetes mellitus with hemoglobin A1c goal of 7.0%-8.0% (HCC) USE DIRECTED ONCE DAILY 100 Each 3 02/11/2022 Active Radius AppTouch UltraSoft LancetsIndications:T ype 2 diabetes mellitus with [...] as of this encounter (statuses as of 10/26/2022) Active Problems Problem Noted Date Type 2 diabetes mellitus wit h diabetic peripheral angiopathy without gangrene, with long-term current use of insulin 04/20/2022 Malnutrition 12/02/2021 longterm (current) use of insulin 03/22 Type 2 [...] as of this encounter (statuses as of 10/26/2022) Resolved Problems Problem Noted Date Resolved Date [...] as of this encounter (statuses as of 10/26/2022) Immunizations Name Administration Dates Next Due COVID-19 mRNA, LNP-s, No Pre serve, 2-Dose Series (HistoPathway) 03/29/2021,07/09/2020,06/18/2020 COVID-19, LNP-s, No Preserve , Júnior-sucrose, [...] Progress Notes * Gabriella Sanders RN - 10/26/2022 11:33 AM EDT Manager Apple Progress Note: Date: 10/26/22 Assgned Patient Tier: 3 Connected with patient via telephone. Verified patient name/. Advised patient that call is beingrecorded for quality and training purposes. Assessment: Pt. noted the following: Recent hospitalization for changes in mental status/worsening dementia. Spoke with patient in follow up today and she is unable to recall why she was in the hospital. She is reporting that she is concerned about talking around her son, Portillo, who lives with her. States that he has been wearing the same clothes for six days and when she goes to get his basket of dirty clothes it is empty. States that she doesn't trust him and she knows something about him but cannot tell me over the phone. Deniesfeeling unsafe with son at present time. Reports that her other children are aware of what is goingon and that CM should contact son, Mike to discuss. CM will contact Mike as requested. CM notes that patient has been exhibiting worsening AMS over the last couple months per recent telephone encounters and office visits documented in Epic. Denies current urinary symptoms-no pain/burning/frequency/urgency/odor/blood noted in urine. Has been having worsening constipation recently-denies using her Mirilax. Reviewed recommended use and states she will try taking over next couple days and if no improvement she will notify PCP. Reports she did have a small bm today. FBS this morning was 132. Ambulating independently-denies any recent falls. Denies any pain today. Denies any LE swelling/edema. Doesn't drive-hasn't for 7 years-son Portillo transports to appointments but she does not trust him. Scheduled for follow up with PCP 10/28/22. Reviewed red flags: falls, urinary sxs, confusion/AMS. Advised to report any worsening symptoms to PCP. Will plan to follow up within one week. Did you receive an alert for an annual wellness visit? No Is this call for a hospital, long-term or rehab facility discharge to home? Yes [facility] 10/23-10/24 AMS Medication Reconciliation: Medication Reconciliation completed: yes Review of Current goals: Discussed the following patient-centered CM goals with the patient during this discussion: -Cognitive Impairment: Achieve successful management of cognitive impairment -Status: At Risk Worsening mental status over last few months. -Diabetes: Patient will successfully manage their diabetes -Status: At Risk Worsening HgA1C over last 3 months. Taking medications as prescribed. -Prevention: Prevent admission/readmission -Status: On Track Attending appointments as scheduled. Taking medications as prescribed. COPD Patient: No CHF Patient: NO CM Plan: Reviewed 3 Red Flags with patient. Advised to call CM with any of the following: Red Flag 1: urinary symtoms, Red Flag 2: worsening confusion/AMS or Red Flag 3: falls Remote Patient Monitoring: At this time, RPM not offered/considered for patient due to N/A. Plan for Future Contacts: Plan to follow up within 1 week to check progress on the following goals/needs as above. Planned contacts from the following parties will occur this week: PCP office visit as additional contacts per workflow. Advancement/Closure Plan: Advance patient to following higher tier. Will arrange the following advanced interventions if necessary: Acute appointment. Patient provided CM contact information and encouraged to call with any changes in condition. SNP Member? No PCP Notified of enrollment in CM/HM program: Yes Is Provider in agreement with POC? Yes Gabriella Sanders RN Outpatient Case Management documented in this encounter Plan of Treatment Upcoming Encounters Date Type Specialty Care Team Description 10/28/2022 Office Visit Family Medicine Moody III, Mike Acosta MD [address] [place] [address] 11/05/2022 Imaging Radiology 02/14/2023 Office Visit Family Medicine Mike Goff III, MD 200 [place] [address] 12/01/2023 Office Visit Neurology Seng Camarillo, DO [address] [place] [address] Scheduled Referrals Name Type Priority Associated Diagnoses Orde r Schedule REMOTE PATIENT MONITORING REFERRAL Referral Within 3 days (urgent) Confusion Ordered: 10/26/2022 Health Maintenance Due Date Last Done Comments [...] D LEVEL ONCE IN A LIFETIME-USE SMARTSET# [id number] Completed 10/31/2018, 12/26/2013, 11/09/2010 GARDASIL-HPV IMMUNIZATION SERIES Aged Out No longer eligible based on patient's age to complete this topic Hepatitis B Aged Out No longer eligi ble based on patient's age to complete this topic MENINGOCOCCAL (MENACTRA/MENVEO) Aged Out No longer eligible based on patient's age to complete this topic documented as of this encounter Medical Devices Implanted Type Area Cardiac Cath Technician Device Identifier Shelf Expiration Date Model / Serial / Lot Lens 22.0 Sn60wf - [id number] Implanted:Qty: 1 on 07/19/2011 at [facility] Left: Eye [employer] 01/08/2016 SN60WF.220 / [id number] / Lens 20.0 Sn60wf - [id number] Implanted:Qty: 1 on 10/18/2011 at [facility] Right: Eye [employer] 05/10/2016 SN60WF.200 / [id number] / documented as of this encounter Visit Diagnoses Diagnosis Medical home patient encounter- Primary Other specified examination Confusion Unspecified psychosis documented in this encounter Care Teams Laboratory Courier Relationship Specialty Start Date End Date Mike Goff III, MD [address] [place] [address] PCP - General Family Medicine 12/19/17 documented as of this encounter
--- OUTSIDE RECORDS SUMMARY | 2023-03-07 17:14 | External Medical Summary | Summary of Care ---
Author Name Unknown Organization [facility] Address [address] [place] [address] Phone [phone] Care Team Providers Care Asbestos Abatement Worker Name Role Phone Shell LESLIE MD, Mike Acosta Primary Care Provider [phone] Reason for Visit * Reason Onset Date Comments Appointment 10/27/2022 Encounter Details Date Type Department Care Team Description 10/27/2022 Telephone Neurology [facility] [address] [place], [place] [id number] Services, Scheduling [address] [place] [address] Appointment Allergies Active Allergy Reactions Severity Noted [...] as of this encounter (statuses as of 10/28/2022) Medications Medication Sig Dispensed Refills Start Date End Date Status CALCIUM 600-200 MG-UNIT PO TABS 1 TABLET DAILY twice a day 30 Tab 0 09/26/2012 Active MIRALAX PO POWDIndications:Cons tipation Dissolve one heaping tablespoon in 8 ounces of water or juice - one dose per day as needed for severe constipation 1 Bottle 2 08/06/2013 Active Blood Glucose Monitoring Suppl (TookitakiTOUCH ULTRA MINI) w/Device KIT Use as directed [...] Tablet 3 01/27/2022 Active UltiCare Mini Pen [place] 31G X 6 MM (Insulin Pen Needle)Indications:T ype 2 diabetes mellitus with hemoglobin A1c goal of 7.0%-8.0% (HCC) USE DIRECTED ONCE DAILY 100 Each 3 02/11/2022 Active MediSensTouch UltraSoft LancetsIndications:T ype 2 diabetes mellitus with hemoglobin A1c goal of less than 7.0% (HCC) USE ONCE PER DAY DIRECTED 100 Each 4 02/11/2022 Active MediSensTouch Ultra In Vitro Strip (Glucose Blood) TESTS [...] as of this encounter (statuses as of 10/28/2022) Active Problems Problem Noted Date Type 2 diabetes mellitus wit h diabetic peripheral angiopathy without gangrene, with long-term current use of insulin 04/20/2022 Malnutrition 12/02/2021 assisted (current) use of insulin 03/22 Type 2 [...] as of this encounter (statuses as of 10/28/2022) Resolved Problems Problem Noted Date Resolved Date [...] as of this encounter (statuses as of 10/28/2022) Immunizations Name Administration Dates Next Due COVID-19 [...] Imaging Radiology 02/14/2023 Office Visit Family Medicine [place] III, Mike Acosta MD 200 [facility] [place] [address] 12/01/2023 Office Visit Neurology Seng Camarillo, DO [address] [place] [address] Health Maintenance Due Date Last Done Comments [...] D LEVEL ONCE IN A LIFETIME-USE SMARTSET# [id number] Completed 10/31/2018, 12/26/2013, 11/09/2010 GARDASIL-HPV IMMUNIZATION SERIES Aged Out No longer eligible based on patient's age to complete this topic Hepatitis B Aged Out No longer eligi ble based on patient's age to complete this topic MENINGOCOCCAL (MENACTRA/MENVEO) Aged Out No longer eligible based on patient's age to complete this topic documented as of this encounter Medical Devices Implanted Type Area Mastic Man Device Identifier Shelf Expiration Date Model / Serial / Lot Lens 22.0 Sn60wf - [id number] Implanted:Qty: 1 on 07/19/2011 at [facility] Left: Eye [employer] 01/08/2016 SN60WF.220 / [id number] / Lens 20.0 Sn60wf - [id number] Implanted:Qty: 1 on 10/18/2011 at [facility] Right: Eye [employer] 05/10/2016 SN60WF.200 / [id number] / documented as of this encounter Care Teams Asbestos Abatement Worker Relationship Specialty Start Date End Date Mike Goff III, MD 200 [facility] [place] [address] PCP - General Family Medicine 12/19/17 documented as of this encounter
--- OUTSIDE RECORDS SUMMARY | 2023-03-07 17:14 | External Medical Summary | Summary of Care ---
Author Name Unknown Organization [facility] Address [address] [place] [address] Phone [phone] Care Team Providers Care Loss Prevention Investigator Name Role Phone Shell LESLIE MD, John E Primary Care Provider [phone] Reason for Visit * Reason Comments Medication Refill Encounter Details Date Type Department Care Team Description 11/03/[address] [facility] [address] [place] [address] Sherrie Richmond III, MD [address] [place] [address] Acquired hypothyroidism Allergies Active Allergy Reactions Severity [...] as of this encounter (statuses as of 11/03/2022) Medications Medication Sig Dispensed Refills Start Date End Date Status CALCIUM 600-200 MG-UNIT PO TABS 1 TABLET DAILY twice a day 30 Tab 0 09/26/2012 Active MIRALAX PO POWDIndications:Con stipation Dissolve one heaping tablespoon in 8 ounces of water or juice - one dose per day as needed for severe constipation 1 Bottle 2 08/06/2013 Active Blood Glucose Monitoring Suppl (Forerun ULTRA MINI) w/Device KIT Use as directed [...] Tablet 3 01/27/2022 Active UltiCare Mini Pen [place] 31G X 6 MM (Insulin Pen Needle)Indications: Type 2 diabetes mellitus with hemoglobin A1c goal of 7.0%-8.0% (HCC) USE DIRECTED ONCE DAILY 100 Each 3 02/11/2022 Active Dolphin Digital MediaTouch UltraSoft LancetsIndications: Type 2 diabetes mellitus with hemoglobin A1c goal of less than 7.0% (HCC) USE ONCE PER DAY DIRECTED 100 Each 4 02/11/2022 Active Dolphin Digital MediaTouch Ultra In Vitro Strip (Glucose Blood) TESTS 4 TIMES A DAY. E11.9 400 Strip 3 03/14/2022 Active Clopidogrel Bisulfate 75 MG Oral Tablet (pLAVix) TAKE ONE TABLET BY MOUTH EVERY DAY IN THE MORNING 90 Tablet 3 07/29/2022 07/29/19 24 Active Lantus SoloStar 100 UNIT/ML Subcutaneous Solution Pen-injectorIndicat ions:Type 2 diabetes mellitus with hemoglobin A1c goal of less than 8.0% ([facility]) INJECT 4 UNITS UNDER THE SKIN [...] OTHER MEDICATIONS 100 Tablet 3 11/03/2022 Active Levothyroxine Sodium 75 MCG Oral Tablet (Levoxyl)Indication s:Acquired hypothyroidism TAKE 1 TABLET BY MOUTH DAILY AT LEAST 30 MINUTES PRIOR TO FIRST MEAL OF THE DAY OR OTHER MEDICATIONS 90 Tablet 3 12/20/2021 11/04/19 23 Discontinu ed(Refill) documented as of this encounter (statuses as of 11/03/2022) Active Problems Problem Noted Date Type 2 diabetes mellitus wit h diabetic peripheral angiopathy without gangrene, with long-term current use of insulin 04/20/2022 Malnutrition 12/02/2021 retirement (current) use of insulin 03/22 Type 2 [...] as of this encounter (statuses as of 11/03/2022) Resolved Problems Problem Noted Date Resolved Date [...] sicca, non-Sjogren's 200606/20/2018 Senile nuclear cataract 10/16/2006 04/29/20 14 HYPOTHYROIDISM NOS 10/25/2004 12/17/2015 HX-SKIN MALIGNANCY [...] as of this encounter (statuses as of 11/03/2022) Immunizations Name Administration Dates Next Due COVID-19 mRNA, LNP-s, No Pre serve, 2-Dose Series (Stonestreet One) 03/29/2021,07/09/2020,06/18/2020 COVID-19, LNP-s, No Preserve , Júnior-sucrose, [...] encounter Miscellaneous Notes * Telephone Encounter - Henry Campos RPh - 11/03/2022 4:03 PM EDTSigned Prescriptions: Disp Refills Levothyroxine Sodium 75 MCG Oral Tablet (L*100 Ta*3 Sig: TAKE 1 TABLET BY MOUTH DAILY AT LEAST 30 MINUTES PRIOR TO FIRST MEAL OF THE DAY OR OTHER MEDICATIONSAuthorizing Provider: SHERRIE RICHMOND III User: HENRY CAMPOS documented in this encounter Plan of Treatment Upcoming Encounters Date Type Specialty Care Team Description 11/05/2022 Imaging Radiology 02/14/2023 Office Visit Family Medicine Sherrie Richmond III, MD [address] [place] [address] 12/01/2023 Office Visit Neurology Seng Camarillo, DO [address] [place] [address] Health Maintenance Due Date Last [...] D LEVEL ONCE IN A LIFETIME-USE SMARTSET# [id number] Completed 10/31/2018, 12/26/2013, 11/09/2010 GARDASIL-HPV IMMUNIZATION SERIES Aged Out No longer eligible based on patient's age to complete this topic Hepatitis B Aged Out No longer eligi ble based on patient's age to complete this topic MENINGOCOCCAL (MENACTRA/MENVEO) Aged Out No longer eligible based on patient's age to complete this topic documented as of this encounter Medical Devices Implanted Type Area Heel Edge Inker Machine Device Identifier Shelf Expiration Date Model / Serial / Lot Lens 22.0 Sn60wf - [id number] Implanted:Qty: 1 on 07/19/2011 at OR [facility] Left: Eye [employer] 01/08/2016 SN60WF.220 / [id number] / Lens 20.0 Sn60wf - [id number] Implanted:Qty: 1 on 10/18/2011 at [facility] Right: Eye [employer] 05/10/2016 SN60WF.200 / [id number] / documented as of this encounter Visit Diagnoses Diagnosis Acquired hypothyroidism Unspecified hypothyroidism documented in this encounter Care Teams Loss Prevention Investigator Relationship Specialty Start Date End Date Sherrie Richmond III, MD [address] [place] [address], [place] [address] PCP - General Family Medicine 12/19/17 documented as of this encounter
--- OUTSIDE RECORDS SUMMARY | 2023-03-07 17:14 | External Medical Summary | Summary of Care ---
Author Name Unknown Organization [facility] Address [address] [place] [address] Phone [phone] Care Team Providers Care [employer] Membership Advisors Name Role Phone Shell LESLIE MD, Mike Acosta Primary Care Provider [phone] Reason for Visit * Reason Onset Date Comments Hospital Follow-Up Hospital Follow-Up 10/28/2022 Encounter Details Date Type Department Care Team Description 10/28/2022 Office Visit Family Practice [facility] [address] [place] [address] Mike Goff III, MD 200 [place] [address] Memory difficulties*; Anxiety; Hospital discharge follow-up Allergies Active Allergy Reactions Severity Noted Date [...] 2 08/06/2013 Active Blood Glucose Monitoring Suppl (Intuitive Automata ULTRA MINI) w/Device KIT Use as directed [...] 3 01/27/2022 Active UltiCare Mini Pen [place] 31G X 6 MM (Insulin Pen Needle)Indications:T ype 2 diabetes mellitus with hemoglobin A1c goal of 7.0%-8.0% (HCC) USE DIRECTED ONCE DAILY 100 Each 3 02/11/2022 Active Moozey[employer] UltraSoft LancetsIndications:T ype 2 diabetes mellitus with hemoglobin A1c goal of less than 7.0% (HCC) USE ONCE PER DAY DIRECTED 100 Each 4 02/11/2022 Active Moozeyuch Ultra In Vitro Strip (Glucose Blood) TESTS [...] before bedtime. 20 Tablet 0 10/28/2022 Active documented as of this encounter (statuses [...] mRNA, LNP-s, No Pre serve, 2-Dose Series ([employer]) 03/29/2021,07/09/2020,06/18/2020 COVID-19, LNP-s, No Preserve , Júnior-sucrose, [...] Sign Reading Time Taken Comments Blood Pressure 124/72 10/28/2022 11:07 AM EDT Pulse 66 10/28/2022 11:07 AM EDT Temperature 36.2 C (97.2 F) 10/28/2022 11:07 AM E DT Respiratory Rate - - Oxygen Saturation 98% 10/28/2022 11:07 AM EDT Inhaled Oxygen Concentration - - Weight 50.6 kg (111 lb 9.6 oz) 10/28/2022 11:07 AM EDT Height - - Body Mass Index 19.31 10/21/2022 11:37 AM EDT documented in this encounter Progress Notes * Mike Goff III, MD - 10/28/2022 11:57 AM EDT Subjective: aRchael Wallis is a 87 year old female. Chief Complaint Patient presents with Hospital Follow-Up Hospital Follow-Up HPI: Hospital discharge follow-up memory difficulties anxiety discharge notes reviewed sudden liveswith her has been accused of stealing money feel she was discharged from the hospital earlier then she should have been MRI is scheduled for 8 days has neurology follow-up next month PMH: Patient Active Problem List Diagnosis Code ADVANCE DIRECTIVE INFORMATION Osteoporosis M81.0 Statin intolerance Z78.9 CAMILLE inhibitor intolerance Z78.9 Type 2 diabetes mellitus with hemoglobin A1c goal of less than 8.0% ([facility]) E11.9 Acquired hypothyroidism E03.9 Essential hypertension with goal blood pressure less than 140/90 I10 History of nonmelanoma skin cancer Z85.828 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 ([facility]) E11.3292 shelter (current) use of insulin ([facility]) Z79.4 Type 2 diabetes mellitus with diabetic polyneuropathy ([facility]) E11.42 History of CVA (cerebrovascular accident) Z86.73 Malnutrition ([facility]) E46 Type 2 diabetes mellitus with diabetic peripheral angiopathy without gangrene, with long-term current use of insulin ([facility]) E11.51, Z79.4 Current Outpatient Medications Medication Sig Dispense Refill CALCIUM 600-200 MG-UNIT PO TABS 1 TABLET DAILY twice a day 30 Tab 0 MIRALAX PO POWD Dissolve one heaping tablespoon in 8 ounces of water or juice - one dose per day as needed for severe constipation 1 Bottle 2 Blood Glucose Monitoring Suppl (Intuitive [employer]ata ULTRA MINI) w/Device KIT Use as directed [...] MINUTES 12 Tablet 3 UltiCare Mini Pen [place] 31G X 6 MM (Insulin Pen Needle) USE DIRECTED ONCE DAILY 100 Each 3 [employer] UltraSoft Lancets USE ONCE PER DAY DIRECTED 100 Each 4 [employer] Ultra In Vitro Strip (Glucose Blood) TESTS 4 TIMES A DAY. E11.9 400 Strip 3 Clopidogrel Bisulfate 75 MG Oral Tablet (pLAVix) TAKE ONE TABLET BY MOUTH EVERY DAY IN THE MORNING 90 Tablet 3 Levothyroxine Sodium 75 MCG Oral Tablet (Levoxyl) TAKE 1 TABLET BY MOUTH DAILY AT LEAST 30 MINUTES PRIOR TO FIRST MEAL OF THE DAY OR OTHER MEDICATIONS 90 Tablet 3 Lantus SoloStar 100 UNIT/ML Subcutaneous Solution Pen-injector INJECT 4 UNITS UNDER THE SKIN ONCE DAILY 15 mL 1 busPIRone HCl 5 MG Oral Tablet (Buspar) Take 1 Tablet by mouth in the morning and 1 Tablet before bedtime. 20 Tablet 0 No current facility-administered medications for this visit. 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 Background diabetic retinopathy(362.01) Cerebral infarction (HCC) 12/27/2013 ICD-10 update of inactive term DM type 2 causing eye disease (HCC) DM type 2, goal A1c below 7 Dyslipidemia, goal to be determined HTN, goal to be determined INFORMATION 06/2006 normal screening MAKI Osteoporosis Other malignant neoplasm of skin, site unspecified Basal Cell CA Personal history of allergy to other specified medicinal agents intolerance to statins and oterh chol meds Scarring of conjunctiva 11/24/2006 Uterine leiomyoma Past Surgical History: Procedure Laterality Date COLONOSCOPY, DIAGNOSTIC (RECTUM) 1993 For eval of heme+ stools - negative. COLONOSCOPY, GI REFERRAL OP 12/12 normal CREATION OF TEAR SAC DRAIN Left 08/01/2017 DACRYOCYSTORHINOSTOMY performed by Amol Lam DO at OR [facility] [address] DIABETIC EYE EXAM 07/03/06 Increased cataratous formation in left eye EXC LESION CONJUNCTIVA TO 1 CM 02/15/2010 EXCISION LESION CONJUNCTIVA UP TO 1 CM performed by FAUSTO GONSALES at OR [facility] MAMMOGRAM - BILATERAL 07/28/00 MAMMOGRAM - BILATERAL 09/12/08 birad 2 MAMMOGRAM DIAGNOSTIC UNILATERAL 10/15/09 left breast. birad 3, f/u 6 months. MAMMOGRAM DIAGNOSTIC UNILATERAL 04/28/10 left breast, birad code 1 MAMMOGRAM OUTSIDE PROCEDURE 09/12/2007 birad code 2 MAMMOGRAM SCREENING-BILATERAL 09/01/06 birad 2 MOHS SURGERY REFERRAL OP nose PAP SCREEN 09/08 REMOVE CATARACT, INSERT LENS PROSTH 07/19/2011 EXTRACAPSULAR CATARACT REMOVAL WITH INTRAOCULAR LENS performed by FAUSTO GONSALES at OR [facility] REMOVE CATARACT, INSERT LENS PROSTH 10/18/2011 EXTRACAPSULAR CATARACT REMOVAL WITH INTRAOCULAR LENS performed by Fausto Gonsales MD at OR [facility] SIGMOIDOSCOPY/REMOVE LESION, CAUTERY hyperplastic polyp Objective: The patient is a 87 year old female BP 124/72 | Pulse 66 | Temp 36.2 C (97.2 F) (Tympanic) | Wt 50.6 kg (111 lb 9.6 oz) | SpO2 98% | BMI 19.31 kg/m | BSA 1.51 m General: alert, healthy and no distress Eye Exam: PERRLA, extraocular movements intact, conjunctiva are pink and non- injected, sclera clear Oropharynx: no exudate, no erythema, lips, buccal mucosa, and tongue normal and mucous membranes are moist Heart: regular rate & rhythm, no murmur and no gallops Lungs: lungs clear to auscultation, no rhonchi rales rubs wheezes Extremities: no edema, no clubbing, no cyanosis ASSESSMENT: R41.3 Memory difficulties (primary encounter diagnosis) F41.9 Anxiety Z09 Hospital discharge follow-up PLAN: Trial of buspirone 5 mg twice daily had throat swelling reportedly with sertraline in the past await MRI neurology appointment discussed that patient's discharge was appropriate further testing and neurology appointment already pending no acute treatment indicated Follow up in 6 week(s). Mike Goff III, MD documented in this encounter Nursing Notes * Iliana Cruz LPN - 10/28/2022 11:04 AM EDT Rachael Wallis presents for hospital follow up. Medications & HM reviewed. documented in this encounter Plan of Treatment Upcoming Encounters Date Type Specialty Care Team Description 11/05/2022 Imaging Radiology 02/14/2023 Office Visit Family Medicine Mike Goff III, MD [address] [place] [id number] 12/01/2023 Office Visit Neurology Seng Camarillo, DO [address] [place] [address] Health Maintenance Due Date Last [...] D LEVEL ONCE IN A LIFETIME-USE SMARTSET# [id number] Completed 10/31/2018, 12/26/2013, 11/09/2010 GARDASIL-HPV IMMUNIZATION SERIES Aged Out No longer eligible based on patient's age to complete this topic Hepatitis B Aged Out No longer eligi ble based on patient's age to complete this topic MENINGOCOCCAL (MENACTRA/MENVEO) Aged Out No longer eligible based on patient's age to complete this topic documented as of this encounter Medical Devices Implanted Type Area Bed And Breakfast Cook Device Identifier Shelf Expiration Date Model / Serial / Lot Lens 22.0 Sn60wf - [id number] Implanted:Qty: 1 on 07/19/2011 at OR [facility] Left: Eye [employer] 01/08/2016 SN60WF.220 / [id number] / Lens 20.0 Sn60wf - [id number] Implanted:Qty: 1 on 10/18/2011 at OR [facility] Right: Eye [employer] 05/10/2016 SN60WF.200 / [id number] / documented as of this encounter Visit Diagnoses Diagnosis Memory difficulties- Primary Memory loss Anxiety Anxiety state, unspecified Hospital discharge follow-up Other follow-up examination documented in this encounter Care Teams Sports Health [employer] Membership Advisors Relationship Specialty Start Date End Date Mike Goff III, MD [address] [place] [address] PCP - General Family Medicine 12/19/17 documented as of this encounter"
--- OUTSIDE RECORDS SUMMARY | 2023-03-07 17:14 | External Medical Summary | Summary of Care ---
Author Name Unknown Organization [facility] Address [address] [place] [address] Phone [phone] Care Team Providers Care Duck Farmer Name Role Phone Shell LESLIE MD, Mike Acosta Primary Care Provider [phone] Reason for Visit * Reason Onset Date Comments Test Results Lab 10/27/2022 Encounter Details Date Type Department Care Team Description 10/27/2022 Telephone Family Practice [facility] 200 [facility] [place] [address] Mike Goff III, MD [address] [place] [address] Test Results Lab Allergies Active Allergy Reactions Severity Noted Date [...] 2 08/06/2013 Active Blood Glucose Monitoring Suppl ([employer] ULTRA MINI) w/Device KIT Use as directed [...] Tablet 3 01/27/2022 Active UltiCare Mini Pen [place] 31G X 6 MM (Insulin Pen Needle)Indications:T ype 2 diabetes mellitus with hemoglobin A1c goal of 7.0%-8.0% (HCC) USE DIRECTED ONCE DAILY 100 Each 3 02/11/2022 Active [employer] UltraSoft LancetsIndications:T ype 2 diabetes mellitus with hemoglobin A1c goal of less than 7.0% (HCC) USE ONCE PER DAY DIRECTED 100 Each 4 02/11/2022 Active [employer] Ultra In Vitro Strip (Glucose Blood) TESTS [...] mRNA, LNP-s, No Pre serve, 2-Dose Series ([employer]) 03/29/2021,07/09/2020,06/18/2020 COVID-19, LNP-s, No Preserve , Júnior-sucrose, [...] encounter Miscellaneous Notes * Telephone Encounter - DICKSON Khan - 10/27/2022 2:58 PM EDT Provider to address: Test results Reason for Call: No chief complaint on file. Contact: Telephone Call Contact Type: Test Results Outcome: Spoke with patient and advised her to increase her insulin to 5 units instead of 4 due to elevated a1c. Also let her know that keflex was sent for her UTI. Patient aware and verbalized understanding. Total Time including non face to face (minutes): 5 * Telephone Encounter - DICKSON Khan - 10/27/2022 2:58 PM EDT ----- Message from Mike Goff III, MD sent at 10/24/2022 2:17 PM EDT ----- Call please would have her take 5 units of insulin up from 4 A1c a little higher TSH B12 normal there is another message on her for urinary tract infections cephalexin sent to pharmacy documented in this encounter Plan of Treatment Upcoming Encounters Date Type Specialty Care Team Description 11/05/2022 Imaging Radiology 02/14/2023 Office Visit Family Medicine Mike Goff III, MD [address] [place] [address] 12/01/2023 Office Visit Neurology Seng Camarillo, DO [address] [place] [address] Health Maintenance Due Date Last [...] D LEVEL ONCE IN A LIFETIME-USE SMARTSET# [id number] Completed 10/31/2018, 12/26/2013, 11/09/2010 GARDASIL-HPV IMMUNIZATION SERIES Aged Out No longer eligible based on patient's age to complete this topic Hepatitis B Aged Out No longer eligi ble based on patient's age to complete this topic MENINGOCOCCAL (MENACTRA/MENVEO) Aged Out No longer eligible based on patient's age to complete this topic documented as of this encounter Medical Devices Implanted Type Area Sail Lay Out Worker Device Identifier Shelf Expiration Date Model / Serial / Lot Lens 22.0 Sn60wf - [id number] Implanted:Qty: 1 on 07/19/2011 at OR [facility] Left: Eye [employer] 01/08/2016 SN60WF.220 / [id number] / Lens 20.0 Sn60wf - [id number] Implanted:Qty: 1 on 10/18/2011 at OR [facility] Right: Eye [employer] 05/10/2016 SN60WF.200 / [id number] / documented as of this encounter Care Teams Duck Farmer Relationship Specialty Start Date End Date Mike Goff III, MD [address] [place] [address] PCP - General Family Medicine 12/19/17 documented as of this encounter
--- OUTSIDE RECORDS SUMMARY | 2023-03-07 17:14 | External Medical Summary | Summary of Care ---
Author Name Unknown Organization [facility] Address [address] [place] [address] Phone [phone] Care Team Providers Care Medical Director Name Role Phone Shell LESLIE MD, Mike Acosta Primary Care Provider [phone] Reason for Visit * Reason Onset Date Comments Appointment 10/27/2022 Encounter Details Date Type Department Care Team Description 10/27/[address] [facility] [address] [place], [place] [id number] Services, Scheduling [address] [place] [address] Appointment Allergies Active Allergy Reactions Severity Noted [...] 2 08/06/2013 Active Blood Glucose Monitoring Suppl (FamilonetTOUCH ULTRA MINI) w/Device KIT Use as directed [...] Tablet 3 01/27/2022 Active UltiCare Mini Pen [place] 31G X 6 MM (Insulin Pen Needle)Indications:T ype 2 diabetes mellitus with hemoglobin A1c goal of 7.0%-8.0% (HCC) USE DIRECTED ONCE DAILY 100 Each 3 02/11/2022 Active RiseTouch UltraSoft LancetsIndications:T ype 2 diabetes mellitus with hemoglobin A1c goal of less than 7.0% (HCC) USE ONCE PER DAY DIRECTED 100 Each 4 02/11/2022 Active RiseTouch Ultra In Vitro Strip (Glucose Blood) TESTS [...] * Telephone Encounter - AHSAN Richardson - 10/31/2022 10:32 AM EDT Spoke to daughter and she's aware of appt 8-14 at 1 pm * Telephone Encounter - [...] Imaging Radiology 02/14/2023 Office Visit Family Medicine Sanborn III, Mike Acosta MD [address] [place] [address] 12/01/2023 Office Visit Neurology Seng Camarillo, DO [address] [place] [address] Health Maintenance Due Date Last [...] D LEVEL ONCE IN A LIFETIME-USE SMARTSET# [id number] Completed 10/31/2018, 12/26/2013, 11/09/2010 GARDASIL-HPV IMMUNIZATION SERIES Aged Out No longer eligible based on patient's age to complete this topic Hepatitis B Aged Out No longer eligi ble based on patient's age to complete this topic MENINGOCOCCAL (MENACTRA/MENVEO) Aged Out No longer eligible based on patient's age to complete this topic documented as of this encounter Medical Devices Implanted Type Area Cardiac Nurse Practitioner Device Identifier Shelf Expiration Date Model / Serial / Lot Lens 22.0 Sn60wf - [id number] Implanted:Qty: 1 on 07/19/2011 at OR [facility] Left: Eye [employer] 01/08/2016 SN60WF.220 / [id number] / Lens 20.0 Sn60wf - [id number] Implanted:Qty: 1 on 10/18/2011 at OR [facility] Right: Eye [employer] 05/10/2016 SN60WF.200 / [id number] / documented as of this encounter Care Teams Medical Director Relationship Specialty Start Date End Date Mike Goff III, MD [address] [place] [address] PCP - General Family Medicine 12/19/17 documented as of this encounter
--- OUTSIDE RECORDS SUMMARY | 2023-03-07 17:14 | External Medical Summary | Summary of Care ---
Author Name Unknown Organization [facility] Address [address] [place] [address] Phone [phone] Care Team Providers Care Home Care Manager Rn Name Role Phone Shell LESLIE MD, Mike Acosta Primary Care Provider [phone] Reason for Visit * Reason Onset Date Comments Test Results Lab 10/27/2022 Encounter Details Date Type Department Care Team Description 10/27/2022 Telephone Family Practice [facility] 200 [facility] [place] [address] Mike Goff III, MD [address] [place] [address] Test Results Lab Allergies Active Allergy Reactions [...] as of this encounter (statuses as of 10/27/2022) Medications Medication Sig Dispensed Refills Start Date End Date Status CALCIUM 600-200 MG-UNIT PO TABS 1 TABLET DAILY twice a day 30 Tab 0 09/26/2012 Active MIRALAX PO POWDIndications:Cons tipation Dissolve one heaping tablespoon in 8 ounces of water or juice - one dose per day as needed for severe constipation 1 Bottle 2 08/06/2013 Active Blood Glucose Monitoring Suppl ([employer] ULTRA MINI) w/Device KIT Use as directed [...] Tablet 3 01/27/2022 Active UltiCare Mini Pen [place] 31G X 6 MM (Insulin Pen Needle)Indications:T ype 2 diabetes mellitus with hemoglobin A1c goal of 7.0%-8.0% (HCC) USE DIRECTED ONCE DAILY 100 Each 3 02/11/2022 Active [employer]iTechuch UltraSoft LancetsIndications:T ype 2 diabetes mellitus with hemoglobin A1c goal of less than 7.0% (HCC) USE ONCE PER DAY DIRECTED 100 Each 4 02/11/2022 Active [employer] Ultra In Vitro Strip (Glucose Blood) TESTS [...] as of this encounter (statuses as of 10/27/2022) Active Problems Problem Noted Date Type 2 diabetes mellitus wit h diabetic peripheral angiopathy without gangrene, with long-term current use of insulin 04/20/2022 Malnutrition 12/02/2021 jail (current) use of insulin 03/22 Type 2 [...] as of this encounter (statuses as of 10/27/2022) Resolved Problems Problem Noted Date Resolved Date [...] as of this encounter (statuses as of 10/27/2022) Immunizations Name Administration Dates Next Due COVID-19 mRNA, LNP-s, No Pre serve, 2-Dose Series (AXS-One) 03/29/2021,07/09/2020,06/18/2020 COVID-19, LNP-s, No Preserve , Júnior-sucrose, [...] Team Description 10/28/2022 Office Visit Family Medicine Mike Goff III, MD [address] [place] [address] 11/05/2022 Imaging Radiology 02/14/2023 Office Visit Family Medicine Mike Goff III, MD [address] [place] [address] 12/01/2023 Office Visit Neurology Seng Camarillo, DO [address] [place] [address] Health Maintenance Due Date Last Done Comments [...] D LEVEL ONCE IN A LIFETIME-USE SMARTSET# [id number] Completed 10/31/2018, 12/26/2013, 11/09/2010 GARDASIL-HPV IMMUNIZATION SERIES Aged Out No longer eligible based on patient's age to complete this topic Hepatitis B Aged Out No longer eligi ble based on patient's age to complete this topic MENINGOCOCCAL (MENACTRA/MENVEO) Aged Out No longer eligible based on patient's age to complete this topic documented as of this encounter Medical Devices Implanted Type Area Stepdown Nurse Device Identifier Shelf Expiration Date Model / Serial / Lot Lens 22.0 Sn60wf - [id number] Implanted:Qty: 1 on 07/19/2011 at OR [facility] Left: Eye [employer] 01/08/2016 SN60WF.220 / [id number] / Lens 20.0 Sn60wf - [id number] Implanted:Qty: 1 on 10/18/2011 at OR [facility] Right: Eye [employer] 05/10/2016 SN60WF.200 / [id number] / documented as of this encounter Care Teams Home Care Manager Rn Relationship Specialty Start Date End Date Mike Goff III, MD 200 [facility] [place] [address] PCP - General Family Medicine 12/19/17 documented as of this encounter
--- OUTSIDE RECORDS SUMMARY | 2023-03-07 17:15 | External Medical Summary ---
Author Name Unknown Address Unknown Organization [id number]:[facility] - [facility] [address] Laboratory Report Ordering Provider Test Date Status BASILIO BALDERAS III 10/21/2022 13:19:30 Final Observation Date Value Abnormality Reference (Units ) Status HbA1C 10/21/2022 13:19:30 7.7 Above high normal 4. 0-5.6 (%) Final The use of HbA1c to monitor glycemic status is based on normal hemoglobin and HbA composition. This test should not be used in patients with abnormal hemoglobin that affects the half life of the red blood cell or the in vivo glycation rates. Glucose, estimated average 10/21/2022 13:19:30 174 Above high normal <126 (mg/dL) Charles hankins Performing Location [facility] [address] [facility] [place] [address]
--- OUTSIDE RECORDS SUMMARY | 2023-03-07 17:15 | External Medical Summary | Summary of Care ---
Author Name Unknown Organization [facility] Address [address] [place] [address] Phone [phone] Care Team Providers Care Group Managing Director Name Role Phone Shell LESLIE MD, Mike Acosta Primary Care Provider [phone] Reason for Visit * Reason Comments Outpatient Testing Encounter Details Date Type Department Care Team Description 10/21/2022 Laboratory Laboratory Scenery [facility] [address] [place] [address] [facility] Lab Scenery [address] [place] [id number] Memory difficulties; Type 2 diabetes mellitus with hemoglobin A1c goal of less than 8.0% ([facility]) Allergies Active Allergy Reactions Severity Noted Date [...] as of this encounter (statuses as of 10/21/2022) Medications Medication Sig Dispensed Refills Start Date End Date Status CALCIUM 600-200 MG-UNIT PO TABS 1 TABLET DAILY twice a day 30 Tab 0 09/26/2012 Active MIRALAX PO POWDIndications:Cons tipation Dissolve one heaping tablespoon in 8 ounces of water or juice - one dose per day as needed for severe constipation 1 Bottle 2 08/06/2013 Active Blood Glucose Monitoring Suppl ([employer] ULTRA MINI) w/Device KIT Use as directed [...] Tablet 3 01/27/2022 Active UltiCare Mini [place] 31G X 6 MM (Insulin Pen Needle)Indications:T ype 2 diabetes mellitus with hemoglobin A1c goal of 7.0%-8.0% (HCC) USE DIRECTED ONCE DAILY 100 Each 3 02/11/2022 Active [employer] UltraSoft LancetsIndications:T ype 2 diabetes mellitus with hemoglobin A1c goal of less than 7.0% (HCC) USE ONCE PER DAY DIRECTED 100 Each 4 02/11/2022 Active [employer] Ultra In Vitro Strip (Glucose Blood) TESTS [...] as of this encounter (statuses as of 10/21/2022) Active Problems Problem Noted Date Type 2 [...] as of this encounter (statuses as of 10/21/2022) Resolved Problems Problem Noted Date Resolved Date [...] of inactive term Other allergic rhinitis 08/28/2000 10/25/20 15 Overview: ICD-10 update of inactive term [...] as of this encounter (statuses as of 10/21/2022) Immunizations Name Administration Dates Next Due COVID-19 [...] on file documented as of this encounter Plan of Treatment Upcoming Encounters Date Type Specialty Care Team Description 11/05/2022 Imaging Radiology 02/14/2023 Office Visit Family Medicine BriscoeMike lancaster III, MD [address] [place] [address] 12/01/2023 Office Visit Neurology Seng Camarillo, DO [address] [place] [address] Pending Results Name Type Priority Associated Diagnoses Date /Time ERYTHROCYTE SEDIMENTATION RATE (ESR) Lab Routine Memory difficulties 10/21/2022 1:19 PM EDT TSH WITH FREE T4 IF INDICATED Lab Routine Memory difficulties 10/21/2022 1:19 PM EDT VITAMIN B12 Lab Routine Memory difficulties 10/21/2022 1:19 PM EDT HEMOGLOBIN A1C Lab Routine Type 2 diabetes mellitus with hemoglobin A1c goal of less than 8.0% (HCC) 10/21/2022 1:19 PM EDT URINALYSIS WITH MICROSCOPIC EXAM Lab Routine Type 2 diabetes mellitus with hemoglobin A1c goal of less than 8.0% (HCC) 10/21/2022 1:25 PM EDT ALBUMIN / CREATININE RATIO, URINE Lab Routine Type 2 diabetes mellitus with hemoglobin A1c goal of less than 8.0% (HCC) 10/21/2022 1:25 PM EDT Health Maintenance Due Date Last Done Comments [...] 2022 02/11/2022, 01/09/2020, 12/27/2018, Additional history exists HbA1c 01/13/2023 07/14/2022, 04/10, 12/03/2021, Additional history exists DXA Scan 02/09/2023 02/09/2022, 09/09, 01/03/2012, Additional history exists Albumin/Creatinine Ratio 03/09/2023 022, 03/02/2021, 02/19/2020, Additional history exists TSH 04/20/2023 04/20/2022, 0604/2021, 08/28/2020, Additional history exists DTaP,Tdap,and Td Vaccines (4 - Td or Tdap) 10/11/2028 10/11/2018, 10/30/2016, 03/14/2014, Additional history exists Pneumococcal Vaccine: 65+ Years Completed 06/20/2018, 12/13/2005, 12/14/1999 VITAMIN D LEVEL ONCE IN A LIFETIME-USE SMARTSET# [id number] Completed 10/31/2018, 12/26/2013, 11/09/2010 GARDASIL-HPV IMMUNIZATION SERIES Aged Out No longer eligible based on patient's age to complete this topic Hepatitis B Aged Out No longer eligi ble based on patient's age to complete this topic MENINGOCOCCAL (MENACTRA/MENVEO) Aged Out No longer eligible based on patient's age to complete this topic documented as of this encounter Medical Devices Implanted Type Area Medical Billing Assistant Device Identifier Shelf Expiration Date Model / Serial / Lot Lens 22.0 Sn60wf - [id number] Implanted:Qty: 1 on 07/19/2011 at [facility] Left: Eye [employer] 01/08/2016 SN60WF.220 / [id number] / Lens 20.0 Sn60wf - [id number] Implanted:Qty: 1 on 10/18/2011 at [facility] Right: Eye [employer] 05/10/2016 SN60WF.200 / [id number] / documented as of this encounter Procedures Procedure Name Priority Date/Time Associated Diagnosis Comments DIFFERENTIAL, AUTOMATED Routine 10/21/2022 1:19 PM EDT Memory difficulties CBC WITH WBC DIFFERENTIAL Routine 10/21/2022 1:19 PM EDT Memory difficulties CBC Routine 10/21/2022 1:19 PM EDT Memory difficulties documented in this encounter Results * (ABNORMAL) DIFFERENTIAL, AUTOMATED (10/21/2022 1:19 PM EDT) WBC 4.86 4.00 - 10.80 K/uL 10/21/2022 1:25 PM EDT [facility] 56-02 Neutrophils % 74.5 40.0 - 75.0 % 10/21/2022 1:25 PM EDT [facility] 56-02 Lymphocytes % 14.0(L) 18.0 - 42.0 % 10/21/2022 1:25 PM EDT [facility] 56-02 Monocytes % 10.1 1.0 - 11.0 % 10/21/2022 1:25 PM EDT [facility] 56-02 Eosinophils % 0.8 0.0 - 6.0 % 10/21/2022 1:25 PM EDT [facility] 56-02 Basophils % 0.6 0.0 - 2.0 % 10/21/2022 1:25 PM EDT [facility] 56-02 Absolute Neutrophils 3.62 1.80 - 7.70 K/uL 10/21/2022 1:25 PM EDT [facility] 56-02 Absolute Lymphocytes 0.68(L) 1.00 - 4.80 K/ul 10/21/2022 1:25 PM EDT [facility] 56-02 Absolute Monocytes 0.49 0.00 - 1.10 K/uL 10/21/2022 1:25 PM EDT [facility] 56-02 Absolute Eosinophils 0.04 0.00 - 0.70 K/uL 10/21/2022 1:25 PM EDT [facility] 56-02 Absolute Basophils 0.03 0.00 - 0.20 K/uL 10/21/2022 1:25 PM EDT [facility] 56-02 Blood Venous blood specimen / Unknown Venipuncture / Unknown 10/21/2022 1:19 PM EDT 10/21/2022 1:20 PM EDT Mike Goff III, MD LAB BLOOD ORDERABLE S [facility] 56-02 [address] [place] [address] * CBC (10/21/2022 1:19 PM EDT) WBC 4.86 4.00 - 10.80 K/uL 10/21/2022 1:25 PM EDT [facility] 56- RBC 4.34 3.85 - 5.15 M/uL 10/21/2022 1:25 PM EDT [facility] 56 HGB 14.1 12.0 - 15.3 g/dL 10/21/2022 1:25 PM EDT [facility] 56 HCT 41.3 36.0 - 45.2 % 10/21/2022 1:25 PM EDT [facility] 56 MCV 95.2 81.5 - 97.5 fL 10/21/2022 1:25 PM EDT [address] MCH 32.5 27.0 - 34.0 pg 10/21/2022 1:25 PM EDT [address] MCHC 34.1 32.0 - 36.0 g/dL 10/21/2022 1:25 PM EDT [address] RDW 12.9 11.5 - 15.5 % 10/21/2022 1:25 PM EDT [facility] 56 PLT 305 140 - 400 K/uL 10/21/2022 1:25 PM EDT [facility] 56 MPV 8.7 6.6 - 11.1 fL 10/21/2022 1:25 PM EDT [facility] 56 Blood Venous blood specimen / Unknown Venipuncture / Unknown 10/21/2022 1:19 PM EDT 10/21/2022 1:20 PM EDT Mike Goff III, MD LAB BLOOD ORDERABLE S [facility] 56 [address] [place] [address] documented in this encounter Visit Diagnoses Diagnosis Memory difficulties Memory loss Type 2 diabetes mellitus with hemoglobin A1c goal of less than 8.0% (HCC) documented in this encounter Care Teams Group Managing Director Relationship Specialty Start Date End Date Shell Mike LESLIE MD [address] [place] [address] PCP - General Family Medicine 12/19/17 documented as of this encounter
--- OUTSIDE RECORDS SUMMARY | 2023-03-07 17:15 | External Medical Summary ---
Author Name Unknown Address Unknown Organization K09:[facility] [place] [address] Laboratory Report Ordering Provider Test Date Status BASILIO BALDERAS III 10/21/2022 13:19:30 Final Observation Date Value Abnormality Reference (Units ) Status WBC, Total 10/21/2022 13:19:30 4.86 4.00-10.8 0 (K/uL) Final RBC 10/21/2022 13:19:30 4.34 3.85-5.15 (M/uL) Final Hemoglobin 10/21/2022 13:19:30 14.1 12.0-15.3 (g/dL) Final HCT 10/21/2022 13:19:30 41.3 36.0-45.2 (%) Final MCV 10/21/2022 13:19:30 95.2 81.5-97.5 (fL) Final MCH 10/21/2022 13:19:30 32.5 27.0-34.0 (pg) Final MCHC 10/21/2022 13:19:30 34.1 32.0-36.0 (g/dL) Final RDW 10/21/2022 13:19:30 12.9 11.5-15.5 (%) Final Platelets 10/21/2022 13:19:30 305 140-400 (K /uL) Final MPV 10/21/2022 13:19:30 8.7 6.6-11.1 ( fL) Final Performing Location [facility] [place] [address]
--- OUTSIDE RECORDS SUMMARY | 2023-03-07 17:15 | External Medical Summary ---
Author Name Unknown Address Unknown Organization K09:[facility] [address] Laboratory Report Ordering Provider Test Date Status BASILIO BALDERAS III 10/21/2022 13:19:30 Final Observation Date Value Abnormality Reference (Units ) Status SYNC LEUKOCYTES IN BLOOD BY AUTOMATED COUNT 10/21/2022 13:19:30 4.86 4.00-10.80 (K/uL) Final Segs 10/21/2022 13:19:30 74.5 40.0-75.0 (%) Final Lymphs % 10/21/2022 13:19:30 14.0 Below low normal 18.0-42.0 (%) Final Monos 10/21/2022 13:19:30 10.1 1.0-11.0 (%) Final Eosinophils 10/21/2022 13:19:30 0.8 0.0-6.0 (%) Final Basos 10/21/2022 13:19:30 0.6 0.0-2.0 (%) Final Absolute Segs 10/21/2022 13:19:30 3.62 1.80-7.70 (K/uL) Final Lymphs, absolute 10/21/2022 13:19:30 0.68 Below low normal 1.00-4.80 (K/ul) Final Monos, Abs 10/21/2022 13:19:30 0.49 0.00-1.10 (K/uL) Final Eos, Abs 10/21/2022 13:19:30 0.04 0.00-0.70 (K/uL) Final Basos, Abs 10/21/2022 13:19:30 0.03 0.00-0.20 (K/uL) Final Performing Location [facility] [address]
--- OUTSIDE RECORDS SUMMARY | 2023-03-07 17:15 | External Medical Summary | Summary of Care ---
Author Name Unknown Organization [facility] Address [address] [place] [place] [address] Phone [phone] Care Team Providers Care Applications Project Manager Name Role Phone Shell LESLIE MD, Mike Acosta Primary Care Provider [phone] Reason for Visit * Reason Onset Date Comments Advice 10/17/2022 Encounter Details Date Type Department Care Team Description 10/17/2022 Telephone Family Practice [facility] [address] [facility] [place] [address] Mike Goff III, MD [address] [facility] [place] [address] Advice Allergies Active Allergy Reactions Severity Noted [...] as of this encounter (statuses as of 10/20/2022) Medications Medication Sig Dispensed Refills Start Date End Date Status CALCIUM 600-200 MG-UNIT PO TABS 1 TABLET DAILY twice a day 30 Tab 0 09/26/2012 Active MIRALAX PO POWDIndications:Con stipation Dissolve one heaping tablespoon in 8 ounces of water or juice - one dose per day as needed for severe constipation 1 Bottle 2 08/06/2013 Active Blood Glucose Monitoring Suppl ([employer] ULTRA MINI) w/Device KIT Use as directed [...] Tablet 3 01/27/2022 Active UltiCare Mini Pen [place] 31G X 6 MM (Insulin Pen Needle)Indications: Type 2 diabetes mellitus with hemoglobin A1c goal of 7.0%-8.0% (HCC) USE DIRECTED ONCE DAILY 100 Each 3 02/11/2022 Active [employer] UltraSoft LancetsIndications: Type 2 diabetes mellitus with hemoglobin A1c goal of less than 7.0% (HCC) USE ONCE PER DAY DIRECTED 100 Each 4 02/11/2022 Active [employer] Ultra In Vitro Strip (Glucose Blood) TESTS [...] THE SKIN ONCE DAILY 15 mL 1 05/13/2022 3 Discontinu ed(Refill) documented as of this encounter (statuses as of 10/20/2022) Active Problems Problem Noted Date Type 2 diabetes mellitus wit h diabetic peripheral angiopathy without gangrene, with long-term current use of insulin 04/20/2022 Malnutrition 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 Pt Daughter also states Pt Mother is under the impression that she has some kind of illness that states she could at any time and Mary would like to discuss this with PCP if possible. Please advise: [phone] * Telephone Encounter - Iliana Allison - 10/17/2022 8:31 AM EDT Pt son stopped by wants to speak with PCP about Mom's Dementia. Son stated is not speaking with Mom at this time.. Stated has power of mergers and acquisitions attorney. Advised with out signed release on file can not discuss medical information. Son advised will contact sister. Can contact pt son at [phone] for follow up documented in this encounter Plan of Treatment Upcoming Encounters Date Type Specialty Care Team Description 10/21/2022 Office Visit Family Medicine Shell III, Mike Acosta MD [address] [place] [address], [place] [address] Health Maintenance Due Date Last Done Comments [...] D LEVEL ONCE IN A LIFETIME-USE SMARTSET# [id number] Completed 10/31/2018, 12/26/2013, 11/09/2010 GARDASIL-HPV IMMUNIZATION SERIES Aged Out No longer eligible based on patient's age to complete this topic Hepatitis B Aged Out No longer eligi ble based on patient's age to complete this topic MENINGOCOCCAL (MENACTRA/MENVEO) Aged Out No longer eligible based on patient's age to complete this topic documented as of this encounter Medical Devices Implanted Type Area Radiology Aide Device Identifier Shelf Expiration Date Model / Serial / Lot Lens 22.0 Sn60wf - [id number] Implanted:Qty: 1 on 07/19/2011 at [facility] Left: Eye [employer] 01/08/2016 SN60WF.220 / [id number] / Lens 20.0 Sn60wf - [id number] Implanted:Qty: 1 on 10/18/2011 at [facility] Right: Eye [employer] 05/10/2016 SN60WF.200 / [id number] / documented as of this encounter Care Teams Applications Project Manager Relationship Specialty Start Date End Date Shell III, Mike Acosta MD [address] [place] [address], [place] [address] PCP - General Family Medicine 12/19/17 documented as of this encounter
--- OUTSIDE RECORDS SUMMARY | 2023-03-07 17:15 | External Medical Summary | Summary of Care ---
Author Name Unknown Organization [facility] Address [address] [place] [facility] [place] [place] [address] Phone [phone] Care Team Providers Care Cup Setter Lockstitch Name Role Phone Shell LESLIE MD, Mike Acosta Primary Care Provider [phone] Reason for Visit * Reason Onset Date Comments Advice 10/17/2022 Encounter Details Date Type Department Care Team Description 10/17/2022 Telephone Family Practice [facility] [address] [facility] [place] [address] Mike Goff III, MD [address] [facility] [place] [address] Advice Allergies Active Allergy Reactions Severity Noted [...] as of this encounter (statuses as of 10/19/2022) Medications Medication Sig Dispensed Refills Start Date End Date Status CALCIUM 600-200 MG-UNIT PO TABS 1 TABLET DAILY twice a day 30 Tab 0 09/26/2012 Active MIRALAX PO POWDIndications:Con stipation Dissolve one heaping tablespoon in 8 ounces of water or juice - one dose per day as needed for severe constipation 1 Bottle 2 08/06/2013 Active Blood Glucose Monitoring Suppl ([employer] ULTRA MINI) w/Device KIT Use as directed [...] Tablet 3 01/27/2022 Active UltiCare Mini Pen [place] 31G X 6 MM (Insulin Pen Needle)Indications: Type 2 diabetes mellitus with hemoglobin A1c goal of 7.0%-8.0% (HCC) USE DIRECTED ONCE DAILY 100 Each 3 02/11/2022 Active [employer] UltraSoft LancetsIndications: Type 2 diabetes mellitus with hemoglobin A1c goal of less than 7.0% (HCC) USE ONCE PER DAY DIRECTED 100 Each 4 02/11/2022 Active [employer] Ultra In Vitro Strip (Glucose Blood) TESTS [...] as of this encounter (statuses as of 10/19/2022) Active Problems Problem Noted Date Type 2 diabetes mellitus wit h diabetic peripheral angiopathy without gangrene, with long-term current use of insulin 04/20/2022 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 Please advise: [phone] * Telephone Encounter - Iliana Allison - 10/17/2022 8:31 AM EDT Pt son stopped by wants to speak with PCP about Mom's Dementia. Son stated is not speaking with Mom at this time.. Stated has power of employment law attorney. Advised with out signed release on file can not discuss medical information. Son advised will contact sister. Can contact pt son at [phone] for follow up documented in this encounter Plan of Treatment Upcoming Encounters Date Type Specialty Care Team Description 10/21/2022 Office Visit Family Medicine Shell III, Mike Acosta MD [address] [place] [address], [place] [address] Health Maintenance Due Date Last Done Comments [...] D LEVEL ONCE IN A LIFETIME-USE SMARTSET# [id number] Completed 10/31/2018, 12/26/2013, 11/09/2010 GARDASIL-HPV IMMUNIZATION SERIES Aged Out No longer eligible based on patient's age to complete this topic Hepatitis B Aged Out No longer eligi ble based on patient's age to complete this topic MENINGOCOCCAL (MENACTRA/MENVEO) Aged Out No longer eligible based on patient's age to complete this topic documented as of this encounter Medical Devices Implanted Type Area Manufacturing Coordinator Device Identifier Shelf Expiration Date Model / Serial / Lot Lens 22.0 Sn60wf - [id number] Implanted:Qty: 1 on 07/19/2011 at [facility] Left: Eye [employer] 01/08/2016 SN60WF.220 / [id number] / Lens 20.0 Sn60wf - [id number] Implanted:Qty: 1 on 10/18/2011 at [facility] Right: Eye [employer] 05/10/2016 SN60WF.200 / [id number] / documented as of this encounter Care Teams Cup Setter Lockstitch Relationship Specialty Start Date End Date Shell III, Mike Acosta MD [address] [place] [address], [place] [address] PCP - General Family Medicine 12/19/17 documented as of this encounter
--- OUTSIDE RECORDS SUMMARY | 2023-03-07 17:15 | External Medical Summary | Summary of Care ---
Author Name Unknown Organization [facility] Address [address] [place] [address] Phone [phone] Care Team Providers Care Assembler Piano Name Role Phone Shell LESLIE MD, Mike Acosta Primary Care Provider [phone] Reason for Referral * Evaluate & Treat - Unlimited Visits (Within 10 days (routine)) - Authorized Specialty Diagnoses / Procedures Referred By Madyson preston Referred To Contact Optometry Diagnoses Type 2 diabetes mellitus with hemoglobin A1c goal of less than 8.0% ([facility]) Mike Goff III, MD [address] [place] [address] Referral ID Status Reason Start Date Expiration Date Visits Requested Visits Authorized [id number] Authorized Specialty Services Required 10/21/2022 999 999 Question Answer Referral Priority Within 10 days (routine) Comments Diabetic Eye Exam * Precert (Within 10 days (routine)) - Pending Review Specialty Diagnoses / Procedures Referred By Madyson preston Referred To Contact Radiology Diagnoses Memory difficulties Procedures MRI BRAIN WITHOUT CONTRAST Mike Goff III, MD [address] [place] [address] Referral ID Status Reason Start Date Expiration Date V isits Requested Visits Authorized [id number] Pending Review 10/22/2022 999 999 * Evaluate & Treat - Unlimited Visits (Within 10 days (routine)) - Authorized Specialty Diagnoses / Procedures Referred By Madyson preston Referred To Contact Neurology Diagnoses Memory difficulties Mike Goff III, MD [address] [facility] [place] [address] Referral ID Status Reason Start Date Expiration Date Visits Requested Visits Authorized [id number] Authorized Specialty Services Required 10/21/2022 999 999 Question Answer Referral Priority Within 10 days (routine) CAD NEUROLOGY REFERRAL QUESTIONS Memory/Cognition Reason for Visit * Reason Comments Follow Up Encounter Details Date Type Department Care Team Description 10/21/2022 Office Visit Family Practice [facility] [place] [address] [facility] [place] [address] Mike Gfof III, MD [address] [facility] [place] [address] Memory difficulties*; Type 2 diabetes mellitus with hemoglobin A1c goal of less than 8.0% ([facility]); Acquired hypothyroidism Allergies Active Allergy Reactions Severity [...] as of this encounter (statuses as of 10/25/2022) Medications Medication Sig Dispensed Refills Start Date End Date Status CALCIUM 600-200 MG-UNIT PO TABS 1 TABLET DAILY twice a day 30 Tab 0 09/26/2012 Active MIRALAX PO POWDIndications:Cons tipation Dissolve one heaping tablespoon in 8 ounces of water or juice - one dose per day as needed for severe constipation 1 Bottle 2 08/06/2013 Active Blood Glucose Monitoring Suppl (indidebtTOUCH ULTRA MINI) w/Device KIT Use as directed [...] Tablet 3 01/27/2022 Active UltiCare Mini Pen [place] 31G X 6 MM (Insulin Pen Needle)Indications:T ype 2 diabetes mellitus with hemoglobin A1c goal of 7.0%-8.0% (HCC) USE DIRECTED ONCE DAILY 100 Each 3 02/11/2022 Active [employer] ([place]) [employer] TechnologyTouch UltraSoft LancetsIndications:T ype 2 diabetes mellitus with hemoglobin A1c goal of less than 7.0% (HCC) USE ONCE PER DAY DIRECTED 100 Each 4 02/11/2022 Active [employer] Ultra In Vitro Strip (Glucose Blood) TESTS [...] as of this encounter (statuses as of 10/25/2022) Active Problems Problem Noted Date Type 2 diabetes mellitus wit h diabetic peripheral angiopathy without gangrene, with long-term current use of insulin 04/20/2022 Malnutrition 12/02/2021 halfway (current) use of insulin 03/22 Type 2 [...] as of this encounter (statuses as of 10/25/2022) Resolved Problems Problem Noted Date Resolved Date [...] as of this encounter (statuses as of 10/25/2022) Immunizations Name Administration Dates Next Due COVID-19 mRNA, LNP-s, No Pre serve, 2-Dose Series ([employer]) 03/29/2021,07/09/2020,06/18/2020 COVID-19, LNP-s, No Preserve , Júnior-sucrose, [...] Sign Reading Time Taken Comments Blood Pressure 150/66 10/21/2022 11:37 AM EDT Pulse 64 10/21/2022 11:37 AM EDT Temperature 36.9 C (98.4 F) 10/21/2022 11:37 AM E DT Respiratory Rate - - Oxygen Saturation 98% 10/21/2022 11:37 AM EDT Inhaled Oxygen Concentration - - Weight 50.9 kg (112 lb 3.2 oz) 10/21/2022 11:37 AM EDT Height 161.9 cm (5' 3.74") 10/21/2022 11:37 AM E DT Body Mass Index 19.42 10/21/2022 11:37 AM EDT documented in this encounter Progress Notes * Mike Goff III, MD - 10/21/2022 12:10 PM EDT Subjective: Rachael Wallis is a 87 year old female. Chief Complaint Patient presents with Follow Up HPI: Follow-up history of diabetes mellitus urinary tract infections hypothyroidism confusion memory issues both sons and daughter on cell phone speaker symptoms beginning at least 2 years ago daughter [facility] a [facility] noticed issues there has been a concern that somewhere she has been told her red that she was going to sun relates episode where she was in the hospital and told him that she vomited and had cancer but on discussion with the nursing staff and hospital provider that was not the case she had been on doxycycline in the past even though she currently is not taking hasbeen avoiding the sun staying inside because of photosensitivity concerns PMH: Patient Active Problem List Diagnosis Code ADVANCE DIRECTIVE INFORMATION Osteoporosis M81.0 Statin intolerance Z78.9 CAMILLE inhibitor intolerance Z78.9 Type 2 diabetes mellitus with hemoglobin A1c goal of less than 8.0% ([facility]) E11.9 Acquired hypothyroidism E03.9 Essential hypertension with goal blood pressure less than 140/90 I10 History of nonmelanoma skin cancer Z85.828 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 (HCC) E11.3292 halfway (current) use of insulin ([facility]) Z79.4 Type 2 diabetes mellitus with diabetic polyneuropathy ([facility]) E11.42 History of CVA (cerebrovascular accident) Z86.73 Malnutrition ([facility]) E46 Type 2 diabetes mellitus with diabetic peripheral angiopathy without gangrene, with long-term current use of insulin ([facility]) E11.51, Z79.4 Current Outpatient Medications Medication Sig Dispense Refill CALCIUM 600-200 MG-UNIT PO TABS 1 TABLET DAILY twice a day 30 Tab 0 MIRALAX PO POWD Dissolve one heaping tablespoon in 8 ounces of water or juice - one dose per day as needed for severe constipation 1 Bottle 2 Blood Glucose Monitoring Suppl (39 [employer] ULTRA MINI) w/Device KIT Use as directed [...] MINUTES 12 Tablet 3 UltiCare Mini Pen [place] 31G X 6 MM (Insulin Pen Needle) USE DIRECTED ONCE DAILY 100 Each 3 [employer] UltraSoft Lancets USE ONCE PER DAY DIRECTED 100 Each 4 [employer] Ultra In Vitro Strip (Glucose Blood) TESTS [...] THE SKIN ONCE DAILY 15 mL 1 No current facility-administered medications for this visit. [...] performed by Amol Lam DO at OR [facility] DIABETIC EYE EXAM 07/03/06 Increased cataratous formation [...] is a 87 year old female BP 150/66 | Pulse 64 | Temp 36.9 C (98.4 F) (Tympanic) | Ht 1.619 m (5' 3.74") | Wt 50.9 kg (112 lb 3.2 oz) | SpO2 98% | BMI 19.42 kg/m | BSA 1.51 m General: alert, healthy and no distress Eye Exam: PERRLA, extraocular movements intact, conjunctiva are pink and non- injected, sclera clear Oropharynx: no exudate, no erythema, lips, buccal mucosa, and tongue normal and mucous membranes are moist Neck: supple, no adenopathy, no bruits, thyroid normal size, non-tender, without nodularity Heart: regular rate & rhythm, no murmur and no gallops Lungs: lungs clear to auscultation, no rhonchi rales rubs wheezes Extremities: no edema, no clubbing, no cyanosis Neurologic alert deep tendon reflexes equal in active ASSESSMENT: R41.3 Memory difficulties (primary encounter diagnosis) E11.9 Type 2 diabetes mellitus with hemoglobin A1c goal of less than 8.0% ([facility]) E03.9 Acquired hypothyroidism PLAN: Mini-mental status exam 24 high school graduate check CBC diff B12 TSH comprehensive metabolic panel sed rate MRI neurologic referral Note no evidence of cancer or reason for shortened life expectancy no photosensitivity medicines currently being taken may go outside with normal sun protection recommendations Follow up in 3 month(s). Total time 50+ minutes Mike Goff III, MD documented in this encounter Nursing Notes * DICKSON Merida - 10/21/2022 12:14 PM EDT Mini mental exam complete with a score of 24 * DICKSON Khan - 10/21/2022 11:32 AM EDT Patient presents in office for a 3 month follow up. Has a few concerns she would like to discuss, has her 2 adult sons here to assist. documented in this encounter Plan of Treatment Upcoming Encounters Date Type Specialty Care Team Description 10/28/2022 Office Visit Family Medicine Mike Goff III, MD [address] [place] [id number] 11/05/2022 Imaging Radiology 02/14/2023 Office Visit Family Mike Prather III, MD [address] [place] [id number] 12/01/2023 Office Visit Neurology Seng Camarillo Jolly, DO [address] [place] [address] Scheduled Orders Name Type Priority Associated Diagnoses Orde r Schedule MRI BRAIN WITHOUT CONTRAST Medical Imaging Routine Memory difficulties Expected: 10/22/2022, Expires: 11/22/2023 Scheduled Referrals Name Type Priority Associated Diagnoses Orde r Schedule NEUROLOGY REFERRAL OP Referral Within 10 days (routine) Memory difficulties Ordered: 10/21/2022 OPTOMETRY (DIABETES-EXTENDED) REFERRAL OP Referral Within 10 days (routine) Type 2 diabetes mellitus with hemoglobin A1c goal of less than 8.0% (HCC) Ordered: 10/21/2022 Health Maintenance Due Date Last Done Comments [...] D LEVEL ONCE IN A LIFETIME-USE SMARTSET# [id number] Completed 10/31/2018, 12/26/2013, 11/09/2010 GARDASIL-HPV IMMUNIZATION SERIES Aged Out No longer eligible based on patient's age to complete this topic Hepatitis B Aged Out No longer eligi ble based on patient's age to complete this topic MENINGOCOCCAL (MENACTRA/MENVEO) Aged Out No longer eligible based on patient's age to complete this topic documented as of this encounter Medical Devices Implanted Type Area Stave Log Cut Off Saw Operator Device Identifier Shelf Expiration Date Model / Serial / Lot Lens 22.0 Sn60wf - [id number] Implanted:Qty: 1 on 07/19/2011 at [facility] Left: Eye [employer] 01/08/2016 SN60WF.220 / [id number] / Lens 20.0 Sn60wf - [id number] Implanted:Qty: 1 on 10/18/2011 at [facility] Right: Eye [employer] 05/10/2016 SN60WF.200 / [id number] / documented as of this encounter Results * ALBUMIN / CREATININE RATIO, URINE (10/21/2022 1:25 PM EDT) Albumin, Random Urine <1.20 mg/dL 10/21/2022 10:02 PM EDT [facility] Creatinine, Random Urine 54 mg/dL 10/21/2022 10:02 PM EDT [facility] Albumin / Creatinine Ratio, Urine <22 <30 mg/g Creat 10/21/2022 10:02 PM EDT [facility] Urine Urine specimen obtained by clean catch procedure / Unknown Non-blood Collection / Unknown 10/21/2022 1:25 PM EDT 10/21/2022 1:25 PM EDT Narrative [facility] - 10/21/2022 10:02 PM EDT Normal: <30 mg/g creatinine High: 30-300 mg/g creatinine Very High: >300 mg/g creatinine Nephrotic: >2200 mg/g creatinine Mike Goff III, MD LAB URINE ORDERABLE S [facility] [address] [place] [address] * (ABNORMAL) URINALYSIS WITH MICROSCOPIC EXAM (10/21/2022 1:25 PM EDT) Color, Urine Yellow Colorless, Light Yellow, Yellow, Dark Yellow 10/21/2022 10:11 PM EDT [facility] Clarity, Urine Cloudy(A) Clear 10/21/2022 10:11 PM EDT [facility] Glucose, Urine Negative Negative mg/dL 10/21/2022 10:11 PM EDT [facility] Bilirubin, Urine Negative Negative 10/21/2022 10:11 PM EDT [facility] Ketone, Urine Negative Negative mg/dL 10/21/2022 10:11 PM EDT [facility] Specific [place], Urine 1.015 1.003 - 1.030 10/21/2022 10:11 PM EDT [facility] Blood, Urine Negative Negative 10/21/2022 10:11 PM EDT [facility] pH, Urine 8.0(H) 5.0 - 7.5 Units 10/21/2022 10:11 PM EDT [facility] Protein, Urine Negative Negative mg/dL 10/21/2022 10:11 PM EDT [facility] Urobilinogen, Urine Normal Normal mg/dL 10/21/2022 10:11 PM EDT [facility] Nitrite, Urine Negative Negative 10/21/2022 10:11 PM EDT [facility] Esterase, Urine Negative Negative 10/21/2022 10:11 PM EDT [facility] RBC, Urine 6-9(A) 0 - 2 /HPF 10/21/2022 10:11 PM EDT [facility]OR[facility]ORY [facility] WBC, Urine 0-2 0 - 2 /HPF 10/21/2022 10:11 PM EDT [facility] Bacteria, Urine 0-25 0 - 25 /HPF 10/21/2022 10:11 PM EDT [facility] Amorphous Crystals, Urine Many(A) None /HPF 10/21/2022 10:11 PM EDT [facility] Renal Epithelial Cells, Urine 1-4(A) None /HPF 10/21/2022 10:11 PM EDT [facility] Urine Non-blood Collection / Unknown 10/21/2022 1:25 PM EDT 10/21/2022 1:25 PM EDT Mike Goff III, MD LAB URINE ORDERABLE S Performing Organization Address [facility] Co de Phone Number [facility] [address] [place] [address] * (ABNORMAL) HEMOGLOBIN A1C (10/21/2022 1:19 PM EDT) Hemoglobin A1C 7.7(H) 4.0 - 5.6 % 10/21/2022 6:52 PM EDT [facility] Comment:The use of HbA1c to monitor glycemic status is based on normal hemoglobin and HbA composition. This test should not be used in patients with abnormal hemoglobin that affects the half life of the red blood cell or the in vivo glycation rates. Estimated Average Glucose 174(H) <126 mg/dL 10/21/2022 6:52 PM EDT [facility] Blood Venous blood specimen / Unknown Venipuncture / Unknown 10/21/2022 1:19 PM EDT 10/21/2022 1:20 PM EDT Mike Goff III, MD LAB BLOOD ORDERABLE S Performing Organization Address [facility] Co de Phone Number [facility] [address] [place] [address] * (ABNORMAL) VITAMIN B12 (10/21/2022 1:19 PM EDT) Vitamin B12 1,394(H) 232 - 1,245 pg/mL 10/21/2022 11:26 PM EDT [facility] Blood Venous blood specimen / Unknown Venipuncture / Unknown 10/21/2022 1:19 PM EDT 10/21/2022 1:20 PM EDT Mike Goff III, MD LAB BLOOD ORDERABLE S Performing Organization Address City/[facility]/ZIP Co de Phone Number [facility] [address] [place] [address] * TSH WITH FREE T4 IF INDICATED (10/21/2022 1:19 PM EDT) TSH 0.38 0.27 - 4.20 uIU/mL 10/21/2022 11:26 PM EDT [facility] C Blood Venous blood specimen / Unknown Venipuncture / Unknown 10/21/2022 1:19 PM EDT 10/21/2022 1:20 PM EDT Mike Goff III, MD LAB BLOOD ORDERABLE S Performing Organization Address City/[facility]/ZIP Co de Phone Number [facility] [address] [place] [address] * ERYTHROCYTE SEDIMENTATION RATE (ESR) (10/21/2022 1:19 PM EDT) ESR 8 <30 mm/hour 10/21/2022 5:25 PM EDT [facility] Blood Venous blood specimen / Unknown Venipuncture / Unknown 10/21/2022 1:19 PM EDT 10/21/2022 1:20 PM EDT Mike Goff III, MD LAB BLOOD ORDERABLE S Performing Organization Address City/[facility]/ZIP Co de Phone Number [facility] [address] [place] [address] documented in this encounter Visit Diagnoses Diagnosis Memory difficulties- Primary Memory loss Type 2 diabetes mellitus with hemoglobin A1c goal of less than 8.0% (HCC) Acquired hypothyroidism Unspecified hypothyroidism documented in this encounter Care Teams Assembler Piano Relationship Specialty Start Date End Date Mike Goff III, MD [address] [place] [address] PCP - General Family Medicine 12/19/17 documented as of this encounter
--- OUTSIDE RECORDS SUMMARY | 2023-03-07 17:15 | External Medical Summary ---
Author Name Unknown Address Unknown Organization [id number]:[facility] [place] - [facility] [address] [facility] [address] [place] [address] Laboratory Report Ordering Provider Test Date Status BASILIO BALDERAS III 10/21/2022 13:25:15 Final Normal: <30 mg/g creatinine< br/>High: 30-300 mg/g creatinine
Very High: >300 mg/g creatinine
Nephrotic: >2200 mg/g creatinine Observation Date Value Abnormality Reference (Units ) Status Albumin, Urine 10/21/2022 13:25:15 <1.20 (mg/dL) Final Creatinine, Urine 10/21/2022 13:25:15 54 (mg/dL) Final Albumin/Creatinine [Mass Ratio] in Urine 10/21/2022 13:25:15 <22 <30 (mg/g Creat) Final Performing Location [facility] [place] - [facility] [address] [place] [address]
--- OUTSIDE RECORDS SUMMARY | 2023-03-07 17:15 | External Medical Summary ---
Author Name Unknown Address Unknown Organization K01:[facility] [address] [place] [address] Laboratory Report Ordering Provider Test Date Status BASILIO BALDERAS III 10/21/2022 13:19:30 Final Observation Date Value Abnormality Reference (Units ) Status Vitamin B12 10/21/2022 13:19:30 1394 Above high normal 232-1245 (pg/mL) Final Performing Location LABORATORY C - [address] [place] [address]
--- OUTSIDE RECORDS SUMMARY | 2023-03-07 17:15 | External Medical Summary | Summary of Care ---
Author Name Unknown Organization [facility] Address [address] [place] [address] Phone [phone] Care Team Providers Care Assembler Lay Ups Name Role Phone Shell LESLIE MD, Mike Acosta Primary Care Provider [phone] Reason for Visit * Reason Comments Outpatient Testing Encounter Details Date Type Department Care Team Description 10/21/2022 Laboratory Laboratory [facility] [address] [place] [address] [facility] Scen[facility] [address] [place] [id number] Memory difficulties; Type 2 diabetes mellitus with hemoglobin A1c goal of less than 8.0% ([facility]) Allergies Active Allergy Reactions Severity Noted Date [...] 2 08/06/2013 Active Blood Glucose Monitoring Suppl ([employer] [place] ULTRA MINI) w/Device KIT Use as directed [...] Tablet 3 01/27/2022 Active UltiCare Mini Pen [place] 31G X 6 MM (Insulin Pen Needle)Indications:T ype 2 diabetes mellitus with hemoglobin A1c goal of 7.0%-8.0% (HCC) USE DIRECTED ONCE DAILY 100 Each 3 02/11/2022 Active [employer] UltraSoft LancetsIndications:T ype 2 diabetes mellitus with hemoglobin A1c goal of less than 7.0% (HCC) USE ONCE PER DAY DIRECTED 100 Each 4 02/11/2022 Active [employer] Ultra In Vitro Strip (Glucose Blood) TESTS [...] current use of insulin 04/20/2022 Malnutrition 12/02/2021 care home (current) use of insulin 03/22 Type 2 [...] Imaging Radiology 02/14/2023 Office Visit Family Medicine CarrollMike lancaster III, MD [address] [place] [address] 12/01/2023 Office Visit Neurology Seng [place], DO [address] [place] [address] Pending Results Name Type Priority Associated Diagnoses [...] D LEVEL ONCE IN A LIFETIME-USE SMARTSET# [id number] Completed 10/31/2018, 12/26/2013, 11/09/2010 GARDASIL-HPV IMMUNIZATION SERIES Aged Out No longer eligible based on patient's age to complete this topic Hepatitis B Aged Out No longer eligi ble based on patient's age to complete this topic MENINGOCOCCAL (MENACTRA/MENVEO) Aged Out No longer eligible based on patient's age to complete this topic documented as of this encounter Medical Devices Implanted Type Area Pulmonary Specialist Device Identifier Shelf Expiration Date Model / Serial / Lot Lens 22.0 Sn60wf - [id number] Implanted:Qty: 1 on 07/19/2011 at [facility] Left: Eye [employer] 01/08/2016 SN60WF.220 / [id number] / Lens 20.0 Sn60wf - [id number] Implanted:Qty: 1 on 10/18/2011 at [facility] Right: Eye [employer] 05/10/2016 SN60WF.200 / [id number] / documented as of this encounter [...] - 10.80 K/uL 10/21/2022 1:25 PM EDT [facility] 56-02 Neutrophils % 74.5 40.0 - 75.0 % 10/21/2022 1:25 PM EDT [facility] 56-02 Lymphocytes % 14.0(L) 18.0 - 42.0 % 10/21/2022 1:25 PM EDT [facility] 56-02 Monocytes % 10.1 1.0 - 11.0 % 10/21/2022 1:25 PM EDT [facility] 56-02 Eosinophils % 0.8 0.0 - 6.0 % 10/21/2022 1:25 PM EDT [facility] 56-02 Basophils % 0.6 0.0 - 2.0 % 10/21/2022 1:25 PM EDT [facility] 56-02 Absolute Neutrophils 3.62 1.80 - 7.70 K/uL 10/21/2022 1:25 PM EDT [facility] 56-02 Absolute Lymphocytes 0.68(L) 1.00 - 4.80 K/ul 10/21/2022 1:25 PM EDT [facility] 56-02 Absolute Monocytes 0.49 0.00 - 1.10 K/uL 10/21/2022 1:25 PM EDT [facility] 56-02 Absolute Eosinophils 0.04 0.00 - 0.70 K/uL 10/21/2022 1:25 PM EDT [facility] 56-02 Absolute Basophils 0.03 0.00 - 0.20 K/uL 10/21/2022 1:25 PM EDT [facility] 56-02 Blood Venous blood specimen / Unknown Venipuncture / Unknown 10/21/2022 1:19 PM EDT 10/21/2022 1:20 PM EDT Mike Goff III, MD LAB BLOOD ORDERABLE S [facility] 56-02 [address] [place] [address] * CBC (10/21/2022 1:19 PM EDT) WBC 4.86 4.00 - 10.80 K/uL 10/21/2022 1:25 PM EDT [facility] 56- RBC 4.34 3.85 - 5.15 M/uL 10/21/2022 1:25 PM EDT [facility] 56 HGB 14.1 12.0 - 15.3 g/dL 10/21/2022 1:25 PM EDT [facility] 56 HCT 41.3 36.0 - 45.2 % 10/21/2022 1:25 PM EDT [facility] 56 MCV 95.2 81.5 - 97.5 fL 10/21/2022 1:25 PM EDT [address] MCH 32.5 27.0 - 34.0 pg 10/21/2022 1:25 PM EDT [address] MCHC 34.1 32.0 - 36.0 g/dL 10/21/2022 1:25 PM EDT [address] RDW 12.9 11.5 - 15.5 % 10/21/2022 1:25 PM EDT [facility] 56 PLT 305 140 - 400 K/uL 10/21/2022 1:25 PM EDT [facility] 56 MPV 8.7 6.6 - 11.1 fL 10/21/2022 1:25 PM EDT [facility] 56 Blood Venous blood specimen / Unknown Venipuncture / Unknown 10/21/2022 1:19 PM EDT 10/21/2022 1:20 PM EDT Mike Goff III, MD LAB BLOOD ORDERABLE S [facility] 56 [address] [place] [address] documented in this encounter Visit Diagnoses Diagnosis Memory difficulties Memory loss Type 2 diabetes mellitus with hemoglobin A1c goal of less than 8.0% (HCC) documented in this encounter Care Teams Assembler Lay Ups Relationship Specialty Start Date End Date Shell Mike LESLIE MD [address] [place] [address] PCP - General Family Medicine 12/19/17 documented as of this encounter
--- OUTSIDE RECORDS SUMMARY | 2023-03-07 17:15 | External Medical Summary | Summary of Care ---
Author Name Unknown Organization [facility] Address [address] [place] [address] Phone [phone] Care Team Providers Care Waterworks Operator Name Role Phone Shell LESLIE MD, Sherrie Acosta Primary Care Provider [phone] Reason for Visit * Reason Comments Medication Refill Encounter Details Date Type Department Care Team Description 10/16/[address] [facility] 200 [facility] [place], [place] [id number] Sherrie Richmond III, MD [address] [place] [address] Type 2 diabetes mellitus with hemoglobin A1c goal of less than 8.0% ([facility]) Allergies Active Allergy Reactions Severity Noted [...] as of this encounter (statuses as of 10/18/2022) Medications Medication Sig Dispensed Refills Start Date End Date Status CALCIUM 600-200 MG-UNIT PO TABS 1 TABLET DAILY twice a day 30 Tab 0 09/26/2012 Active MIRALAX PO POWDIndications:Con stipation Dissolve one heaping tablespoon in 8 ounces of water or juice - one dose per day as needed for severe constipation 1 Bottle 2 08/06/2013 Active Blood Glucose Monitoring Suppl (Springr ULTRA MINI) w/Device KIT Use as directed [...] Tablet 3 01/27/2022 Active UltiCare Mini Pen [place] 31G X 6 MM (Insulin Pen Needle)Indications: Type 2 diabetes mellitus with hemoglobin A1c goal of 7.0%-8.0% (HCC) USE DIRECTED ONCE DAILY 100 Each 3 02/11/2022 Active Taofang.comuch UltraSoft LancetsIndications: Type 2 diabetes mellitus with hemoglobin A1c goal of less than 7.0% (HCC) USE ONCE PER DAY DIRECTED 100 Each 4 02/11/2022 Active DataOceans Ultra In Vitro Strip (Glucose Blood) TESTS [...] DAILY 15 mL 1 10/18/2022 4 Active Lantus SoloStar 100 UNIT/ML Subcutaneous Solution Pen-injectorIndicat ions:Type 2 diabetes mellitus with hemoglobin A1c goal of less than 8.0% (HCC) INJECT 4 UNITS UNDER THE SKIN ONCE DAILY 15 mL 1 05/13/2022 3 Discontinu ed(Refill) documented as of this encounter (statuses as of 10/18/2022) Active Problems Problem Noted Date Type 2 diabetes mellitus wit h diabetic peripheral angiopathy without gangrene, with long-term current use of insulin 04/20/2022 Malnutrition 12/02/2021 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 03/22 Type 2 [...] as of this encounter (statuses as of 10/18/2022) Resolved Problems Problem Noted Date Resolved Date [...] as of this encounter (statuses as of 10/18/2022) Immunizations Name Administration Dates Next Due COVID-19 mRNA, LNP-s, No Pre serve, 2-Dose Series ([employer]) 03/29/2021,07/09/2020,06/18/2020 COVID-19, LNP-s, No Preserve , [...] encounter Miscellaneous Notes * Telephone Encounter - Juan Lott RPh - 10/18/2022 1:32 PM EDTSigned Prescriptions: Disp Refills Lantus SoloStar 100 UNIT/ML Subcutaneous S*15 mL 1 Sig: INJECT 4UNITS UNDER THE SKIN ONCE DAILYAuthorizing Provider: SHERRIE RICHMOND III User: JUAN LOTT documented in this encounter Plan of Treatment Upcoming Encounters Date Type Specialty Care Team Description 10/21/2022 Office Visit Family Medicine Sherrie Richmond III, MD [address] [place] [address], [place] [address] Health Maintenance Due Date Last Done Comments [...] 02/19/2020, Additional history exists TSH 04/20/2023 04/20/2022, 06/0 04/2021, 08/28/2020, Additional history exists DTaP,Tdap,and Td Vaccines (4 - Td or Tdap) 10/11/2028 10/11/2018, 10/30/2016, 03/14/2014, Additional history exists Pneumococcal Vaccine: 65+ Years Completed 06/20/2018, 12/13/2005, 12/14/1999 VITAMIN D LEVEL ONCE IN A LIFETIME-USE SMARTSET# 19376 Completed 10/31/2018, 12/26/2013, 11/09/2010 GARDASIL-HPV IMMUNIZATION SERIES Aged Out No longer eligible based on patient's age to complete this topic Hepatitis B Aged Out No longer eligi ble based on patient's age to complete this topic MENINGOCOCCAL (MENACTRA/MENVEO) Aged Out No longer eligible based on patient's age to complete this topic documented as of this encounter Medical Devices Implanted Type Area Diesel Instructor Device Identifier Shelf Expiration Date Model / Serial / Lot Lens 22.0 Sn60wf - [id number] Implanted:Qty: 1 on 07/19/2011 at [facility] Left: Eye [employer] 01/08/2016 SN60WF.220 / [id number] / Lens 20.0 Sn60wf - [id number] Implanted:Qty: 1 on 10/18/2011 at [facility] Right: Eye [employer] 05/10/2016 SN60WF.200 / [id number] / documented as of this encounter Visit Diagnoses Diagnosis Type 2 diabetes mellitus with hemoglobin A1c goal of less than 8.0% (HCC) documented in this encounter Care Teams Waterworks Operator Relationship Specialty Start Date End Date Sherrie Richmond III, MD [address] [place] [address] PCP - General Family Medicine 12/19/17 documented as of this encounter
--- OUTSIDE RECORDS SUMMARY | 2023-03-07 17:15 | External Medical Summary ---
Author Name Unknown Address Unknown Organization [id number]:[facility]ORY [facility] [place] - [address] [place] [address] Laboratory Report Ordering Provider Test Date Status BASILIO BALDERAS III 10/21/2022 13:19:30 Final Observation Date Value Abnormality Reference (Units ) Status Erythrocyte sedimentation rate by Photometric method 10/21/2022 13:19:30 8 <30 (mm/hour) Final Performing Location [facility] [place] - [address] [place] [address]
--- OUTSIDE RECORDS SUMMARY | 2023-03-07 17:15 | External Medical Summary ---
Author Name Unknown Address Unknown Organization K01:[facility] [place] - [address] [facility] [address] Laboratory Report Ordering Provider Test Date Status BASILIO BALDERAS ANUJ 10/21/2022 13:25:15 Final Observation Date Value Abnormality Reference (Units ) Status Color of Urine by Auto 10/21/2022 13:25:15 Yellow Colorless, Light Yellow, Yellow, Dark Yellow Final Clarity, Urine 10/21/2022 13:25:15 Cloudy Abnormal Clear Final Glucose [Mass/volume] in Urine by Automated test strip 10/21/2022 13:25:15 Negative Negative (mg/dL) Final Bilirubin.total [Presence] in Urine by Automated test strip 10/21/2022 13:25:15 Negative Negative Final Ketones [Mass/volume] in Urine by Automated test strip 10/21/2022 13:25:15 Negative Negative (mg/dL) Final Specific gravity, Urine 10/21/2022 13:25:15 1.015 1.003-1.030 Final Hemoglobin [Presence] in Urine by Automated test strip 10/21/2022 13:25:15 Negative Negative Final pH, Urine 10/21/2022 13:25:15 8.0 Above high normal 5.0-7.5 (Units) Final Protein [Mass/volume] in Urine by Automated test strip 10/21/2022 13:25:15 Negative Negative (mg/dL) Final Urobilinogen [Mass/volume] in Urine by Automated test strip 10/21/2022 13:25:15 Normal Normal (mg/dL) Final Nitrite [Presence] in Urine by Automated test strip 10/21/2022 13:25:15 Negative Negative Final Leukocyte esterase [Presence] in Urine by Automated test strip 10/21/2022 13:25:15 Negative Negative Final RBC, Urine 10/21/2022 13:25:15 6-9 Abnormal 0-2 (/HPF) Final WBC, Urine 10/21/2022 13:25:15 0-2 0-2 (/HPF) Final Bacteria [#/area] in Urine sediment by Microscopy high power field 10/21/2022 13:25:15 0-25 0-25 (/HPF) Final Crystals.amorphous [#/area] in Urine sediment by Microscopy high power field 10/21/2022 13:25:15 Many Abnormal None (/HPF) Final Epithelial cells.renal [#/area] in Urine sediment by Microscopy high power field 10/21/2022 13:25:15 1-4 Abnormal None (/HPF) Final Performing Location [facility] [place] - [address] [facility] [place] [address]
--- OUTSIDE RECORDS SUMMARY | 2023-03-07 17:15 | External Medical Summary ---
Author Name Unknown Address Unknown Organization K01:[facility] [place] [address] [place] [address] Laboratory Report Ordering Provider Test Date Status BASILIO BALDERAS III 10/21/2022 13:19:30 Final Observation Date Value Abnormality Reference (Units ) Status TSH 10/21/2022 13:19:30 0.38 0.27-4.20 (uIU/mL) Final Performing Location [facility] [place] [address] [place] [address]
--- OUTSIDE RECORDS SUMMARY | 2023-03-07 17:16 | External Medical Summary | Summary of Care ---
Author Name Unknown Organization [facility] Address [address] [place] [place] [place] [address] Phone [phone] Care Team Providers Care Dental Hygienist Mobile Coordinator Name Role Phone Shell LESLIE MD, Mike Acosta Primary Care Provider [phone] Reason for Visit * Reason Onset Date Comments Advice 10/14/2022 Encounter Details Date Type Department Care Team Description 10/14/2022 Telephone Family Practice [facility] [address] [facility] [place] [address] Mike Goff III, MD [address] [facility] [place] [address] Advice Allergies Active Allergy Reactions Severity Noted [...] 30 Tab 0 09/26/2012 Active MIRALAX PO POWDIndications:Co nstipation Dissolve one heaping tablespoon in 8 ounces of water or juice - one dose per day as needed for severe constipation 1 Bottle 2 08/06/2013 Active Blood Glucose Monitoring Suppl (ZokemTOUCH ULTRA MINI) w/Device KIT Use as directed [...] Tablet 3 01/27/2022 Active UltiCare Mini Pen [place] 31G X 6 MM (Insulin Pen Needle)Indications :Type 2 diabetes mellitus with hemoglobin A1c goal of 7.0%-8.0% (HCC) USE DIRECTED ONCE DAILY 100 Each 3 02/11/2022 Active CyberArtsTouch UltraSoft LancetsIndications :Type 2 diabetes mellitus with hemoglobin A1c goal of less than 7.0% (HCC) USE ONCE PER DAY DIRECTED 100 Each 4 02/11/2022 Active CyberArtsTouch Ultra In Vitro Strip (Glucose Blood) TESTS 4 TIMES A DAY. E11.9 400 Strip 3 03/14/2022 Active documented as of this encounter (statuses as of 10/18/2022) Active Problems Problem Noted Date Type 2 diabetes mellitus wit h diabetic peripheral angiopathy without gangrene, with long-term current use of insulin 04/20/2022 Malnutrition 12/02/2021 USP (current) use of insulin 03/22 Type 2 [...] * Telephone Encounter - AHSAN Joe - 10/18/2022 12:07 PM EDT Several attempts Letter sent * Telephone Encounter - AHSAN Joe - 10/17/2022 11:01 AM EDT My g sent 10/17 2nd attempt * Telephone Encounter - AHSAN Joe - 10/15/2022 12:57 PM EDT Called line busy * Telephone Encounter - Blanca Germain MED ASSIST - 10/14/2022 4:43 PM EDT Could we get this patient scheduled in an acute slot on Monday please? It doesn't need to be with Dr. Goff. Thanks! * Telephone Encounter - AHSAN Tracy - 10/14/2022 4:14 PM EDT Pt daughter is calling asking for information on mother [place] Release of info on file 06/08/22) Said she last saw her mom last week and mom is having conversations that she is not going to be here for her 88th birthday Mary is concerned about mom's health and wants to get arrangements made for her care - Mary did sayher brother Portillo is POA documented in this encounter Plan of Treatment Upcoming Encounters Date Type Specialty Care Team Description 10/21/2022 Office Visit Family Medicine Shell LESLIE, Mike Acosta MD 200 [facility], [place] [address] Health Maintenance Due Date Last Done Comments [...] 02/19/2020, Additional history exists TSH 04/20/2023 04/20/2022, 06/04/2021, 08/28/2020, Additional history exists DTaP,Tdap,and Td Vaccines (4 - Td or Tdap) 10/11/2028 10/11/2018, 10/30/2016, 03/14/2014, Additional history exists Pneumococcal Vaccine: 65+ Years Completed 06/20/2018, 12/13/2005, 12/14/1999 VITAMIN D LEVEL ONCE IN A LIFETIME-USE SMARTSET# 81042 Completed 10/31/2018, 12/26/2013, 11/09/2010 GARDASIL-HPV IMMUNIZATION SERIES Aged Out No longer eligible based on patient's age to complete this topic Hepatitis B Aged Out No longer eligi ble based on patient's age to complete this topic MENINGOCOCCAL (MENACTRA/MENVEO) Aged Out No longer eligible based on patient's age to complete this topic documented as of this encounter Medical Devices Implanted Type Area Math Professor Device Identifier Shelf Expiration Date Model / Serial / Lot Lens 22.0 Sn60wf - [id number] Implanted:Qty: 1 on 07/19/2011 at [facility] Left: Eye [employer] 01/08/2016 SN60WF.220 / [id number] / Lens 20.0 Sn60wf - [id number] Implanted:Qty: 1 on 10/18/2011 at [facility] Right: Eye [employer] 05/10/2016 SN60WF.200 / [id number] / documented as of this encounter Care Teams Dental Hygienist Mobile Coordinator Relationship Specialty Start Date End Date Shell III, Mike Acosta MD [address] [facility], [place] [address] PCP - General Family Medicine 12/19/17 documented as of this encounter
--- OUTSIDE RECORDS SUMMARY | 2023-03-07 17:16 | External Medical Summary | Summary of Care ---
Author Name Unknown Organization [facility] Address [address] [facility] [address] Phone [phone] Care Team Providers Care Insurance Agents Supervisor Name Role Phone Shell LESLIE MD, Mike Acosta Primary Care Provider [phone] Reason for Visit * Reason Onset Date Comments Advice 10/14/2022 Encounter Details Date Type Department Care Team Description 10/14/2022 Telephone Family Practice [facility] 200 [facility] [place] [address] Mike Goff III, MD [address] [facility] [place] [address] Advice Allergies Active Allergy Reactions Severity Noted [...] as of this encounter (statuses as of 10/17/2022) Medications Medication Sig Dispensed Refills Start Date End Date Status CALCIUM 600-200 MG-UNIT PO TABS 1 TABLET DAILY twice a day 30 Tab 0 09/26/2012 Active MIRALAX PO POWDIndications:Co nstipation Dissolve one heaping tablespoon in 8 ounces of water or juice - one dose per day as needed for severe constipation 1 Bottle 2 08/06/2013 Active Blood Glucose Monitoring Suppl (EeBriaTOUCH ULTRA MINI) w/Device KIT Use as directed [...] Tablet 3 01/27/2022 Active UltiCare Mini Pen [place] 31G X 6 MM (Insulin Pen Needle)Indications :Type 2 diabetes mellitus with hemoglobin A1c goal of 7.0%-8.0% (HCC) USE DIRECTED ONCE DAILY 100 Each 3 02/11/2022 Active ShoppilotTouch UltraSoft LancetsIndications :Type 2 diabetes mellitus with hemoglobin A1c goal of less than 7.0% (HCC) USE ONCE PER DAY DIRECTED 100 Each 4 02/11/2022 Active ShoppilotTouch Ultra In Vitro Strip (Glucose Blood) TESTS 4 TIMES A DAY. E11.9 400 Strip 3 03/14/2022 Active documented as of this encounter (statuses as of 10/17/2022) Active Problems Problem Noted Date Type 2 [...] as of this encounter (statuses as of 10/17/2022) Resolved Problems Problem Noted Date Resolved Date [...] as of this encounter (statuses as of 10/17/2022) Immunizations Name Administration Dates Next Due COVID-19 [...] is calling asking for information on mother Rachael Release of info on file 06/08/22) Said [...] Medicine Shell LESLIE, Mike Acosta MD 200 [facility], [place] [address] Health Maintenance Due Date Last Done Comments [...] D LEVEL ONCE IN A LIFETIME-USE SMARTSET# [id number] Completed 10/31/2018, 12/26/2013, 11/09/2010 GARDASIL-HPV IMMUNIZATION SERIES Aged Out No longer eligible based on patient's age to complete this topic Hepatitis B Aged Out No longer eligi ble based on patient's age to complete this topic MENINGOCOCCAL (MENACTRA/MENVEO) Aged Out No longer eligible based on patient's age to complete this topic documented as of this encounter Medical Devices Implanted Type Area Group Leader Device Identifier Shelf Expiration Date Model / Serial / Lot Lens 22.0 Sn60wf - [id number] Implanted:Qty: 1 on 07/19/2011 at [facility] Left: Eye [employer] 01/08/2016 SN60WF.220 / [id number] / Lens 20.0 Sn60wf - [id number] Implanted:Qty: 1 on 10/18/2011 at [facility] Right: Eye [employer] 05/10/2016 SN60WF.200 / [id number] / documented as of this encounter Care Teams Insurance Agents Supervisor Relationship Specialty Start Date End Date Shell ANUJ, Mike Acosta MD 200 [place] [address] PCP - General Family Medicine 12/19/17 documented as of this encounter
--- OUTSIDE RECORDS SUMMARY | 2023-03-07 17:16 | External Medical Summary | Summary of Care ---
Author Name Unknown Organization [facility] Address [address] [place] [facility] [place] [address] Phone [phone] Care Team Providers Care Manager Call Center Name Role Phone Shell LESLIE MD, Mike Acosta Primary Care Provider [phone] Reason for Visit * Reason Onset Date Comments Advice 10/14/2022 Encounter Details Date Type Department Care Team Description 10/14/2022 Telephone Family Practice [facility] 200 [facility] [place] [address] Mike Goff III, MD 200 [facility] [place] [address] Advice Allergies Active Allergy Reactions Severity Noted [...] as of this encounter (statuses as of 10/15/2022) Medications Medication Sig Dispensed Refills Start Date End Date Status CALCIUM 600-200 MG-UNIT PO TABS 1 TABLET DAILY twice a day 30 Tab 0 09/26/2012 Active MIRALAX PO POWDIndications:Co nstipation Dissolve one heaping tablespoon in 8 ounces of water or juice - one dose per day as needed for severe constipation 1 Bottle 2 08/06/2013 Active Blood Glucose Monitoring Suppl (iCurrentTOUCH ULTRA MINI) w/Device KIT Use as directed [...] Tablet 3 01/27/2022 Active UltiCare Mini Pen [place] 31G X 6 MM (Insulin Pen Needle)Indications :Type 2 diabetes mellitus with hemoglobin A1c goal of 7.0%-8.0% (HCC) USE DIRECTED ONCE DAILY 100 Each 3 02/11/2022 Active Acticut InternationalTouch UltraSoft LancetsIndications :Type 2 diabetes mellitus with hemoglobin A1c goal of less than 7.0% (HCC) USE ONCE PER DAY DIRECTED 100 Each 4 02/11/2022 Active Acticut InternationalTouch Ultra In Vitro Strip (Glucose Blood) TESTS 4 TIMES A DAY. 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 It doesn't need to be with Dr. Goff. Thanks! * Telephone Encounter - AHSAN Tracy - 10/14/2022 4:14 PM EDT Pt daughter is calling asking for information on mother [place] Release of info on file 06/08/22) Said [...] Team Description 10/21/2022 Office Visit Family Medicine Clarendon III, Mike Acosta MD [address] [place] [id number] Health Maintenance Due Date Last Done Comments [...] D LEVEL ONCE IN A LIFETIME-USE SMARTSET# [id number] Completed 10/31/2018, 12/26/2013, 11/09/2010 GARDASIL-HPV IMMUNIZATION SERIES Aged Out No longer eligible based on patient's age to complete this topic Hepatitis B Aged Out No longer eligi ble based on patient's age to complete this topic MENINGOCOCCAL (MENACTRA/MENVEO) Aged Out No longer eligible based on patient's age to complete this topic documented as of this encounter Medical Devices Implanted Type Area Electrician Maintenance Device Identifier Shelf Expiration Date Model / Serial / Lot Lens 22.0 Sn60wf - [id number] Implanted:Qty: 1 on 07/19/2011 at [facility] Left: Eye [employer] 01/08/2016 SN60WF.220 / [id number] / Lens 20.0 Sn60wf - [id number] Implanted:Qty: 1 on 10/18/2011 at [facility] Right: Eye [employer] 05/10/2016 SN60WF.200 / [id number] / documented as of this encounter Care Teams Manager Call Center Relationship Specialty Start Date End Date Mike Goff III, MD 200 [place] [address] PCP - General Family Medicine 12/19/17 documented as of this encounter
--- OUTSIDE RECORDS SUMMARY | 2023-03-07 17:16 | External Medical Summary | Summary of Care ---
Author Name Unknown Organization [facility] Address [address] [place] [address] Phone [phone] Care Team Providers Care Concrete Truck Driver Name Role Phone Shell LESLIE MD, Mike Acosta Primary Care Provider [phone] Reason for Visit * Reason Onset Date Comments FYI 10/14/2022 Encounter Details Date Type Department Care Team Description 10/14/2022 Telephone Family Practice [facility] [address] [facility] [place] [address] Mike Goff III, MD [address] [facility] [place] [address] FYI Allergies Active Allergy Reactions Severity Noted Date [...] as of this encounter (statuses as of 10/14/2022) Medications Medication Sig Dispensed Refills Start Date End Date Status CALCIUM 600-200 MG-UNIT PO TABS 1 TABLET DAILY twice a day 30 Tab 0 09/26/2012 Active MIRALAX PO POWDIndications:Cons tipation Dissolve one heaping tablespoon in 8 ounces of water or juice - one dose per day as needed for severe constipation 1 Bottle 2 08/06/2013 Active Blood Glucose Monitoring Suppl (iJukeboxUCH ULTRA MINI) w/Device KIT Use as directed [...] every morning 90 Tablet 3 07/27/2021 Active Levothyroxine Sodium 75 MCG Oral Tablet (Levoxyl)Indications :Acquired hypothyroidism TAKE 1 TABLET BY MOUTH DAILY AT LEAST 30 MINUTES PRIOR TO FIRST MEAL OF THE DAY OR OTHER MEDICATIONS 90 Tablet 3 12/20/2021 Active Alendronate Sodium 70 MG Oral Tablet (Fosamax) TAKE 1 TABLET BY MOUTH ONCE A WEEK WITH 8OZ OF WATER BEFORE 1ST MEAL, REMAIN UPRIGHT FOR 30 MINUTES 12 Tablet 3 01/27/2022 Active UltiCare Mini Pen [place] 31G X 6 MM (Insulin Pen Needle)Indications:T ype 2 diabetes mellitus with hemoglobin A1c goal of 7.0%-8.0% (HCC) USE DIRECTED ONCE DAILY 100 Each 3 02/11/2022 Active Inotec AMDTouch UltraSoft LancetsIndications:T ype 2 diabetes mellitus with hemoglobin A1c goal of less than 7.0% (HCC) USE ONCE PER DAY DIRECTED 100 Each 4 02/11/2022 Active OneTouch Ultra In Vitro Strip (Glucose Blood) TESTS 4 TIMES A DAY. E11.9 400 Strip 3 03/14/2022 Active Insulin Glargine Solostar 100 UNIT/ML Subcutaneous Solution Pen-injector (Lantus SoloStar)Indications :Type 2 diabetes mellitus with hemoglobin A1c goal of less than 8.0% ([facility]) INJECT 4 UNITS UNDER THE SKIN ONCE DAILY 15 mL 1 05/13/2022 Active Clopidogrel Bisulfate 75 MG Oral Tablet (pLAVix) TAKE ONE TABLET BY MOUTH EVERY MORNING 90 Tablet 3 07/29/2022 Active documented as of this encounter (statuses as of 10/14/2022) Active Problems Problem Noted Date Type 2 diabetes mellitus wit h diabetic peripheral angiopathy without gangrene, with long-term current use of insulin 04/20/2022 Malnutrition 12/02/2021 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 Thanks! * Telephone Encounter - Carolynn Janessa Gee - 10/14/2022 1:40 PM EDT Pt's son came in and was looking for information for his mother about dementia or screening or somekind of help. Pt's son is concerned. Please advise. [phone] Portillo Elliott documented in this encounter Plan of Treatment Upcoming Encounters Date Type Specialty Care Team Description 10/21/2022 Office Visit Family Medicine Shell LESLIE, Mike Acosta MD [address] [place] [address] Health Maintenance Due Date Last Done Comments [...] D LEVEL ONCE IN A LIFETIME-USE SMARTSET# [id number] Completed 10/31/2018, 12/26/2013, 11/09/2010 GARDASIL-HPV IMMUNIZATION SERIES Aged Out No longer eligible based on patient's age to complete this topic Hepatitis B Aged Out No longer eligi ble based on patient's age to complete this topic MENINGOCOCCAL (MENACTRA/MENVEO) Aged Out No longer eligible based on patient's age to complete this topic documented as of this encounter Medical Devices Implanted Type Area Money Manager Device Identifier Shelf Expiration Date Model / Serial / Lot Lens 22.0 Sn60wf - [id number] Implanted:Qty: 1 on 07/19/2011 at [facility] Left: Eye [employer] 01/08/2016 SN60WF.220 / [id number] / Lens 20.0 Sn60wf - [id number] Implanted:Qty: 1 on 10/18/2011 at [facility] Right: Eye [employer] 05/10/2016 SN60WF.200 / [id number] / documented as of this encounter Care Teams Concrete Truck Driver Relationship Specialty Start Date End Date Mike Gfof III, MD [address] [place] [address] PCP - General Family Medicine 12/19/17 documented as of this encounter
--- OUTSIDE RECORDS SUMMARY | 2023-03-07 17:16 | External Medical Summary | Summary of Care ---
Author Name Unknown Organization [facility] Address [address] [place] [facility] [place] [address] Phone [phone] Care Team Providers Care Electric Scoop Operator Name Role Phone Shell LESLIE MD, Mike Acosta Primary Care Provider [phone] Reason for Visit * Reason Onset Date Comments FYI 10/14/2022 Encounter Details Date Type Department Care Team Description 10/14/2022 Telephone Family Practice [facility] [address] [facility] [place] [address] Mike Goff III, MD [address] [facility] [place] [address] FYI Allergies Active Allergy Reactions Severity Noted [...] 2 08/06/2013 Active Blood Glucose Monitoring Suppl (SendtoNewsUCH ULTRA MINI) w/Device KIT Use as directed [...] Tablet 3 01/27/2022 Active UltiCare Mini Pen [place] 31G X 6 MM (Insulin Pen Needle)Indications:T ype 2 diabetes mellitus with hemoglobin A1c goal of 7.0%-8.0% (HCC) USE DIRECTED ONCE DAILY 100 Each 3 02/11/2022 Active ZebtabTouch UltraSoft LancetsIndications:T ype 2 diabetes mellitus with [...] goal of less than 8.0% ([facility]) INJECT 4 UNITS UNDER THE [...] current use of insulin 04/20/2022 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 Thanks! * Telephone Encounter - Carolynn Gee - 10/14/2022 1:40 PM EDT Pt's son came in and was looking for information for his mother about dementia or screening or somekind of help. Pt's son is concerned. Please advise. [phone] Portillo Earl documented in this encounter Plan of Treatment Upcoming Encounters Date Type Specialty Care Team Description 10/21/2022 Office Visit Family Medicine Shell III, Mike Acosta MD [address] [facility] [place] [address] Health Maintenance Due Date Last Done Comments [...] D LEVEL ONCE IN A LIFETIME-USE SMARTSET# [id number] Completed 10/31/2018, 12/26/2013, 11/09/2010 GARDASIL-HPV IMMUNIZATION SERIES Aged Out No longer eligible based on patient's age to complete this topic Hepatitis B Aged Out No longer eligi ble based on patient's age to complete this topic MENINGOCOCCAL (MENACTRA/MENVEO) Aged Out No longer eligible based on patient's age to complete this topic documented as of this encounter Medical Devices Implanted Type Area Ship Liner Device Identifier Shelf Expiration Date Model / Serial / Lot Lens 22.0 Sn60wf - [id number] Implanted:Qty: 1 on 07/19/2011 at [facility] Left: Eye [employer] 01/08/2016 SN60WF.220 / [id number] / Lens 20.0 Sn60wf - [id number] Implanted:Qty: 1 on 10/18/2011 at [facility] Right: Eye [employer] 05/10/2016 SN60WF.200 / [id number] / documented as of this encounter Care Teams Electric Scoop Operator Relationship Specialty Start Date End Date Mike Goff III, MD [address] [place], [place] [address] PCP - General Family Medicine 12/19/17 documented as of this encounter
--- OUTSIDE RECORDS SUMMARY | 2023-03-07 17:16 | External Medical Summary | Summary of Care ---
Author Name Unknown Organization [facility] Address [address] [place] [address] Phone [phone] Care Team Providers Care Events Manager Name Role Phone Shell LESLIE MD, John E Primary Care Provider [phone] Encounter Details Date Type Department Care Team Description 10/17/2022 Telephone Family Practice [facility] 200 [facility] [place] [address] Mike Goff III, MD 200 [place] [address] Allergies Active Allergy Reactions Severity Noted Date [...] 2 08/06/2013 Active Blood Glucose Monitoring Suppl (Naseeb NetworksTOUCH ULTRA MINI) w/Device KIT Use as directed [...] Tablet 3 01/27/2022 Active UltiCare Mini Pen [place] 31G X 6 MM (Insulin Pen Needle)Indications:T ype 2 diabetes mellitus with hemoglobin A1c goal of 7.0%-8.0% (HCC) USE DIRECTED ONCE DAILY 100 Each 3 02/11/2022 Active JAZZ TECHNOLOGIESTouch UltraSoft LancetsIndications:T ype 2 diabetes mellitus with hemoglobin A1c goal of less than 7.0% (HCC) USE ONCE PER DAY DIRECTED 100 Each 4 02/11/2022 Active JAZZ TECHNOLOGIESTouch Ultra In Vitro Strip (Glucose Blood) TESTS [...] SKIN ONCE DAILY 15 mL 1 05/13/2022 4 Active Levothyroxine Sodium 75 MCG Oral Tablet (Levoxyl)Indications :Acquired hypothyroidism TAKE 1 TABLET BY MOUTH DAILY AT LEAST 30 MINUTES PRIOR TO FIRST MEAL OF THE DAY OR OTHER MEDICATIONS 90 Tablet 3 12/20/2021 3 Active documented as of this encounter (statuses as of 10/17/2022) Active Problems Problem Noted Date Type 2 diabetes mellitus wit h diabetic peripheral angiopathy without gangrene, with long-term current use of insulin 04/20/2022 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 Stated has power of consumer attorney. Advised with out signed release on file can not discuss medical information. Son advised will contact sister. Can contact pt son at [phone] for follow up documented in this encounter Plan of Treatment Upcoming Encounters Date Type Specialty Care Team Description 10/21/2022 Office Visit Family Medicine Shell III, Mike Acosta MD [address] [place] [address] Health Maintenance Due Date Last Done Comments [...] D LEVEL ONCE IN A LIFETIME-USE SMARTSET# [id number] Completed 10/31/2018, 12/26/2013, 11/09/2010 GARDASIL-HPV IMMUNIZATION SERIES Aged Out No longer eligible based on patient's age to complete this topic Hepatitis B Aged Out No longer eligi ble based on patient's age to complete this topic MENINGOCOCCAL (MENACTRA/MENVEO) Aged Out No longer eligible based on patient's age to complete this topic documented as of this encounter Medical Devices Implanted Type Area Acetylene Torch Solderer Device Identifier Shelf Expiration Date Model / Serial / Lot Lens 22.0 Sn60wf - [id number] Implanted:Qty: 1 on 07/19/2011 at [facility] Left: Eye [employer] 01/08/2016 SN60WF.220 / [id number] / Lens 20.0 Sn60wf - [id number] Implanted:Qty: 1 on 10/18/2011 at [facility] Right: Eye [employer] 05/10/2016 SN60WF.200 / [id number] / documented as of this encounter Care Teams Events Manager Relationship Specialty Start Date End Date Mike Goff III, MD [address] [place] [address], [place] [address] PCP - General Family Medicine 12/19/17 documented as of this encounter
--- OUTSIDE RECORDS SUMMARY | 2023-03-07 17:16 | External Medical Summary | Summary of Care ---
Author Name Unknown Organization [facility] Address [address] [facility] [address] Phone [phone] Care Team Providers Care Substation Engineer Name Role Phone Shell LESLIE MD, Mike Acosta Primary Care Provider [phone] Reason for Visit * Reason Onset Date Comments FYI 10/14/2022 Encounter Details Date Type Department Care Team Description 10/14/2022 Telephone Family Practice [facility] [address] [facility] [place] [address] Mike Goff III, MD [address] [facility] [place] [address] FYI Allergies Active Allergy Reactions Severity Noted [...] 2 08/06/2013 Active Blood Glucose Monitoring Suppl (KinveyUCH ULTRA MINI) w/Device KIT Use as directed [...] Tablet 3 01/27/2022 Active UltiCare Mini Pen [place] 31G X 6 MM (Insulin Pen Needle)Indications:T ype 2 diabetes mellitus with hemoglobin A1c goal of 7.0%-8.0% (HCC) USE DIRECTED ONCE DAILY 100 Each 3 02/11/2022 Active Allele BiotechTouch UltraSoft LancetsIndications:T ype 2 diabetes mellitus with [...] hemoglobin A1c goal of less than 8.0% (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 Pt's son is concerned. Please advise. [phone] Portillo Elliott documented in this encounter Plan of Treatment Upcoming Encounters Date Type Specialty Care Team Description 10/21/2022 Office Visit Family Medicine [place] III, Mike Acosta MD [address] [place] [address] Health Maintenance Due Date Last Done Comments [...] D LEVEL ONCE IN A LIFETIME-USE SMARTSET# [id number] Completed 10/31/2018, 12/26/2013, 11/09/2010 GARDASIL-HPV IMMUNIZATION SERIES Aged Out No longer eligible based on patient's age to complete this topic Hepatitis B Aged Out No longer eligi ble based on patient's age to complete this topic MENINGOCOCCAL (MENACTRA/MENVEO) Aged Out No longer eligible based on patient's age to complete this topic documented as of this encounter Medical Devices Implanted Type Area Elevator Tender Device Identifier Shelf Expiration Date Model / Serial / Lot Lens 22.0 Sn60wf - [id number] Implanted:Qty: 1 on 07/19/2011 at [facility] Left: Eye [employer] 01/08/2016 SN60WF.220 / [id number] / Lens 20.0 Sn60wf - [id number] Implanted:Qty: 1 on 10/18/2011 at [facility] Right: Eye [employer] 05/10/2016 SN60WF.200 / [id number] / documented as of this encounter Care Teams Substation Engineer Relationship Specialty Start Date End Date Mike Goff III, MD [address] [facility] [place] [address] PCP - General Family Medicine 12/19/17 documented as of this encounter
[2023-03-07] MEDS: INSULIN ASPART PER UNIT CHARGE SC SCH (20:35)
[2023-03-07] MEDS: busPIRone 5 MG TAB PO SCH (21:13)
[2023-03-07] MEDS: DOCUSATE SODIUM 100 MG CAP PO SCH (21:13)
[2023-03-07] MEDS: CALCIUM 600MG + VIT D 400 IU TAB PO SCH (21:14)
[2023-03-07] MEDS: HEPARIN SOD 5,000 UNIT/0.5 ML VIAL SQ SCH (21:14)
[2023-03-08] MEDS: LEVOTHYROXINE SODIUM 75 MCG TABLET PO SCH (05:52)
[2023-03-08 07:19] LABS: Hematocrit (blood only) 39.5 % (37.0-47.0); Hemoglobin 13.3 g/dl (12.0-16.0); Mean Corpuscular Hemoglobin 31.6 pg (25.0-34.0); Mean Corpuscular Hgb Conc 33.7 g/dL (32.0-36.0); Mean Corpuscular Volume 93.8 fL (80.0-100.0); Mean Platelet Volume 8.8 fL (9.4-12.4); Platelet Count 302 K/uL (130-400); RDW Coefficient of Variation 12.8 % (11.5-14.5); RDW Standard Deviation 44.1 fL (36.4-46.3); Red Blood Count 4.21 M/uL (4.20-5.40); White Blood Count 3.27 K/ul (4.8-10.8)
[2023-03-08 07:48] LABS: Albumin Globulin Ratio 1.6 (0.9-2); Albumin Level 3.8 gm/dl (3.4-5.0); BUN Creatinine Ratio 23.4 (10-20); Bilirubin,Total 0.6 mg/dl (0.2-1.0); Calcium 8.8 mg/dl (8.6-10.3); Creatinine Clr Calc Pharmacy 54.5 ml/min; Est GFR (African American) 93.6 ml/min; Est GFR (Non-African American) 80.8 ml/min; Globulin 2.4 gm/dl (2.5-4.0); Potassium 4.2 mmol/L (3.5-5.1); Total Protein 6.2 gm/dl (6.0-8.3)
[2023-03-08] MEDS: CLOPIDOGREL BISULFATE 75 MG TAB PO SCH (07:49)
[2023-03-08] MEDS: DOCUSATE SODIUM 100 MG CAP PO SCH ×2 (07:49→20:46)
[2023-03-08] MEDS: MULTIVITAMIN TAB PO SCH (07:49)
[2023-03-08] MEDS: MAGNESIUM OXIDE 400 MG TAB PO SCH (07:50)
[2023-03-08] MEDS: busPIRone 5 MG TAB PO SCH ×2 (07:50→20:46)
[2023-03-08] MEDS: FERROUS GLUCONATE 324 MG TAB PO SCH (07:50)
[2023-03-08] MEDS: HEPARIN SOD 5,000 UNIT/0.5 ML VIAL SQ SCH ×2 (07:50→20:46)
[2023-03-08] MEDS: CALCIUM 600MG + VIT D 400 IU TAB PO SCH ×2 (07:50→20:46)
[2023-03-08] MEDS: INSULIN ASPART PER UNIT CHARGE SC SCH ×4 (08:44→20:49)
[2023-03-08] MEDS: LANTUS PER UNIT CHARGE SQ SCH (08:52)
--- NOTE | 2023-03-08 17:23 | Hospitalist Progress Note ---
Date of Service March 08, 2023 Assessment & Plan (1) Nausea vomiting and diarrhea: Plan 88-year-old female with PMH of type 2 diabetes, acquired hypothyroidism, hypertension, unspecified dementia, history of CVA, statin intolerance and other medical problems listed below who was brought in by her son due to nausea/vomiting and need for placement. She is being managed for the following: (1) Nausea vomiting and diarrhea: Patient denies any current N/V although dry heaving on arrival to ED, no diarrhea since arrival CT abd/pelvis without acute infectious or inflammatory findings are identified in the abdomen or pelvis. Moderate constipation. There are subacute appearing fractures of the sacrum and the right 10th rib. Correlate clinically. C diff and stool cultures added , uncollected. Pt eating ok per RN, adv diet as colton. (2) Unspecified dementia, moderate, without behavioral disturbance, psychotic disturbance, mood disturbance, and anxiety: CT head with No acute intracranial findings. No change in appearance of the brain Patient A&Ox3 on admission, poor insight Continue buspirone (3) Type 2 diabetes mellitus: Plan: A1c 7.7 in October 2022 Hold home agents SSI while in-patient BSG AC HS (4) Hypothyroidism: Chronic, stable. Continue levothyroxine (5) Hypertension: BP mildly elevated at presentation. Not on any antihypertensives at this time. Multiple allergies listed. Continue to monitor (6) History of CVA (cerebrovascular accident): H/o ischemic VBA thalamic stroke in 2013 DVT Ppx: SQ heparin Q12 Code status: DNR/DNI PCP: Shell Dispo: Admitted to med/surg, will need placement Updated pt's dtr roland quinn ([phone]). answered all her questions. 10 min. Admission and Anticipated Discharge Date Admission Date: March 07, 2023 Subjective Patient was seen and examined at bedside. Patient was lying in bed, on room air, NAD, reports 1 bowel movement yesterday. Per RN no nausea or vomiting, no bowel movements/diarrhea, eating fairly okay. Patient reports having 1 episode of loose stool yesterday, denies abdominal pain or sore throat or cough or chills or chest pain. Physical Exam Physical Exam: GENERAL: Alert and oriented x3. NAD, on RA. Poor insight HEENT: No pallor, no icterus. Pupils equal, round and reactive to light. Oral mucosa moist. NECK: No JVD, no neck masses. HEART: S1 and S2 heard. Regular rate and rhythm. No murmur, no gallop. RESPIRATORY SYSTEM: Normal AP diameter. No accessory muscle use. No wheezing, no crackles. ABDOMEN: Soft, bowel sounds present, nontender, no distention. CENTRAL NERVOUS SYSTEM: No facial droop. Speech is clear. Obeys simple commands. Moves extremities. EXTREMITIES: No edema, no erythema seen. Results & Data Results & Data Vital Signs (Past 12 Hours) Vital Signs Temp Pulse Resp BP Pulse Ox O2 Del Method 03/08/23 14:44 36.7 C 79 18 135/79 96 Room Air 03/08/23 08:26 36.4 C L 76 18 147/72 H 97 Room Air
[2023-03-09] MEDS: LEVOTHYROXINE SODIUM 75 MCG TABLET PO SCH (04:53)
[2023-03-09 08:00] LABS: Hematocrit (blood only) 38.2 % (37.0-47.0); Hemoglobin 13.1 g/dl (12.0-16.0); Mean Corpuscular Hemoglobin 31.2 pg (25.0-34.0); Mean Corpuscular Hgb Conc 34.3 g/dL (32.0-36.0); Mean Platelet Volume 8.7 fL (9.4-12.4); Platelet Count 298 K/uL (130-400); RDW Coefficient of Variation 12.5 % (11.5-14.5); RDW Standard Deviation 41.7 fL (36.4-46.3)
[2023-03-09] MEDS: CALCIUM 600MG + VIT D 400 IU TAB PO SCH ×2 (08:06→20:37)
[2023-03-09] MEDS: MAGNESIUM OXIDE 400 MG TAB PO SCH (08:06)
[2023-03-09] MEDS: MULTIVITAMIN TAB PO SCH (08:06)
[2023-03-09] MEDS: FERROUS GLUCONATE 324 MG TAB PO SCH (08:06)
[2023-03-09] MEDS: CLOPIDOGREL BISULFATE 75 MG TAB PO SCH (08:07)
[2023-03-09] MEDS: busPIRone 5 MG TAB PO SCH ×2 (08:07→20:37)
[2023-03-09] MEDS: HEPARIN SOD 5,000 UNIT/0.5 ML VIAL SQ SCH ×2 (08:10→20:37)
[2023-03-09 08:16] LABS: BUN Creatinine Ratio 16.7 (10-20); Calcium 8.7 mg/dl (8.6-10.3); Creatinine Clr Calc Pharmacy 58.1 ml/min; Est GFR (African American) 95.7 ml/min; Est GFR (Non-African American) 82.5 ml/min
[2023-03-09] MEDS: LANTUS PER UNIT CHARGE SQ SCH (08:47)
[2023-03-09] MEDS: DOCUSATE SODIUM 100 MG CAP PO SCH ×2 (08:47→20:40)
[2023-03-09] MEDS: INSULIN ASPART PER UNIT CHARGE SC SCH ×4 (08:47→20:47)
--- NOTE | 2023-03-09 15:47 | XRay Report ---
XR chest 1V portable CLINICAL HISTORY: req'd for placement, tb screening TECHNIQUE: Single frontal radiograph of the chest was obtained. Comparison: Comparison is made to chest radiograph 10/23/2022 FINDINGS: No lines and tubes are seen. The cardiomediastinal silhouette is normal. The lungs are clear. No evid ence of pleural effusion or pneumothorax. IMPRESSION: No acute chest disease. In particular no evidence of tuberculous disease. ACT 112: Negative or not required by law. Electronically signed by: Roddy Mercado M.D. 03/09/2023 3:46 PM
--- NOTE | 2023-03-09 16:21 | Hospitalist Progress Note ---
Date of Service March 09, 2023 Assessment & Plan (1) Nausea vomiting and diarrhea: Plan 88-year-old female with PMH of type 2 diabetes, acquired hypothyroidism, hypertension, unspecified dementia, history of CVA, statin intolerance and other medical problems listed below who was brought in by her son due to nausea/vomiting and need for placement. She is being managed for the following: (1) Nausea vomiting and diarrhea: Patient denies any current N/V although dry heaving on arrival to ED, no diarrhea since arrival CT abd/pelvis without acute infectious or inflammatory findings are identified in the abdomen or pelvis. Moderate constipation. There are subacute appearing fractures of the sacrum and the right 10th rib. Correlate clinically. C diff and stool cultures added , uncollected. Pt eating ok per RN, adv diet as colton. No diarrhea. (2) Unspecified dementia, moderate, without behavioral disturbance, psychotic disturbance, mood disturbance, and anxiety: CT head with No acute intracranial findings. No change in appearance of the brain Patient A&Ox3 on admission, poor insight Continue buspirone (3) Type 2 diabetes mellitus: Plan: A1c 7.7 in October 2022 Hold home agents SSI while in-patient BSG AC HS (4) Hypothyroidism: Chronic, stable. Continue levothyroxine (5) Hypertension: BP mildly elevated at presentation. Not on any antihypertensives at this time. Multiple allergies listed. Continue to monitor (6) History of CVA (cerebrovascular accident): H/o ischemic VBA thalamic stroke in 2013 DVT Ppx: SQ heparin Q12 Code status: DNR/DNI PCP: Shell Dispo: Admitted to med/surg, will need placement. Awaiting placement. Updated pt's dtr roland quinn ([phone]). answered all her questions. 10 min. Admission and Anticipated Discharge Date Admission Date: March 07, 2023 Subjective Patient was seen and examined at bedside. Patient was sitting up in chair, on room air, NAD, reports no diarrhea or vomiting or nausea. Patient denies abdominal pain or sore throat or cough or chills or chest pain. Physical Exam Physical Exam: GENERAL: Alert and oriented x3. NAD, on RA. Poor insight HEENT: No pallor, no icterus. Pupils equal, round and reactive to light. Oral mucosa moist. NECK: No JVD, no neck masses. HEART: S1 and S2 heard. Regular rate and rhythm. No murmur, no gallop. RESPIRATORY SYSTEM: Normal AP diameter. No accessory muscle use. No wheezing, no crackles. ABDOMEN: Soft, bowel sounds present, nontender, no distention. CENTRAL NERVOUS SYSTEM: No facial droop. Speech is clear. Obeys simple commands. Moves extremities. EXTREMITIES: No edema, no erythema seen. Results & Data Results & Data Vital Signs (Past 12 Hours) Vital Signs Temp Pulse Resp BP Pulse Ox O2 Del Method 03/09/23 15:52 36.4 C 70 16 130/74 98 Room Air 03/09/23 07:59 36.3 C L 72 18 148/70 H 95 Room Air
[2023-03-10] MEDS: LEVOTHYROXINE SODIUM 75 MCG TABLET PO SCH (05:57)
[2023-03-10] MEDS: CALCIUM 600MG + VIT D 400 IU TAB PO SCH (08:34)
[2023-03-10] MEDS: busPIRone 5 MG TAB PO SCH (08:34)
[2023-03-10] MEDS: MULTIVITAMIN TAB PO SCH (08:34)
[2023-03-10] MEDS: HEPARIN SOD 5,000 UNIT/0.5 ML VIAL SQ SCH (08:34)
[2023-03-10] MEDS: FERROUS GLUCONATE 324 MG TAB PO SCH (08:34)
[2023-03-10] MEDS: CLOPIDOGREL BISULFATE 75 MG TAB PO SCH (08:35)
[2023-03-10] MEDS: MAGNESIUM OXIDE 400 MG TAB PO SCH (08:35)
[2023-03-10] MEDS: LANTUS PER UNIT CHARGE SQ SCH (08:43)
[2023-03-10] MEDS: INSULIN ASPART PER UNIT CHARGE SC SCH ×2 (08:44→12:38)
[2023-03-10] MEDS: DOCUSATE SODIUM 100 MG CAP PO SCH (08:45)
--- NOTE | 2023-03-10 11:18 | Discharge Summary ---
Discharge Summary Date of Service March 10, 2023 Notes For Next Care Provider See Summary Below Medication Changes From Visit None Admission HPI Per Admitting Provider This is an 88-year-old female with PMH of type 2 diabetes, acquired hypothyroidism, hypertension, unspecified dementia, history of CVA, statin intolerance and other medical problems listed below who was brought in by her son due to nausea/vomiting and need for placement. Patient states reason she is here is "my bowels are moving right". Per ED sign out, patient was actively dry heaving when she first presented here. Patient states her son wants her to be moved to a facility. Strong preference for us to only speak with her son Mike as she is having conflict with other son at the moment. Does not know Mike's cell phone or work phone and he is not present at bedside. States she ambulates independently and is currently comfortable, without issue. Denies any fever, chills, lightheadedness, headache, chest pain, shortness of breath, dysuria or diarrhea. No nausea, vomiting or abdominal pain at this time. Unsure of her home medications and does not think she took them prior to arrival. Admission Exam Per Admitting Provider General Appearance: WD/WN, vitals as above, NAD, sitting up in bed, conversing easily, poor insight Head: normocephalic, atraumatic Eyes: normal inspection, PERRL, conjunctivae normal, anicteric sclerae ENT: external ear and nose normal, oropharynx normal Neck: normal visual inspection, trachea midline, no thyromegaly Respiratory: normal respiratory effort, lungs clear to auscultation, no wheeze, rales, rhonchi. No accessory muscle use Cardiovascular: regular rate, rhythm, no murmur, normal peripheral pulses, no BLE edema. Vessels: no JVD Chest: normal inspection of chest Abdomen/GI: normal bowel sounds, soft, nontender, no hepatosplenomegaly Extremities/Musculoskeletal: no cyanosis or clubbing, extremities motor strength 5/5 Neurologic: PERRL, EOMI, accommodation nl, no face palsy, no dysarthria, CN's II-XI intact bilaterally and moves all extremities Psychiatric: A+Ox3, intermittent agitation Skin: no rashes, normal color, warm/dry Principal Dx & Hospital Course #1 = Principal Diagnosis (1) Nausea vomiting and diarrhea: (2) Dementia: (3) Unspecified dementia, moderate, without behavioral disturbance, psychotic disturbance, mood disturbance, and anxiety: (4) Osteoporosis: (5) Hypertension: (6) Type 2 diabetes mellitus: (7) Hypothyroidism: Plan 88-year-old female with PMH of type 2 diabetes, acquired hypothyroidism, hypertension, unspecified dementia, history of CVA, statin intolerance and other medical problems listed below who was brought in by her son due to nausea/vomiting and need for placement. She was being managed for the following: (1) Nausea vomiting and diarrhea: Patient denies any current N/V although dry heaving on arrival to ED, no diarrhea since arrival CT abd/pelvis significnat for moderate constipation and subacute appearing fractures of the sacrum and the right 10th rib. Pt without pain. C diff and stool cultures were added and remained uncollected as pt had no further episodes of diarrhea. Remained stable, tolerating diet. (2) Unspecified dementia, moderate, without behavioral disturbance, psychotic disturbance, mood disturbance, and anxiety: CT head with no acute changes Patient A&Ox3 on admission, poor insight Continue buspirone for mood (3) Type 2 diabetes mellitus: A1c 7.7 in October 2022 home agents were held while hospitalized. Resume after discharge (4) Hypothyroidism: Chronic, stable. Continue levothyroxine (5) Hypertension: BP mildly elevated at presentation. Not on any antihypertensives at this time. Multiple allergies listed. Continue to monitor (6) History of CVA (cerebrovascular accident): H/o ischemic VBA thalamic stroke in 2013. Continue Plavix Continue other home meds as tolerated. PCP follow up for further monitoring after discharge encouraged. Discharge Exam General: Alert, oriented. No acute distress Skin: No noted rashes or bruises Psych: Appropriate mood and affect Neuro: No gross deficits HEENT: NC/AT Chest: Nontender to palpation. CV: RRR, Normal s1, s2. No murmurs appreciated Resp: Breath sounds clear bilaterally, no increased effort of breathing. Abdomen: Soft, nontender, nondistended. Extremities: No edema in lower extremities bilaterally. Updated Medication List Medication Instructions Recorded Confirmed Type clopidogrel 75 mg tablet 75 mg PO DAILY 02/28/18 03/07/23 History levothyroxine 75 mcg tablet 75 mcg PO DAILY 02/28/18 03/07/23 History alendronate 70 mg tablet 70 mg PO WK 02/03/22 03/07/23 History insulin glargine 100 unit/mL (3 4 unit subcut DAILY 06/02/22 03/07/23 History mL) subcutaneous pen (Lantus Solostar U-100 Insulin) buspirone 5 mg tablet 5 mg PO AMHS 03/07/23 03/07/23 History calcium carbonate 600 mg-vitamin 1 cap PO BID 03/07/23 03/07/23 History D3 5 mcg (200 unit) capsule (Calcium 600 + D(3)) ferrous gluconate 240 mg (27 mg 240 mg PO DAILY 03/07/23 03/07/23 History iron) tablet magnesium oxide 500 mg tablet 500 mg PO DAILY 03/07/23 03/07/23 History multivitamin 1 tab PO QAM 03/07/23 03/07/23 History Hospital Stay Data Consultations 03/07/23 14:02 ED Decision to Admit Stat Diagnostic Imagining Performed 03/07/23 11:24 CT abd pelvis IV con only Stat CT head/brain wo con Stat Abdomen/Pelvis CT 03/07/23 11:24 CT SCAN OF THE ABDOMEN AND PELVIS WITH IV CONTRAST CLINICAL HISTORY: Generalized abdominal pain. COMPARISON STUDY: Abdominal CT dated 02/12/2022. TECHNIQUE: Following the IV administration of 90 cc of Optiray 320, CT scan of the abdomen and pelvis is performed from the lung bases to the proximal femora. Images are reviewed in the axial, sagittal, and coronal planes. IV contrast was administered without complication. A dose lowering technique was utilized adhering to the principles of ALARA. CT DOSE: 1076.04 mGy.cm FINDINGS: Lung bases: The heart is top normal in size noting trace pericardial effusion. The coronary arteries and mitral annulus are densely calcified. The lung bases are clear noting bibasilar scarring/atelectasis. A fat-containing Bochdalek hernia is seen on the right. Liver: The contrast-enhanced liver is normal in size, contour, and attenuation. There is no intrahepatic biliary ductal dilatation. The hepatic veins and portal veins are patent. Gallbladder: Unremarkable. Spleen: Normal in size and attenuation. Pancreas: Unremarkable. Adrenal glands: Unremarkable. Kidneys: The contrast enhanced kidneys are normal in size and without hydronephrosis. The kidneys enhance symmetrically. Scattered subcentimeter cortical hypodensities likely represent cysts but are too small for definitive characterization. Abdominal vasculature: The abdominal aorta is normal in course and caliber noting moderate atherosclerotic calcification. Bowel: There is moderate colonic fecal retention. No bowel obstruction is seen. The appendix is not visualized. Peritoneum: There is no intraperitoneal free air or abdominal ascites. Lymphadenopathy: None. Pelvic viscera: The bladder is mildly distended but otherwise normal in appearance. The uterus is enlarged and heterogeneous, and is infiltrated by calcified fibroids. No adnexal lesion is seen. Skeletal structures: The skeletal structures are osteopenic. There are bilateral pars defects at L5 with grade 1 anterolisthesis L5-S1. Moderate to advanced lumbosacral spondylosis is observed. No lytic or blastic lesions are seen. There is a subacute/healing sacral fracture seen on axial image #241. There is a subacute appearing right lateral 10th rib fracture seen on image #124. IMPRESSION: 1. No acute infectious or inflammatory findings are identified in the abdomen or pelvis. 2. Moderate constipation. 3. There are subacute appearing fractures of the sacrum and the right 10th rib. Correlate clinically. 4. Fibroid uterus. 5. Additional findings as above. ACT 112: Negative or not required by law. Electronically signed by: Yfn Prescott M.D. 03/07/2023 1:[address] 03/07/23 11:24 CT OF THE HEAD WITHOUT CONTRAST CLINICAL HISTORY: Confusion. COMPARISON STUDY: MRI of the brain June 13, 2013. Head CT October 23, 2021. TECHNIQUE: Helical axial images of the head were obtained without IV contrast. Automated exposure control was utilized for the study. A dose lowering technique was utilized adhering to the principles of ALARA. FINDINGS: No acute intracranial hemorrhage, midline shift or mass effect is present. The ventricular system is stable. White matter hypodensities are unchanged and favor small vessel disease. The basal cisterns are patent. No extr a-axial collections are present. There are no findings to suggest acute dural sinus thrombosis or acute territorial infarct. No significant calvarial abnormalities are present. Visualized portions of the sinuses and mastoid air cells are clear. IMPRESSION: No acute intracranial findings. No change in appearance of the brain. ACT 112: Negative or not required by law. Electronically signed by: Sammy Florez M.D. 03/07/2023 1:15 PM Chest X-Ray 03/09/23 14:49 XR chest 1V portable CLINICAL HISTORY: req'd for placement, tb screening TECHNIQUE: Single frontal radiograph of the chest was obtained. Comparison: Comparison is made to chest radiograph 10/23/2022 FINDINGS: No lines and tubes are seen. The cardiomediastinal silhouette is normal. The lungs are clear. No evidence of pleural effusion or pneumothorax. IMPRESSION: No acute chest disease. In particular no evidence of tuberculous disease. ACT 112: Negative or not required by law. Electronically signed by: Roddy Mercado M.D. 03/09/2023 3:46 PM Pending Results Patient Have Any Pending Studies at Discharge: Yes Discharge Instructions Given to Patient (Per Discharging Provider) Ms. Wallis, You were admitted with concerns for excessive nausea and vomiting that has since resolved. You are currently being discharged to the [facility]. No changes were made to your medications. Please take them as prescribed. It was a pleasure taking care of you while you were here! Total Time Total Time Spent Total Time Spent (In Minutes): > 30 minutes
[2023-03-12] MEDS ORDERED: ALENDRONATE SODIUM 70 MG TAB PO SCH (09:00)
== END 2023-03-10 14:29 | DRG 392 ==
LOC: ED 11:10 → SUATTDRO 14:14 → EDINP 14:14 → 3N 18:22